=== PATIENT | female | born 1940 | race Caucasian/White ===

== ENCOUNTER 2018-10-03 14:11 | Outpatient (REF) | payer OTHER, MEDICAID, SELFPAY ==
[2018-10-03 22:39] LABS: ALT 26 U/L (12-78); AST 19 U/L (15-37); Albumin 3.7 g/dL (3.4-5.0); Alkaline Phosphatase 74 U/L (46-116); Anion Gap 11.6 mmol/L (3-11); BUN 18 mg/dL (7-18); Bilirubin, Total 0.6 mg/dL (0.2-1.0); CO2 28.4 mmol/L (21.0-32.0); Calcium 9.2 mg/dL (8.5-10.1); Chloride 103 mmol/L (98-107); Glucose 110 mg/dL (70-100); Sodium 143 mmol/L (136-145); Total Protein 6.9 g/dL (6.4-8.2)
== END 2018-10-03 14:31 ==
LOC: NCHCN 14:11
PROVIDERS: PCP Family Medicine; Visit Provider Family Medicine
DX: E11.9 Type 2 diabetes mellitus without complications (principal); I10 Essential (primary) hypertension; E78.5 Hyperlipidemia, unspecified; I70.0 Atherosclerosis of aorta; E66.01 Morbid (severe) obesity due to excess calories
CPT/HCPCS: 80053

== ENCOUNTER 2019-08-21 15:08 | Outpatient (REF) | payer OTHER, MEDICAID, SELFPAY ==
[2019-08-21 20:57] LABS: Anion Gap 7.1 mmol/L (3-11); BUN 14 mg/dL (7-18); CO2 31.9 mmol/L (21.0-32.0); CREATININE 0.78 mg/dL (0.55-1.02); Calcium 9.4 mg/dL (8.5-10.1); Chloride 99 mmol/L (98-107); Glucose 176 mg/dL (74-106); Potassium 3.4 mmol/L (3.5-5.1); Sodium 138 mmol/L (136-145)
== END 2019-08-21 15:28 ==
LOC: NCHCN 15:08
PROVIDERS: PCP Family Medicine; Visit Provider Family Medicine
DX: I10 Essential (primary) hypertension (principal); E78.5 Hyperlipidemia, unspecified
CPT/HCPCS: 80048

== ENCOUNTER 2020-03-21 18:27 | Outpatient (REF) | payer OTHER, MEDICAID, SELFPAY | END 2020-03-21 18:47 | LOC: NCHCN 18:27 | PROVIDERS: PCP Family Medicine; Visit Provider Registered Nurse | DX: R31.9 Hematuria, unspecified (principal) | CPT/HCPCS: 87086 ==

== ENCOUNTER 2020-05-14 19:43 | Outpatient (REF) | payer OTHER, MEDICAID, SELFPAY ==
[2020-05-14 22:21] LABS: Anion Gap 9.8 mmol/L (3-11); BUN 15 mg/dL (7-18); CO2 30.2 mmol/L (21.0-32.0); CREATININE 0.7 mg/dL (0.55-1.02); Calcium 9.8 mg/dL (8.5-10.1); Chloride 99 mmol/L (98-107); Glucose 123 mg/dL (74-106); Potassium 3.4 mmol/L (3.5-5.1); Sodium 139 mmol/L (136-145)
== END 2020-05-14 19:44 | disposition home or self-care (01) ==
LOC: NCHCN 19:43
PROVIDERS: PCP Family Medicine; Visit Provider Family Medicine
DX: I10 Essential (primary) hypertension (principal)
CPT/HCPCS: 80048

== ENCOUNTER 2020-08-19 15:13 | Outpatient (REF) | payer OTHER, MEDICAID, SELFPAY ==
[2020-08-19 14:31] LABS: ALT 15 U/L (14-59); AST 14 U/L (15-37); Albumin 3.6 g/dL (3.4-5.0); Alkaline Phosphatase 76 U/L (46-116); Bilirubin, Total 0.7 mg/dL (0.2-1.0); Calculated LDL 115 mg/dL (<100); Cholesterol 185 mg/dL (<200); HDL Cholesterol 54 mg/dL (40-60); Total Protein 6.9 g/dL (6.4-8.2); Triglyceride 83 mg/dL (<150)
[2020-08-19 14:44] LABS: Bilirubin, Direct 0.2 mg/dL (0.0-0.2)
[2020-08-19 15:23] LABS: Hemoglobin A1C 6.1 % (<5.7)
== END 2020-08-19 15:14 | disposition home or self-care (01) ==
LOC: NCHCN 15:13
PROVIDERS: PCP Family Medicine; Visit Provider Family Medicine
DX: E11.49 Type 2 diabetes mellitus with other diabetic neurological complication (principal); E78.5 Hyperlipidemia, unspecified; E66.01 Morbid (severe) obesity due to excess calories; I10 Essential (primary) hypertension
CPT/HCPCS: 80061; 80076; 83036

== ENCOUNTER 2021-02-06 20:58 | Outpatient (REF) | payer MEDICARE, MEDICAID, SELFPAY ==
[2021-02-06 21:31] LABS: COMMENT (LAB VIEW ONLY) 47.36 mg/dL; Microalb ug/mg Crea 13.7 ug/mg Cr
== END 2021-02-06 20:59 | disposition home or self-care (01) ==
LOC: NCHCN 20:58
PROVIDERS: PCP Family Medicine; Visit Provider Family Medicine
DX: E11.49 Type 2 diabetes mellitus with other diabetic neurological complication (principal); E66.01 Morbid (severe) obesity due to excess calories
CPT/HCPCS: 82043; 82570

== ENCOUNTER 2021-09-04 16:31 | Outpatient (REF) | payer MEDICARE, MEDICAID, SELFPAY ==
[2021-09-04 14:24] LABS: ALT 14 U/L (14-59); AST 11 U/L (15-37); Albumin 3.8 g/dL (3.4-5.0); Alkaline Phosphatase 85 U/L (46-116); BUN 14 mg/dL (7-18); Bilirubin, Total 0.9 mg/dL (0.2-1.0); CREATININE 0.7 mg/dL (0.55-1.02); Calcium 9.1 mg/dL (8.5-10.1); Calculated LDL 121 mg/dL (<100); Chloride 101 mmol/L (98-107); Cholesterol 189 mg/dL (<200); Glucose 120 mg/dL (74-106); HDL Cholesterol 58 mg/dL (40-60); Potassium 3.9 mmol/L (3.5-5.1); Sodium 141 mmol/L (136-145); Total Protein 6.9 g/dL (6.4-8.2); Triglyceride 51 mg/dL (<150)
== END 2021-09-04 16:32 | disposition home or self-care (01) ==
LOC: NCHCN 16:31
PROVIDERS: PCP Family Medicine; Visit Provider Family Medicine
DX: E11.49 Type 2 diabetes mellitus with other diabetic neurological complication (principal); I10 Essential (primary) hypertension; E66.01 Morbid (severe) obesity due to excess calories; E78.5 Hyperlipidemia, unspecified
CPT/HCPCS: 80053; 80061; 83036

== ENCOUNTER 2021-10-23 13:24 | Outpatient (REF) | payer MEDICARE, MEDICAID, SELFPAY ==
--- NOTE | 2021-10-23 11:30 | SKI_PTH ---
PATIENT: Remedios Toro LOC: [facility] U#:[id number] AGE/SX: 81/F ROOM: RE10/23/[address]: Betzaida Pina : 1940 BED: DIS: 10/23/2021 SPEC #: [id number] RECD: 10/26/21 12:28 STATUS: TONE RERaul #: [id number] HIEU: 10/23/21 11:[address]: Betzaida Pina DEPT: Surgical Specimen RECD BY: Vale Jasso Tissues: 1 - SKIN BIOPSY(SHAVE/PUNCH) Procedures: SKIN LEVEL 4 Comments: [id number]
== END 2021-10-23 13:25 | disposition home or self-care (01) ==
LOC: NCHCN 13:24
PROVIDERS: PCP Family Medicine; Visit Provider Family Medicine
DX: C44.722 Squamous cell carcinoma of skin of right lower limb, including hip (principal)
CPT/HCPCS: 88305

== ENCOUNTER 2022-09-14 13:14 | Outpatient (REF) | payer MEDICARE, MEDICAID, SELFPAY ==
[2022-09-14 21:56] LABS: ALT 15 U/L (14-59); AST 13 U/L (15-37); Albumin 3.8 g/dL (3.4-5.0); Alkaline Phosphatase 75 U/L (46-116); Anion Gap 7.8 mmol/L (3-11); BUN 12 mg/dL (7-18); Bilirubin, Total 0.7 mg/dL (0.2-1.0); CO2 31.2 mmol/L (21.0-32.0); CREATININE 0.6 mg/dL (0.55-1.02); Calcium 9.4 mg/dL (8.5-10.1); Calculated LDL 131 mg/dL (<100); Chloride 101 mmol/L (98-107); Cholesterol 200 mg/dL (<200); Estimated GFR 89.56 (mL/min/1.73m2); Glucose 111 mg/dL (74-106); HDL Cholesterol 58 mg/dL (40-60); Potassium 3.6 mmol/L (3.5-5.1); Sodium 140 mmol/L (136-145); Total Protein 7.6 g/dL (6.4-8.2); Triglyceride 57 mg/dL (<150)
[2022-09-14 22:54] LABS: COMMENT (LAB VIEW ONLY) 35.14 mg/dL; Microalb ug/mg Crea 9.7 ug/mg Cr
== END 2022-09-14 13:15 | disposition home or self-care (01) ==
LOC: NCHCN 13:14
PROVIDERS: PCP Family Medicine; Visit Provider Family Medicine
DX: E11.49 Type 2 diabetes mellitus with other diabetic neurological complication (principal); E78.5 Hyperlipidemia, unspecified; I10 Essential (primary) hypertension
CPT/HCPCS: 80053; 80061; 82043; 82570

== ENCOUNTER 2023-02-07 13:42 | Outpatient (REF) | payer MEDICARE, MEDICAID, SELFPAY ==
[2023-02-07 15:42] LABS: Anion Gap 6.9 mmol/L (3-11); BUN 17 mg/dL (7-18); CO2 32.1 mmol/L (21.0-32.0); CREATININE 0.7 mg/dL (0.55-1.02); Calcium 9.4 mg/dL (8.5-10.1); Chloride 98 mmol/L (98-107); Estimated GFR 85.76 (mL/min/1.73m2); Glucose 132 mg/dL (74-106); Potassium 3.2 mmol/L (3.5-5.1); Sodium 137 mmol/L (136-145)
== END 2023-02-07 13:43 | disposition home or self-care (01) ==
LOC: NCHCN 13:42
PROVIDERS: PCP Family Medicine; Visit Provider Family Medicine
DX: I10 Essential (primary) hypertension (principal)
CPT/HCPCS: 80048

== ENCOUNTER 2023-02-17 14:13 | Outpatient (REF) | payer MEDICARE, MEDICAID, SELFPAY ==
[2023-02-17 14:48] LABS: Anion Gap 5.8 mmol/L (3-11); BUN 14 mg/dL (7-18); CO2 31.2 mmol/L (21.0-32.0); CREATININE 0.7 mg/dL (0.55-1.02); Calcium 9.2 mg/dL (8.5-10.1); Chloride 101 mmol/L (98-107); Estimated GFR 85.76 (mL/min/1.73m2); Glucose 122 mg/dL (74-106); Potassium 3.9 mmol/L (3.5-5.1); Sodium 138 mmol/L (136-145)
== END 2023-02-17 14:14 | disposition home or self-care (01) ==
LOC: LBN 14:13
PROVIDERS: PCP Family Medicine; Visit Provider Family Medicine
DX: I11.0 Hypertensive heart disease with heart failure (principal); I48.91 Unspecified atrial fibrillation; E11.9 Type 2 diabetes mellitus without complications
CPT/HCPCS: 80048

== ENCOUNTER 2023-03-24 22:33 | Outpatient (REF) | payer MEDICARE, MEDICAID, SELFPAY ==
--- OUTSIDE RECORDS SUMMARY | 2023-03-24 22:37 | XMS_ITS | CCD ---
Author Name Unknown Address [address] [place] [address] [phone] Organization Unknown Address [address] [place] [address] [phone] Care Team Providers Care Glacing Machine Tender Name Role Phone ESTRADA FAULKNER Attending Physician [phone] ESTRADA FAULKNER Rounding (Secondary) Physician [phone] Vital Signs Unknown or Not Available. Allergies Allergy Code Allergy Type Reaction Status CODEINE 2670 Drug allergy flushing, HOT Active SULFA (sulfonamide) 0 Drug allergy MY FEET TURNE D COLD Active Procedures Unknown or Not Available. History of Immunizations Unknown or Not Available. Problems Problem Code Start Date Resolved Date Status Acute CHF 10802368 Active A-fib with RVR [id number] Activ e Swelling of bilateral lower extremities 039834717 Active History of small bowel obstruction 785857782921607469 01/29/2023 Resolved Diverticulitis 299085876 01/29/2023 Resolved HLD 79907916 01/29/2023 Resolved HTN 89348836 01/29/2023 Resolved BMI 40+ severely obese 840157433 01/29/2023 Re solved Mild persistent asthma 712066177 01/29/2023 Re solved Peripheral edema 665678784 01/29/2023 Resolved Osteoarthritis 051663067 01/29/2023 Resolved T2DM 06111286 01/29/2023 Resolved Squamous cell carcinoma of skin 017829736 01/03 Resolved Squamous cell carcinoma of skin 679080439 01/03 Resolved Results Unknown or Not Available. Active Medications Medication Code Dose Units Frequency Route Modificatio n Start Date/Time Valsartan 80 MG Oral Tablet 477331 1 TABLET DAILY ORAL 02/01 11:00 Prescription Detail TAKE 1 TABLET ORAL DAILY Metoprolol Succinate 50MG Oral Tablet, Extended Release 950911 3 TABLET DAILY ORAL 02/01/2023 10:59 Prescription Detail TAKE 3 TABLET ORAL DAILY Albuterol Sulfate HFA 0.09MG/1Actuat ion Inhalation Suspension 3217346 2 PUFF NEEDED INHALATION 02/02/20 10:58 Prescription Detail 2 PUFF INHALATION NEEDED Klor-Con M20 20MEQ Oral Tablet, Extended Release 9710830 20 MEQ DAILY WITH FOOD ORAL 02/01/2023 10:58 Prescription Detail TAKE 20 MEQ ORAL DAILY WITH FOOD metFORMIN HCl 500MG Oral Tablet 877483 500 MILLIGRAMS DAILY ORAL 10:58 Prescription Detail TAKE 500 MILLIGRAMS ORAL DAILY Furosemide 40MG Oral Tablet 451160 40 MILLIGRAMS BID (0800 AND 1459) ORAL 02/01/2023 10:57 Prescription Detail TAKE 40 MILLIGRAMS ORAL BID (0800 AND 14 59) Eliquis 5MG Oral Tablet 1387399 5 MILLIGRAMS TWICE A DAY ORAL 02/01/2023 10:56 Prescription Detail TAKE 5 MILLIGRAMS ORAL TWICE A DAY Medications Administered During Visit Unknown or Not Available. Encounters Encounter Diagnosis Diagnosis Code Start Date Removal of dressing 522521097 01/05/2022 Social History Smoking Status Code Start Date End Date Never smoker [id number] Patient Decision Aids Unknown or Not Available. Discharge Instructions You were admitted to [facility] on 01/05/2022 08:30 with a principal diagnosis of Encounter for change or removal of surgical wound dressing You were discharged from [facility] on 01/05/2022 00:00 Should you have any questions prior to discharge, please contact a member of your healthcare team. If you have left the hospital and have any questions, please contact your primary care physician. Chief Complaint and Reason For Visit Unknown or Not Available. Function Status Unknown or Not Available. Plan of Care Unknown or Not Available. Referral/Transition of Care Unknown or Not Available.
--- OUTSIDE RECORDS SUMMARY | 2023-03-24 22:37 | XMS_ITS | CCD ---
Author Name Unknown Address [address] [place] [address] [phone] Organization Unknown Address [address] [place] [address] [phone] Care Team Providers Care Global Upstream Marketing Manager Name Role Phone ESTRADA FAULKNER Attending Physician [phone] ESTRADA FAULKNER Rounding (Secondary) Physician [phone] Vital Signs Unknown or Not Available. Allergies Allergy Code Allergy Type Reaction Status CODEINE 2670 Drug allergy flushing, HOT Active SULFA (sulfonamide) 0 Drug allergy MY FEET TURNE D COLD Active Procedures Unknown or Not Available. History of Immunizations Unknown or Not Available. Problems Problem Code Start Date Resolved Date Status Acute CHF 52932928 Active A-fib with RVR 283614390316226 Activ e Swelling of bilateral lower extremities 762986209 Active History of small bowel obstruction 168325511450521074 01/29/2023 Resolved Diverticulitis 525910269 01/29/2023 Resolved HLD 21785381 01/29/2023 Resolved HTN 90169265 01/29/2023 Resolved BMI 40+ severely obese 570677231 01/29/2023 Re solved Mild persistent asthma 099372599 01/29/2023 Re solved Peripheral edema 178502327 01/29/2023 Resolved Osteoarthritis 493422777 01/29/2023 Resolved T2DM 32990838 01/29/2023 Resolved Squamous cell carcinoma of skin 284782212 01/03 Resolved Squamous cell carcinoma of skin 805311658 01/03 Resolved Results Unknown or Not Available. Active Medications Medication Code Dose Units Frequency Route Modificatio n Start Date/Time Valsartan 80 MG Oral Tablet 514479 1 TABLET DAILY ORAL 02/01 11:00 Prescription Detail TAKE 1 TABLET ORAL DAILY Metoprolol Succinate 50MG Oral Tablet, Extended Release 084493 3 TABLET DAILY ORAL 02/01/2023 10:59 Prescription Detail TAKE 3 TABLET ORAL DAILY Albuterol Sulfate HFA 0.09MG/1Actuat ion Inhalation Suspension 2897043 2 PUFF NEEDED INHALATION 02/02/20 10:58 Prescription Detail 2 PUFF INHALATION NEEDED Klor-Con M20 20MEQ Oral Tablet, Extended Release 5857612 20 MEQ DAILY WITH FOOD ORAL 02/01/2023 10:58 Prescription Detail TAKE 20 MEQ ORAL DAILY WITH FOOD metFORMIN HCl 500MG Oral Tablet 870009 500 MILLIGRAMS DAILY ORAL 10:58 Prescription Detail TAKE 500 MILLIGRAMS ORAL DAILY Furosemide 40MG Oral Tablet 921049 40 MILLIGRAMS BID (0800 AND 1459) ORAL 02/01/2023 10:57 Prescription Detail TAKE 40 MILLIGRAMS ORAL BID (0800 AND 14 59) Eliquis 5MG Oral Tablet 5185672 5 MILLIGRAMS TWICE A DAY ORAL 02/01/2023 10:56 Prescription Detail TAKE 5 MILLIGRAMS ORAL TWICE A DAY Medications Administered During Visit Unknown or Not Available. Encounters Encounter Diagnosis Diagnosis Code Start Date Encounter for follow-up exam ination after completed treatment for malignant neoplasm Z08 03/02/2022 Social History Smoking Status Code Start Date End Date Never smoker [id number] Patient Decision Aids Unknown or Not Available. Discharge Instructions You were admitted to [facility] on 03/02/2022 11:49 with a principal diagnosis of Encounter for follow-up examination after completed treatment for malignant neoplasm You were discharged from [facility] on 03/02/2022 00:00 Should you have any questions prior [...]
--- OUTSIDE RECORDS SUMMARY | 2023-03-24 22:37 | XMS_ITS | CCD ---
Author Name Unknown Address [address] [place] [address] [phone] Organization Unknown Address [address] [place] [address] [phone] Care Team Providers Care Marketing Business Analyst Name Role Phone ESTRADA FAULKNER Attending Physician [phone] ESTRADA FAULKNER Rounding (Secondary) Physician [phone] Vital Signs Unknown or Not Available. Allergies Allergy Code Allergy Type Reaction Status CODEINE 2670 Drug allergy flushing, HOT Active SULFA (sulfonamide) 0 Drug allergy MY FEET TURNE D COLD Active Procedures Unknown or Not Available. History of Immunizations Unknown or Not Available. Problems Problem Code Start Date Resolved Date Status Acute CHF 96164310 Active A-fib with RVR 174862073872331 Activ e Swelling of bilateral lower extremities 700491945 Active History of small bowel obstruction 116603512192658417 01/29/2023 Resolved Diverticulitis 237884072 01/29/2023 Resolved HLD 16434275 01/29/2023 Resolved HTN 00095465 01/29/2023 Resolved BMI 40+ severely obese 318036912 01/29/2023 Re solved Mild persistent asthma 200967231 01/29/2023 Re solved Peripheral edema 637898257 01/29/2023 Resolved Osteoarthritis 904551440 01/29/2023 Resolved T2DM 62901625 01/29/2023 Resolved Squamous cell carcinoma of skin 373850433 01/03 Resolved Squamous cell carcinoma of skin 772834795 01/03 Resolved Results Unknown or Not Available. Active Medications Medication Code Dose Units Frequency Route Modificatio n Start Date/Time Valsartan 80 MG Oral Tablet 965853 1 TABLET DAILY ORAL 02/01 11:00 Prescription Detail TAKE 1 TABLET ORAL DAILY Metoprolol Succinate 50MG Oral Tablet, Extended Release 292963 3 TABLET DAILY ORAL 02/01/2023 10:59 Prescription Detail TAKE 3 TABLET ORAL DAILY Albuterol Sulfate HFA 0.09MG/1Actuat ion Inhalation Suspension 2922137 2 PUFF NEEDED INHALATION 02/02/20 10:58 Prescription Detail 2 PUFF INHALATION NEEDED Klor-Con M20 20MEQ Oral Tablet, Extended Release 0405453 20 MEQ DAILY WITH FOOD ORAL 02/01/2023 10:58 Prescription Detail TAKE 20 MEQ ORAL DAILY WITH FOOD metFORMIN HCl 500MG Oral Tablet 862392 500 MILLIGRAMS DAILY ORAL 10:58 Prescription Detail TAKE 500 MILLIGRAMS ORAL DAILY Furosemide 40MG Oral Tablet 420233 40 MILLIGRAMS BID (0800 AND 1459) ORAL 02/01/2023 10:57 Prescription Detail TAKE 40 MILLIGRAMS ORAL BID (0800 AND 14 59) Eliquis 5MG Oral Tablet 1398108 5 MILLIGRAMS TWICE A DAY ORAL 02/01/2023 10:56 Prescription Detail TAKE 5 MILLIGRAMS ORAL TWICE A DAY Medications Administered During Visit Unknown or Not Available. Encounters Encounter Diagnosis Diagnosis Code Start Date Removal of dressing 358024616 01/19/2022 Social History Smoking Status Code Start Date End Date Never smoker 561645428 Patient Decision Aids Unknown or Not Available. Discharge Instructions You were admitted to [facility] on 01/19/2022 10:20 with a principal diagnosis of Encounter for change or removal of surgical wound dressing You were discharged from [facility] on 01/19/2022 00:00 Should you have any questions prior [...]
--- OUTSIDE RECORDS SUMMARY | 2023-03-24 22:37 | XMS_ITS | CCD ---
Author Name Unknown Address [address] [place] [address] [id number] Organization Unknown Address [address] [place] [address] [phone] Care Team Providers Care Animal Shelter Manager Name Role Phone ESTRADA FAULKNER Attending Physician [phone] ESTRADA FAULKNER Rounding (Secondary) Physician [phone] Vital Signs Unknown or Not Available. Allergies Allergy Code Allergy Type Reaction Status CODEINE 2670 Drug allergy flushing, HOT Active SULFA (sulfonamide) 0 Drug allergy MY FEET TURNE D COLD Active Procedures Unknown or Not Available. History of Immunizations Unknown or Not Available. Problems Problem Code Start Date Resolved Date Status Acute CHF 92506697 Active A-fib with RVR 359537455690546 Activ e Swelling of bilateral lower extremities 712179290 Active History of small bowel obstruction 432921068596737604 01/29/2023 Resolved Diverticulitis 536544678 01/29/2023 Resolved HLD 02787636 01/29/2023 Resolved HTN 99289461 01/29/2023 Resolved BMI 40+ severely obese 252536004 01/29/2023 Re solved Mild persistent asthma 653550028 01/29/2023 Re solved Peripheral edema 589085494 01/29/2023 Resolved Osteoarthritis 446881094 01/29/2023 Resolved T2DM 84435606 01/29/2023 Resolved Squamous cell carcinoma of skin 410080667 01/03 Resolved Squamous cell carcinoma of skin 238506659 01/03 Resolved Results Unknown or Not Available. Active Medications Medication Code Dose Units Frequency Route Modificatio n Start Date/Time Valsartan 80 MG Oral Tablet 237298 1 TABLET DAILY ORAL 02/01 11:00 Prescription Detail TAKE 1 TABLET ORAL DAILY Metoprolol Succinate 50MG Oral Tablet, Extended Release 340067 3 TABLET DAILY ORAL 02/01/2023 10:59 Prescription Detail TAKE 3 TABLET ORAL DAILY Albuterol Sulfate HFA 0.09MG/1Actuat ion Inhalation Suspension 2868051 2 PUFF NEEDED INHALATION 02/02/20 10:58 Prescription Detail 2 PUFF INHALATION NEEDED Klor-Con M20 20MEQ Oral Tablet, Extended Release 4421978 20 MEQ DAILY WITH FOOD ORAL 02/01/2023 10:58 Prescription Detail TAKE 20 MEQ ORAL DAILY WITH FOOD metFORMIN HCl 500MG Oral Tablet 423136 500 MILLIGRAMS DAILY ORAL 10:58 Prescription Detail TAKE 500 MILLIGRAMS ORAL DAILY Furosemide 40MG Oral Tablet 349185 40 MILLIGRAMS BID (0800 AND 1459) ORAL 02/01/2023 10:57 Prescription Detail TAKE 40 MILLIGRAMS ORAL BID (0800 AND 14 59) Eliquis 5MG Oral Tablet 7624888 5 MILLIGRAMS TWICE A DAY ORAL 02/01/2023 10:56 Prescription Detail TAKE 5 MILLIGRAMS ORAL TWICE A DAY Medications Administered During Visit Unknown or Not Available. Encounters Encounter Diagnosis Diagnosis Code Start Date Removal of dressing 304866432 02/09/2022 Social History Smoking Status Code Start Date End Date Never smoker 458574346 Patient Decision Aids Unknown or Not Available. Discharge Instructions You were admitted to [facility] on 02/09/2022 10:59 with a principal diagnosis of Encounter for change or removal of surgical wound dressing You were discharged from [facility] on 02/09/2022 00:00 Should you have any questions prior [...]
--- OUTSIDE RECORDS SUMMARY | 2023-03-24 22:37 | XMS_ITS | CCD ---
Author Name Unknown Address [address] [place] [address] [phone] Organization Unknown Address [address] [place] [address] [phone] Care Team Providers Care Relay Mechanic Name Role Phone ESTRADA FAULKNER Attending Physician [phone] ESTRADA FAULKNER Rounding (Secondary) Physician [phone] Vital Signs Unknown or Not Available. Allergies Allergy Code Allergy Type Reaction Status CODEINE 2670 Drug allergy flushing, HOT Active SULFA (sulfonamide) 0 Drug allergy MY FEET TURNE D COLD Active Procedures Unknown or Not Available. History of Immunizations Unknown or Not Available. Problems Problem Code Start Date Resolved Date Status Acute CHF 17432338 Active A-fib with RVR 043575923242761 Activ e Swelling of bilateral lower extremities 602950533 Active History of small bowel obstruction 076824335435223035 01/29/2023 Resolved Diverticulitis 139939973 01/29/2023 Resolved HLD 40702476 01/29/2023 Resolved HTN 47463678 01/29/2023 Resolved BMI 40+ severely obese 620261789 01/29/2023 Re solved Mild persistent asthma 377113842 01/29/2023 Re solved Peripheral edema 862882033 01/29/2023 Resolved Osteoarthritis 774046911 01/29/2023 Resolved T2DM 53205437 01/29/2023 Resolved Squamous cell carcinoma of skin 731623487 01/03 Resolved Squamous cell carcinoma of skin 169461738 01/03 Resolved Results Unknown or Not Available. Active Medications Medication Code Dose Units Frequency Route Modificatio n Start Date/Time Valsartan 80 MG Oral Tablet 067071 1 TABLET DAILY ORAL 02/01 11:00 Prescription Detail TAKE 1 TABLET ORAL DAILY Metoprolol Succinate 50MG Oral Tablet, Extended Release 207496 3 TABLET DAILY ORAL 02/01/2023 10:59 Prescription Detail TAKE 3 TABLET ORAL DAILY Albuterol Sulfate HFA 0.09MG/1Actuat ion Inhalation Suspension 2423813 2 PUFF NEEDED INHALATION 02/02/20 10:58 Prescription Detail 2 PUFF INHALATION NEEDED Klor-Con M20 20MEQ Oral Tablet, Extended Release 0153952 20 MEQ DAILY WITH FOOD ORAL 02/01/2023 10:58 Prescription Detail TAKE 20 MEQ ORAL DAILY WITH FOOD metFORMIN HCl 500MG Oral Tablet 034880 500 MILLIGRAMS DAILY ORAL 10:58 Prescription Detail TAKE 500 MILLIGRAMS ORAL DAILY Furosemide 40MG Oral Tablet 713347 40 MILLIGRAMS BID (0800 AND 1459) ORAL 02/01/2023 10:57 Prescription Detail TAKE 40 MILLIGRAMS ORAL BID (0800 AND 14 59) Eliquis 5MG Oral Tablet 4776262 5 MILLIGRAMS TWICE A DAY ORAL 02/01/2023 10:56 Prescription Detail TAKE 5 MILLIGRAMS ORAL TWICE A DAY Medications Administered During Visit Unknown or Not Available. Encounters Encounter Diagnosis Diagnosis Code Start Date Encounter for change or removal of surgical woun d dressing Z4801 12/16/2021 Social History Smoking Status Code Start Date End Date Never smoker 138996439 Patient Decision Aids Unknown or Not Available. Discharge Instructions You were admitted to [facility] on 12/16/2021 16:53 with a principal diagnosis of Encounter for change or removal of surgical wound dressing You were discharged from [facility] on 12/16/2021 00:00 Should you have any questions prior [...]
--- OUTSIDE RECORDS SUMMARY | 2023-03-24 22:37 | XMS_ITS | CCD ---
Author Name Unknown Address [address] [place] [address] [phone] Organization Unknown Address [address] [place] [address] [phone] Care Team Providers Care Fuel Management Handler Name Role Phone ESTRADA FAULKNER Attending Physician [phone] ESTRADA FAULKNER Rounding (Secondary) Physician [phone] Vital Signs Unknown or Not Available. Allergies Allergy Code Allergy Type Reaction Status CODEINE 2670 Drug allergy flushing, HOT Active SULFA (sulfonamide) 0 Drug allergy MY FEET TURNE D COLD Active Procedures Unknown or Not Available. History of Immunizations Unknown or Not Available. Problems Problem Code Start Date Resolved Date Status Acute CHF 46330869 Active A-fib with RVR 032084006235053 Activ e Swelling of bilateral lower extremities 801955428 Active History of small bowel obstruction 766213708779130681 01/29/2023 Resolved Diverticulitis 301693342 01/29/2023 Resolved HLD 67857799 01/29/2023 Resolved HTN 51565417 01/29/2023 Resolved BMI 40+ severely obese 700772577 01/29/2023 Re solved Mild persistent asthma 838889232 01/29/2023 Re solved Peripheral edema 986799860 01/29/2023 Resolved Osteoarthritis 193693331 01/29/2023 Resolved T2DM 91612491 01/29/2023 Resolved Squamous cell carcinoma of skin 053687639 01/03 Resolved Squamous cell carcinoma of skin 705220771 01/03 Resolved Results Unknown or Not Available. Active Medications Medication Code Dose Units Frequency Route Modificatio n Start Date/Time Valsartan 80 MG Oral Tablet 638974 1 TABLET DAILY ORAL 02/01 11:00 Prescription Detail TAKE 1 TABLET ORAL DAILY Metoprolol Succinate 50MG Oral Tablet, Extended Release 551008 3 TABLET DAILY ORAL 02/01/2023 10:59 Prescription Detail TAKE 3 TABLET ORAL DAILY Albuterol Sulfate HFA 0.09MG/1Actuat ion Inhalation Suspension 2415310 2 PUFF NEEDED INHALATION 02/02/20 10:58 Prescription Detail 2 PUFF INHALATION NEEDED Klor-Con M20 20MEQ Oral Tablet, Extended Release 5005919 20 MEQ DAILY WITH FOOD ORAL 02/01/2023 10:58 Prescription Detail TAKE 20 MEQ ORAL DAILY WITH FOOD metFORMIN HCl 500MG Oral Tablet 172123 500 MILLIGRAMS DAILY ORAL 10:58 Prescription Detail TAKE 500 MILLIGRAMS ORAL DAILY Furosemide 40MG Oral Tablet 986666 40 MILLIGRAMS BID (0800 AND 1459) ORAL 02/01/2023 10:57 Prescription Detail TAKE 40 MILLIGRAMS ORAL BID (0800 AND 14 59) Eliquis 5MG Oral Tablet 4461524 5 MILLIGRAMS TWICE A DAY ORAL 02/01/2023 10:56 Prescription Detail TAKE 5 MILLIGRAMS ORAL TWICE A DAY Medications Administered During Visit Unknown or Not Available. Encounters Encounter Diagnosis Diagnosis Code Start Date Encounter for change or removal of surgical woun d dressing Z4801 12/22/2021 Social History Smoking Status Code Start Date End Date Never smoker 645994409 Patient Decision Aids Unknown or Not Available. Discharge Instructions You were admitted to [facility] on 12/22/2021 14:44 with a principal diagnosis of Encounter for change or removal of surgical wound dressing You were discharged from [facility] on 12/22/2021 00:00 Should you have any questions prior [...]
--- OUTSIDE RECORDS SUMMARY | 2023-03-24 22:38 | XMS_ITS | CCD ---
Author Name Unknown Address [address] [place] [address] [phone] Organization Unknown Address [address] [place] [address] [phone] Care Team Providers Care Hip Hop Artist Name Role Phone ESTRADA FAULKNER Attending Physician [phone] ESTRADA FAULKNER Rounding (Secondary) Physician [phone] Vital Signs Unknown or Not Available. Allergies Allergy Code Allergy Type Reaction Status CODEINE 2670 Drug allergy flushing, HOT Active SULFA (sulfonamide) 0 Drug allergy MY FEET TURNE D COLD Active Procedures Unknown or Not Available. History of Immunizations Unknown or Not Available. Problems Problem Code Start Date Resolved Date Status Acute CHF 76343234 Active A-fib with RVR 995109214974538 Activ e Swelling of bilateral lower extremities 252795401 Active History of small bowel obstruction 525832633914224876 01/29/2023 Resolved Diverticulitis 059927903 01/29/2023 Resolved HLD 22149723 01/29/2023 Resolved HTN 41750453 01/29/2023 Resolved BMI 40+ severely obese 177812962 01/29/2023 Re solved Mild persistent asthma 175861805 01/29/2023 Re solved Peripheral edema 621963153 01/29/2023 Resolved Osteoarthritis 071673121 01/29/2023 Resolved T2DM 85197348 01/29/2023 Resolved Squamous cell carcinoma of skin 742437727 01/03 Resolved Squamous cell carcinoma of skin 474025795 01/03 Resolved Results Unknown or Not Available. Active Medications Medication Code Dose Units Frequency Route Modificatio n Start Date/Time Valsartan 80 MG Oral Tablet 893236 1 TABLET DAILY ORAL 02/01 11:00 Prescription Detail TAKE 1 TABLET ORAL DAILY Metoprolol Succinate 50MG Oral Tablet, Extended Release 950261 3 TABLET DAILY ORAL 02/01/2023 10:59 Prescription Detail TAKE 3 TABLET ORAL DAILY Albuterol Sulfate HFA 0.09MG/1Actuat ion Inhalation Suspension 8492869 2 PUFF NEEDED INHALATION 02/02/20 10:58 Prescription Detail 2 PUFF INHALATION NEEDED Klor-Con M20 20MEQ Oral Tablet, Extended Release 3591360 20 MEQ DAILY WITH FOOD ORAL 02/01/2023 10:58 Prescription Detail TAKE 20 MEQ ORAL DAILY WITH FOOD metFORMIN HCl 500MG Oral Tablet 664287 500 MILLIGRAMS DAILY ORAL 10:58 Prescription Detail TAKE 500 MILLIGRAMS ORAL DAILY Furosemide 40MG Oral Tablet 924483 40 MILLIGRAMS BID (0800 AND 1459) ORAL 02/01/2023 10:57 Prescription Detail TAKE 40 MILLIGRAMS ORAL BID (0800 AND 14 59) Eliquis 5MG Oral Tablet 4737070 5 MILLIGRAMS TWICE A DAY ORAL 02/01/2023 10:56 Prescription Detail TAKE 5 MILLIGRAMS ORAL TWICE A DAY Medications Administered During Visit Unknown or Not Available. Encounters Encounter Diagnosis Diagnosis Code Start Date Squamous cell carcinoma of s kin of right lower limb, including hip [id number] 11/26/2021 Social History Smoking Status Code Start Date End Date Never smoker [id number] Patient Decision Aids Unknown or Not Available. 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
--- OUTSIDE RECORDS SUMMARY | 2023-03-24 22:38 | XMS_ITS | CCD ---
Author Name Unknown Address [address] [place] [address] [phone] Organization Unknown Address [address] [place] [address] [phone] Care Team Providers Care Missile Pad Mechanic Name Role Phone ZI WADSWORTH Attending Physician [phone] Vital Signs Unknown or Not Available. Allergies Allergy Code Allergy Type Reaction Status CODEINE 2670 Drug allergy flushing, HOT Active SULFA (sulfonamide) 0 Drug allergy MY FEET TURNE D COLD Active Procedures Unknown or Not Available. History of Immunizations Unknown or Not Available. Problems Problem Code Start Date Resolved Date Status Acute CHF 90424841 Active A-fib with RVR [id number] Activ e Swelling of bilateral lower extremities 155967640 Active History of small bowel obstruction 055509350078064434 01/29/2023 Resolved Diverticulitis 074458095 01/29/2023 Resolved HLD 28214573 01/29/2023 Resolved HTN 90469138 01/29/2023 Resolved BMI 40+ severely obese 064365152 01/29/2023 Re solved Mild persistent asthma 377620234 01/29/2023 Re solved Peripheral edema 413282212 01/29/2023 Resolved Osteoarthritis 481195788 01/29/2023 Resolved T2DM 97193470 01/29/2023 Resolved Squamous cell carcinoma of skin 481833920 01/03 Resolved Squamous cell carcinoma of skin 427347729 01/03 Resolved Results Unknown or Not Available. Active Medications Medication Code Dose Units Frequency Route Modificatio n Start Date/Time Valsartan 80 MG Oral Tablet 498729 1 TABLET DAILY ORAL 02/01 11:00 Prescription Detail TAKE 1 TABLET ORAL DAILY Metoprolol Succinate 50MG Oral Tablet, Extended Release 021407 3 TABLET DAILY ORAL 02/01/2023 10:59 Prescription Detail TAKE 3 TABLET ORAL DAILY Albuterol Sulfate HFA 0.09MG/1Actuat ion Inhalation Suspension 2751223 2 PUFF NEEDED INHALATION 02/02/20 10:58 Prescription Detail 2 PUFF INHALATION NEEDED Klor-Con M20 20MEQ Oral Tablet, Extended Release 3916291 20 MEQ DAILY WITH FOOD ORAL 02/01/2023 10:58 Prescription Detail TAKE 20 MEQ ORAL DAILY WITH FOOD metFORMIN HCl 500MG Oral Tablet 219072 500 MILLIGRAMS DAILY ORAL 10:58 Prescription Detail TAKE 500 MILLIGRAMS ORAL DAILY Furosemide 40MG Oral Tablet 448101 40 MILLIGRAMS BID (0800 AND 1459) ORAL 02/01/2023 10:57 Prescription Detail TAKE 40 MILLIGRAMS ORAL BID (0800 AND 14 59) Eliquis 5MG Oral Tablet 3407757 5 MILLIGRAMS TWICE A DAY ORAL 02/01/2023 10:56 Prescription Detail TAKE 5 MILLIGRAMS ORAL TWICE A DAY Medications Administered During Visit Unknown or Not Available. Encounters Encounter Diagnosis Diagnosis Code Start Date Atrial fibrillation [id number] 01/29/2023 Social History Smoking Status Code Start Date End Date Never smoker [id number] Patient Decision Aids Unknown or Not Available. Discharge Instructions You were admitted to [facility] on 01/29/2023 14:24 with a principal diagnosis of Unspecified atrial fibrillation You were discharged from [facility] on 01/29/2023 17:10 Should you have any questions prior to [...]
--- OUTSIDE RECORDS SUMMARY | 2023-03-24 22:38 | XMS_ITS | CCD ---
Author Name Unknown Address [address], [place] [id number] Organization Unknown Address [address] [place], [place] [id number] Care Team Providers Care Gear Straightener Name Role Phone REJI ISSA Attending Physician [phone] SUNIL TAPIA Er Physician 4 [phone] GITA Perez Registered Nurse [phone] Vital Signs Vital Sign Value Unit Date/Time Recent/Initial ? BMI (Body Mass Index) 52.73 kg/m^2 01/29/2023 14: 49 Initial VS Weight Measured 270 lbs 01/29/2023 14:49 Ini tial VS Height 60 in 01/29/2023 14:49 Initial VS BSA (Body Surface Area) 2.28 m^2 01/29/2023 1 4:49 Initial VS BP Systolic 165 mmHg 01/29/2023 14:49 Initial VS BP Diastolic 99 mmHg 01/29/2023 14:49 Initia l VS Respiratory Rate 26 bpm 01/29/2023 14:49 In itial VS Heart Rate 91 bpm 01/29/2023 14:49 Initial VS O2 % BldC Oximetry 91 % 01/29/2023 14:49 Initial VS Body Temperature 35.7 degrees 01/29/2023 14:49 In itial VS Weight Measured 308.5 lbs 01/31/2023 06:16 Mos t Recent VS BP Systolic 127 mmHg 02/01/2023 11:34 Most Re cent VS BP Diastolic 85 mmHg 02/01/2023 11:34 Most R ecent VS Respiratory Rate 20 bpm 02/01/2023 11:[address] Recent VS Heart Rate 91 bpm 02/01/2023 11:34 Most Rec ent VS O2 % BldC Oximetry 97 % 02/01/2023 11:34 Most Recent VS Body Temperature 36.7 degrees 02/01/2023 11:[address] Recent VS Allergies Allergy Code Allergy Type Reaction Status CODEINE 2670 Drug allergy flushing, HOT Active SULFA (sulfonamide) 0 Drug allergy MY FEET TURNE D COLD Active Procedures Unknown or Not Available. History of Immunizations Unknown or Not Available. Problems Problem Code Start Date Resolved Date Status Acute CHF 21900850 Active A-fib with RVR 811707296365995 Activ e Swelling of bilateral lower extremities 560616875 Active History of small bowel obstruction 187908378129715560 01/29/2023 Resolved Diverticulitis 501324331 01/29/2023 Resolved HLD 63503926 01/29/2023 Resolved HTN 64447121 01/29/2023 Resolved BMI 40+ severely obese 700395266 01/29/2023 Re solved Mild persistent asthma 754630104 01/29/2023 Re solved Peripheral edema 402421512 01/29/2023 Resolved Osteoarthritis 741867689 01/29/2023 Resolved T2DM 26385955 01/29/2023 Resolved Squamous cell carcinoma of skin 717901269 01/03 Resolved Squamous cell carcinoma of skin 659128371 01/03 Resolved Results BASIC METABOLIC PANEL (BMP) - Collect Date/Time: 01/30/2023 06:50 Test Name Code Test Result Test Units Test Ref Rang e GLUCOSE 2345-7 134 mg/dL L=70 H=116 BUN 3094-0 11 mg/dL L=6 H=25 CREATININE 2160-0 0.57 mg/dL L=0.51 H=0.95 SODIUM SERUM 2951-2 136 mmol/L L=136 H=145 POTASSIUM SERUM 2823-3 3.8 mmol/L L=3.4 H=5 .2 CHLORIDE SERUM 2075-0 99 mmol/L L=96 H=110 CARBON DIOXIDE (CO2) 2028-9 28 mmol/L L=22 H=34 ANION GAP 35379-2 8.6 mmol/L CALCIUM SERUM 07724-5 9.0 mg/dL L=8.2 H=10. 2 AGE 82 years eGFR (non-Afr.Amer.) 86871-2 101 mL/min eGFR (Afr-Tajik) 10602-3 >120 mL/min BNP (PRO-B NATRIURETIC PEPTI DE) - Collect Date/Time: 01/29/2023 15:42 Test Name Code Test Result Test Units Test Ref Rang e NT-proBNP 11657-8 769.0 pg/mL L=0.0 H=450 COMPREHENSIVE METABOLIC PANE L (CMP) - Collect Date/Time: 01/29/2023 15:42 Test Name Code Test Result Test Units Test Ref Rang e GLUCOSE 2345-7 129 mg/dL L=70 H=116 BUN 3094-0 9 mg/dL L=6 H=25 CREATININE 2160-0 0.59 mg/dL L=0.51 H=0.95 SODIUM SERUM 2951-2 134 mmol/L L=136 H=145 POTASSIUM SERUM 2823-3 3.5 mmol/L L=3.4 H=5 .2 CHLORIDE SERUM 2075-0 99 mmol/L L=96 H=110 CARBON DIOXIDE (CO2) 2028-9 27 mmol/L L=22 H=34 ANION GAP 63297-8 7.8 mmol/L CALCIUM SERUM 60462-0 8.9 mg/dL L=8.2 H=10. 2 BILIRUBIN TOTAL 1975-2 1.1 mg/dL L=0.0 H=1 .3 ALK. PHOS. 6768-6 81 U/L L=46 H=116 SGOT (AST) 1920-8 20 U/L L=15 H=37 SGPT (ALT) 1742-6 10 U/L L=12 H=78 TOTAL PROTEIN 2885-2 7.0 gm/dL L=6.0 H=8.0 ALBUMIN 1751-7 3.4 gm/dL L=3.4 H=5.0 AGE 82 years eGFR (non-Afr.Amer.) 68086-7 97 mL/min eGFR (Afr-Tajik) 12017-3 118 mL/min MAGNESIUM SERUM* - Collect D ate/Time: 01/30/2023 06:50 Test Name Code Test Result Test Units Test Ref Rang e MAGNESIUM 23524-7 2.1 mg/dL L=1.8 H=2.4 NOVA GLUCOSE FINGER HEEL CAP ILLARY - Collect Date/Time: 02/01/2023 07:28 Test Name Code Test Result Test Units Test Ref Rang e GLUCOSE CAP 73352-2 120 mg/dL L=70 H=116 NOVA GLUCOSE FINGER HEEL CAP ILLARY - Collect Date/Time: 01/31/2023 07:42 Test Name Code Test Result Test Units Test Ref Rang e GLUCOSE CAP 78004-6 128 mg/dL L=70 H=116 TROPONIN HIGH SENSITIVITY* - Collect Date/Time: 01/30/2023 06:50 Test Name Code Test Result Test Units Test Ref Rang e TROPONIN HS 8.3 pg/mL L=0.0 H=60.4 Specimen seq. RANDOM N/A TROPONIN HIGH SENSITIVITY* - Collect Date/Time: 01/29/2023 15:42 Test Name Code Test Result Test Units Test Ref Rang e TROPONIN HS 8.2 pg/mL L=0.0 H=60.4 Specimen seq. RANDOM N/A TSH THYROID STIMULATING HORM ONE* - Collect Date/Time: 01/30/2023 06:50 Test Name Code Test Result Test Units Test Ref Rang e TSH 3014-8 6.330 uIU/mL L=0.360 H=3.74 0 CBC W/ DIFFERENTIAL* - Colle ct Date/Time: 01/30/2023 06:50 Test Name Code Test Result Test Units Test Ref Rang e WBC 6690-2 9.01 th/cmm L=5.00 H=10.00 NEUT % 71.9 % L=40.0 H=80.0 LYMPH % 14.4 % L=10.0 H=50.0 MONO % 41257-3 11.3 % L=2.0 H=12.0 EOS % 1.2 % L=0.0 H=8.0 BASO % 0.6 % L=0.0 H=3.0 IG % 2514-8 0.6 % L=0.0 H=1.1 NRBC % 43703-0 0.0 % L=0.0 H=0.0 NEUT abs count 751-8 6.5 th/cmm L=1.6 H=8. 4 LYMPH abs count 731-0 1.3 th/cmm L=1.5 H=4 .0 MONO abs count 742-7 1.0 th/cmm L=0.2 H=1. 0 EOS abs count 711-2 0.1 th/cmm L=0.0 H=0.5 BASO abs count 704-7 0.1 th/cmm L=0.0 H=0. 2 IG abs count 86378-2 0.1 th/cmm L=0.0 H=0.1 NRBC abs count 86758-1 0.0 mil/cmm L=0.0 H=0. 0 RBC 789-8 4.40 mil/cmm L=3.90 H=5.40 HEMOGLOBIN 718-7 12.9 gm/dL L=12.0 H=16.0 HEMATOCRIT 4544-3 43 % L=37 H=47 MCV 787-2 98 fL L=82 H=92 MCH 785-6 29.3 pg L=27.0 H=31.0 MCHC 786-4 29.8 % L=32.0 H=36.0 RDW-SD 788-0 49.1 fL L=39.0 H=49.0 PLATELET COUNT 777-3 160 th/cmm L=150 H=45 0 CBC W/ DIFFERENTIAL* - Colle ct Date/Time: 01/29/2023 15:02 Test Name Code Test Result Test Units Test Ref Rang e WBC 6690-2 9.28 th/cmm L=5.00 H=10.00 NEUT % 76.3 % L=40.0 H=80.0 LYMPH % 12.3 % L=10.0 H=50.0 MONO % 53847-6 9.1 % L=2.0 H=12.0 EOS % 1.3 % L=0.0 H=8.0 BASO % 0.5 % L=0.0 H=3.0 IG % 2514-8 0.5 % L=0.0 H=1.1 NRBC % 08380-3 0.0 % L=0.0 H=0.0 NEUT abs count 751-8 7.1 th/cmm L=1.6 H=8. 4 LYMPH abs count 731-0 1.1 th/cmm L=1.5 H=4 .0 MONO abs count 742-7 0.8 th/cmm L=0.2 H=1. 0 EOS abs count 711-2 0.1 th/cmm L=0.0 H=0.5 BASO abs count 704-7 0.1 th/cmm L=0.0 H=0. 2 IG abs count 07874-3 0.1 th/cmm L=0.0 H=0.1 NRBC abs count 20395-2 0.0 mil/cmm L=0.0 H=0. 0 RBC 789-8 4.54 mil/cmm L=3.90 H=5.40 HEMOGLOBIN 718-7 13.5 gm/dL L=12.0 H=16.0 HEMATOCRIT 4544-3 44 % L=37 H=47 MCV 787-2 97 fL L=82 H=92 MCH 785-6 29.7 pg L=27.0 H=31.0 MCHC 786-4 30.8 % L=32.0 H=36.0 RDW-SD 788-0 47.9 fL L=39.0 H=49.0 PLATELET COUNT 777-3 DNR N/A L=150 H=[address] invalid N/A Platelet est. Adequate N/A PT PROTHROMBIN TIME* - Colle ct Date/Time: 01/29/2023 15:42 Test Name Code Test Result Test Units Test Ref Rang e PROTIME 5902-2 11.1 seconds L=9.3 H=11.4 INR 40927-6 1.07 L=2.00 H=3.00 PTT PARTIAL THROMBOPLASTIN T PRABHU* - Collect Date/Time: 01/29/2023 15:42 Test Name Code Test Result Test Units Test Ref Rang e PTT 78687-2 23.5 seconds L=24.5 H=32.8 JEFFREY COVID FLU RSV GENEXPE RT - Collect Date/Time: 01/29/2023 18:45 Test Name Code Test Result Test Units Test Ref Rang e COVID 30243-0 NEGATIVE N/A Normal: Negati ve INFLUENZA A DNA 64240-7 NEGATIVE N/A Normal: N egative INFLUENZA B DNA 58157-5 NEGATIVE N/A Normal: N egative RSV DNA 16225-0 NEGATIVE N/A Normal: Negati ve Active Medications Medication Code Dose Units Frequency Route Modificatio n Start Date/Time Valsartan 80 MG Oral Tablet 274252 1 TABLET DAILY ORAL 02/01 11:00 Prescription Detail TAKE 1 TABLET ORAL DAILY Metoprolol Succinate 50MG Oral Tablet, Extended Release 839981 3 TABLET DAILY ORAL 02/01/2023 10:59 Prescription Detail TAKE 3 TABLET ORAL DAILY Albuterol Sulfate HFA 0.09MG/1Actuat ion Inhalation Suspension 8292567 2 PUFF NEEDED INHALATION 02/02/20 10:58 Prescription Detail 2 PUFF INHALATION NEEDED Klor-Con M20 20MEQ Oral Tablet, Extended Release 9915490 20 MEQ DAILY WITH FOOD ORAL 02/01/2023 10:58 Prescription Detail TAKE 20 MEQ ORAL DAILY WITH FOOD metFORMIN HCl 500MG Oral Tablet 051833 500 MILLIGRAMS DAILY ORAL 10:58 Prescription Detail TAKE 500 MILLIGRAMS ORAL DAILY Furosemide 40MG Oral Tablet 352282 40 MILLIGRAMS BID (0800 AND 1459) ORAL 02/01/2023 10:57 Prescription Detail TAKE 40 MILLIGRAMS ORAL BID (0800 AND 14 59) Eliquis 5MG Oral Tablet 2315391 5 MILLIGRAMS TWICE A DAY ORAL 02/01/2023 10:56 Prescription Detail TAKE 5 MILLIGRAMS ORAL TWICE A DAY Medications Administered During Visit Medication Dose Units Frequency Route Date/Time of Last Dose METOPROLOL TARTRATE INJ SDV: 5MG/5ML 5 MG PRN Q5MIN IVP 01/29/2023 17:2 5 METOPROLOL TARTRATE TABLET: 25MG 25 MG X1 PO 01/29/2023 17:3 0 FUROSEMIDE INJ SDV: 20MG/2ML 10 MG X1 IVP 01/29/2023 20:0 8 SENNA CONC TABLET: 8.6MG 8.6 MG PRN DAILY PO 01/30/2023 16:16 ALBUTEROL UPDRAFT 30CT UD: 2.5MG/3ML 2.5 MG PRN Q4H INH 01/29/2023 23: 18 ALBUTEROL/IPRATROP UPDRAFT:2.5/0.5MG/3ML 3 ML QID RESP INH 2022 11:15 FUROSEMIDE INJ SDV: 20MG/2ML 20 MG BID (0800 AND 1459) IVP 01/31/20 15:20 BUDESONIDE UPDRAFT: 0.5MG/2ML 0.5 MG BID RESP INH 02/01/2023 07:4 3 APIXABAN TAB: 5MG 5 MG BID PO 08:25 METOPROLOL TARTRATE TABLET: 25MG 25 MG BID PO 01/30/2023 08:1 7 MetFORMIN TABLET EXTENDED RELEASE: 500MG 500 MG Q5PM PO 01/31/2023 17 :46 METOPROLOL SUCCINATE TABLET ER: 50MG 50 MG BID PO 01/31/2023 0 8:48 METOPROLOL TARTRATE TABLET: 25MG 25 MG X1 PO 01/30/2023 13:2 0 POTASSIUM CHL TABLET: 20mEq 20 MEQ X1 PO 01/30/2023 13:2 0 POTASSIUM CHL TABLET: 20mEq 20 MEQ DAILY WITH FOOD PO 02/01/2023 0 8:25 VALSARTAN TABLET: 40MG 40 MG DAILY PO 01/31/2023 08:48 VALSARTAN TABLET: 40MG 40 MG X1 PO 01/30/2023 13:20 FUROSEMIDE TABLET: 40MG 40 MG BID (0800 AND 14 59) PO 02/01/2023 08:25 VALSARTAN TABLET: 40MG 40 MG X1 PO 01/31/2023 11:08 VALSARTAN TABLET: 40MG 80 MG DAILY PO 02/01/2023 08:25 METOPROLOL SUCCINATE TABLET ER: 50MG 50 MG X1 PO 01/31/2023 1 1:26 METOPROLOL SUCCINATE TABLET ER: 50MG 100 MG DAILY PO 02/01/2023 0 8:25 METOPROLOL SUCCINATE TABLET ER: 50MG 50 MG Q8PM PO 01/31/2023 2 0:38 Encounters Encounter Diagnosis Diagnosis Code Start Date Unspecified atrial fibrillation [id number] 01/29/2023 Social History Smoking Status Code Start Date End Date Never smoker [id number] Patient Decision Aids Unknown or Not Available. Discharge Instructions You were admitted to [facility] on 01/29/2023 17:10 with a principal diagnosis of Specified Heart Arrhythmias You had the following tests done:NOVA GLUCOSE FINGER HEEL CAPILLARYNOVA GLUCOSE FINGER HEEL CAPILLARYBASIC METABOLIC PANEL (BMP)CBC W/ DIFFERENTIAL*MAGNESIUM SERUM*TROPONIN HIGH SENSITIVITY*TSH THYROID STIMULATING HORMONE*[facility] FLU RSV GENEXPERTBNP (PRO-B NATRIURETIC PEPTIDE)COMPREHENSIVE METABOLIC PANEL (CMP)PT PROTHROMBIN TIME*PTT PARTIAL THROMBOPLASTIN TIME*TROPONIN HIGH SENSITIVITY*CBC W/ DIFFERENTIAL* You were discharged from [facility] on 02/01/2023 13:00 Should you have any questions prior to discharge, please contact a member of your healthcare team. If you have left the hospital and have any questions, please contact your primary care physician. Chief Complaint and Reason For Visit Chief Complaint Date of Onset AFIB W/ RVR BLE SWELLING 01/31/2023 Function Status Unknown or Not Available. Plan of Care Unknown or Not Available. Referral/Transition of Care Unknown or Not Available.
--- OUTSIDE RECORDS SUMMARY | 2023-03-24 22:38 | XMS_ITS | CCD ---
Author Name Unknown Address [address] [place] [address] [id number] Organization Unknown Address [address] [place] [address] [phone] Care Team Providers Care Punchboard Inserter Name Role Phone ESTRADA FAULKNER Attending Physician [phone] ESTRADA FAULKNER Rounding (Secondary) Physician [phone] Vital Signs Unknown or Not Available. Allergies Allergy Code Allergy Type Reaction Status CODEINE 2670 Drug allergy flushing, HOT Active SULFA (sulfonamide) 0 Drug allergy MY FEET TURNE D COLD Active Procedures Unknown or Not Available. History of Immunizations Unknown or Not Available. Problems Problem Code Start Date Resolved Date Status Acute CHF 35524848 Active A-fib with RVR 855307220812895 Activ e Swelling of bilateral lower extremities 619557586 Active History of small bowel obstruction 685581458843152146 01/29/2023 Resolved Diverticulitis 690658539 01/29/2023 Resolved HLD 46869730 01/29/2023 Resolved HTN 83347272 01/29/2023 Resolved BMI 40+ severely obese 255536415 01/29/2023 Re solved Mild persistent asthma 983950202 01/29/2023 Re solved Peripheral edema 656484936 01/29/2023 Resolved Osteoarthritis 618321045 01/29/2023 Resolved T2DM 29320821 01/29/2023 Resolved Squamous cell carcinoma of skin 609835606 01/03 Resolved Squamous cell carcinoma of skin 913934202 01/03 Resolved Results Unknown or Not Available. Active Medications Medication Code Dose Units Frequency Route Modificatio n Start Date/Time Valsartan 80 MG Oral Tablet 122798 1 TABLET DAILY ORAL 02/01 11:00 Prescription Detail TAKE 1 TABLET ORAL DAILY Metoprolol Succinate 50MG Oral Tablet, Extended Release 923480 3 TABLET DAILY ORAL 02/01/2023 10:59 Prescription Detail TAKE 3 TABLET ORAL DAILY Albuterol Sulfate HFA 0.09MG/1Actuat ion Inhalation Suspension 8493694 2 PUFF NEEDED INHALATION 02/02/20 10:58 Prescription Detail 2 PUFF INHALATION NEEDED Klor-Con M20 20MEQ Oral Tablet, Extended Release 0812267 20 MEQ DAILY WITH FOOD ORAL 02/01/2023 10:58 Prescription Detail TAKE 20 MEQ ORAL DAILY WITH FOOD metFORMIN HCl 500MG Oral Tablet 205099 500 MILLIGRAMS DAILY ORAL 10:58 Prescription Detail TAKE 500 MILLIGRAMS ORAL DAILY Furosemide 40MG Oral Tablet 702533 40 MILLIGRAMS BID (0800 AND 1459) ORAL 02/01/2023 10:57 Prescription Detail TAKE 40 MILLIGRAMS ORAL BID (0800 AND 14 59) Eliquis 5MG Oral Tablet 0194905 5 MILLIGRAMS TWICE A DAY ORAL 02/01/2023 10:56 Prescription Detail TAKE 5 MILLIGRAMS ORAL TWICE A DAY Medications Administered During Visit Unknown or Not Available. Encounters Encounter Diagnosis Diagnosis Code Start Date Encounter for change or removal of surgical woun d dressing [id number] 12/08/2021 Social History Smoking Status Code Start Date End Date Never smoker [id number] Patient Decision Aids Unknown or Not Available. Discharge Instructions You were admitted to [facility] on 12/08/2021 14:41 with a principal diagnosis of Encounter for change or removal of surgical wound dressing You were discharged from [facility] on 12/08/2021 00:00 Should you have any questions prior [...]
--- OUTSIDE RECORDS SUMMARY | 2023-03-24 22:38 | XMS_ITS | CCD ---
Author Name Unknown Address [address] [place] [address] [phone] Organization Unknown Address [address] [place] [address] [phone] Care Team Providers Care Mid Wife Name Role Phone REJI ISSA Attending Physician [phone] Vital Signs Unknown or Not Available. Allergies Allergy Code Allergy Type Reaction Status CODEINE 2670 Drug allergy flushing, HOT Active SULFA (sulfonamide) 0 Drug allergy MY FEET TURNE D COLD Active Procedures Unknown or Not Available. History of Immunizations Unknown or Not Available. Problems Problem Code Start Date Resolved Date Status Acute CHF 72866637 Active A-fib with RVR 341869921455068 Activ e Swelling of bilateral lower extremities 299172865 Active History of small bowel obstruction 350915972946399999 01/29/2023 Resolved Diverticulitis 471908233 01/29/2023 Resolved HLD 26754164 01/29/2023 Resolved HTN 42969878 01/29/2023 Resolved BMI 40+ severely obese 763802989 01/29/2023 Re solved Mild persistent asthma 752681645 01/29/2023 Re solved Peripheral edema 636879343 01/29/2023 Resolved Osteoarthritis 395825946 01/29/2023 Resolved T2DM 63272810 01/29/2023 Resolved Squamous cell carcinoma of skin 511391491 01/03 Resolved Squamous cell carcinoma of skin 543498165 01/03 Resolved Results Unknown or Not Available. Active Medications Medication Code Dose Units Frequency Route Modificatio n Start Date/Time Valsartan 80 MG Oral Tablet 986701 1 TABLET DAILY ORAL 02/01 11:00 Prescription Detail TAKE 1 TABLET ORAL DAILY Metoprolol Succinate 50MG Oral Tablet, Extended Release 355271 3 TABLET DAILY ORAL 02/01/2023 10:59 Prescription Detail TAKE 3 TABLET ORAL DAILY Albuterol Sulfate HFA 0.09MG/1Actuat ion Inhalation Suspension 4706143 2 PUFF NEEDED INHALATION 02/02/20 10:58 Prescription Detail 2 PUFF INHALATION NEEDED Klor-Con M20 20MEQ Oral Tablet, Extended Release 0369296 20 MEQ DAILY WITH FOOD ORAL 02/01/2023 10:58 Prescription Detail TAKE 20 MEQ ORAL DAILY WITH FOOD metFORMIN HCl 500MG Oral Tablet 936061 500 MILLIGRAMS DAILY ORAL 10:58 Prescription Detail TAKE 500 MILLIGRAMS ORAL DAILY Furosemide 40MG Oral Tablet 036736 40 MILLIGRAMS BID (0800 AND 1459) ORAL 02/01/2023 10:57 Prescription Detail TAKE 40 MILLIGRAMS ORAL BID (0800 AND 14 59) Eliquis 5MG Oral Tablet 3503804 5 MILLIGRAMS TWICE A DAY ORAL 02/01/2023 10:56 Prescription Detail TAKE 5 MILLIGRAMS ORAL TWICE A DAY Medications Administered During Visit Unknown or Not Available. Encounters Encounter Diagnosis Diagnosis Code Start Date Unspecified atrial fibrillation [id number] 01/29/2023 Social History Smoking Status Code Start Date End Date Never smoker [id number] Patient Decision Aids Unknown or Not Available. Discharge Instructions You were admitted to [facility] on 01/29/2023 00:53 with a principal diagnosis of Unspecified atrial fibrillation You were discharged from [facility] on 02/01/2023 00:54 Should you have any questions prior to [...]
== END 2023-03-24 22:34 | disposition home or self-care (01) ==
LOC: NCHCN 22:33
PROVIDERS: PCP Family Medicine; Visit Provider Family Medicine
DX: E66.01 Morbid (severe) obesity due to excess calories (principal); Z85.828 Personal history of other malignant neoplasm of skin
CPT/HCPCS: 87070; 87205

== ENCOUNTER 2023-04-06 20:39 | Outpatient (REF) | payer MEDICARE, MEDICAID, SELFPAY ==
--- OUTSIDE RECORDS SUMMARY | 2023-04-06 20:46 | XMS_ITS | CCD ---
Author Name Unknown Address [address] [place] [address] [phone] Organization Unknown Address [address] [place] [address] [phone] Care Team Providers Care Food Technologist Name Role Phone ESTRADA FAULKNER Attending Physician [phone] ESTRADA FAULKNER Rounding (Secondary) Physician [phone] Vital Signs Unknown or Not Available. Allergies Allergy Code Allergy Type Reaction Status CODEINE 2670 Drug allergy flushing, HOT Active SULFA (sulfonamide) 0 Drug allergy MY FEET TURNE D COLD Active Procedures Unknown or Not Available. History of Immunizations Unknown or Not Available. Problems Problem Code Start Date Resolved Date Status Acute CHF 30686906 Active A-fib with RVR 062347597679869 Activ e Swelling of bilateral lower extremities 440748494 Active History of small bowel obstruction 561610463091486322 01/29/2023 Resolved Diverticulitis 243637300 01/29/2023 Resolved HLD 65559596 01/29/2023 Resolved HTN 65024874 01/29/2023 Resolved T2DM 65644660 01/29/2023 Resolved Mild persistent asthma 295088630 01/29/2023 Re solved Peripheral edema 055145668 01/29/2023 Resolved Osteoarthritis 455390411 01/29/2023 Resolved CHF 55615853 03/26/2023 Resolved BMI 40+ severely obese 591065286 01/29/2023 Re solved AFIB 45723519 03/26/2023 Resolved Squamous cell carcinoma of skin 417595289 01/03 Resolved Squamous cell carcinoma of skin 292784915 01/03 Resolved Results Unknown or Not Available. Active Medications Medication Code Dose Units Frequency Route Modificatio n Start Date/Time Valsartan 80 MG Oral Tablet 487055 1 TABLET DAILY ORAL 02/01 11:00 Prescription Detail TAKE 1 TABLET ORAL DAILY Metoprolol Succinate 50MG Oral Tablet, Extended Release 592795 3 TABLET DAILY ORAL 02/01/2023 10:59 Prescription Detail TAKE 3 TABLET ORAL DAILY Albuterol Sulfate HFA 0.09MG/1Actuat ion Inhalation Suspension 2753708 2 PUFF NEEDED INHALATION 02/02/20 10:58 Prescription Detail 2 PUFF INHALATION NEEDED metFORMIN HCl 500MG Oral Tablet 835264 500 MILLIGRAMS DAILY ORAL 10:58 Prescription Detail TAKE 500 MILLIGRAMS ORAL DAILY Furosemide 40MG Oral Tablet 552557 40 MILLIGRAMS BID (0800 AND 1459) ORAL 02/01/2023 10:57 Prescription Detail TAKE 40 MILLIGRAMS ORAL BID (0800 AND 14 59) Eliquis 5MG Oral Tablet 2446182 5 MILLIGRAMS TWICE A DAY ORAL 02/01/2023 10:56 Prescription Detail TAKE 5 MILLIGRAMS ORAL TWICE A DAY Medications Administered During Visit Unknown or Not Available. Encounters Encounter Diagnosis Diagnosis Code Start Date Encounter for follow-up exam ination after completed treatment for malignant neoplasm Z08 03/02/2022 Social History Smoking Status Code Start Date End Date Never smoker [id number] Patient Decision Aids Unknown or Not Available. [...]
--- OUTSIDE RECORDS SUMMARY | 2023-04-06 20:46 | XMS_ITS | CCD ---
Author Name Unknown Address [address] [place] [address] [phone] Organization Unknown Address [address] [place] [address] [phone] Care Team Providers Care Resource Protection Specialist Name Role Phone ESTRADA FAULKNER Attending Physician [phone] ESTRADA FAULKNER Rounding (Secondary) Physician [phone] Vital Signs Unknown or Not Available. Allergies Allergy Code Allergy Type Reaction Status CODEINE 2670 Drug allergy flushing, HOT Active SULFA (sulfonamide) 0 Drug allergy MY FEET TURNE D COLD Active Procedures Unknown or Not Available. History of Immunizations Unknown or Not Available. Problems Problem Code Start Date Resolved Date Status Acute CHF 17082913 Active A-fib with RVR [id number] Activ e Swelling of bilateral lower extremities 026748384 Active History of small bowel obstruction 508595520952643433 01/29/2023 Resolved Diverticulitis 498080469 01/29/2023 Resolved HLD 94512054 01/29/2023 Resolved HTN 57879408 01/29/2023 Resolved T2DM 30695366 01/29/2023 Resolved Mild persistent asthma 859746957 01/29/2023 Re solved Peripheral edema 615830322 01/29/2023 Resolved Osteoarthritis 719038789 01/29/2023 Resolved CHF 45474354 03/26/2023 Resolved BMI 40+ severely obese 568705919 01/29/2023 Re solved AFIB [id number] 03/26/2023 Resolved Squamous cell carcinoma of skin 810127806 01/03 Resolved Squamous cell carcinoma of skin 514382350 01/03 Resolved Results Unknown or Not Available. Active Medications Medication Code Dose Units Frequency Route Modificatio n Start Date/Time Valsartan 80 MG Oral Tablet 871264 1 TABLET DAILY ORAL 02/01 11:00 Prescription Detail TAKE 1 TABLET ORAL DAILY Metoprolol Succinate 50MG Oral Tablet, Extended Release 150581 3 TABLET DAILY ORAL 02/01/2023 10:59 Prescription Detail TAKE 3 TABLET ORAL DAILY Albuterol Sulfate HFA 0.09MG/1Actuat ion Inhalation Suspension 1121550 2 PUFF NEEDED INHALATION 02/02/20 10:58 Prescription Detail 2 PUFF INHALATION NEEDED metFORMIN HCl 500MG Oral Tablet 811555 500 MILLIGRAMS DAILY ORAL 10:58 Prescription Detail TAKE 500 MILLIGRAMS ORAL DAILY Furosemide 40MG Oral Tablet 259264 40 MILLIGRAMS BID (0800 AND 1459) ORAL 02/01/2023 10:57 Prescription Detail TAKE 40 MILLIGRAMS ORAL BID (0800 AND 14 59) Eliquis 5MG Oral Tablet 4962628 5 MILLIGRAMS TWICE A DAY ORAL 02/01/2023 10:56 Prescription Detail TAKE 5 MILLIGRAMS ORAL TWICE A DAY Medications Administered During Visit Unknown or Not Available. Encounters Encounter Diagnosis Diagnosis Code Start Date Removal of dressing [id number] 02/09/2022 Social History Smoking Status Code Start Date End Date Never smoker [id number] Patient Decision Aids Unknown or Not Available. Discharge Instructions You were admitted to [facility] on 02/09/2022 10:59 with a principal diagnosis of Encounter for change or removal of surgical wound dressing You were discharged from [facility] on 02/09/2022 00:00 Should you have any [...]
--- OUTSIDE RECORDS SUMMARY | 2023-04-06 20:47 | XMS_ITS | CCD ---
Author Name Unknown Address [address] [place] [address] [id number] Organization Unknown Address [address] [place] [address] [phone] Care Team Providers Care Laboratory Coordinator Name Role Phone ESTRADA FAULKNER Attending Physician [phone] ESTRADA FAULKNER Rounding (Secondary) Physician [phone] Vital Signs Unknown or Not Available. Allergies Allergy Code Allergy Type Reaction Status CODEINE 2670 Drug allergy flushing, HOT Active SULFA (sulfonamide) 0 Drug allergy MY FEET TURNE D COLD Active Procedures Unknown or Not Available. History of Immunizations Unknown or Not Available. Problems Problem Code Start Date Resolved Date Status Acute CHF 66421890 Active A-fib with RVR 671772883430993 Activ e Swelling of bilateral lower extremities 462563868 Active History of small bowel obstruction 701711621920337657 01/29/2023 Resolved Diverticulitis 257190988 01/29/2023 Resolved HLD 69257423 01/29/2023 Resolved HTN 97223005 01/29/2023 Resolved T2DM 47037057 01/29/2023 Resolved Mild persistent asthma 824420788 01/29/2023 Re solved Peripheral edema 722326145 01/29/2023 Resolved Osteoarthritis 289221396 01/29/2023 Resolved CHF 03647280 03/26/2023 Resolved BMI 40+ severely obese 264226270 01/29/2023 Re solved AFIB 18047778 03/26/2023 Resolved Squamous cell carcinoma of skin 222827208 01/03 Resolved Squamous cell carcinoma of skin 715458801 01/03 Resolved Results Unknown or Not Available. Active Medications Medication Code Dose Units Frequency Route Modificatio n Start Date/Time Valsartan 80 MG Oral Tablet 140165 1 TABLET DAILY ORAL 02/01 11:00 Prescription Detail TAKE 1 TABLET ORAL DAILY Metoprolol Succinate 50MG Oral Tablet, Extended Release 589448 3 TABLET DAILY ORAL 02/01/2023 10:59 Prescription Detail TAKE 3 TABLET ORAL DAILY Albuterol Sulfate HFA 0.09MG/1Actuat ion Inhalation Suspension 2204708 2 PUFF NEEDED INHALATION 02/02/20 10:58 Prescription Detail 2 PUFF INHALATION NEEDED metFORMIN HCl 500MG Oral Tablet 336325 500 MILLIGRAMS DAILY ORAL 10:58 Prescription Detail TAKE 500 MILLIGRAMS ORAL DAILY Furosemide 40MG Oral Tablet 389391 40 MILLIGRAMS BID (0800 AND 1459) ORAL 02/01/2023 10:57 Prescription Detail TAKE 40 MILLIGRAMS ORAL BID (0800 AND 14 59) Eliquis 5MG Oral Tablet 0605678 5 MILLIGRAMS TWICE A DAY ORAL 02/01/2023 10:56 Prescription Detail TAKE 5 MILLIGRAMS ORAL TWICE A DAY Medications Administered During Visit Unknown or Not Available. Encounters Encounter Diagnosis Diagnosis Code Start Date Encounter for change or removal of surgical woun d dressing [id number] 12/22/2021 Social History Smoking Status Code Start Date End Date Never smoker [id number] Patient Decision Aids Unknown or Not Available. Discharge Instructions You were admitted to [facility] on 12/22/2021 14:44 with a principal diagnosis of Encounter for change or removal of surgical wound dressing You were discharged from [facility] on 12/22/2021 00:00 Should you have [...]
--- OUTSIDE RECORDS SUMMARY | 2023-04-06 20:47 | XMS_ITS | CCD ---
Author Name Unknown Address [address] [place] [address] [phone] Organization Unknown Address [address] [place] [address] [phone] Care Team Providers Care Gyroscopic Instrument Mechanic Name Role Phone ESTRADA FAULKNER Attending Physician [phone] ESTRADA FAULKNER Rounding (Secondary) Physician [phone] Vital Signs Unknown or Not Available. Allergies Allergy Code Allergy Type Reaction Status CODEINE 2670 Drug allergy flushing, HOT Active SULFA (sulfonamide) 0 Drug allergy MY FEET TURNE D COLD Active Procedures Unknown or Not Available. History of Immunizations Unknown or Not Available. Problems Problem Code Start Date Resolved Date Status Acute CHF 85961820 Active A-fib with RVR 867310290477419 Activ e Swelling of bilateral lower extremities 927350825 Active History of small bowel obstruction 940836149470993524 01/29/2023 Resolved Diverticulitis 615677279 01/29/2023 Resolved HLD 38705588 01/29/2023 Resolved HTN 76791896 01/29/2023 Resolved T2DM 32897935 01/29/2023 Resolved Mild persistent asthma 106171321 01/29/2023 Re solved Peripheral edema 248086543 01/29/2023 Resolved Osteoarthritis 697405821 01/29/2023 Resolved CHF 66210707 03/26/2023 Resolved BMI 40+ severely obese 583870537 01/29/2023 Re solved AFIB 64463304 03/26/2023 Resolved Squamous cell carcinoma of skin 481844289 01/03 Resolved Squamous cell carcinoma of skin 073671231 01/03 Resolved Results Unknown or Not Available. Active Medications Medication Code Dose Units Frequency Route Modificatio n Start Date/Time Valsartan 80 MG Oral Tablet 256444 1 TABLET DAILY ORAL 02/01 11:00 Prescription Detail TAKE 1 TABLET ORAL DAILY Metoprolol Succinate 50MG Oral Tablet, Extended Release 098952 3 TABLET DAILY ORAL 02/01/2023 10:59 Prescription Detail TAKE 3 TABLET ORAL DAILY Albuterol Sulfate HFA 0.09MG/1Actuat ion Inhalation Suspension 2853070 2 PUFF NEEDED INHALATION 02/02/20 10:58 Prescription Detail 2 PUFF INHALATION NEEDED metFORMIN HCl 500MG Oral Tablet 264088 500 MILLIGRAMS DAILY ORAL 10:58 Prescription Detail TAKE 500 MILLIGRAMS ORAL DAILY Furosemide 40MG Oral Tablet 145834 40 MILLIGRAMS BID (0800 AND 1459) ORAL 02/01/2023 10:57 Prescription Detail TAKE 40 MILLIGRAMS ORAL BID (0800 AND 14 59) Eliquis 5MG Oral Tablet 8219732 5 MILLIGRAMS TWICE A DAY ORAL 02/01/2023 10:56 Prescription Detail TAKE 5 MILLIGRAMS ORAL TWICE A DAY Medications Administered During Visit Unknown or Not Available. Encounters Encounter Diagnosis Diagnosis Code Start Date Removal of dressing [id number] 01/19/2022 Social History Smoking Status Code Start Date End Date Never smoker [id number] Patient Decision Aids Unknown or Not Available. Discharge Instructions You were admitted to [facility] on 01/19/2022 10:20 with a principal diagnosis of Encounter for change or removal of surgical wound dressing You were discharged from [facility] on 01/19/2022 00:00 Should you have [...]
--- OUTSIDE RECORDS SUMMARY | 2023-04-06 20:47 | XMS_ITS | CCD ---
Author Name Unknown Address [address] [place] [address] [phone] Organization Unknown Address [address] [place] [address] [phone] Care Team Providers Care Demonstrator Electric Gas Appliances Name Role Phone ESTRADA FAULKNER Attending Physician [phone] ESTRADA FAULKNER Rounding (Secondary) Physician [phone] Vital Signs Unknown or Not Available. Allergies Allergy Code Allergy Type Reaction Status CODEINE 2670 Drug allergy flushing, HOT Active SULFA (sulfonamide) 0 Drug allergy MY FEET TURNE D COLD Active Procedures Unknown or Not Available. History of Immunizations Unknown or Not Available. Problems Problem Code Start Date Resolved Date Status Acute CHF 47497596 Active A-fib with RVR 104167866993893 Activ e Swelling of bilateral lower extremities 359087746 Active History of small bowel obstruction 457579687887554270 01/29/2023 Resolved Diverticulitis 316273803 01/29/2023 Resolved HLD 60698696 01/29/2023 Resolved HTN 32138957 01/29/2023 Resolved T2DM 80856090 01/29/2023 Resolved Mild persistent asthma 112176322 01/29/2023 Re solved Peripheral edema 038408876 01/29/2023 Resolved Osteoarthritis 344976479 01/29/2023 Resolved CHF 61202149 03/26/2023 Resolved BMI 40+ severely obese 352443383 01/29/2023 Re solved AFIB 32625482 03/26/2023 Resolved Squamous cell carcinoma of skin 447767460 01/03 Resolved Squamous cell carcinoma of skin 283391804 01/03 Resolved Results Unknown or Not Available. Active Medications Medication Code Dose Units Frequency Route Modificatio n Start Date/Time Valsartan 80 MG Oral Tablet 107949 1 TABLET DAILY ORAL 02/01 11:00 Prescription Detail TAKE 1 TABLET ORAL DAILY Metoprolol Succinate 50MG Oral Tablet, Extended Release 377534 3 TABLET DAILY ORAL 02/01/2023 10:59 Prescription Detail TAKE 3 TABLET ORAL DAILY Albuterol Sulfate HFA 0.09MG/1Actuat ion Inhalation Suspension 2501889 2 PUFF NEEDED INHALATION 02/02/20 10:58 Prescription Detail 2 PUFF INHALATION NEEDED metFORMIN HCl 500MG Oral Tablet 401917 500 MILLIGRAMS DAILY ORAL 10:58 Prescription Detail TAKE 500 MILLIGRAMS ORAL DAILY Furosemide 40MG Oral Tablet 816828 40 MILLIGRAMS BID (0800 AND 1459) ORAL 02/01/2023 10:57 Prescription Detail TAKE 40 MILLIGRAMS ORAL BID (0800 AND 14 59) Eliquis 5MG Oral Tablet 0924909 5 MILLIGRAMS TWICE A DAY ORAL 02/01/2023 10:56 Prescription Detail TAKE 5 MILLIGRAMS ORAL TWICE A DAY Medications Administered During Visit Unknown or Not Available. Encounters Encounter Diagnosis Diagnosis Code Start Date Encounter for change or removal of surgical woun d dressing Z4801 12/16/2021 Social History Smoking Status Code Start Date End Date Never smoker [id number] Patient Decision Aids Unknown or Not Available. [...]
--- OUTSIDE RECORDS SUMMARY | 2023-04-06 20:47 | XMS_ITS | CCD ---
Author Name Unknown Address [address] [place] [address] [phone] Organization Unknown Address [address] [place] [address] [phone] Care Team Providers Care Fancy Stitcher Name Role Phone ESTRADA FAULKNER Attending Physician [phone] ESTRADA FAULKNER Rounding (Secondary) Physician [phone] Vital Signs Unknown or Not Available. Allergies Allergy Code Allergy Type Reaction Status CODEINE 2670 Drug allergy flushing, HOT Active SULFA (sulfonamide) 0 Drug allergy MY FEET TURNE D COLD Active Procedures Unknown or Not Available. History of Immunizations Unknown or Not Available. Problems Problem Code Start Date Resolved Date Status Acute CHF 10036334 Active A-fib with RVR 427809308402957 Activ e Swelling of bilateral lower extremities 439162109 Active History of small bowel obstruction 559003326950369590 01/29/2023 Resolved Diverticulitis 389259624 01/29/2023 Resolved HLD 74741613 01/29/2023 Resolved HTN 39722164 01/29/2023 Resolved T2DM 08797225 01/29/2023 Resolved Mild persistent asthma 217910239 01/29/2023 Re solved Peripheral edema 819477988 01/29/2023 Resolved Osteoarthritis 509307316 01/29/2023 Resolved CHF 73845804 03/26/2023 Resolved BMI 40+ severely obese 049290055 01/29/2023 Re solved AFIB 47947258 03/26/2023 Resolved Squamous cell carcinoma of skin 347525388 01/03 Resolved Squamous cell carcinoma of skin 296037752 01/03 Resolved Results Unknown or Not Available. Active Medications Medication Code Dose Units Frequency Route Modificatio n Start Date/Time Valsartan 80 MG Oral Tablet 215571 1 TABLET DAILY ORAL 02/01 11:00 Prescription Detail TAKE 1 TABLET ORAL DAILY Metoprolol Succinate 50MG Oral Tablet, Extended Release 032364 3 TABLET DAILY ORAL 02/01/2023 10:59 Prescription Detail TAKE 3 TABLET ORAL DAILY Albuterol Sulfate HFA 0.09MG/1Actuat ion Inhalation Suspension 6331890 2 PUFF NEEDED INHALATION 02/02/20 10:58 Prescription Detail 2 PUFF INHALATION NEEDED metFORMIN HCl 500MG Oral Tablet 848130 500 MILLIGRAMS DAILY ORAL 10:58 Prescription Detail TAKE 500 MILLIGRAMS ORAL DAILY Furosemide 40MG Oral Tablet 275255 40 MILLIGRAMS BID (0800 AND 1459) ORAL 02/01/2023 10:57 Prescription Detail TAKE 40 MILLIGRAMS ORAL BID (0800 AND 14 59) Eliquis 5MG Oral Tablet 8936433 5 MILLIGRAMS TWICE A DAY ORAL 02/01/2023 10:56 Prescription Detail TAKE 5 MILLIGRAMS ORAL TWICE A DAY Medications Administered During Visit Unknown or Not Available. Encounters Encounter Diagnosis Diagnosis Code Start Date Removal of dressing 052290336 01/05/2022 Social History Smoking Status Code Start Date End Date Never smoker [id number] Patient Decision Aids Unknown or Not Available. Discharge Instructions You were admitted to [facility] on 01/05/2022 08:30 with a principal diagnosis of Encounter for change or removal of surgical wound dressing You were discharged from [facility] on 01/05/2022 00:00 Should you have [...]
--- OUTSIDE RECORDS SUMMARY | 2023-04-06 20:48 | XMS_ITS | CCD ---
Author Name Unknown Address [address], [place] [id number] Organization Unknown Address [address], [place] [phone] Care Team Providers Care Roller Printer Name Role Phone SUNIL TAPIA Attending Physician [phone] RENETTA PICHARDO Er Physician [phone] MARTINE Montoya Registered Nurse [phone] Vital Signs Vital Sign Value Unit Date/Time Recent/Initial ? BMI (Body Mass Index) 58.39 kg/m^2 03/26/2023 11: 10 Initial VS Weight Measured 299 lbs 03/26/2023 11:10 Ini tial VS Height 60 in 03/26/2023 11:10 Initial VS BSA (Body Surface Area) 2.4 m^2 03/26/2023 1 1:10 Initial VS BP Systolic 123 mmHg 03/26/2023 11:10 Initial VS BP Diastolic 89 mmHg 03/26/2023 11:10 Initia l VS Respiratory Rate 16 bpm 03/26/2023 11:10 In itial VS Heart Rate 98 bpm 03/26/2023 11:10 Initial VS O2 % BldC Oximetry 94 % 03/26/2023 11:10 Initial VS Body Temperature 36 degrees 03/26/2023 11:10 In itial VS BP Systolic 121 mmHg 03/26/2023 14:07 Most Re cent VS BP Diastolic 58 mmHg 03/26/2023 14:07 Most R ecent VS Respiratory Rate 20 bpm 03/26/2023 14:[address] Recent VS Heart Rate 92 bpm 03/26/2023 14:07 Most Rec ent VS O2 % BldC Oximetry 96 % 03/26/2023 14:07 Most Recent VS Allergies Allergy Code Allergy Type Reaction Status CODEINE 2670 Drug allergy flushing, HOT Active SULFA (sulfonamide) 0 Drug allergy MY FEET TURNE D COLD Active Procedures Unknown or Not Available. History of Immunizations Unknown or Not Available. Problems Problem Code Start Date Resolved Date Status Acute CHF 39815710 Active A-fib with RVR 161041180808622 Activ e Swelling of bilateral lower extremities 633703826 Active CHF 72601545 03/26/2023 Resolved AFIB 04847934 03/26/2023 Resolved Results Unknown or Not Available. Active Medications Unknown or Not Available. Medications Administered During Visit Unknown or Not Available. Encounters Encounter Diagnosis Diagnosis Code Start Date Localized edema 739162232 03/26/2023 Social History Smoking Status Code Start Date End Date Never smoker 961742656 Patient Decision Aids Unknown or Not Available. Discharge Instructions You were admitted to [facility] on 03/26/2023 10:42 with a principal diagnosis of Localized edema You were discharged from [facility] on 03/26/2023 14:46 Should you have any questions prior to discharge, please contact a member of your healthcare team. If you have left the hospital and have any questions, please contact your primary care physician. Chief Complaint and Reason For Visit Chief Complaint Date of Onset LEG WOUND Function Status Unknown or Not Available. Plan of Care Unknown or Not Available. Referral/Transition of Care Unknown or Not Available.
--- OUTSIDE RECORDS SUMMARY | 2023-04-06 20:48 | XMS_ITS | CCD ---
Author Name Unknown Address [address] [place] [address] [phone] Organization Unknown Address [address] [place] [address] [phone] Care Team Providers Care Machine Helper Name Role Phone REJI ISSA Attending Physician [phone] Vital Signs Unknown or Not Available. Allergies Allergy Code Allergy Type Reaction Status CODEINE 2670 Drug allergy flushing, HOT Active SULFA (sulfonamide) 0 Drug allergy MY FEET TURNE D COLD Active Procedures Unknown or Not Available. History of Immunizations Unknown or Not Available. Problems Problem Code Start Date Resolved Date Status Acute CHF 55164506 Active A-fib with RVR 536284182030004 Activ e Swelling of bilateral lower extremities 474709426 Active History of small bowel obstruction 058188245527566047 01/29/2023 Resolved Diverticulitis 069802583 01/29/2023 Resolved HLD 28041321 01/29/2023 Resolved HTN 96180054 01/29/2023 Resolved T2DM 81977167 01/29/2023 Resolved Mild persistent asthma 225620073 01/29/2023 Re solved Peripheral edema 598090743 01/29/2023 Resolved Osteoarthritis 657621157 01/29/2023 Resolved CHF 59450653 03/26/2023 Resolved BMI 40+ severely obese 212752648 01/29/2023 Re solved AFIB 25674481 03/26/2023 Resolved Squamous cell carcinoma of skin 492069653 01/03 Resolved Squamous cell carcinoma of skin 626613304 01/03 Resolved Results Unknown or Not Available. Active Medications Medication Code Dose Units Frequency Route Modificatio n Start Date/Time Valsartan 80 MG Oral Tablet 623139 1 TABLET DAILY ORAL 02/01 11:00 Prescription Detail TAKE 1 TABLET ORAL DAILY Metoprolol Succinate 50MG Oral Tablet, Extended Release 148013 3 TABLET DAILY ORAL 02/01/2023 10:59 Prescription Detail TAKE 3 TABLET ORAL DAILY Albuterol Sulfate HFA 0.09MG/1Actuat ion Inhalation Suspension 6259875 2 PUFF NEEDED INHALATION 02/02/20 10:58 Prescription Detail 2 PUFF INHALATION NEEDED metFORMIN HCl 500MG Oral Tablet 173005 500 MILLIGRAMS DAILY ORAL 10:58 Prescription Detail TAKE 500 MILLIGRAMS ORAL DAILY Furosemide 40MG Oral Tablet 003344 40 MILLIGRAMS BID (0800 AND 1459) ORAL 02/01/2023 10:57 Prescription Detail TAKE 40 MILLIGRAMS ORAL BID (0800 AND 14 59) Eliquis 5MG Oral Tablet 5472903 5 MILLIGRAMS TWICE A DAY ORAL 02/01/2023 10:56 Prescription Detail TAKE 5 MILLIGRAMS ORAL TWICE A DAY Medications Administered During Visit Unknown or Not Available. Encounters Encounter Diagnosis Diagnosis Code Start Date Unspecified atrial fibrillation I4891 01/29/2023 Social History Smoking Status Code Start Date End Date Never smoker [id number] Patient Decision Aids Unknown or Not Available. Discharge Instructions You were admitted to [facility] on 01/29/2023 00:53 with a principal diagnosis of Unspecified atrial fibrillation You were discharged from [facility] on 02/01/2023 00:54 Should you have any [...]
--- OUTSIDE RECORDS SUMMARY | 2023-04-06 20:48 | XMS_ITS | CCD ---
Author Name Unknown Address [address] [place] [address] [phone] Organization Unknown Address [address] [place] [address] [phone] Care Team Providers Care Scow Derrick Operator Name Role Phone ZI WADSWORTH Attending Physician [phone] Vital Signs Unknown or Not Available. Allergies Allergy Code Allergy Type Reaction Status CODEINE 2670 Drug allergy flushing, HOT Active SULFA (sulfonamide) 0 Drug allergy MY FEET TURNE D COLD Active Procedures Unknown or Not Available. History of Immunizations Unknown or Not Available. Problems Problem Code Start Date Resolved Date Status Acute CHF 70891507 Active A-fib with RVR 688681862424552 Activ e Swelling of bilateral lower extremities 392641184 Active History of small bowel obstruction 408138072871159706 01/29/2023 Resolved Diverticulitis 834591699 01/29/2023 Resolved HLD 75061869 01/29/2023 Resolved HTN 89334301 01/29/2023 Resolved T2DM 39820329 01/29/2023 Resolved Mild persistent asthma 989865556 01/29/2023 Re solved Peripheral edema 440634453 01/29/2023 Resolved Osteoarthritis 048370650 01/29/2023 Resolved CHF 82322028 03/26/2023 Resolved BMI 40+ severely obese 023528101 01/29/2023 Re solved AFIB 01077722 03/26/2023 Resolved Squamous cell carcinoma of skin 825556177 01/03 Resolved Squamous cell carcinoma of skin 406077036 01/03 Resolved Results Unknown or Not Available. Active Medications Medication Code Dose Units Frequency Route Modificatio n Start Date/Time Valsartan 80 MG Oral Tablet 632891 1 TABLET DAILY ORAL 02/01 11:00 Prescription Detail TAKE 1 TABLET ORAL DAILY Metoprolol Succinate 50MG Oral Tablet, Extended Release 935862 3 TABLET DAILY ORAL 02/01/2023 10:59 Prescription Detail TAKE 3 TABLET ORAL DAILY Albuterol Sulfate HFA 0.09MG/1Actuat ion Inhalation Suspension 9264089 2 PUFF NEEDED INHALATION 02/02/20 10:58 Prescription Detail 2 PUFF INHALATION NEEDED metFORMIN HCl 500MG Oral Tablet 021711 500 MILLIGRAMS DAILY ORAL 10:58 Prescription Detail TAKE 500 MILLIGRAMS ORAL DAILY Furosemide 40MG Oral Tablet 110760 40 MILLIGRAMS BID (0800 AND 1459) ORAL 02/01/2023 10:57 Prescription Detail TAKE 40 MILLIGRAMS ORAL BID (0800 AND 14 59) Eliquis 5MG Oral Tablet 7012378 5 MILLIGRAMS TWICE A DAY ORAL 02/01/2023 10:56 Prescription Detail TAKE 5 MILLIGRAMS ORAL TWICE A DAY Medications Administered During Visit Unknown or Not Available. Encounters Encounter Diagnosis Diagnosis Code Start Date Atrial fibrillation 07593428 01/29/2023 Social History Smoking Status Code Start Date End Date Never smoker [id number] Patient Decision Aids Unknown or Not Available. Discharge Instructions You were admitted to [facility] on 01/29/2023 14:24 with a principal diagnosis of Unspecified atrial fibrillation You were discharged from [facility] on 01/29/2023 17:10 Should you have any [...]
--- OUTSIDE RECORDS SUMMARY | 2023-04-06 20:48 | XMS_ITS | CCD ---
Author Name Unknown Address [address] [place] [address] [phone] Organization Unknown Address [address] [place] [address] [phone] Care Team Providers Care Photoengraving Finisher Name Role Phone ESTRADA FAULKNER Attending Physician [phone] ESTRADA FAULKNER Rounding (Secondary) Physician [phone] Vital Signs Unknown or Not Available. Allergies Allergy Code Allergy Type Reaction Status CODEINE 2670 Drug allergy flushing, HOT Active SULFA (sulfonamide) 0 Drug allergy MY FEET TURNE D COLD Active Procedures Unknown or Not Available. History of Immunizations Unknown or Not Available. Problems Problem Code Start Date Resolved Date Status Acute CHF 71689322 Active A-fib with RVR [id number] Activ e Swelling of bilateral lower extremities 380565363 Active History of small bowel obstruction 630009286454163719 01/29/2023 Resolved Diverticulitis 817779401 01/29/2023 Resolved HLD 46836504 01/29/2023 Resolved HTN 66290827 01/29/2023 Resolved T2DM 63239548 01/29/2023 Resolved Mild persistent asthma 683644417 01/29/2023 Re solved Peripheral edema 346922410 01/29/2023 Resolved Osteoarthritis 658411706 01/29/2023 Resolved CHF 89526494 03/26/2023 Resolved BMI 40+ severely obese 507024061 01/29/2023 Re solved AFIB [id number] 03/26/2023 Resolved Squamous cell carcinoma of skin 681172514 01/03 Resolved Squamous cell carcinoma of skin 233750920 01/03 Resolved Results Unknown or Not Available. Active Medications Medication Code Dose Units Frequency Route Modificatio n Start Date/Time Valsartan 80 MG Oral Tablet 164174 1 TABLET DAILY ORAL 02/01 11:00 Prescription Detail TAKE 1 TABLET ORAL DAILY Metoprolol Succinate 50MG Oral Tablet, Extended Release 977066 3 TABLET DAILY ORAL 02/01/2023 10:59 Prescription Detail TAKE 3 TABLET ORAL DAILY Albuterol Sulfate HFA 0.09MG/1Actuat ion Inhalation Suspension 7109165 2 PUFF NEEDED INHALATION 02/02/20 10:58 Prescription Detail 2 PUFF INHALATION NEEDED metFORMIN HCl 500MG Oral Tablet 533038 500 MILLIGRAMS DAILY ORAL 10:58 Prescription Detail TAKE 500 MILLIGRAMS ORAL DAILY Furosemide 40MG Oral Tablet 175695 40 MILLIGRAMS BID (0800 AND 1459) ORAL 02/01/2023 10:57 Prescription Detail TAKE 40 MILLIGRAMS ORAL BID (0800 AND 14 59) Eliquis 5MG Oral Tablet 8509747 5 MILLIGRAMS TWICE A DAY ORAL 02/01/2023 10:56 Prescription Detail TAKE 5 MILLIGRAMS ORAL TWICE A DAY Medications Administered During Visit Unknown or Not Available. Encounters Encounter Diagnosis Diagnosis Code Start Date Squamous cell carcinoma of s kin of right lower limb, including hip [id number] 11/26/2021 Social History Smoking Status Code Start Date End Date Never smoker [id number] Patient Decision Aids Unknown or Not Available. Discharge Instructions You were admitted to [facility] on 11/26/2021 09:06 with a principal diagnosis of Squamous cell carcinoma of skin of right lower limb, including hip You were discharged from [facility] on 11/26/2021 00:00 Should you have any [...]
[2023-04-06 21:17] LABS: Anion Gap 8.3 mmol/L (3-11); BUN 21 mg/dL (7-18); CO2 31.7 mmol/L (21.0-32.0); CREATININE 0.8 mg/dL (0.55-1.02); Chloride 101 mmol/L (98-107); Estimated GFR 73.06 (mL/min/1.73m2); Glucose 144 mg/dL (74-106); Sodium 141 mmol/L (136-145)
== END 2023-04-06 20:40 | disposition home or self-care (01) ==
LOC: NCHCN 20:39
PROVIDERS: PCP Family Medicine; Visit Provider Family Medicine
DX: I48.91 Unspecified atrial fibrillation (principal); I11.0 Hypertensive heart disease with heart failure
CPT/HCPCS: 80048

== ENCOUNTER 2023-05-12 07:53 | Outpatient (REF) | payer MEDICARE, MEDICAID, SELFPAY ==
[2023-05-12 23:23] LABS: BUN 20 mg/dL (7-18); CREATININE 0.9 mg/dL (0.55-1.02); Calcium 8.9 mg/dL (8.5-10.1); Chloride 103 mmol/L (98-107); Estimated GFR 63.43 (mL/min/1.73m2); Glucose 151 mg/dL (74-106); Potassium 3.8 mmol/L (3.5-5.1); Sodium 142 mmol/L (136-145)
--- OUTSIDE RECORDS SUMMARY | 2023-05-16 07:56 | XMS_ITS | CCD ---
Author Name Unknown Address [address] [place] [address] [phone] Organization Unknown Address [address] [place] [address] [phone] Care Team Providers Care Warehouse Foreman Name Role Phone ESTRADA FAULKNER Attending Physician [phone] ESTRADA FAULKNER Rounding (Secondary) Physician [phone] Vital Signs Unknown or Not Available. Allergies Allergy Code Allergy Type Reaction Status CODEINE 2670 Drug allergy flushing, HOT Active SULFA (sulfonamide) 0 Drug allergy MY FEET TURNE D COLD Active Procedures Unknown or Not Available. History of Immunizations Unknown or Not Available. Problems Problem Code Start Date Resolved Date Status Acute CHF 42708172 Active A-fib with RVR 891541257873636 Activ e Swelling of bilateral lower extremities 425696156 Active History of small bowel obstruction 504255648291970500 01/29/2023 Resolved Diverticulitis 664849152 01/29/2023 Resolved HLD 89034711 01/29/2023 Resolved HTN 24287517 01/29/2023 Resolved T2DM 27079201 01/29/2023 Resolved Mild persistent asthma 282027802 01/29/2023 Re solved Peripheral edema 062764816 01/29/2023 Resolved Osteoarthritis 684668861 01/29/2023 Resolved CHF 24948156 03/26/2023 Resolved BMI 40+ severely obese 430916529 01/29/2023 Re solved AFIB 00209807 03/26/2023 Resolved Squamous cell carcinoma of skin 622748938 01/03 Resolved Squamous cell carcinoma of skin 815413026 01/03 Resolved Results Unknown or Not Available. Active Medications Medication Code Dose Units Frequency Route Modificatio n Start Date/Time Valsartan 80 MG Oral Tablet 470992 1 TABLET DAILY ORAL 02/01 11:00 Prescription Detail TAKE 1 TABLET ORAL DAILY Metoprolol Succinate 50MG Oral Tablet, Extended Release 227738 3 TABLET DAILY ORAL 02/01/2023 10:59 Prescription Detail TAKE 3 TABLET ORAL DAILY Albuterol Sulfate HFA 0.09MG/1Actuat ion Inhalation Suspension 1892827 2 PUFF NEEDED INHALATION 02/02/20 10:58 Prescription Detail 2 PUFF INHALATION NEEDED metFORMIN HCl 500MG Oral Tablet 394600 500 MILLIGRAMS DAILY ORAL 10:58 Prescription Detail TAKE 500 MILLIGRAMS ORAL DAILY Furosemide 40MG Oral Tablet 917302 40 MILLIGRAMS BID (0800 AND 1459) ORAL 02/01/2023 10:57 Prescription Detail TAKE 40 MILLIGRAMS ORAL BID (0800 AND 14 59) Eliquis 5MG Oral Tablet 2373344 5 MILLIGRAMS TWICE A DAY ORAL 02/01/2023 10:56 Prescription Detail TAKE 5 MILLIGRAMS ORAL TWICE A DAY Medications Administered During Visit Unknown or Not Available. Encounters Encounter Diagnosis Diagnosis Code Start Date Encounter for change or removal of surgical woun d dressing Z4801 12/08/2021 Social History Smoking Status Code Start Date End Date Never smoker [id number] Patient Decision Aids Unknown or Not Available. Discharge Instructions You were admitted to [facility] on 12/08/2021 14:41 with a principal diagnosis of Encounter for change or removal of surgical wound dressing You were discharged from [facility] on 12/08/2021 00:00 Should you have [...]
--- OUTSIDE RECORDS SUMMARY | 2023-05-16 07:56 | XMS_ITS | CCD ---
Author Name Unknown Address [address] [place] [address] [phone] Organization Unknown Address [address] [place] [address] [phone] Care Team Providers Care Rack Pusher Name Role Phone ESTRADA FAULKNER Attending Physician [phone] ESTRADA FAULKNER Rounding (Secondary) Physician [phone] Vital Signs Unknown or Not Available. Allergies Allergy Code Allergy Type Reaction Status CODEINE 2670 Drug allergy flushing, HOT Active SULFA (sulfonamide) 0 Drug allergy MY FEET TURNE D COLD Active Procedures Unknown or Not Available. History of Immunizations Unknown or Not Available. Problems Problem Code Start Date Resolved Date Status Acute CHF 38264907 Active A-fib with RVR 707648382068835 Activ e Swelling of bilateral lower extremities 026593727 Active History of small bowel obstruction 283706798111984493 01/29/2023 Resolved Diverticulitis 879029358 01/29/2023 Resolved HLD 75316624 01/29/2023 Resolved HTN 48489826 01/29/2023 Resolved T2DM 47798979 01/29/2023 Resolved Mild persistent asthma 073190296 01/29/2023 Re solved Peripheral edema 663138196 01/29/2023 Resolved Osteoarthritis 835478134 01/29/2023 Resolved CHF 10681667 03/26/2023 Resolved BMI 40+ severely obese 201440661 01/29/2023 Re solved AFIB 57423016 03/26/2023 Resolved Squamous cell carcinoma of skin 524726746 01/03 Resolved Squamous cell carcinoma of skin 882433222 01/03 Resolved Results Unknown or Not Available. Active Medications Medication Code Dose Units Frequency Route Modificatio n Start Date/Time Valsartan 80 MG Oral Tablet 562056 1 TABLET DAILY ORAL 02/01 11:00 Prescription Detail TAKE 1 TABLET ORAL DAILY Metoprolol Succinate 50MG Oral Tablet, Extended Release 646508 3 TABLET DAILY ORAL 02/01/2023 10:59 Prescription Detail TAKE 3 TABLET ORAL DAILY Albuterol Sulfate HFA 0.09MG/1Actuat ion Inhalation Suspension 1529424 2 PUFF NEEDED INHALATION 02/02/20 10:58 Prescription Detail 2 PUFF INHALATION NEEDED metFORMIN HCl 500MG Oral Tablet 615666 500 MILLIGRAMS DAILY ORAL 10:58 Prescription Detail TAKE 500 MILLIGRAMS ORAL DAILY Furosemide 40MG Oral Tablet 322350 40 MILLIGRAMS BID (0800 AND 1459) ORAL 02/01/2023 10:57 Prescription Detail TAKE 40 MILLIGRAMS ORAL BID (0800 AND 14 59) Eliquis 5MG Oral Tablet 7275986 5 MILLIGRAMS TWICE A DAY ORAL 02/01/2023 10:56 Prescription Detail TAKE 5 MILLIGRAMS ORAL TWICE A DAY Medications Administered During Visit Unknown or Not Available. Encounters Encounter Diagnosis Diagnosis Code Start Date Encounter for follow-up exam ination after completed treatment for malignant neoplasm Z08 03/02/2022 Social History Smoking Status Code Start Date End Date Never smoker [id number] Patient Decision Aids Unknown or Not Available. Discharge Instructions You were admitted to [facility] on 03/02/2022 11:49 with a principal diagnosis of Encounter for follow-up examination after completed treatment for malignant neoplasm You were discharged from [facility] on 03/02/2022 00:00 Should you have [...]
--- OUTSIDE RECORDS SUMMARY | 2023-05-16 07:56 | XMS_ITS | CCD ---
Author Name Unknown Address [address] [place] [address] [phone] Organization Unknown Address [address] [place] [address] [phone] Care Team Providers Care Tipple Worker Name Role Phone ESTRADA FAULKNER Attending Physician [phone] ESTRADA FAULKNER Rounding (Secondary) Physician [phone] Vital Signs Unknown or Not Available. Allergies Allergy Code Allergy Type Reaction Status CODEINE 2670 Drug allergy flushing, HOT Active SULFA (sulfonamide) 0 Drug allergy MY FEET TURNE D COLD Active Procedures Unknown or Not Available. History of Immunizations Unknown or Not Available. Problems Problem Code Start Date Resolved Date Status Acute CHF 99324914 Active A-fib with RVR 161913404603653 Activ e Swelling of bilateral lower extremities 942999626 Active History of small bowel obstruction 455868847442015543 01/29/2023 Resolved Diverticulitis 338402533 01/29/2023 Resolved HLD 30194927 01/29/2023 Resolved HTN 66664637 01/29/2023 Resolved T2DM 09052198 01/29/2023 Resolved Mild persistent asthma 584159489 01/29/2023 Re solved Peripheral edema 962094668 01/29/2023 Resolved Osteoarthritis 590000859 01/29/2023 Resolved CHF 11751042 03/26/2023 Resolved BMI 40+ severely obese 258467759 01/29/2023 Re solved AFIB 47928781 03/26/2023 Resolved Squamous cell carcinoma of skin 264520321 01/03 Resolved Squamous cell carcinoma of skin 082896405 01/03 Resolved Results Unknown or Not Available. Active Medications Medication Code Dose Units Frequency Route Modificatio n Start Date/Time Valsartan 80 MG Oral Tablet 781262 1 TABLET DAILY ORAL 02/01 11:00 Prescription Detail TAKE 1 TABLET ORAL DAILY Metoprolol Succinate 50MG Oral Tablet, Extended Release 442797 3 TABLET DAILY ORAL 02/01/2023 10:59 Prescription Detail TAKE 3 TABLET ORAL DAILY Albuterol Sulfate HFA 0.09MG/1Actuat ion Inhalation Suspension 9386281 2 PUFF NEEDED INHALATION 02/02/20 10:58 Prescription Detail 2 PUFF INHALATION NEEDED metFORMIN HCl 500MG Oral Tablet 978314 500 MILLIGRAMS DAILY ORAL 10:58 Prescription Detail TAKE 500 MILLIGRAMS ORAL DAILY Furosemide 40MG Oral Tablet 291575 40 MILLIGRAMS BID (0800 AND 1459) ORAL 02/01/2023 10:57 Prescription Detail TAKE 40 MILLIGRAMS ORAL BID (0800 AND 14 59) Eliquis 5MG Oral Tablet 9729635 5 MILLIGRAMS TWICE A DAY ORAL 02/01/2023 10:56 Prescription Detail TAKE 5 MILLIGRAMS ORAL TWICE A DAY Medications Administered During Visit Unknown or Not Available. Encounters Encounter Diagnosis Diagnosis Code Start Date Removal of dressing 816768290 01/05/2022 Social History Smoking Status Code Start Date End Date Never smoker [id number] Patient Decision Aids Unknown or Not Available. Discharge Instructions You were admitted to [facility] on 01/05/2022 08:30 with a principal diagnosis of Encounter for change or removal of surgical wound dressing You were discharged from [facility] on 01/05/2022 00:00 Should you have any [...]
--- OUTSIDE RECORDS SUMMARY | 2023-05-16 07:56 | XMS_ITS | CCD ---
Author Name Unknown Address [address] [place] [address] [phone] Organization Unknown Address [address] [place] [address] [phone] Care Team Providers Care Geriatric Psychiatrist Name Role Phone ESTRADA FAULKNER Attending Physician [phone] ESTRADA FAULKNER Rounding (Secondary) Physician [phone] Vital Signs Unknown or Not Available. Allergies Allergy Code Allergy Type Reaction Status CODEINE 2670 Drug allergy flushing, HOT Active SULFA (sulfonamide) 0 Drug allergy MY FEET TURNE D COLD Active Procedures Unknown or Not Available. History of Immunizations Unknown or Not Available. Problems Problem Code Start Date Resolved Date Status Acute CHF 86255467 Active A-fib with RVR 890013874623343 Activ e Swelling of bilateral lower extremities 955477029 Active History of small bowel obstruction 626081325447436106 01/29/2023 Resolved Diverticulitis 402400417 01/29/2023 Resolved HLD 06340849 01/29/2023 Resolved HTN 87873508 01/29/2023 Resolved T2DM 87251568 01/29/2023 Resolved Mild persistent asthma 249869902 01/29/2023 Re solved Peripheral edema 696979609 01/29/2023 Resolved Osteoarthritis 308140288 01/29/2023 Resolved CHF 81933970 03/26/2023 Resolved BMI 40+ severely obese 582726688 01/29/2023 Re solved AFIB 65330122 03/26/2023 Resolved Squamous cell carcinoma of skin 221436133 01/03 Resolved Squamous cell carcinoma of skin 418440677 01/03 Resolved Results Unknown or Not Available. Active Medications Medication Code Dose Units Frequency Route Modificatio n Start Date/Time Valsartan 80 MG Oral Tablet 156886 1 TABLET DAILY ORAL 02/01 11:00 Prescription Detail TAKE 1 TABLET ORAL DAILY Metoprolol Succinate 50MG Oral Tablet, Extended Release 638685 3 TABLET DAILY ORAL 02/01/2023 10:59 Prescription Detail TAKE 3 TABLET ORAL DAILY Albuterol Sulfate HFA 0.09MG/1Actuat ion Inhalation Suspension 6489617 2 PUFF NEEDED INHALATION 02/02/20 10:58 Prescription Detail 2 PUFF INHALATION NEEDED metFORMIN HCl 500MG Oral Tablet 618745 500 MILLIGRAMS DAILY ORAL 10:58 Prescription Detail TAKE 500 MILLIGRAMS ORAL DAILY Furosemide 40MG Oral Tablet 913455 40 MILLIGRAMS BID (0800 AND 1459) ORAL 02/01/2023 10:57 Prescription Detail TAKE 40 MILLIGRAMS ORAL BID (0800 AND 14 59) Eliquis 5MG Oral Tablet 5132502 5 MILLIGRAMS TWICE A DAY ORAL 02/01/2023 10:56 Prescription Detail TAKE 5 MILLIGRAMS ORAL TWICE A DAY Medications Administered During Visit Unknown or Not Available. Encounters Encounter Diagnosis Diagnosis Code Start Date Removal of dressing 450213903 02/09/2022 Social History Smoking Status Code Start Date End Date Never smoker 003336388 Patient Decision Aids Unknown or Not Available. Discharge Instructions You were admitted to [facility] on 02/09/2022 10:59 with a principal diagnosis of Encounter for change or removal of surgical wound dressing You were discharged from [facility] on 02/09/2022 00:00 Should you have [...]
--- OUTSIDE RECORDS SUMMARY | 2023-05-16 07:56 | XMS_ITS | CCD ---
Author Name Unknown Address [address] [place] [address] [phone] Organization Unknown Address [address] [place] [address] [phone] Care Team Providers Care A And P Mechanic Name Role Phone ESTRADA FAULKNER Attending Physician [phone] ESTRADA FAULKNER Rounding (Secondary) Physician [phone] Vital Signs Unknown or Not Available. Allergies Allergy Code Allergy Type Reaction Status CODEINE 2670 Drug allergy flushing, HOT Active SULFA (sulfonamide) 0 Drug allergy MY FEET TURNE D COLD Active Procedures Unknown or Not Available. History of Immunizations Unknown or Not Available. Problems Problem Code Start Date Resolved Date Status Acute CHF 35210484 Active A-fib with RVR 893615528302308 Activ e Swelling of bilateral lower extremities 514738882 Active History of small bowel obstruction 366489356951626821 01/29/2023 Resolved Diverticulitis 434906763 01/29/2023 Resolved HLD 81724592 01/29/2023 Resolved HTN 93682681 01/29/2023 Resolved T2DM 88035695 01/29/2023 Resolved Mild persistent asthma 005252349 01/29/2023 Re solved Peripheral edema 907851879 01/29/2023 Resolved Osteoarthritis 239940915 01/29/2023 Resolved CHF 76815226 03/26/2023 Resolved BMI 40+ severely obese 972184022 01/29/2023 Re solved AFIB 93242603 03/26/2023 Resolved Squamous cell carcinoma of skin 860779724 01/03 Resolved Squamous cell carcinoma of skin 140224114 01/03 Resolved Results Unknown or Not Available. Active Medications Medication Code Dose Units Frequency Route Modificatio n Start Date/Time Valsartan 80 MG Oral Tablet 117335 1 TABLET DAILY ORAL 02/01 11:00 Prescription Detail TAKE 1 TABLET ORAL DAILY Metoprolol Succinate 50MG Oral Tablet, Extended Release 714495 3 TABLET DAILY ORAL 02/01/2023 10:59 Prescription Detail TAKE 3 TABLET ORAL DAILY Albuterol Sulfate HFA 0.09MG/1Actuat ion Inhalation Suspension 6314021 2 PUFF NEEDED INHALATION 02/02/20 10:58 Prescription Detail 2 PUFF INHALATION NEEDED metFORMIN HCl 500MG Oral Tablet 008580 500 MILLIGRAMS DAILY ORAL 10:58 Prescription Detail TAKE 500 MILLIGRAMS ORAL DAILY Furosemide 40MG Oral Tablet 184110 40 MILLIGRAMS BID (0800 AND 1459) ORAL 02/01/2023 10:57 Prescription Detail TAKE 40 MILLIGRAMS ORAL BID (0800 AND 14 59) Eliquis 5MG Oral Tablet 3338408 5 MILLIGRAMS TWICE A DAY ORAL 02/01/2023 10:56 Prescription Detail TAKE 5 MILLIGRAMS ORAL TWICE A DAY Medications Administered During Visit Unknown or Not Available. Encounters Encounter Diagnosis Diagnosis Code Start Date Removal of dressing 363475275 01/19/2022 Social History Smoking Status Code Start Date End Date Never smoker 402459172 Patient Decision Aids Unknown or Not Available. Discharge Instructions You were admitted to [facility] on 01/19/2022 10:20 with a principal diagnosis of Encounter for change or removal of surgical wound dressing You were discharged from [facility] on 01/19/2022 00:00 Should you have [...]
--- OUTSIDE RECORDS SUMMARY | 2023-05-16 07:56 | XMS_ITS | CCD ---
Author Name Unknown Address [address] [place] [address] [phone] Organization Unknown Address [address] [place] [address] [phone] Care Team Providers Care Cellophane Casting Machine Repairer Name Role Phone ESTRADA FAULKNER Attending Physician [phone] ESTRADA FAULKNER Rounding (Secondary) Physician [phone] Vital Signs Unknown or Not Available. Allergies Allergy Code Allergy Type Reaction Status CODEINE 2670 Drug allergy flushing, HOT Active SULFA (sulfonamide) 0 Drug allergy MY FEET TURNE D COLD Active Procedures Unknown or Not Available. History of Immunizations Unknown or Not Available. Problems Problem Code Start Date Resolved Date Status Acute CHF 96793297 Active A-fib with RVR 210754630891809 Activ e Swelling of bilateral lower extremities 874369811 Active History of small bowel obstruction 952195883936022472 01/29/2023 Resolved Diverticulitis 096783055 01/29/2023 Resolved HLD 65614544 01/29/2023 Resolved HTN 44952664 01/29/2023 Resolved T2DM 38458670 01/29/2023 Resolved Mild persistent asthma 563303967 01/29/2023 Re solved Peripheral edema 143998620 01/29/2023 Resolved Osteoarthritis 665083416 01/29/2023 Resolved CHF 66531521 03/26/2023 Resolved BMI 40+ severely obese 652194175 01/29/2023 Re solved AFIB 26826420 03/26/2023 Resolved Squamous cell carcinoma of skin 567228015 01/03 Resolved Squamous cell carcinoma of skin 649037068 01/03 Resolved Results Unknown or Not Available. Active Medications Medication Code Dose Units Frequency Route Modificatio n Start Date/Time Valsartan 80 MG Oral Tablet 441268 1 TABLET DAILY ORAL 02/01 11:00 Prescription Detail TAKE 1 TABLET ORAL DAILY Metoprolol Succinate 50MG Oral Tablet, Extended Release 921221 3 TABLET DAILY ORAL 02/01/2023 10:59 Prescription Detail TAKE 3 TABLET ORAL DAILY Albuterol Sulfate HFA 0.09MG/1Actuat ion Inhalation Suspension 5873537 2 PUFF NEEDED INHALATION 02/02/20 10:58 Prescription Detail 2 PUFF INHALATION NEEDED metFORMIN HCl 500MG Oral Tablet 794829 500 MILLIGRAMS DAILY ORAL 10:58 Prescription Detail TAKE 500 MILLIGRAMS ORAL DAILY Furosemide 40MG Oral Tablet 499525 40 MILLIGRAMS BID (0800 AND 1459) ORAL 02/01/2023 10:57 Prescription Detail TAKE 40 MILLIGRAMS ORAL BID (0800 AND 14 59) Eliquis 5MG Oral Tablet 7915485 5 MILLIGRAMS TWICE A DAY ORAL 02/01/2023 10:56 Prescription Detail TAKE 5 MILLIGRAMS ORAL TWICE A DAY Medications Administered During Visit Unknown or Not Available. Encounters Encounter Diagnosis Diagnosis Code Start Date Encounter for change or removal of surgical woun d dressing Z4801 12/22/2021 Social History Smoking Status Code Start Date End Date Never smoker 147684217 Patient Decision Aids Unknown or Not Available. Discharge Instructions You were admitted to [facility] on 12/22/2021 14:44 with a principal diagnosis of Encounter for change or removal of surgical wound dressing You were discharged from [facility] on 12/22/2021 00:00 Should you have [...]
--- OUTSIDE RECORDS SUMMARY | 2023-05-16 07:56 | XMS_ITS | CCD ---
Author Name Unknown Address [address] [place] [address] [phone] Organization Unknown Address [address] [place] [address] [phone] Care Team Providers Care Veterinary Manager Name Role Phone ESTRADA FAULKNER Attending Physician [phone] ESTRADA FAULKNER Rounding (Secondary) Physician [phone] Vital Signs Unknown or Not Available. Allergies Allergy Code Allergy Type Reaction Status CODEINE 2670 Drug allergy flushing, HOT Active SULFA (sulfonamide) 0 Drug allergy MY FEET TURNE D COLD Active Procedures Unknown or Not Available. History of Immunizations Unknown or Not Available. Problems Problem Code Start Date Resolved Date Status Acute CHF 07128525 Active A-fib with RVR 454936555628579 Activ e Swelling of bilateral lower extremities 608639781 Active History of small bowel obstruction 660567894442455254 01/29/2023 Resolved Diverticulitis 823816239 01/29/2023 Resolved HLD 90801291 01/29/2023 Resolved HTN 95044154 01/29/2023 Resolved T2DM 18528453 01/29/2023 Resolved Mild persistent asthma 786108268 01/29/2023 Re solved Peripheral edema 182071894 01/29/2023 Resolved Osteoarthritis 949444019 01/29/2023 Resolved CHF 49157357 03/26/2023 Resolved BMI 40+ severely obese 301861726 01/29/2023 Re solved AFIB 35703576 03/26/2023 Resolved Squamous cell carcinoma of skin 157569705 01/03 Resolved Squamous cell carcinoma of skin 944958480 01/03 Resolved Results Unknown or Not Available. Active Medications Medication Code Dose Units Frequency Route Modificatio n Start Date/Time Valsartan 80 MG Oral Tablet 783155 1 TABLET DAILY ORAL 02/01 11:00 Prescription Detail TAKE 1 TABLET ORAL DAILY Metoprolol Succinate 50MG Oral Tablet, Extended Release 465702 3 TABLET DAILY ORAL 02/01/2023 10:59 Prescription Detail TAKE 3 TABLET ORAL DAILY Albuterol Sulfate HFA 0.09MG/1Actuat ion Inhalation Suspension 9983685 2 PUFF NEEDED INHALATION 02/02/20 10:58 Prescription Detail 2 PUFF INHALATION NEEDED metFORMIN HCl 500MG Oral Tablet 503481 500 MILLIGRAMS DAILY ORAL 10:58 Prescription Detail TAKE 500 MILLIGRAMS ORAL DAILY Furosemide 40MG Oral Tablet 897540 40 MILLIGRAMS BID (0800 AND 1459) ORAL 02/01/2023 10:57 Prescription Detail TAKE 40 MILLIGRAMS ORAL BID (0800 AND 14 59) Eliquis 5MG Oral Tablet 4114853 5 MILLIGRAMS TWICE A DAY ORAL 02/01/2023 10:56 Prescription Detail TAKE 5 MILLIGRAMS ORAL TWICE A DAY Medications Administered During Visit Unknown or Not Available. Encounters Encounter Diagnosis Diagnosis Code Start Date Encounter for change or removal of surgical woun d dressing Z4801 12/16/2021 Social History Smoking Status Code Start Date End Date Never smoker [id number] Patient Decision Aids Unknown or Not Available. Discharge Instructions You were admitted to [facility] on 12/16/2021 16:53 with a principal diagnosis of Encounter for change or removal of surgical wound dressing You were discharged from [facility] on 12/16/2021 00:00 Should you have [...]
--- OUTSIDE RECORDS SUMMARY | 2023-05-16 07:57 | XMS_ITS | CCD ---
Author Name Unknown Address [address] [place], [place] [id number] Organization Unknown Address [address] [place], [place] [id number] Care Team Providers Care Clinical Informatics Spec Name Role Phone REJI ISSA Attending Physician [phone] SUNIL TAPIA Er Physician 3 [phone] GITA Perez Registered Nurse [phone] Vital Signs Vital Sign Value Unit Date/Time [...] Start Date Resolved Date Status Acute CHF 36866833 Active A-fib with RVR 937146725022483 Activ e Swelling of bilateral lower extremities 458056201 Active History of small bowel obstruction 725587530664870209 01/29/2023 Resolved Diverticulitis 134212206 01/29/2023 Resolved HLD 95122060 01/29/2023 Resolved HTN 50848319 01/29/2023 Resolved T2DM 55111329 01/29/2023 Resolved Mild persistent asthma 604494010 01/29/2023 Re solved Peripheral edema 370336668 01/29/2023 Resolved Osteoarthritis 776488143 01/29/2023 Resolved CHF 26223693 03/26/2023 Resolved BMI 40+ severely obese 731540808 01/29/2023 Re solved AFIB 74355074 03/26/2023 Resolved Squamous cell carcinoma of skin 130446825 01/03 Resolved Squamous cell carcinoma of skin 112908775 01/03 Resolved Results BASIC METABOLIC PANEL (BMP) [...] 2028-9 28 mmol/L L=22 H=34 ANION GAP 34998-8 8.6 mmol/L CALCIUM SERUM 46540-7 9.0 mg/dL L=8.2 H=10. 2 AGE 82 years eGFR (non-Afr.Amer.) 76484-3 101 mL/min eGFR (Afr-[place]) 85438-3 >120 mL/min BNP (PRO-B NATRIURETIC PEPTI DE) - Collect Date/Time: 01/29/2023 15:42 Test Name Code Test Result Test Units Test Ref Rang e NT-proBNP 56950-3 769.0 pg/mL L=0.0 H=450 COMPREHENSIVE METABOLIC PANE [...] 2028-9 27 mmol/L L=22 H=34 ANION GAP 94253-2 7.8 mmol/L CALCIUM SERUM 48178-0 8.9 mg/dL L=8.2 H=10. 2 BILIRUBIN TOTAL 1975-2 1.1 mg/dL L=0.0 H=1 .3 ALK. PHOS. 6768-6 81 U/L L=46 H=116 SGOT (AST) 1920-8 20 U/L L=15 H=37 SGPT (ALT) 1742-6 10 U/L L=12 H=78 TOTAL PROTEIN 2885-2 7.0 gm/dL L=6.0 H=8.0 ALBUMIN 1751-7 3.4 gm/dL L=3.4 H=5.0 AGE 82 years eGFR (non-Afr.Amer.) 22016-2 97 mL/min eGFR (Afr-[place]) 01842-0 118 mL/min MAGNESIUM SERUM* - Collect D ate/Time: 01/30/2023 06:50 Test Name Code Test Result Test Units Test Ref Rang e MAGNESIUM 96874-0 2.1 mg/dL L=1.8 H=2.4 NOVA GLUCOSE FINGER HEEL CAP ILLARY - Collect Date/Time: 02/01/2023 07:28 Test Name Code Test Result Test Units Test Ref Rang e GLUCOSE CAP 17366-9 120 mg/dL L=70 H=116 NOVA GLUCOSE FINGER HEEL CAP ILLARY - Collect Date/Time: 01/31/2023 07:42 Test Name Code Test Result Test Units Test Ref Rang e GLUCOSE CAP 61923-4 128 mg/dL L=70 H=116 TROPONIN HIGH SENSITIVITY* [...] % 14.4 % L=10.0 H=50.0 MONO % 27085-3 11.3 % L=2.0 H=12.0 EOS % 1.2 % L=0.0 H=8.0 BASO % 0.6 % L=0.0 H=3.0 IG % 2514-8 0.6 % L=0.0 H=1.1 NRBC % 70954-8 0.0 % L=0.0 H=0.0 NEUT abs count 751-8 6.5 th/cmm L=1.6 H=8. 4 LYMPH abs count 731-0 1.3 th/cmm L=1.5 H=4 .0 MONO abs count 742-7 1.0 th/cmm L=0.2 H=1. 0 EOS abs count 711-2 0.1 th/cmm L=0.0 H=0.5 BASO abs count 704-7 0.1 th/cmm L=0.0 H=0. 2 IG abs count 67670-8 0.1 th/cmm L=0.0 H=0.1 NRBC abs count 05976-9 0.0 mil/cmm L=0.0 H=0. 0 RBC 789-8 4.40 mil/cmm L=3.90 H=5.40 HEMOGLOBIN 718-7 12.9 gm/dL L=12.0 H=16.0 HEMATOCRIT 4544-3 43 % L=37 H=47 MCV 787-2 98 fL L=82 H=92 MCH 785-6 29.3 pg L=27.0 H=31.0 MCHC 786-4 29.8 % L=32.0 H=36.0 RDW-SD 788-0 49.1 fL L=39.0 H=49.0 PLATELET COUNT 777-3 160 th/cmm L=150 H=45 0 CBC W/ DIFFERENTIAL* - [facility] ct Date/Time: 01/29/2023 15:02 Test Name Code Test Result Test Units Test Ref Rang e WBC 6690-2 9.28 th/cmm L=5.00 H=10.00 NEUT % 76.3 % L=40.0 H=80.0 LYMPH % 12.3 % L=10.0 H=50.0 MONO % 87579-7 9.1 % L=2.0 H=12.0 EOS % 1.3 % L=0.0 H=8.0 BASO % 0.5 % L=0.0 H=3.0 IG % 2514-8 0.5 % L=0.0 H=1.1 NRBC % 00894-8 0.0 % L=0.0 H=0.0 NEUT abs count 751-8 7.1 th/cmm L=1.6 H=8. 4 LYMPH abs count 731-0 1.1 th/cmm L=1.5 H=4 .0 MONO abs count 742-7 0.8 th/cmm L=0.2 H=1. 0 EOS abs count 711-2 0.1 th/cmm L=0.0 H=0.5 BASO abs count 704-7 0.1 th/cmm L=0.0 H=0. 2 IG abs count 45203-8 0.1 th/cmm L=0.0 H=0.1 NRBC abs count 56057-1 0.0 mil/cmm L=0.0 H=0. 0 RBC 789-8 [...] PROTIME 5902-2 11.1 seconds L=9.3 H=11.4 INR 64981-9 1.07 L=2.00 H=3.00 PTT PARTIAL THROMBOPLASTIN T PRABHU* - Collect Date/Time: 01/29/2023 15:42 Test Name Code Test Result Test Units Test Ref Rang e PTT 64848-9 23.5 seconds L=24.5 H=32.8 JEFFREY COVID FLU RSV GENEXPE RT - Collect Date/Time: 01/29/2023 18:45 Test Name Code Test Result Test Units Test Ref Rang e COVID 44717-0 NEGATIVE N/A Normal: Negati ve INFLUENZA A DNA 60900-5 NEGATIVE N/A Normal: N egative INFLUENZA B DNA 52720-1 NEGATIVE N/A Normal: N egative RSV DNA 03936-4 NEGATIVE N/A Normal: Negati ve Active Medications Medications Administered During Visit Medication Dose Units Frequency Route Date/Time of Last Dose METOPROLOL TARTRATE INJ SDV: 5MG/5ML 5 MG PRN Q5MIN IVP 01/29/2023 17:2 5 METOPROLOL TARTRATE TABLET: 25MG 25 MG X1 PO 01/29/2023 17:3 0 FUROSEMIDE INJ SDV: 20MG/2ML 10 MG X1 IVP 01/29/2023 20:0 8 SENNA CONC TABLET: 8.6MG 8.6 MG PRN DAILY PO 01/30/2023 16:16 ALBUTEROL UPDRAFT: 2.5MG/3ML 2.5 MG PRN Q4H INH 01/29/2023 23:1 8 ALBUTEROL/IPRATROP UPDRAFT:2.5/0.5MG/3ML 3 ML QID RESP INH [...] Code Start Date End Date Never smoker [id number] Patient Decision Aids Unknown or Not Available. Discharge Instructions You were admitted to on 01/29/2023 17:10 with a principal diagnosis of Specified Heart Arrhythmias You had the following tests done:NOVA GLUCOSE FINGER HEEL CAPILLARYNOVA GLUCOSE FINGER HEEL CAPILLARYBASIC METABOLIC PANEL (BMP)CBC W/ DIFFERENTIAL*MAGNESIUM SERUM*TROPONIN HIGH SENSITIVITY*TSH THYROID STIMULATING HORMONE*[facility] COVID FLU RSV GENEXPERTBNP (PRO-B NATRIURETIC PEPTIDE)COMPREHENSIVE METABOLIC PANEL (CMP)PT PROTHROMBIN TIME*PTT PARTIAL THROMBOPLASTIN TIME*TROPONIN HIGH SENSITIVITY*CBC W/ DIFFERENTIAL* You were discharged from on 02/01/2023 13:00 Should you have any [...]
--- OUTSIDE RECORDS SUMMARY | 2023-05-16 07:57 | XMS_ITS | CCD ---
Author Name Unknown Address [address] [place], [place] [id number] Organization Unknown Address [address], [place] [id number] Care Team Providers Care Box Tender Name Role Phone SUNIL TAPIA Attending Physician [phone] RENETTA PICHARDO Er Physician [phone] MARTINE Montoya Registered Nurse [phone] Vital Signs Vital Sign Value Unit Date/Time [...] Start Date Resolved Date Status Acute CHF 45507341 Active A-fib with RVR 754289565737551 Activ e Swelling of bilateral lower extremities 264628375 Active CHF 49897449 03/26/2023 Resolved AFIB 25381849 03/26/2023 Resolved Results Unknown or Not Available. Active Medications Unknown or Not Available. Medications Administered During Visit Unknown or Not Available. Encounters Encounter Diagnosis Diagnosis Code Start Date Localized edema 989752000 03/26/2023 Social History Smoking Status Code Start Date End Date Never smoker [id number] Patient Decision Aids Unknown or Not Available. Discharge Instructions You were admitted to [facility] on 03/26/2023 10:42 with a principal diagnosis of Localized edema You were discharged from [facility] on 03/26/2023 14:46 Should you have [...]
--- OUTSIDE RECORDS SUMMARY | 2023-05-16 07:57 | XMS_ITS | CCD ---
Author Name Unknown Address [address] [place] [phone] Organization Unknown Address [address] [place] [phone] Care Team Providers Care Senior Piping Designer Name Role Phone ESTRADA FAULKNER Attending Physician [phone] ESTRADA FAULKNER Rounding (Secondary) Physician [phone] Vital Signs Unknown or Not Available. Allergies Allergy Code Allergy Type Reaction Status CODEINE 2670 Drug allergy flushing, HOT Active SULFA (sulfonamide) 0 Drug allergy MY FEET TURNE D COLD Active Procedures Unknown or Not Available. History of Immunizations Unknown or Not Available. Problems Problem Code Start Date Resolved Date Status Acute CHF 03198338 Active A-fib with RVR 760467939144118 Activ e Swelling of bilateral lower extremities 009299634 Active History of small bowel obstruction 762939132231734777 01/29/2023 Resolved Diverticulitis 764553001 01/29/2023 Resolved HLD 32418835 01/29/2023 Resolved HTN 69241474 01/29/2023 Resolved T2DM 81952858 01/29/2023 Resolved Mild persistent asthma 126888132 01/29/2023 Re solved Peripheral edema 770044914 01/29/2023 Resolved Osteoarthritis 273061320 01/29/2023 Resolved CHF 37741621 03/26/2023 Resolved BMI 40+ severely obese 603221484 01/29/2023 Re solved AFIB 28986979 03/26/2023 Resolved Squamous cell carcinoma of skin 858015556 01/03 Resolved Squamous cell carcinoma of skin 375180603 01/03 Resolved Results Unknown or Not Available. Active Medications Medication Code Dose Units Frequency Route Modificatio n Start Date/Time Valsartan 80 MG Oral Tablet 989839 1 TABLET DAILY ORAL 02/01 11:00 Prescription Detail TAKE 1 TABLET ORAL DAILY Metoprolol Succinate 50MG Oral Tablet, Extended Release 608802 3 TABLET DAILY ORAL 02/01/2023 10:59 Prescription Detail TAKE 3 TABLET ORAL DAILY Albuterol Sulfate HFA 0.09MG/1Actuat ion Inhalation Suspension 2083789 2 PUFF NEEDED INHALATION 02/02/20 10:58 Prescription Detail 2 PUFF INHALATION NEEDED metFORMIN HCl 500MG Oral Tablet 982958 500 MILLIGRAMS DAILY ORAL 10:58 Prescription Detail TAKE 500 MILLIGRAMS ORAL DAILY Furosemide 40MG Oral Tablet 078822 40 MILLIGRAMS BID (0800 AND 1459) ORAL 02/01/2023 10:57 Prescription Detail TAKE 40 MILLIGRAMS ORAL BID (0800 AND 14 59) Eliquis 5MG Oral Tablet 2089512 5 MILLIGRAMS TWICE A DAY ORAL 02/01/2023 10:56 Prescription Detail TAKE 5 MILLIGRAMS ORAL TWICE A DAY Medications Administered During Visit Unknown or Not Available. Encounters Encounter Diagnosis Diagnosis Code Start Date Squamous cell carcinoma of s kin of right lower limb, including hip P67899 11/26/2021 Social History Smoking Status Code Start Date End Date Never smoker 408375997 Patient Decision Aids Unknown or Not Available. 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
--- OUTSIDE RECORDS SUMMARY | 2023-05-16 07:57 | XMS_ITS | CCD ---
Author Name Unknown Address [address] [place] [phone] Organization Unknown Address [address] [place] [phone] Care Team Providers Care Tune Up Mechanic Name Role Phone ZI WADSWORTH Attending Physician [phone] Vital Signs Unknown or Not Available. Allergies Allergy Code Allergy Type Reaction Status CODEINE 2670 Drug allergy flushing, HOT Active SULFA (sulfonamide) 0 Drug allergy MY FEET TURNE D COLD Active Procedures Unknown or Not Available. History of Immunizations Unknown or Not Available. Problems Problem Code Start Date Resolved Date Status Acute CHF 90108748 Active A-fib with RVR 656385898801143 Activ e Swelling of bilateral lower extremities 181694359 Active History of small bowel obstruction 264871114318272086 01/29/2023 Resolved Diverticulitis 893743974 01/29/2023 Resolved HLD 42236509 01/29/2023 Resolved HTN 67448111 01/29/2023 Resolved T2DM 86916929 01/29/2023 Resolved Mild persistent asthma 052382443 01/29/2023 Re solved Peripheral edema 789596544 01/29/2023 Resolved Osteoarthritis 438400477 01/29/2023 Resolved CHF 27048142 03/26/2023 Resolved BMI 40+ severely obese 447817365 01/29/2023 Re solved AFIB 26930476 03/26/2023 Resolved Squamous cell carcinoma of skin 624753124 01/03 Resolved Squamous cell carcinoma of skin 227797197 01/03 Resolved Results Unknown or Not Available. Active Medications Medication Code Dose Units Frequency Route Modificatio n Start Date/Time Valsartan 80 MG Oral Tablet 766153 1 TABLET DAILY ORAL 02/01 11:00 Prescription Detail TAKE 1 TABLET ORAL DAILY Metoprolol Succinate 50MG Oral Tablet, Extended Release 522392 3 TABLET DAILY ORAL 02/01/2023 10:59 Prescription Detail TAKE 3 TABLET ORAL DAILY Albuterol Sulfate HFA 0.09MG/1Actuat ion Inhalation Suspension 2130391 2 PUFF NEEDED INHALATION 02/02/20 10:58 Prescription Detail 2 PUFF INHALATION NEEDED metFORMIN HCl 500MG Oral Tablet 881667 500 MILLIGRAMS DAILY ORAL 10:58 Prescription Detail TAKE 500 MILLIGRAMS ORAL DAILY Furosemide 40MG Oral Tablet 768264 40 MILLIGRAMS BID (0800 AND 1459) ORAL 02/01/2023 10:57 Prescription Detail TAKE 40 MILLIGRAMS ORAL BID (0800 AND 14 59) Eliquis 5MG Oral Tablet 7658435 5 MILLIGRAMS TWICE A DAY ORAL 02/01/2023 10:56 Prescription Detail TAKE 5 MILLIGRAMS ORAL TWICE A DAY Medications Administered During Visit Unknown or Not Available. Encounters Encounter Diagnosis Diagnosis Code Start Date Atrial fibrillation 82217679 01/29/2023 Social History Smoking Status Code Start Date End Date Never smoker 976977257 Patient Decision Aids Unknown or Not Available. Discharge Instructions You were admitted to [facility] on 01/29/2023 14:24 with a principal diagnosis of Unspecified atrial fibrillation You were discharged from [facility] on 01/29/2023 17:10 Should you have [...]
--- OUTSIDE RECORDS SUMMARY | 2023-05-16 07:57 | XMS_ITS | CCD ---
Author Name Unknown Address [address] [place] [phone] Organization Unknown Address [address] [place] [phone] Care Team Providers Care Ballistician Name Role Phone REJI ISSA Attending Physician [phone] Vital Signs Unknown or Not Available. Allergies Allergy Code Allergy Type Reaction Status CODEINE 2670 Drug allergy flushing, HOT Active SULFA (sulfonamide) 0 Drug allergy MY FEET TURNE D COLD Active Procedures Unknown or Not Available. History of Immunizations Unknown or Not Available. Problems Problem Code Start Date Resolved Date Status Acute CHF 07301160 Active A-fib with RVR 141979403442815 Activ e Swelling of bilateral lower extremities 399452855 Active History of small bowel obstruction 496141371910660236 01/29/2023 Resolved Diverticulitis 118075589 01/29/2023 Resolved HLD 55785157 01/29/2023 Resolved HTN 14672340 01/29/2023 Resolved T2DM 07441630 01/29/2023 Resolved Mild persistent asthma 834308073 01/29/2023 Re solved Peripheral edema 176623078 01/29/2023 Resolved Osteoarthritis 013246828 01/29/2023 Resolved CHF 40365609 03/26/2023 Resolved BMI 40+ severely obese 216113958 01/29/2023 Re solved AFIB 84858947 03/26/2023 Resolved Squamous cell carcinoma of skin 402984314 01/03 Resolved Squamous cell carcinoma of skin 086815928 01/03 Resolved Results Unknown or Not Available. Active Medications Medication Code Dose Units Frequency Route Modificatio n Start Date/Time Valsartan 80 MG Oral Tablet 080688 1 TABLET DAILY ORAL 02/01 11:00 Prescription Detail TAKE 1 TABLET ORAL DAILY Metoprolol Succinate 50MG Oral Tablet, Extended Release 058240 3 TABLET DAILY ORAL 02/01/2023 10:59 Prescription Detail TAKE 3 TABLET ORAL DAILY Albuterol Sulfate HFA 0.09MG/1Actuat ion Inhalation Suspension 7034172 2 PUFF NEEDED INHALATION 02/02/20 10:58 Prescription Detail 2 PUFF INHALATION NEEDED metFORMIN HCl 500MG Oral Tablet 903485 500 MILLIGRAMS DAILY ORAL 10:58 Prescription Detail TAKE 500 MILLIGRAMS ORAL DAILY Furosemide 40MG Oral Tablet 099086 40 MILLIGRAMS BID (0800 AND 1459) ORAL 02/01/2023 10:57 Prescription Detail TAKE 40 MILLIGRAMS ORAL BID (0800 AND 14 59) Eliquis 5MG Oral Tablet 9902394 5 MILLIGRAMS TWICE A DAY ORAL 02/01/2023 10:56 Prescription Detail TAKE 5 MILLIGRAMS ORAL TWICE A DAY Medications Administered During Visit Unknown or Not Available. Encounters Encounter Diagnosis Diagnosis Code Start Date Unspecified atrial fibrillation I4891 01/29/2023 Social History Smoking Status Code Start Date End Date Never smoker [id number] Patient Decision Aids Unknown or Not Available. Discharge Instructions You were admitted to [facility] on 01/29/2023 00:53 with a principal diagnosis of Unspecified atrial fibrillation You were discharged from [facility] on 02/01/2023 00:54 Should you [...]
== END 2023-05-12 07:54 | disposition home or self-care (01) ==
LOC: NCHCN 07:53
PROVIDERS: PCP Family Medicine; Visit Provider Family Medicine
DX: I11.0 Hypertensive heart disease with heart failure; I48.91 Unspecified atrial fibrillation
CPT/HCPCS: 80048

== ENCOUNTER 2023-06-21 13:29 | Outpatient (REF) | payer MEDICARE, MEDICAID, SELFPAY | END 2023-06-21 13:30 | disposition home or self-care (01) | LOC: NCHCN 13:29 | PROVIDERS: PCP Family Medicine; Visit Provider Family Medicine | DX: L97.822 Non-pressure chronic ulcer of other part of left lower leg with fat layer exposed (principal); E11.51 Type 2 diabetes mellitus with diabetic peripheral angiopathy without gangrene; L98.8 Other specified disorders of the skin and subcutaneous tissue | CPT/HCPCS: 87070; 87205 ==

== ENCOUNTER 2023-06-28 10:40 | Outpatient (REF) | payer MEDICARE, MEDICAID, SELFPAY ==
[2023-06-28 21:22] LABS: Anion Gap 6.2 mmol/L (3-11); BUN 21 mg/dL (7-18); CO2 31.8 mmol/L (21.0-32.0); CREATININE 0.9 mg/dL (0.55-1.02); Calcium 8.7 mg/dL (8.5-10.1); Chloride 100 mmol/L (98-107); Estimated GFR 63.43 (mL/min/1.73m2); Glucose 131 mg/dL (74-106); Potassium 3.7 mmol/L (3.5-5.1); Sodium 138 mmol/L (136-145)
== END 2023-06-28 10:41 ==
LOC: LBN 10:40
PROVIDERS: PCP Family Medicine; Visit Provider Family Medicine
DX: I11.0 Hypertensive heart disease with heart failure
CPT/HCPCS: 80048

== ENCOUNTER 2023-07-11 21:19 | Outpatient (REF) | payer MEDICARE, MEDICAID, SELFPAY ==
[2023-07-11 21:49] LABS: Anion Gap 6.2 mmol/L (3-11); BUN 21 mg/dL (7-18); CO2 32.8 mmol/L (21.0-32.0); Chloride 103 mmol/L (98-107); Glucose 177 mg/dL (74-106); Potassium 3.9 mmol/L (3.5-5.1); Sodium 142 mmol/L (136-145)
== END 2023-07-11 21:20 | disposition home or self-care (01) ==
LOC: NCHCN 21:19
PROVIDERS: PCP Family Medicine; Visit Provider Family Medicine
DX: E11.51 Type 2 diabetes mellitus with diabetic peripheral angiopathy without gangrene (principal); I10 Essential (primary) hypertension
CPT/HCPCS: 80048

== ENCOUNTER 2023-09-13 20:17 | Outpatient (REF) | payer MEDICARE, MEDICAID, SELFPAY ==
[2023-09-13 21:31] LABS: Anion Gap 7.2 mmol/L (3-11); BUN 18 mg/dL (7-18); CO2 33.8 mmol/L (21.0-32.0); CREATININE 0.9 mg/dL (0.55-1.02); Calcium 8.7 mg/dL (8.5-10.1); Chloride 101 mmol/L (98-107); Estimated GFR 63.43 (mL/min/1.73m2); Glucose 137 mg/dL (74-106); Potassium 3.9 mmol/L (3.5-5.1); Sodium 142 mmol/L (136-145)
== END 2023-09-13 20:18 | disposition home or self-care (01) ==
LOC: NCHCN 20:17
PROVIDERS: PCP Family Medicine; Visit Provider Family Medicine
DX: I48.0 Paroxysmal atrial fibrillation (principal); I11.0 Hypertensive heart disease with heart failure
CPT/HCPCS: 80048

== ENCOUNTER 2023-09-26 20:55 | Outpatient (REF) | payer MEDICARE, MEDICAID, SELFPAY ==
--- OUTSIDE RECORDS SUMMARY | 2023-09-26 20:58 | XMS_ITS ---
Author Name Unknown Address [address], [place] [phone] Phone Organization Unknown Address [address] [place] [phone] Phone Care Team Providers Care Restoration Officer Name Role Phone KAUSHIK Dickson Attending Unavailable AXEL Dickson Primary Unavailable Social History Type Status Start Date End Date Code Code Syst em Smoking History Never smoker (Never Smoked) 528142998 SNOMED CT Sex Female Medications Medication Start Date End Date Route Frequency Dose Code Code System Medication Instructions Home Meds Eliquis 5MG Oral Tablet 02/01/2023 08/16/2023 ORAL TWICE A DAY 5 MILLIGRAMS 9415630 RxNorm TAKE 5 MILLIGRAMS ORAL TWICE A DAY Furosemide 40MG Oral Tablet 02/01/2023 08/16/2023 ORAL BID (0800 AND 1459) 40 MILLIGRAMS 606478 RxNorm TAKE 40 MILLIGRAMS ORAL BID (0800 AND 1459) Klor-Con M20 20MEQ Oral Tablet, Extended Release 02/01/2023 03/26/2023 ORAL DAILY WITH FOOD 20 MEQ 2617551 RxNorm TAKE 20 MEQ ORAL DAILY WITH FOOD Albuterol Sulfate HFA 0.09MG/1Act uation Inhalation Suspension 02/01/2023 Unknown INHALATI ON NEEDED 2 PUFF 4414686 RxNorm 2 PUFF INHALATION NEEDED metFORMIN HCl 500MG Oral Tablet 02/01/2023 08/16/2023 ORAL DAILY 500 MILLIGRAMS 205549 RxNorm TAKE 500 MILLIGRAMS ORAL DAILY Metoprolol Succinate 50MG Oral Tablet, Extended Release 02/01/2023 08/16/2023 ORAL DAILY 3 TABLET 810386 RxNorm TAKE 3 TABLET ORAL DAILY Valsartan 80 MG Oral Tablet 02/01/2023 Unknown ORAL DAILY 1 TABLET 875987 RxNorm TAKE 1 TABLET ORAL DAILY Acetaminoph en 325MG Oral Tablet 08/18/2023 Unknown ORAL NEEDED EVERY 4 HOURS 650 MILLIGRAMS 278953 RxNorm TAKE 650 MILLIGRAMS ORAL NEEDED EVERY 4 HOURS Torsemide AvPak 20MG Oral Tablet 08/18/2023 Unknown ORAL BID (0800 AND 1459) 20 MILLIGRAMS 799161 RxNorm TAKE 20 MILLIGRAMS ORAL BID (0800 AND 1459) Eliquis 5MG Oral Tablet 08/18/2023 Unknown ORAL TWICE A DAY 5 MILLIGRAMS 0455442 RxNorm TAKE 5 MILLIGRAMS ORAL TWICE A DAY Jardiance 25MG Oral Tablet 08/18/2023 Unknown ORAL DAILY 25 MILLIGRAMS 7968894 RxNorm TAKE 25 MILLIGRAMS ORAL DAILY Metoprolol Succinate 50MG Oral Tablet, Extended Release 08/18/2023 Unknown ORAL DAILY 50 MILLIGRAMS 195606 RxNorm TAKE 50 MILLIGRAMS ORAL DAILY Potassium Chloride 20MEQ Oral Tablet, Extended Release 08/18/2023 Unknown ORAL DAILY 20 MILLIGRAMS 7834426 RxNorm TAKE 20 MILLIGRAMS ORAL DAILY metFORMIN HCl 500MG Oral Tablet, Extended Release 08/18/2023 Unknown ORAL TWICE A DAY 500 MILLIGRAMS 841058 RxNorm TAKE 500 MILLIGRAMS ORAL TWICE A DAY Assessment You had the following problems:ACUTE CHFA-FIB WITH RVRSWELLING OF BILATERAL LOWER EXTREMITIESCHRONIC VENOUS INSUFFICIENCY Hospital Discharge Instructions Should you have any questions prior to discharge, please contact a member of your healthcare team. If you have left the hospital and have any questions, please contact your primary care physician. Reason For Referral No Data Found Problems Problem Start Date Resolved Date Status Code Code System ACUTE CHF active 79863397 SNOMED-CT A-FIB WITH RVR active 335855764476527 SNOMED-CT SWELLING OF BILATERAL LOWER EXTREMITIES active 641676186 SNOMED-CT CHRONIC VENOUS INSUFFICIENCY active 19549866 SNOMED-CT DIVERTICULITIS 01/29/2023 resolved 607610953 SNOM ED-CT HLD 01/29/2023 resolved 49072545 SNOMED-CT HTN 01/29/2023 resolved 27948107 SNOMED-CT T2DM 01/29/2023 resolved 64014514 SNOMED-CT BMI 40+ SEVERELY OBESE 01/29/2023 resolved 154562302 SNOMED-CT PERIPHERAL EDEMA 01/29/2023 resolved 403739989 SN OMED-CT OSTEOARTHRITIS 01/29/2023 resolved 544832520 SNOM ED-CT CHF 03/26/2023 resolved 55248984 SNOMED-CT AFIB 03/26/2023 resolved 51429137 SNOMED-CT MILD PERSISTENT ASTHMA 01/29/2023 resolved 982943979 SNOMED-CT SQUAMOUS CELL CARCINOMA OF SKIN 01/29/2023 resolved 569171371 SNOMED-CT SQUAMOUS CELL CARCINOMA OF SKIN 01/29/2023 resolved 960419400 SNOMED-CT HISTORY OF SMALL BOWEL OBSTRUCTION 01/29/2023 resolved 156936686994293201 SNOM ED-CT Allergies and Adverse Reactions Allergy Substance Reaction Severity Start Date Concern Status Co de Code System SULFA (sulfonamide) Moderate Active CODEINE Moderate Active 2670 RxNorm Plan of Treatment No Data Found Encounters Encounter Diagnosis Start Date Code Code Sys tem Squamous cell carcinoma of s kin of right lower limb, including hip 11/26/2021 SNOMED-CT Personal Care Team Section Performer Name Performer Role Active Date Inactive Da erica
--- OUTSIDE RECORDS SUMMARY | 2023-09-26 20:58 | XMS_ITS ---
Author Name Unknown Address [address] [place], [place] [phone] Phone Organization Unknown Address [address] [place] [phone] Phone Care Team Providers Care Pattern Designer Name Role Phone KAUSHIK Dickson Attending Unavailable AXEL Dickson Primary Unavailable Social History Type Status Start Date End Date Code Code Syst em Smoking History Never smoker (Never Smoked) 815249035 SNOMED CT Sex Female Medications Medication Start Date End Date Route Frequency Dose Code Code System Medication Instructions Home Meds Eliquis 5MG Oral Tablet 02/01/2023 08/16/2023 ORAL TWICE A DAY 5 MILLIGRAMS [id number] RxNorm TAKE 5 MILLIGRAMS ORAL TWICE A DAY Furosemide 40MG Oral Tablet 02/01/2023 08/16/2023 ORAL BID (0800 AND 1459) 40 MILLIGRAMS 484257 RxNorm TAKE 40 MILLIGRAMS ORAL BID (0800 AND 1459) Klor-Con M20 20MEQ Oral Tablet, Extended Release 02/01/2023 03/26/2023 ORAL DAILY WITH FOOD 20 MEQ 0495150 RxNorm TAKE 20 MEQ ORAL DAILY WITH FOOD Albuterol Sulfate HFA 0.09MG/1Act uation Inhalation Suspension 02/01/2023 Unknown INHALATI ON NEEDED 2 PUFF 9087248 RxNorm 2 PUFF INHALATION NEEDED metFORMIN HCl 500MG Oral Tablet 02/01/2023 08/16/2023 ORAL DAILY 500 MILLIGRAMS 708720 RxNorm TAKE 500 MILLIGRAMS ORAL DAILY Metoprolol Succinate 50MG Oral Tablet, Extended Release 02/01/2023 08/16/2023 ORAL DAILY 3 TABLET [id number] RxNorm TAKE 3 TABLET ORAL DAILY Valsartan 80 MG Oral Tablet 02/01/2023 Unknown ORAL DAILY 1 TABLET 416268 RxNorm TAKE 1 TABLET ORAL DAILY Acetaminoph en 325MG Oral Tablet 08/18/2023 Unknown ORAL NEEDED EVERY 4 HOURS 650 MILLIGRAMS 498692 RxNorm TAKE 650 MILLIGRAMS ORAL NEEDED EVERY 4 HOURS Torsemide AvPak 20MG Oral Tablet 08/18/2023 Unknown ORAL BID (0800 AND 1459) 20 MILLIGRAMS 732509 RxNorm TAKE 20 MILLIGRAMS ORAL BID (0800 AND 1459) Eliquis 5MG Oral Tablet 08/18/2023 Unknown ORAL TWICE A DAY 5 MILLIGRAMS 5602526 RxNorm TAKE 5 MILLIGRAMS ORAL TWICE A DAY Jardiance 25MG Oral Tablet 08/18/2023 Unknown ORAL DAILY 25 MILLIGRAMS 0742903 RxNorm TAKE 25 MILLIGRAMS ORAL DAILY Metoprolol Succinate 50MG Oral Tablet, Extended Release 08/18/2023 Unknown ORAL DAILY 50 MILLIGRAMS 834209 RxNorm TAKE 50 MILLIGRAMS ORAL DAILY Potassium Chloride 20MEQ Oral Tablet, Extended Release 08/18/2023 Unknown ORAL DAILY 20 MILLIGRAMS [id number] RxNorm TAKE 20 MILLIGRAMS ORAL DAILY metFORMIN HCl 500MG Oral Tablet, Extended Release 08/18/2023 Unknown ORAL TWICE A DAY 500 MILLIGRAMS 352374 RxNorm TAKE 500 MILLIGRAMS ORAL TWICE A [...] Status Code Code System ACUTE CHF active 39559403 SNOMED-CT A-FIB WITH RVR active 449596201715052 SNOMED-CT SWELLING OF BILATERAL LOWER EXTREMITIES active 204568196 SNOMED-CT CHRONIC VENOUS INSUFFICIENCY active 14137518 SNOMED-CT DIVERTICULITIS 01/29/2023 resolved 102366489 SNOM ED-CT HLD 01/29/2023 resolved 11734997 SNOMED-CT HTN 01/29/2023 resolved 99298231 SNOMED-CT T2DM 01/29/2023 resolved 83063057 SNOMED-CT BMI 40+ SEVERELY OBESE 01/29/2023 resolved 922787941 SNOMED-CT PERIPHERAL EDEMA 01/29/2023 resolved 881613304 SN OMED-CT OSTEOARTHRITIS 01/29/2023 resolved 730496753 SNOM ED-CT CHF 03/26/2023 resolved 53863009 SNOMED-CT AFIB 03/26/2023 resolved 15071663 SNOMED-CT MILD PERSISTENT ASTHMA 01/29/2023 resolved 448552010 SNOMED-CT SQUAMOUS CELL CARCINOMA OF SKIN 01/29/2023 resolved 113126879 SNOMED-CT SQUAMOUS CELL CARCINOMA OF SKIN 01/29/2023 resolved 681865870 SNOMED-CT HISTORY OF SMALL BOWEL OBSTRUCTION 01/29/2023 resolved [id number] SNOM ED-CT Allergies and Adverse Reactions Allergy Substance Reaction Severity Start Date Concern Status Co de Code System SULFA (sulfonamide) Moderate Active CODEINE Moderate Active 2670 RxNorm Plan of Treatment No Data Found Encounters Encounter Diagnosis Start Date Code Code Sys tem Encounter for change or viky kali of surgical wound dressing 12/08/2021 SNOMED-CT Personal Care Team Section Performer Name Performer Role Active Date Inactive Da te
--- OUTSIDE RECORDS SUMMARY | 2023-09-26 20:59 | XMS_ITS ---
Author Name Unknown Address [address] [place], [place] [phone] Phone Organization Unknown Address [address] [place] [phone] Phone Care Team Providers Care Deputy Of Counter Intelligence Name Role Phone KAUSHIK Dickson Attending Unavailable AXEL Dickson Primary Unavailable Social History Type Status Start Date End Date Code Code Syst em Smoking History Never smoker (Never Smoked) 534719307 SNOMED CT Sex Female Medications Medication Start Date End Date Route Frequency Dose Code Code System Medication Instructions Home Meds Eliquis 5MG Oral Tablet 02/01/2023 08/16/2023 ORAL TWICE A DAY 5 MILLIGRAMS [id number] RxNorm TAKE 5 MILLIGRAMS ORAL TWICE A DAY Furosemide 40MG Oral Tablet 02/01/2023 08/16/2023 ORAL BID (0800 AND 1459) 40 MILLIGRAMS 823167 RxNorm TAKE 40 MILLIGRAMS ORAL BID (0800 AND 1459) Klor-Con M20 20MEQ Oral Tablet, Extended Release 02/01/2023 03/26/2023 ORAL DAILY WITH FOOD 20 MEQ 8105025 RxNorm TAKE 20 MEQ ORAL DAILY WITH FOOD Albuterol Sulfate HFA 0.09MG/1Act uation Inhalation Suspension 02/01/2023 Unknown INHALATI ON NEEDED 2 PUFF 4289553 RxNorm 2 PUFF INHALATION NEEDED metFORMIN HCl 500MG Oral Tablet 02/01/2023 08/16/2023 ORAL DAILY 500 MILLIGRAMS 891650 RxNorm TAKE 500 MILLIGRAMS ORAL DAILY Metoprolol Succinate 50MG Oral Tablet, Extended Release 02/01/2023 08/16/2023 ORAL DAILY 3 TABLET 109935 RxNorm TAKE 3 TABLET ORAL DAILY Valsartan 80 MG Oral Tablet 02/01/2023 Unknown ORAL DAILY 1 TABLET 027250 RxNorm TAKE 1 TABLET ORAL DAILY Acetaminoph en 325MG Oral Tablet 08/18/2023 Unknown ORAL NEEDED EVERY 4 HOURS 650 MILLIGRAMS 949204 RxNorm TAKE 650 MILLIGRAMS ORAL NEEDED EVERY 4 HOURS Torsemide AvPak 20MG Oral Tablet 08/18/2023 Unknown ORAL BID (0800 AND 1459) 20 MILLIGRAMS 535430 RxNorm TAKE 20 MILLIGRAMS ORAL BID (0800 AND 1459) Eliquis 5MG Oral Tablet 08/18/2023 Unknown ORAL TWICE A DAY 5 MILLIGRAMS 3681250 RxNorm TAKE 5 MILLIGRAMS ORAL TWICE A DAY Jardiance 25MG Oral Tablet 08/18/2023 Unknown ORAL DAILY 25 MILLIGRAMS 4606954 RxNorm TAKE 25 MILLIGRAMS ORAL DAILY Metoprolol Succinate 50MG Oral Tablet, Extended Release 08/18/2023 Unknown ORAL DAILY 50 MILLIGRAMS 042752 RxNorm TAKE 50 MILLIGRAMS ORAL DAILY Potassium Chloride 20MEQ Oral Tablet, Extended Release 08/18/2023 Unknown ORAL DAILY 20 MILLIGRAMS 3368466 RxNorm TAKE 20 MILLIGRAMS ORAL DAILY metFORMIN HCl 500MG Oral Tablet, Extended Release 08/18/2023 Unknown ORAL TWICE A DAY 500 MILLIGRAMS 203262 RxNorm TAKE 500 MILLIGRAMS ORAL TWICE A [...] Status Code Code System ACUTE CHF active 84301121 SNOMED-CT A-FIB WITH RVR active 962646407254674 SNOMED-CT SWELLING OF BILATERAL LOWER EXTREMITIES active 277086492 SNOMED-CT CHRONIC VENOUS INSUFFICIENCY active 85294774 SNOMED-CT DIVERTICULITIS 01/29/2023 resolved 508984023 SNOM ED-CT HLD 01/29/2023 resolved 17392928 SNOMED-CT HTN 01/29/2023 resolved 42769897 SNOMED-CT T2DM 01/29/2023 resolved 85590618 SNOMED-CT BMI 40+ SEVERELY OBESE 01/29/2023 resolved 758197084 SNOMED-CT PERIPHERAL EDEMA 01/29/2023 resolved 795668785 SN OMED-CT OSTEOARTHRITIS 01/29/2023 resolved 558961229 SNOM ED-CT CHF 03/26/2023 resolved 42931720 SNOMED-CT AFIB 03/26/2023 resolved 97256731 SNOMED-CT MILD PERSISTENT ASTHMA 01/29/2023 resolved 610261930 SNOMED-CT SQUAMOUS CELL CARCINOMA OF SKIN 01/29/2023 resolved 722411842 SNOMED-CT SQUAMOUS CELL CARCINOMA OF SKIN 01/29/2023 resolved 574359998 SNOMED-CT HISTORY OF SMALL BOWEL OBSTRUCTION 01/29/2023 resolved 658052218428883032 SNOM ED-CT Allergies and Adverse Reactions Allergy Substance Reaction Severity Start Date Concern Status Co de Code System SULFA (sulfonamide) Moderate Active CODEINE Moderate Active 2670 RxNorm Plan of Treatment No Data Found Encounters Encounter Diagnosis Start Date Code Code Sys tem Encounter for change or viky kali of surgical wound dressing 12/16/2021 SNOMED-CT Personal Care Team Section Performer Name Performer Role Active Date Inactive Da te
--- OUTSIDE RECORDS SUMMARY | 2023-09-26 20:59 | XMS_ITS ---
Author Name Unknown Address [address] [place], [place] [phone] Phone Organization Unknown Address [address] [place] [phone] Phone Care Team Providers Care Prototype Special Build Name Role Phone KAUSHIK Dickson Attending Unavailable AXEL Dickson Primary Unavailable Social History Type Status Start Date End Date Code Code Syst em Smoking History Never smoker (Never Smoked) 659487167 SNOMED CT Sex Female Medications Medication Start Date End Date Route Frequency Dose Code Code System Medication Instructions Home Meds Eliquis 5MG Oral Tablet 02/01/2023 08/16/2023 ORAL TWICE A DAY 5 MILLIGRAMS 4601789 RxNorm TAKE 5 MILLIGRAMS ORAL TWICE A DAY Furosemide 40MG Oral Tablet 02/01/2023 08/16/2023 ORAL BID (0800 AND 1459) 40 MILLIGRAMS 934160 RxNorm TAKE 40 MILLIGRAMS ORAL BID (0800 AND 1459) Klor-Con M20 20MEQ Oral Tablet, Extended Release 02/01/2023 03/26/2023 ORAL DAILY WITH FOOD 20 MEQ 0160078 RxNorm TAKE 20 MEQ ORAL DAILY WITH FOOD Albuterol Sulfate HFA 0.09MG/1Act uation Inhalation Suspension 02/01/2023 Unknown INHALATI ON NEEDED 2 PUFF 7319158 RxNorm 2 PUFF INHALATION NEEDED metFORMIN HCl 500MG Oral Tablet 02/01/2023 08/16/2023 ORAL DAILY 500 MILLIGRAMS 414396 RxNorm TAKE 500 MILLIGRAMS ORAL DAILY Metoprolol Succinate 50MG Oral Tablet, Extended Release 02/01/2023 08/16/2023 ORAL DAILY 3 TABLET 844438 RxNorm TAKE 3 TABLET ORAL DAILY Valsartan 80 MG Oral Tablet 02/01/2023 Unknown ORAL DAILY 1 TABLET 797213 RxNorm TAKE 1 TABLET ORAL DAILY Acetaminoph en 325MG Oral Tablet 08/18/2023 Unknown ORAL NEEDED EVERY 4 HOURS 650 MILLIGRAMS 038866 RxNorm TAKE 650 MILLIGRAMS ORAL NEEDED EVERY 4 HOURS Torsemide AvPak 20MG Oral Tablet 08/18/2023 Unknown ORAL BID (0800 AND 1459) 20 MILLIGRAMS 193581 RxNorm TAKE 20 MILLIGRAMS ORAL BID (0800 AND 1459) Eliquis 5MG Oral Tablet 08/18/2023 Unknown ORAL TWICE A DAY 5 MILLIGRAMS 0640636 RxNorm TAKE 5 MILLIGRAMS ORAL TWICE A DAY Jardiance 25MG Oral Tablet 08/18/2023 Unknown ORAL DAILY 25 MILLIGRAMS 5766138 RxNorm TAKE 25 MILLIGRAMS ORAL DAILY Metoprolol Succinate 50MG Oral Tablet, Extended Release 08/18/2023 Unknown ORAL DAILY 50 MILLIGRAMS 960935 RxNorm TAKE 50 MILLIGRAMS ORAL DAILY Potassium Chloride 20MEQ Oral Tablet, Extended Release 08/18/2023 Unknown ORAL DAILY 20 MILLIGRAMS 9821892 RxNorm TAKE 20 MILLIGRAMS ORAL DAILY metFORMIN HCl 500MG Oral Tablet, Extended Release 08/18/2023 Unknown ORAL TWICE A DAY 500 MILLIGRAMS 301429 RxNorm TAKE 500 MILLIGRAMS ORAL TWICE A [...] Status Code Code System ACUTE CHF active 35538035 SNOMED-CT A-FIB WITH RVR active 750750113329431 SNOMED-CT SWELLING OF BILATERAL LOWER EXTREMITIES active 051081039 SNOMED-CT CHRONIC VENOUS INSUFFICIENCY active 11829928 SNOMED-CT DIVERTICULITIS 01/29/2023 resolved 089184527 SNOM ED-CT HLD 01/29/2023 resolved 64009731 SNOMED-CT HTN 01/29/2023 resolved 34809691 SNOMED-CT T2DM 01/29/2023 resolved 78523668 SNOMED-CT BMI 40+ SEVERELY OBESE 01/29/2023 resolved 770327198 SNOMED-CT PERIPHERAL EDEMA 01/29/2023 resolved 367671043 SN OMED-CT OSTEOARTHRITIS 01/29/2023 resolved 628945263 SNOM ED-CT CHF 03/26/2023 resolved 57994925 SNOMED-CT AFIB 03/26/2023 resolved 88882529 SNOMED-CT MILD PERSISTENT ASTHMA 01/29/2023 resolved 917241726 SNOMED-CT SQUAMOUS CELL CARCINOMA OF SKIN 01/29/2023 resolved 630548019 SNOMED-CT SQUAMOUS CELL CARCINOMA OF SKIN 01/29/2023 resolved 414426412 SNOMED-CT HISTORY OF SMALL BOWEL OBSTRUCTION 01/29/2023 resolved 507371790481137828 SNOM ED-CT Allergies and Adverse Reactions Allergy Substance Reaction Severity Start Date Concern Status Co de Code System SULFA (sulfonamide) Moderate Active CODEINE Moderate Active 2670 RxNorm Plan of Treatment No Data Found Encounters Encounter Diagnosis Start Date Code Code Sys tem Encounter for change or viky kali of surgical wound dressing 12/22/2021 SNOMED-CT Personal Care Team Section Performer Name Performer Role Active Date Inactive Da te
--- OUTSIDE RECORDS SUMMARY | 2023-09-26 21:00 | XMS_ITS ---
Author Name Unknown Address [address] [place], [place] [phone] Phone Organization Unknown Address [address] [place] [phone] Phone Care Team Providers Care Registered Nurse Midwife Name Role Phone KAUSHIK Dickson Attending Unavailable AXEL Dickson Primary Unavailable Social History Type Status Start Date End Date Code Code Syst em Smoking History Never smoker (Never Smoked) 029575474 SNOMED CT Sex Female Medications Medication Start Date End Date Route Frequency Dose Code Code System Medication Instructions Home Meds Eliquis 5MG Oral Tablet 02/01/2023 08/16/2023 ORAL TWICE A DAY 5 MILLIGRAMS 6537859 RxNorm TAKE 5 MILLIGRAMS ORAL TWICE A DAY Furosemide 40MG Oral Tablet 02/01/2023 08/16/2023 ORAL BID (0800 AND 1459) 40 MILLIGRAMS 045604 RxNorm TAKE 40 MILLIGRAMS ORAL BID (0800 AND 1459) Klor-Con M20 20MEQ Oral Tablet, Extended Release 02/01/2023 03/26/2023 ORAL DAILY WITH FOOD 20 MEQ 8645962 RxNorm TAKE 20 MEQ ORAL DAILY WITH FOOD Albuterol Sulfate HFA 0.09MG/1Act uation Inhalation Suspension 02/01/2023 Unknown INHALATI ON NEEDED 2 PUFF 4315455 RxNorm 2 PUFF INHALATION NEEDED metFORMIN HCl 500MG Oral Tablet 02/01/2023 08/16/2023 ORAL DAILY 500 MILLIGRAMS 903379 RxNorm TAKE 500 MILLIGRAMS ORAL DAILY Metoprolol Succinate 50MG Oral Tablet, Extended Release 02/01/2023 08/16/2023 ORAL DAILY 3 TABLET 316472 RxNorm TAKE 3 TABLET ORAL DAILY Valsartan 80 MG Oral Tablet 02/01/2023 Unknown ORAL DAILY 1 TABLET 855453 RxNorm TAKE 1 TABLET ORAL DAILY Acetaminoph en 325MG Oral Tablet 08/18/2023 Unknown ORAL NEEDED EVERY 4 HOURS 650 MILLIGRAMS 632780 RxNorm TAKE 650 MILLIGRAMS ORAL NEEDED EVERY 4 HOURS Torsemide AvPak 20MG Oral Tablet 08/18/2023 Unknown ORAL BID (0800 AND 1459) 20 MILLIGRAMS 357300 RxNorm TAKE 20 MILLIGRAMS ORAL BID (0800 AND 1459) Eliquis 5MG Oral Tablet 08/18/2023 Unknown ORAL TWICE A DAY 5 MILLIGRAMS 3331929 RxNorm TAKE 5 MILLIGRAMS ORAL TWICE A DAY Jardiance 25MG Oral Tablet 08/18/2023 Unknown ORAL DAILY 25 MILLIGRAMS 7686386 RxNorm TAKE 25 MILLIGRAMS ORAL DAILY Metoprolol Succinate 50MG Oral Tablet, Extended Release 08/18/2023 Unknown ORAL DAILY 50 MILLIGRAMS 236108 RxNorm TAKE 50 MILLIGRAMS ORAL DAILY Potassium Chloride 20MEQ Oral Tablet, Extended Release 08/18/2023 Unknown ORAL DAILY 20 MILLIGRAMS 9164912 RxNorm TAKE 20 MILLIGRAMS ORAL DAILY metFORMIN HCl 500MG Oral Tablet, Extended Release 08/18/2023 Unknown ORAL TWICE A DAY 500 MILLIGRAMS 807041 RxNorm TAKE 500 MILLIGRAMS ORAL TWICE A [...] Status Code Code System ACUTE CHF active 70974706 SNOMED-CT A-FIB WITH RVR active 227453758972816 SNOMED-CT SWELLING OF BILATERAL LOWER EXTREMITIES active 066384961 SNOMED-CT CHRONIC VENOUS INSUFFICIENCY active 71866823 SNOMED-CT DIVERTICULITIS 01/29/2023 resolved 272245019 SNOM ED-CT HLD 01/29/2023 resolved 91429580 SNOMED-CT HTN 01/29/2023 resolved 25455671 SNOMED-CT T2DM 01/29/2023 resolved 86225569 SNOMED-CT BMI 40+ SEVERELY OBESE 01/29/2023 resolved 189087093 SNOMED-CT PERIPHERAL EDEMA 01/29/2023 resolved 901347839 SN OMED-CT OSTEOARTHRITIS 01/29/2023 resolved 724095039 SNOM ED-CT CHF 03/26/2023 resolved 23945206 SNOMED-CT AFIB 03/26/2023 resolved 32031228 SNOMED-CT MILD PERSISTENT ASTHMA 01/29/2023 resolved 825817106 SNOMED-CT SQUAMOUS CELL CARCINOMA OF SKIN 01/29/2023 resolved 364991330 SNOMED-CT SQUAMOUS CELL CARCINOMA OF SKIN 01/29/2023 resolved 756414021 SNOMED-CT HISTORY OF SMALL BOWEL OBSTRUCTION 01/29/2023 resolved 625983386131850976 SNOM ED-CT Allergies and Adverse Reactions Allergy Substance Reaction Severity Start Date Concern Status Co de Code System SULFA (sulfonamide) Moderate Active CODEINE Moderate Active 2670 RxNorm Plan of Treatment No Data Found Encounters Encounter Diagnosis Start Date Code Code Sys tem Removal of dressing 01/19/2022 [id number] SNOMED-C T Personal Care Team Section Performer Name Performer Role Active Date Inactive Valerio maldonado
--- OUTSIDE RECORDS SUMMARY | 2023-09-26 21:00 | XMS_ITS ---
Author Name Unknown Address [address] [place], [place] [phone] Phone Organization Unknown Address [address] [place] [phone] Phone Care Team Providers Care Manager Athletics Name Role Phone KAUSHIK Dickson Attending Unavailable AXEL Dickson Primary Unavailable Social History Type Status Start Date End Date Code Code Syst em Smoking History Never smoker (Never Smoked) 436545384 SNOMED CT Sex Female Medications Medication Start Date End Date Route Frequency Dose Code Code System Medication Instructions Home Meds Eliquis 5MG Oral Tablet 02/01/2023 08/16/2023 ORAL TWICE A DAY 5 MILLIGRAMS 7578917 RxNorm TAKE 5 MILLIGRAMS ORAL TWICE A DAY Furosemide 40MG Oral Tablet 02/01/2023 08/16/2023 ORAL BID (0800 AND 1459) 40 MILLIGRAMS 796003 RxNorm TAKE 40 MILLIGRAMS ORAL BID (0800 AND 1459) Klor-Con M20 20MEQ Oral Tablet, Extended Release 02/01/2023 03/26/2023 ORAL DAILY WITH FOOD 20 MEQ 7911741 RxNorm TAKE 20 MEQ ORAL DAILY WITH FOOD Albuterol Sulfate HFA 0.09MG/1Act uation Inhalation Suspension 02/01/2023 Unknown INHALATI ON NEEDED 2 PUFF 5235940 RxNorm 2 PUFF INHALATION NEEDED metFORMIN HCl 500MG Oral Tablet 02/01/2023 08/16/2023 ORAL DAILY 500 MILLIGRAMS 432663 RxNorm TAKE 500 MILLIGRAMS ORAL DAILY Metoprolol Succinate 50MG Oral Tablet, Extended Release 02/01/2023 08/16/2023 ORAL DAILY 3 TABLET 236714 RxNorm TAKE 3 TABLET ORAL DAILY Valsartan 80 MG Oral Tablet 02/01/2023 Unknown ORAL DAILY 1 TABLET 183026 RxNorm TAKE 1 TABLET ORAL DAILY Acetaminoph en 325MG Oral Tablet 08/18/2023 Unknown ORAL NEEDED EVERY 4 HOURS 650 MILLIGRAMS 484084 RxNorm TAKE 650 MILLIGRAMS ORAL NEEDED EVERY 4 HOURS Torsemide AvPak 20MG Oral Tablet 08/18/2023 Unknown ORAL BID (0800 AND 1459) 20 MILLIGRAMS 596727 RxNorm TAKE 20 MILLIGRAMS ORAL BID (0800 AND 1459) Eliquis 5MG Oral Tablet 08/18/2023 Unknown ORAL TWICE A DAY 5 MILLIGRAMS 8451435 RxNorm TAKE 5 MILLIGRAMS ORAL TWICE A DAY Jardiance 25MG Oral Tablet 08/18/2023 Unknown ORAL DAILY 25 MILLIGRAMS 1894932 RxNorm TAKE 25 MILLIGRAMS ORAL DAILY Metoprolol Succinate 50MG Oral Tablet, Extended Release 08/18/2023 Unknown ORAL DAILY 50 MILLIGRAMS 892415 RxNorm TAKE 50 MILLIGRAMS ORAL DAILY Potassium Chloride 20MEQ Oral Tablet, Extended Release 08/18/2023 Unknown ORAL DAILY 20 MILLIGRAMS 3197162 RxNorm TAKE 20 MILLIGRAMS ORAL DAILY metFORMIN HCl 500MG Oral Tablet, Extended Release 08/18/2023 Unknown ORAL TWICE A DAY 500 MILLIGRAMS 733123 RxNorm TAKE 500 MILLIGRAMS ORAL TWICE A [...] Status Code Code System ACUTE CHF active 60361080 SNOMED-CT A-FIB WITH RVR active 702230157550499 SNOMED-CT SWELLING OF BILATERAL LOWER EXTREMITIES active 544482973 SNOMED-CT CHRONIC VENOUS INSUFFICIENCY active 89234163 SNOMED-CT DIVERTICULITIS 01/29/2023 resolved 921431262 SNOM ED-CT HLD 01/29/2023 resolved 75333430 SNOMED-CT HTN 01/29/2023 resolved 94613771 SNOMED-CT T2DM 01/29/2023 resolved 73155437 SNOMED-CT BMI 40+ SEVERELY OBESE 01/29/2023 resolved 544168369 SNOMED-CT PERIPHERAL EDEMA 01/29/2023 resolved 226207642 SN OMED-CT OSTEOARTHRITIS 01/29/2023 resolved 117834946 SNOM ED-CT CHF 03/26/2023 resolved 84738428 SNOMED-CT AFIB 03/26/2023 resolved 13101269 SNOMED-CT MILD PERSISTENT ASTHMA 01/29/2023 resolved 618764938 SNOMED-CT SQUAMOUS CELL CARCINOMA OF SKIN 01/29/2023 resolved 212984611 SNOMED-CT SQUAMOUS CELL CARCINOMA OF SKIN 01/29/2023 resolved 948703903 SNOMED-CT HISTORY OF SMALL BOWEL OBSTRUCTION 01/29/2023 resolved 256560490256534259 SNOM ED-CT Allergies and Adverse Reactions Allergy Substance Reaction Severity Start Date Concern Status Co de Code System SULFA (sulfonamide) Moderate Active CODEINE Moderate Active 2670 RxNorm Plan of Treatment No Data Found Encounters Encounter Diagnosis Start Date Code Code Sys tem Encounter for follow-up exam ination after completed treatment for malignant neoplasm 03/02/2022 SNOMED- CT Personal Care Team Section Performer Name Performer Role Active Date Inactive Da erica
--- OUTSIDE RECORDS SUMMARY | 2023-09-26 21:00 | XMS_ITS ---
Author Name Unknown Address [address] [place], [place] [phone] Phone Organization Unknown Address [address] [place] [phone] Phone Care Team Providers Care Stock Roller Name Role Phone KAUSHIK Dickson Attending Unavailable AXEL Dickson Primary Unavailable Social History Type Status Start Date End Date Code Code Syst em Smoking History Never smoker (Never Smoked) 839480289 SNOMED CT Sex Female Medications Medication Start Date End Date Route Frequency Dose Code Code System Medication Instructions Home Meds Eliquis 5MG Oral Tablet 02/01/2023 08/16/2023 ORAL TWICE A DAY 5 MILLIGRAMS 3263705 RxNorm TAKE 5 MILLIGRAMS ORAL TWICE A DAY Furosemide 40MG Oral Tablet 02/01/2023 08/16/2023 ORAL BID (0800 AND 1459) 40 MILLIGRAMS 069603 RxNorm TAKE 40 MILLIGRAMS ORAL BID (0800 AND 1459) Klor-Con M20 20MEQ Oral Tablet, Extended Release 02/01/2023 03/26/2023 ORAL DAILY WITH FOOD 20 MEQ 2307864 RxNorm TAKE 20 MEQ ORAL DAILY WITH FOOD Albuterol Sulfate HFA 0.09MG/1Act uation Inhalation Suspension 02/01/2023 Unknown INHALATI ON NEEDED 2 PUFF 8514361 RxNorm 2 PUFF INHALATION NEEDED metFORMIN HCl 500MG Oral Tablet 02/01/2023 08/16/2023 ORAL DAILY 500 MILLIGRAMS 717262 RxNorm TAKE 500 MILLIGRAMS ORAL DAILY Metoprolol Succinate 50MG Oral Tablet, Extended Release 02/01/2023 08/16/2023 ORAL DAILY 3 TABLET 817487 RxNorm TAKE 3 TABLET ORAL DAILY Valsartan 80 MG Oral Tablet 02/01/2023 Unknown ORAL DAILY 1 TABLET 683676 RxNorm TAKE 1 TABLET ORAL DAILY Acetaminoph en 325MG Oral Tablet 08/18/2023 Unknown ORAL NEEDED EVERY 4 HOURS 650 MILLIGRAMS 698314 RxNorm TAKE 650 MILLIGRAMS ORAL NEEDED EVERY 4 HOURS Torsemide AvPak 20MG Oral Tablet 08/18/2023 Unknown ORAL BID (0800 AND 1459) 20 MILLIGRAMS 831675 RxNorm TAKE 20 MILLIGRAMS ORAL BID (0800 AND 1459) Eliquis 5MG Oral Tablet 08/18/2023 Unknown ORAL TWICE A DAY 5 MILLIGRAMS 4927464 RxNorm TAKE 5 MILLIGRAMS ORAL TWICE A DAY Jardiance 25MG Oral Tablet 08/18/2023 Unknown ORAL DAILY 25 MILLIGRAMS 6378264 RxNorm TAKE 25 MILLIGRAMS ORAL DAILY Metoprolol Succinate 50MG Oral Tablet, Extended Release 08/18/2023 Unknown ORAL DAILY 50 MILLIGRAMS 006424 RxNorm TAKE 50 MILLIGRAMS ORAL DAILY Potassium Chloride 20MEQ Oral Tablet, Extended Release 08/18/2023 Unknown ORAL DAILY 20 MILLIGRAMS 7327077 RxNorm TAKE 20 MILLIGRAMS ORAL DAILY metFORMIN HCl 500MG Oral Tablet, Extended Release 08/18/2023 Unknown ORAL TWICE A DAY 500 MILLIGRAMS 453916 RxNorm TAKE 500 MILLIGRAMS ORAL TWICE A [...] Status Code Code System ACUTE CHF active 42740428 SNOMED-CT A-FIB WITH RVR active 559631638532829 SNOMED-CT SWELLING OF BILATERAL LOWER EXTREMITIES active 599981717 SNOMED-CT CHRONIC VENOUS INSUFFICIENCY active 73054092 SNOMED-CT DIVERTICULITIS 01/29/2023 resolved 053103135 SNOM ED-CT HLD 01/29/2023 resolved 88210665 SNOMED-CT HTN 01/29/2023 resolved 27173150 SNOMED-CT T2DM 01/29/2023 resolved 71634007 SNOMED-CT BMI 40+ SEVERELY OBESE 01/29/2023 resolved 753903664 SNOMED-CT PERIPHERAL EDEMA 01/29/2023 resolved 793714223 SN OMED-CT OSTEOARTHRITIS 01/29/2023 resolved 031352269 SNOM ED-CT CHF 03/26/2023 resolved 71221805 SNOMED-CT AFIB 03/26/2023 resolved 33656770 SNOMED-CT MILD PERSISTENT ASTHMA 01/29/2023 resolved 192391805 SNOMED-CT SQUAMOUS CELL CARCINOMA OF SKIN 01/29/2023 resolved 159641191 SNOMED-CT SQUAMOUS CELL CARCINOMA OF SKIN 01/29/2023 resolved 366438381 SNOMED-CT HISTORY OF SMALL BOWEL OBSTRUCTION 01/29/2023 resolved 307176027536518485 SNOM ED-CT Allergies and Adverse Reactions Allergy Substance Reaction Severity Start Date Concern Status Co de Code System SULFA (sulfonamide) Moderate Active CODEINE Moderate Active 2670 RxNorm Plan of Treatment No Data Found Encounters Encounter Diagnosis Start Date Code Code Sys tem Removal of dressing 02/09/2022 [id number] SNOMED-C T Personal Care Team Section Performer Name Performer Role Active Date Inactive Valerio maldonado
--- OUTSIDE RECORDS SUMMARY | 2023-09-26 21:00 | XMS_ITS ---
Author Name Unknown Address [address] [place], [place] [phone] Phone Organization Unknown Address [address] [place] [phone] Phone Care Team Providers Care Variety Lathe Operator Name Role Phone KAUSHIK Dickson Attending Unavailable AXEL Dickson Primary Unavailable Social History Type Status Start Date End Date Code Code Syst em Smoking History Never smoker (Never Smoked) [id number] SNOMED CT Sex Female Medications Medication Start Date End Date Route Frequency Dose Code Code System Medication Instructions Home Meds Eliquis 5MG Oral Tablet 02/01/2023 08/16/2023 ORAL TWICE A DAY 5 MILLIGRAMS [id number] RxNorm TAKE 5 MILLIGRAMS ORAL TWICE A DAY Furosemide 40MG Oral Tablet 02/01/2023 08/16/2023 ORAL BID (0800 AND 1459) 40 MILLIGRAMS 848808 RxNorm TAKE 40 MILLIGRAMS ORAL BID (0800 AND 1459) Klor-Con M20 20MEQ Oral Tablet, Extended Release 02/01/2023 03/26/2023 ORAL DAILY WITH FOOD 20 MEQ 8277016 RxNorm TAKE 20 MEQ ORAL DAILY WITH FOOD Albuterol Sulfate HFA 0.09MG/1Act uation Inhalation Suspension 02/01/2023 Unknown INHALATI ON NEEDED 2 PUFF 7065811 RxNorm 2 PUFF INHALATION NEEDED metFORMIN HCl 500MG Oral Tablet 02/01/2023 08/16/2023 ORAL DAILY 500 MILLIGRAMS 689068 RxNorm TAKE 500 MILLIGRAMS ORAL DAILY Metoprolol Succinate 50MG Oral Tablet, Extended Release 02/01/2023 08/16/2023 ORAL DAILY 3 TABLET 101863 RxNorm TAKE 3 TABLET ORAL DAILY Valsartan 80 MG Oral Tablet 02/01/2023 Unknown ORAL DAILY 1 TABLET 139987 RxNorm TAKE 1 TABLET ORAL DAILY Acetaminoph en 325MG Oral Tablet 08/18/2023 Unknown ORAL NEEDED EVERY 4 HOURS 650 MILLIGRAMS 387198 RxNorm TAKE 650 MILLIGRAMS ORAL NEEDED EVERY 4 HOURS Torsemide AvPak 20MG Oral Tablet 08/18/2023 Unknown ORAL BID (0800 AND 1459) 20 MILLIGRAMS 208244 RxNorm TAKE 20 MILLIGRAMS ORAL BID (0800 AND 1459) Eliquis 5MG Oral Tablet 08/18/2023 Unknown ORAL TWICE A DAY 5 MILLIGRAMS 0242673 RxNorm TAKE 5 MILLIGRAMS ORAL TWICE A DAY Jardiance 25MG Oral Tablet 08/18/2023 Unknown ORAL DAILY 25 MILLIGRAMS 6321360 RxNorm TAKE 25 MILLIGRAMS ORAL DAILY Metoprolol Succinate 50MG Oral Tablet, Extended Release 08/18/2023 Unknown ORAL DAILY 50 MILLIGRAMS 450883 RxNorm TAKE 50 MILLIGRAMS ORAL DAILY Potassium Chloride 20MEQ Oral Tablet, Extended Release 08/18/2023 Unknown ORAL DAILY 20 MILLIGRAMS 5891188 RxNorm TAKE 20 MILLIGRAMS ORAL DAILY metFORMIN HCl 500MG Oral Tablet, Extended Release 08/18/2023 Unknown ORAL TWICE A DAY 500 MILLIGRAMS 223246 RxNorm TAKE 500 MILLIGRAMS ORAL TWICE A [...] Status Code Code System ACUTE CHF active 69855242 SNOMED-CT A-FIB WITH RVR active 844094464696336 SNOMED-CT SWELLING OF BILATERAL LOWER EXTREMITIES active 682818564 SNOMED-CT CHRONIC VENOUS INSUFFICIENCY active 67647720 SNOMED-CT DIVERTICULITIS 01/29/2023 resolved 945612520 SNOM ED-CT HLD 01/29/2023 resolved 55242785 SNOMED-CT HTN 01/29/2023 resolved 71950560 SNOMED-CT T2DM 01/29/2023 resolved 11270572 SNOMED-CT BMI 40+ SEVERELY OBESE 01/29/2023 resolved 568522868 SNOMED-CT PERIPHERAL EDEMA 01/29/2023 resolved 046784669 SN OMED-CT OSTEOARTHRITIS 01/29/2023 resolved 448038377 SNOM ED-CT CHF 03/26/2023 resolved 57981688 SNOMED-CT AFIB 03/26/2023 resolved 39049852 SNOMED-CT MILD PERSISTENT ASTHMA 01/29/2023 resolved 355128730 SNOMED-CT SQUAMOUS CELL CARCINOMA OF SKIN 01/29/2023 resolved 387219817 SNOMED-CT SQUAMOUS CELL CARCINOMA OF SKIN 01/29/2023 resolved 184183409 SNOMED-CT HISTORY OF SMALL BOWEL OBSTRUCTION 01/29/2023 resolved [id number] SNOM ED-CT Allergies and Adverse Reactions Allergy Substance Reaction Severity Start Date Concern Status Co de Code System SULFA (sulfonamide) Moderate Active CODEINE Moderate Active 2670 RxNorm Plan of Treatment No Data Found Encounters Encounter Diagnosis Start Date Code Code Sys tem Removal of dressing 01/05/2022 904648202 SNOMED-C T Personal Care Team Section Performer Name Performer Role Active Date Inactive Valerio maldonado
--- OUTSIDE RECORDS SUMMARY | 2023-09-26 21:01 | XMS_ITS ---
Author Name Unknown Address [address], [place] [phone] Phone Organization Unknown Address [address] [place] [phone] Phone Care Team Providers Care Cable Mock Up Assembler Name Role Phone ERMELINDA Mckeon Attending Unavailable Social History Type Status Start Date End Date Code Code Syst em Smoking History Never smoker (Never Smoked) [id number] SNOMED CT Sex Female Medications Medication Start Date End Date Route Frequency Dose Code Code System Medication Instructions Home Meds Eliquis 5MG Oral Tablet 02/01/2023 08/16/2023 ORAL TWICE A DAY 5 MILLIGRAMS 8619587 RxNorm TAKE 5 MILLIGRAMS ORAL TWICE A DAY Furosemide 40MG Oral Tablet 02/01/2023 08/16/2023 ORAL BID (0800 AND 1459) 40 MILLIGRAMS 680990 RxNorm TAKE 40 MILLIGRAMS ORAL BID (0800 AND 1459) Klor-Con M20 20MEQ Oral Tablet, Extended Release 02/01/2023 03/26/2023 ORAL DAILY WITH FOOD 20 MEQ 9221159 RxNorm TAKE 20 MEQ ORAL DAILY WITH FOOD Albuterol Sulfate HFA 0.09MG/1Act uation Inhalation Suspension 02/01/2023 Unknown INHALATI ON NEEDED 2 PUFF 2426567 RxNorm 2 PUFF INHALATION NEEDED metFORMIN HCl 500MG Oral Tablet 02/01/2023 08/16/2023 ORAL DAILY 500 MILLIGRAMS 188773 RxNorm TAKE 500 MILLIGRAMS ORAL DAILY Metoprolol Succinate 50MG Oral Tablet, Extended Release 02/01/2023 08/16/2023 ORAL DAILY 3 TABLET 553401 RxNorm TAKE 3 TABLET ORAL DAILY Valsartan 80 MG Oral Tablet 02/01/2023 Unknown ORAL DAILY 1 TABLET 488489 RxNorm TAKE 1 TABLET ORAL DAILY Acetaminoph en 325MG Oral Tablet 08/18/2023 Unknown ORAL NEEDED EVERY 4 HOURS 650 MILLIGRAMS 257010 RxNorm TAKE 650 MILLIGRAMS ORAL NEEDED EVERY 4 HOURS Torsemide AvPak 20MG Oral Tablet 08/18/2023 Unknown ORAL BID (0800 AND 1459) 20 MILLIGRAMS 381708 RxNorm TAKE 20 MILLIGRAMS ORAL BID (0800 AND 1459) Eliquis 5MG Oral Tablet 08/18/2023 Unknown ORAL TWICE A DAY 5 MILLIGRAMS 3872209 RxNorm TAKE 5 MILLIGRAMS ORAL TWICE A DAY Jardiance 25MG Oral Tablet 08/18/2023 Unknown ORAL DAILY 25 MILLIGRAMS 1300460 RxNorm TAKE 25 MILLIGRAMS ORAL DAILY Metoprolol Succinate 50MG Oral Tablet, Extended Release 08/18/2023 Unknown ORAL DAILY 50 MILLIGRAMS 920853 RxNorm TAKE 50 MILLIGRAMS ORAL DAILY Potassium Chloride 20MEQ Oral Tablet, Extended Release 08/18/2023 Unknown ORAL DAILY 20 MILLIGRAMS 7608604 RxNorm TAKE 20 MILLIGRAMS ORAL DAILY metFORMIN HCl 500MG Oral Tablet, Extended Release 08/18/2023 Unknown ORAL TWICE A DAY 500 MILLIGRAMS 638108 RxNorm TAKE 500 MILLIGRAMS ORAL TWICE A [...] Status Code Code System ACUTE CHF active 50649880 SNOMED-CT A-FIB WITH RVR active 805161991296315 SNOMED-CT SWELLING OF BILATERAL LOWER EXTREMITIES active 672645178 SNOMED-CT CHRONIC VENOUS INSUFFICIENCY active 80956394 SNOMED-CT DIVERTICULITIS 01/29/2023 resolved 313426583 SNOM ED-CT HLD 01/29/2023 resolved 56355417 SNOMED-CT HTN 01/29/2023 resolved 93355487 SNOMED-CT T2DM 01/29/2023 resolved 97949249 SNOMED-CT BMI 40+ SEVERELY OBESE 01/29/2023 resolved 461206793 SNOMED-CT PERIPHERAL EDEMA 01/29/2023 resolved 469889689 SN OMED-CT OSTEOARTHRITIS 01/29/2023 resolved 461900639 SNOM ED-CT CHF 03/26/2023 resolved 73154694 SNOMED-CT AFIB 03/26/2023 resolved 45116705 SNOMED-CT MILD PERSISTENT ASTHMA 01/29/2023 resolved 913965499 SNOMED-CT SQUAMOUS CELL CARCINOMA OF SKIN 01/29/2023 resolved 768040559 SNOMED-CT SQUAMOUS CELL CARCINOMA OF SKIN 01/29/2023 resolved 915181785 SNOMED-CT HISTORY OF SMALL BOWEL OBSTRUCTION 01/29/2023 resolved 589122447199796839 SNOM ED-CT Allergies and Adverse Reactions Allergy Substance Reaction Severity Start Date Concern Status Co de Code System SULFA (sulfonamide) Moderate Active CODEINE Moderate Active 2670 RxNorm Plan of Treatment No Data Found Encounters Encounter Diagnosis Start Date Code Code Sys tem Atrial fibrillation 01/29/2023 10543418 SNOMED-C T Personal Care Team Section Performer Name Performer Role Active Date Inactive Da te
--- OUTSIDE RECORDS SUMMARY | 2023-09-26 21:01 | XMS_ITS ---
Author Name Unknown Address [address], [place] [phone] Phone Organization Unknown Address [address], [place] [phone] Phone Care Team Providers Care Company Secretary Name Role Phone MAEGAN Echols Attending Unavailable Social History Type Status Start Date End Date Code Code Syst em Smoking History Never smoker (Never Smoked) 219546693 SNOMED CT Sex Female Medications Medication Start Date End Date Route Frequency Dose Code Code System Medication Instructions Home Meds Eliquis 5MG Oral Tablet 02/01/2023 08/16/2023 ORAL TWICE A DAY 5 MILLIGRAMS 3311887 RxNorm TAKE 5 MILLIGRAMS ORAL TWICE A DAY Furosemide 40MG Oral Tablet 02/01/2023 08/16/2023 ORAL BID (0800 AND 1459) 40 MILLIGRAMS 440079 RxNorm TAKE 40 MILLIGRAMS ORAL BID (0800 AND 1459) Klor-Con M20 20MEQ Oral Tablet, Extended Release 02/01/2023 03/26/2023 ORAL DAILY WITH FOOD 20 MEQ 5800483 RxNorm TAKE 20 MEQ ORAL DAILY WITH FOOD Albuterol Sulfate HFA 0.09MG/1Act uation Inhalation Suspension 02/01/2023 Unknown INHALATI ON NEEDED 2 PUFF 4999590 RxNorm 2 PUFF INHALATION NEEDED metFORMIN HCl 500MG Oral Tablet 02/01/2023 08/16/2023 ORAL DAILY 500 MILLIGRAMS 578389 RxNorm TAKE 500 MILLIGRAMS ORAL DAILY Metoprolol Succinate 50MG Oral Tablet, Extended Release 02/01/2023 08/16/2023 ORAL DAILY 3 TABLET 459954 RxNorm TAKE 3 TABLET ORAL DAILY Valsartan 80 MG Oral Tablet 02/01/2023 Unknown ORAL DAILY 1 TABLET 660818 RxNorm TAKE 1 TABLET ORAL DAILY Acetaminoph en 325MG Oral Tablet 08/18/2023 Unknown ORAL NEEDED EVERY 4 HOURS 650 MILLIGRAMS 434422 RxNorm TAKE 650 MILLIGRAMS ORAL NEEDED EVERY 4 HOURS Torsemide AvPak 20MG Oral Tablet 08/18/2023 Unknown ORAL BID (0800 AND 1459) 20 MILLIGRAMS 759577 RxNorm TAKE 20 MILLIGRAMS ORAL BID (0800 AND 1459) Eliquis 5MG Oral Tablet 08/18/2023 Unknown ORAL TWICE A DAY 5 MILLIGRAMS 4039181 RxNorm TAKE 5 MILLIGRAMS ORAL TWICE A DAY Jardiance 25MG Oral Tablet 08/18/2023 Unknown ORAL DAILY 25 MILLIGRAMS 2181171 RxNorm TAKE 25 MILLIGRAMS ORAL DAILY Metoprolol Succinate 50MG Oral Tablet, Extended Release 08/18/2023 Unknown ORAL DAILY 50 MILLIGRAMS 482690 RxNorm TAKE 50 MILLIGRAMS ORAL DAILY Potassium Chloride 20MEQ Oral Tablet, Extended Release 08/18/2023 Unknown ORAL DAILY 20 MILLIGRAMS 1955521 RxNorm TAKE 20 MILLIGRAMS ORAL DAILY metFORMIN HCl 500MG Oral Tablet, Extended Release 08/18/2023 Unknown ORAL TWICE A DAY 500 MILLIGRAMS 139069 RxNorm TAKE 500 MILLIGRAMS ORAL TWICE A [...] Status Code Code System ACUTE CHF active 94331810 SNOMED-CT A-FIB WITH RVR active 323448131708679 SNOMED-CT SWELLING OF BILATERAL LOWER EXTREMITIES active 912525913 SNOMED-CT CHRONIC VENOUS INSUFFICIENCY active 09416311 SNOMED-CT DIVERTICULITIS 01/29/2023 resolved 038700798 SNOM ED-CT HLD 01/29/2023 resolved 78000513 SNOMED-CT HTN 01/29/2023 resolved 41334674 SNOMED-CT T2DM 01/29/2023 resolved 02445573 SNOMED-CT BMI 40+ SEVERELY OBESE 01/29/2023 resolved 502539979 SNOMED-CT PERIPHERAL EDEMA 01/29/2023 resolved 529933345 SN OMED-CT OSTEOARTHRITIS 01/29/2023 resolved 075724416 SNOM ED-CT CHF 03/26/2023 resolved 68183288 SNOMED-CT AFIB 03/26/2023 resolved 29326620 SNOMED-CT MILD PERSISTENT ASTHMA 01/29/2023 resolved 729704415 SNOMED-CT SQUAMOUS CELL CARCINOMA OF SKIN 01/29/2023 resolved 944365010 SNOMED-CT SQUAMOUS CELL CARCINOMA OF SKIN 01/29/2023 resolved 134274535 SNOMED-CT HISTORY OF SMALL BOWEL OBSTRUCTION 01/29/2023 resolved 708355994823170122 SNOM ED-CT Allergies and Adverse Reactions Allergy Substance Reaction Severity Start Date Concern Status Co de Code System SULFA (sulfonamide) Moderate Active CODEINE Moderate Active 0130 RxNorm Plan of Treatment No Data Found Encounters Encounter Diagnosis Start Date Code Code Sys tem Unspecified atrial fibrillation 01/29/2023 SNOMED-CT Personal Care Team Section Performer Name Performer Role Active Date Inactive Da erica
--- OUTSIDE RECORDS SUMMARY | 2023-09-26 21:01 | XMS_ITS ---
Author Name Unknown Address [address], [place] [phone] Phone Organization Unknown Address [address], [place] [phone] Phone Care Team Providers Care Community Sports Coordinator Name Role Phone MARTINE MARQUEZ Registered Nurse Unavailable REGINA Macdonald Attending Unavailable MARINO Monzon ER Ashu Dickson Primary Unavailable UNLISTED PROVIDER - REQUESTED Xhandoff Un available Social History Type Status Start Date End Date Code Code Syst em Smoking History Never smoker (Never Smoked) 600148535 SNOMED CT Sex Female Vital Signs Vital Sign Value Unit [facility] Date/Time Recent/Initial? Code Code System Body Mass Index 58.39 kg/m2 03/26/2023 11:10 Initial 21879 -5 LO[facility] Systolic Blood Pressure 121 mm[Hg] 03/26/2023 14:07 Most Recent 8480- 6 LOINC Diastolic Blood Pressure 58 mm[Hg] 03/26/2023 14:07 Most Recent 8462- 4 LOINC Systolic Blood Pressure 123 mm[Hg] 03/26/2023 11:10 Initial 8480- 6 LOINC Diastolic Blood Pressure 89 mm[Hg] 03/26/2023 11:10 Initial 8462- 4 LOINC Body Surface Area 2.40 m2 03/26/2023 11:10 Initial 3140- 1 LOINC Height 152.400 0 cm 60.00 in 03/26/2023 11:10 Initial 8302- 2 LOINC O2 Saturation 96 % 2022 14:07 Most Recent 06464 -5 LOINC O2 Saturation 94 % 2022 11:10 Initial 53124 -5 LOINC Pulse 92.0 /min 03/26/2023 14:07 Most Recent 8867- 4 LOINC Pulse 98.0 /min 03/26/2023 11:10 Initial 8867- 4 LOINC Respiration 20 /min 03/26/20 14:07 Most Recent 9279- 1 [facility] Respiration 16 /min 03/26/20 11:10 Initial 9279- 1 [facility] Temperature 36.0 Angelita 96.8 F 03/26/20 11:10 Initial 8310- 5 [facility] Weight 135.62 kg 299.00 lbs 03/26/2023 11:10 Initial 61443 -7 [facility] Medications Medication Start Date End Date Route Frequency Dose Code Code System Medication Instructions Home Meds Eliquis 5MG Oral Tablet 02/01/2023 08/16/2023 ORAL TWICE A DAY 5 MILLIGRAMS 4982539 RxNorm TAKE 5 MILLIGRAMS ORAL TWICE A DAY Furosemide 40MG Oral Tablet 02/01/2023 08/16/2023 ORAL BID (0800 AND 1459) 40 MILLIGRAMS 798299 RxNorm TAKE 40 MILLIGRAMS ORAL BID (0800 AND 1459) Klor-Con M20 20MEQ Oral Tablet, Extended Release 02/01/2023 03/26/2023 ORAL DAILY WITH FOOD 20 MEQ 2069864 RxNorm TAKE 20 MEQ ORAL DAILY WITH FOOD Albuterol Sulfate HFA 0.09MG/1Act uation Inhalation Suspension 02/01/2023 Unknown INHALATI ON NEEDED 2 PUFF 1617266 RxNorm 2 PUFF INHALATION NEEDED metFORMIN HCl 500MG Oral Tablet 02/01/2023 08/16/2023 ORAL DAILY 500 MILLIGRAMS 725464 RxNorm TAKE 500 MILLIGRAMS ORAL DAILY Metoprolol Succinate 50MG Oral Tablet, Extended Release 02/01/2023 08/16/2023 ORAL DAILY 3 TABLET 452184 RxNorm TAKE 3 TABLET ORAL DAILY Valsartan 80 MG Oral Tablet 02/01/2023 Unknown ORAL DAILY 1 TABLET 020579 RxNorm TAKE 1 TABLET ORAL DAILY Acetaminoph en 325MG Oral Tablet 08/18/2023 Unknown ORAL NEEDED EVERY 4 HOURS 650 MILLIGRAMS 288864 RxNorm TAKE 650 MILLIGRAMS ORAL NEEDED EVERY 4 HOURS Torsemide AvPak 20MG Oral Tablet 08/18/2023 Unknown ORAL BID (0800 AND 1459) 20 MILLIGRAMS 003862 RxNorm TAKE 20 MILLIGRAMS ORAL BID (0800 AND 1459) Eliquis 5MG Oral Tablet 08/18/2023 Unknown ORAL TWICE A DAY 5 MILLIGRAMS 8340590 RxNorm TAKE 5 MILLIGRAMS ORAL TWICE A DAY Jardiance 25MG Oral Tablet 08/18/2023 Unknown ORAL DAILY 25 MILLIGRAMS 1102954 RxNorm TAKE 25 MILLIGRAMS ORAL DAILY Metoprolol Succinate 50MG Oral Tablet, Extended Release 08/18/2023 Unknown ORAL DAILY 50 MILLIGRAMS 421882 RxNorm TAKE 50 MILLIGRAMS ORAL DAILY Potassium Chloride 20MEQ Oral Tablet, Extended Release 08/18/2023 Unknown ORAL DAILY 20 MILLIGRAMS 2058440 RxNorm TAKE 20 MILLIGRAMS ORAL DAILY metFORMIN HCl 500MG Oral Tablet, Extended Release 08/18/2023 Unknown ORAL TWICE A DAY 500 MILLIGRAMS 101841 RxNorm TAKE 500 MILLIGRAMS ORAL TWICE A [...] Status Code Code System ACUTE CHF active 05040548 SNOMED-CT A-FIB WITH RVR active 630823402835979 SNOMED-CT SWELLING OF BILATERAL LOWER EXTREMITIES active 021554340 SNOMED-CT CHRONIC VENOUS INSUFFICIENCY active 68258908 SNOMED-CT DIVERTICULITIS 01/29/2023 resolved 343202143 SNOM ED-CT HLD 01/29/2023 resolved 38974128 SNOMED-CT HTN 01/29/2023 resolved 30457587 SNOMED-CT T2DM 01/29/2023 resolved 99207850 SNOMED-CT BMI 40+ SEVERELY OBESE 01/29/2023 resolved 624283348 SNOMED-CT PERIPHERAL EDEMA 01/29/2023 resolved 024075470 SN OMED-CT OSTEOARTHRITIS 01/29/2023 resolved 622660985 SNOM ED-CT CHF 03/26/2023 resolved 54025901 SNOMED-CT AFIB 03/26/2023 resolved 43418149 SNOMED-CT MILD PERSISTENT ASTHMA 01/29/2023 resolved 704875851 SNOMED-CT SQUAMOUS CELL CARCINOMA OF SKIN 01/29/2023 resolved 639640560 SNOMED-CT SQUAMOUS CELL CARCINOMA OF SKIN 01/29/2023 resolved 668108456 SNOMED-CT HISTORY OF SMALL BOWEL OBSTRUCTION 01/29/2023 resolved 460500086361843108 SNOM ED-CT Allergies and Adverse Reactions Allergy Substance Reaction Severity Start Date Concern Status Co de Code System SULFA (sulfonamide) Moderate Active CODEINE Moderate Active 2670 RxNorm Plan of Treatment No Data Found Encounters Encounter Diagnosis Start Date Code Code Sys tem Localized edema 03/26/2023 934883194 SNOMED-CT Personal Care Team Section Performer Name Performer Role Active Date Inactive Da te
--- OUTSIDE RECORDS SUMMARY | 2023-09-26 21:02 | XMS_ITS ---
Author Name Unknown Address [address] [place] [phone] Phone Organization Unknown Address [address] [place] [phone] Phone Care Team Providers Care Typesetters Printer Name Role Phone YARI Macdonald Attending Unavailable Social History Type Status Start Date End Date Code Code Syst em Smoking History Never smoker (Never Smoked) 538589259 SNOMED CT Sex Female Medications Medication Start Date End Date Route Frequency Dose Code Code System Medication Instructions Home Meds Eliquis 5MG Oral Tablet 02/01/2023 08/16/2023 ORAL TWICE A DAY 5 MILLIGRAMS 4820286 RxNorm TAKE 5 MILLIGRAMS ORAL TWICE A DAY Furosemide 40MG Oral Tablet 02/01/2023 08/16/2023 ORAL BID (0800 AND 1459) 40 MILLIGRAMS 798394 RxNorm TAKE 40 MILLIGRAMS ORAL BID (0800 AND 1459) Albuterol Sulfate HFA 0.09MG/1Act uation Inhalation Suspension 02/01/2023 Unknown INHALATI ON NEEDED 2 PUFF 8983475 RxNorm 2 PUFF INHALATION NEEDED metFORMIN HCl 500MG Oral Tablet 02/01/2023 08/16/2023 ORAL DAILY 500 MILLIGRAMS 187816 RxNorm TAKE 500 MILLIGRAMS ORAL DAILY Metoprolol Succinate 50MG Oral Tablet, Extended Release 02/01/2023 08/16/2023 ORAL DAILY 3 TABLET 524299 RxNorm TAKE 3 TABLET ORAL DAILY Valsartan 80 MG Oral Tablet 02/01/2023 Unknown ORAL DAILY 1 TABLET 149949 RxNorm TAKE 1 TABLET ORAL DAILY Acetaminoph en 325MG Oral Tablet 08/18/2023 Unknown ORAL NEEDED EVERY 4 HOURS 650 MILLIGRAMS 831471 RxNorm TAKE 650 MILLIGRAMS ORAL NEEDED EVERY 4 HOURS Torsemide AvPak 20MG Oral Tablet 08/18/2023 Unknown ORAL BID (0800 AND 1459) 20 MILLIGRAMS 196211 RxNorm TAKE 20 MILLIGRAMS ORAL BID (0800 AND 1459) Eliquis 5MG Oral Tablet 08/18/2023 Unknown ORAL TWICE A DAY 5 MILLIGRAMS 7585291 RxNorm TAKE 5 MILLIGRAMS ORAL TWICE A DAY Jardiance 25MG Oral Tablet 08/18/2023 Unknown ORAL DAILY 25 MILLIGRAMS 0182715 RxNorm TAKE 25 MILLIGRAMS ORAL DAILY Metoprolol Succinate 50MG Oral Tablet, Extended Release 08/18/2023 Unknown ORAL DAILY 50 MILLIGRAMS 046704 RxNorm TAKE 50 MILLIGRAMS ORAL DAILY Potassium Chloride 20MEQ Oral Tablet, Extended Release 08/18/2023 Unknown ORAL DAILY 20 MILLIGRAMS 5956644 RxNorm TAKE 20 MILLIGRAMS ORAL DAILY metFORMIN HCl 500MG Oral Tablet, Extended Release 08/18/2023 Unknown ORAL TWICE A DAY 500 MILLIGRAMS 678554 RxNorm TAKE 500 MILLIGRAMS ORAL TWICE A [...] Status Code Code System ACUTE CHF active 59995372 SNOMED-CT A-FIB WITH RVR active 997769268551836 SNOMED-CT SWELLING OF BILATERAL LOWER EXTREMITIES active 486187229 SNOMED-CT CHRONIC VENOUS INSUFFICIENCY active 82252333 SNOMED-CT DIVERTICULITIS 01/29/2023 resolved 151121339 SNOM ED-CT HLD 01/29/2023 resolved 52061963 SNOMED-CT HTN 01/29/2023 resolved 86037753 SNOMED-CT T2DM 01/29/2023 resolved 07390001 SNOMED-CT BMI 40+ SEVERELY OBESE 01/29/2023 resolved 006060884 SNOMED-CT PERIPHERAL EDEMA 01/29/2023 resolved 220920367 SN OMED-CT OSTEOARTHRITIS 01/29/2023 resolved 798833464 SNOM ED-CT CHF 03/26/2023 resolved 66453188 SNOMED-CT AFIB 03/26/2023 resolved 90110766 SNOMED-CT MILD PERSISTENT ASTHMA 01/29/2023 resolved 010471555 SNOMED-CT SQUAMOUS CELL CARCINOMA OF SKIN 01/29/2023 resolved 858592029 SNOMED-CT SQUAMOUS CELL CARCINOMA OF SKIN 01/29/2023 resolved 570583210 SNOMED-CT HISTORY OF SMALL BOWEL OBSTRUCTION 01/29/2023 resolved 606458071810164980 SNOM ED-CT Allergies and Adverse Reactions Allergy Substance Reaction Severity Start Date Concern Status Co de Code System SULFA (sulfonamide) Moderate Active CODEINE Moderate Active 3643 RxNorm Plan of Treatment No Data Found Encounters Encounter Diagnosis Start Date Code Code Sys tem Heart failure, unspecified 08/16/2023 S NOMED-CT Personal Care Team Section Performer Name Performer Role Active Date Inactive Da te
--- OUTSIDE RECORDS SUMMARY | 2023-09-26 21:02 | XMS_ITS ---
Author Name Unknown Address [address] [place] [phone] Phone Organization Unknown Address [address] [place], [place] [phone] Phone Care Team Providers Care [employer] Name Role Phone ZOYA BRICENO Registered Nurse Unavailable Unavailable Xwatchlist Unavailable FABIAN Rai Attending Unavailable REGINA Macdonald [facility] Unavailable AXEL Dickson Primary Unavailable AYRI Macdonald Secondary Unavailable UNLISTED PROVIDER - REQUESTED Xhandoff Un available Results BASIC METABOLIC PANEL (BMP) - Collect Date/Time: 08/18/2023 06:27 [facility] ID: [id number] [address] [place] [address], [address] LOINC: 27821-2 Test Value Unit Reference Range Code Code System Flag GLUCOSE 106 mg/dL L=70 H=116 2345-7 LOINC BUN 16 mg/dL L=6 H=25 3094-0 LOINC CREATININE 0.72 mg/dL L=0.51 H=0.95 2160-0 LOINC SODIUM SERUM 140 mmol/L L=136 H=145 2951-2 LOINC POTASSIUM SERUM 3.2 mmol/L L=3.4 H=5.2 2823-3 LOINC L CHLORIDE SERUM 102 mmol/L L=96 H=110 2075-0 LOINC CARBON DIOXIDE (CO2) 32 mmol/L L=22 H=34 2028-9 LOINC ANION GAP 6.2 mmol/L 27800-9 LOINC CALCIUM SERUM 8.5 mg/dL L=8.2 H=10.2 07927-5 LOINC AGE 82 years eGFR (non-Afr.Amer.) 77 mL/min 21553-1 LOINC eGFR (Afr-Macanese) 94 mL/min 44815-2 LOINC BASIC METABOLIC PANEL (BMP) - Collect Date/Time: 08/17/2023 06:25 [facility] ID: [id number] [address] [place] [address], [address] LOINC: 85852-0 Test Value Unit Reference Range Code Code System Flag GLUCOSE 104 mg/dL L=70 H=116 2345-7 LOINC BUN 19 mg/dL L=6 H=25 3094-0 LOINC CREATININE 0.81 mg/dL L=0.51 H=0.95 2160-0 LOINC SODIUM SERUM 139 mmol/L L=136 H=145 2951-2 LOINC POTASSIUM SERUM 3.5 mmol/L L=3.4 H=5.2 2823-3 LOINC CHLORIDE SERUM 100 mmol/L L=96 H=110 2075-0 LOINC CARBON DIOXIDE (CO2) 35 mmol/L L=22 H=34 8-9 [facility] H ANION GAP 4.1 mmol/L 35854-4 [facility] CALCIUM SERUM 8.7 mg/dL L=8.2 H=10.2 31062-0 [facility] AGE 82 years eGFR (non-Afr.Amer.) 68 mL/min 23729-9 [facility] eGFR (Afr-Macanese) 82 mL/min 63853-0 [facility] COMPREHENSIVE METABOLIC PANE L (CMP) - Collect Date/Time: 08/16/2023 20:21 [facility] ID: [id number] [address] [place] [address], [address] LOINC: 49911-6 Test Value Unit Reference Range Code Code System Flag GLUCOSE 112 mg/dL L=70 H=116 2345-7 LOINC BUN 20 mg/dL L=6 H=25 3094-0 LOINC CREATININE 0.80 mg/dL L=0.51 H=0.95 2160-0 LOINC SODIUM SERUM 138 mmol/L L=136 H=145 2951-2 LOINC POTASSIUM SERUM 3.8 mmol/L L=3.4 H=5.2 2823-3 LOINC CHLORIDE SERUM 100 mmol/L L=96 H=110 2075-0 LOINC CARBON DIOXIDE (CO2) 32 mmol/L L=22 H=34 2027-9 LOINC ANION GAP 6.1 mmol/L 11268-9 LOINC CALCIUM SERUM 8.9 mg/dL L=8.2 H=10.2 52092-7 LOINC BILIRUBIN TOTAL 0.9 mg/dL L=0.0 H=1.3 1975-2 LOINC ALK. PHOS. 88 U/L L=46 H=116 6768-6 LOINC SGOT (AST) 13 U/L L=15 H=37 1920-8 LOINC L SGPT (ALT) 12 U/L L=12 H=78 1742-6 LOINC TOTAL PROTEIN 7.0 gm/dL L=6.0 H=8.0 2885-2 LOINC ALBUMIN 3.2 gm/dL L=3.4 H=5.0 1751-7 LOINC L AGE 82 years eGFR (non-Afr.Amer.) 69 mL/min 60214-9 LOINC eGFR (Afr-Macanese) 83 mL/min 70571-0 LOINC TROPONIN HIGH SENSITIVITY* - Collect Date/Time: 08/16/2023 20:21 [facility] ID: [id number] [address] [place] [address], [address] LOINC: 06244-0 Test Value Unit Reference Range Code Code System Flag TROPONIN HS 8.2 pg/mL L=0.0 H=60.4 Specimen seq. ADM. MAGNESIUM SERUM* - Collect D ate/Time: 08/16/2023 20:21 [facility] ID: [id number] [address] [place] [address], [address] LOINC: 53910-6 Test Value Unit Reference Range Code Code System Flag MAGNESIUM 2.1 mg/dL L=1.8 H=2.4 23895-3 LOINC BNP (PRO-B NATRIURETIC PEPTI DE) - Collect Date/Time: 08/16/2023 20:21 [facility] ID: [id number] [address] [place] [address], [address] LOINC: 18676-4 Test Value Unit Reference Range Code Code System Flag NT-proBNP 1723.0 pg/mL L=0.0 H=450 67125-5 LOINC H CBC W/ DIFFERENTIAL* - Colle ct Date/Time: 08/16/2023 19:15 [facility] ID: [id number] [address] [place] [address], [address] LOINC: 42930-5 Test Value Unit Reference Range Code Code System Flag WBC 10.84 th/cmm L=5.00 H=10.00 6690-2 LOINC H NEUT % 70.8 % L=40.0 H=80.0 LYMPH % 14.9 % L=10.0 H=50.0 MONO % 11.4 % L=2.0 H=12.0 54662-9 LOINC EOS % 2.0 % L=0.0 H=8.0 BASO % 0.4 % L=0.0 H=3.0 IG % 0.5 % L=0.0 H=1.1 2514-8 LOINC NRBC % 0.0 % L=0.0 H=0.0 14836-1 LOINC NEUT abs count 7.7 th/cmm L=1.6 H=8.4 751-8 LOINC LYMPH abs count 1.6 th/cmm L=1.5 H=4.0 731-0 LOINC MONO abs count 1.2 th/cmm L=0.2 H=1.0 742-7 LOINC H EOS abs count 0.2 th/cmm L=0.0 H=0.5 711-2 LOINC BASO abs count 0.0 th/cmm L=0.0 H=0.2 704-7 LOINC IG abs count 0.1 th/cmm L=0.0 H=0.1 68113-6 LOINC NRBC abs count 0.0 mil/cmm L=0.0 H=0.0 05120-3 LOINC RBC 3.99 mil/cmm L=3.90 H=5.40 789-8 LOINC HEMOGLOBIN 12.3 gm/dL L=12.0 H=16.0 718-7 LOINC HEMATOCRIT 39 % L=37 H=47 4544-3 LOINC MCV 97 fL L=82 H=92 787-2 LOINC H MCH 30.8 pg L=27.0 H=31.0 785-6 LOINC MCHC 31.8 % L=32.0 H=36.0 786-4 LOINC L RDW-SD 49.4 fL L=39.0 H=49.0 788-0 LOINC H PLATELET COUNT 204 th/cmm L=150 H=450 777-3 LOINC XR CHEST PORTABLE OR 1V - Co mpleted: 08/16/2023 19:08 LOINC: [facility] RADIOLOGY [place], [place] [address] [facility] [employer]EARCH SCIENTIST REPORT Patient Name: KENNA RAMSEY MRN: Sex: : Age: [id number] O 1940 Account: Accession: Admit: StayType: [id number] 08/16/2023 E Ordered: Order ID: Submitted: Ordering Provider: 08/16/2023 18:53 [id number] NENA JEFFERSON Completed: Technologist: Resulted: 08/16/2023 19:06 KM 08/17/2023 07:29 FINAL REPORT EXAM: XR CHEST PORTABLE OR 1V CLINICAL HISTORY: Reason for Chest: CHF. TECHNIQUE: 2D digital imaging was performed. COMPARISON: Chest x-ray 01/29/2023 FINDINGS: Single AP portable view. Cardiomegaly again noted. Mediastinum not widened. There is persistent infiltrate in the right lung base and blunted right costophrenic angle again noted. Mount of infiltrate appears to have slightly increased in the right lung base when compared to the prior study listed above. Left lung remains relatively clear. IMPRESSION: Further mild increase in the amount of infiltrate in the right lung base. Right pleural effusion unchanged in size. Cardiomegaly again noted. No airspace pulmonary edema. DATA REPOSITORY: RADIATION DOSE DELIVERED: Electronically signed by: Sarwat Moralez Dictated: 08/17/2023 07:29 Social History Type Status Start Date End Date Code Code Syst em Smoking History Never smoker (Never Smoked) 396099243 SNOMED CT Sex Female Vital Signs Vital Sign Value Unit [place] Value [place] Unit Date/Time Recent/Initial? Code Code System Body Mass Index 56.57 kg/m2 08/16/2023 23:14 Most Recent 98433 -5 LOINC Body Mass Index 54.98 kg/m2 08/16/2023 19:07 Initial 20997 -5 LOINC Systolic Blood Pressure 111 mm[Hg] 08/18/2023 12:00 Most Recent 8480- 6 LOINC Diastolic Blood Pressure 77 mm[Hg] 08/18/2023 12:00 Most Recent 8462- 4 LOINC Systolic Blood Pressure 111 mm[Hg] 08/16/2023 19:07 Initial 8480- 6 LOINC Diastolic Blood Pressure 84 mm[Hg] 08/16/2023 19:07 Initial 8462- 4 LOINC Body Surface Area 2.42 m2 08/16/2023 23:14 Most Recent 3140- 1 LOINC Body Surface Area 2.38 m2 08/16/2023 19:07 Initial 3140- 1 LOINC Height 154.940 0 cm 61.00 in 08/16/2023 23:14 Most Recent 8302- 2 LOINC Height 154.940 0 cm 61.00 in 08/16/2023 19:07 Initial 8302- 2 LOINC O2 Saturation 93 % 2023 12:00 Most Recent 78265 -5 LOINC O2 Saturation 96 % 2023 19:07 Initial 08339 -5 LOINC Inhaled Oxygen Flow Rate 2.00 L/min 08/18/2023 04:10 Most Recent 3151- 8 LOINC Inhaled Oxygen Flow Rate 1.00 L/min 08/16/2023 21:40 Initial 3151- 8 LOINC Pulse 92.0 /min 08/18/2023 12:00 Most Recent 8867- 4 LOINC Pulse 96.0 /min 08/16/2023 19:07 Initial 8867- 4 LOINC Respiration 18 /min 08/18/19 12:00 Most Recent 9279- 1 LOINC Respiration 22 /min 08/16/19 19:07 Initial 9279- 1 LOINC Temperature 36.6 Angelita 97.9 F 08/18/19 12:00 Most Recent 8310- 5 LOINC Temperature 36.2 Angelita 97.2 F 08/16/19 19:07 Initial 8310- 5 LOINC Weight 130.86 kg 288.50 lbs 08/18/2023 04:09 Most Recent 55612 -7 LOINC Weight 132.00 kg 291.00 lbs 08/16/2023 19:07 Initial 57227 -7 [facility] Medications Medication Start Date End Date Route Frequency Dose Code Code System Medication Instructions Home Meds Albuterol Sulfate HFA 0.09MG/1Actuation Inhalation Suspension 02/01/2023 Unknown INHALATION NEEDED 2 PUFF 5124843 RxNorm 2 PUFF INHALATION NEEDED Valsartan 80 MG Oral Tablet 02/01/2023 Unknown ORAL DAILY 1 TABLE T 705267 RxNorm TAKE 1 TABLET ORAL DAILY Acetaminophen 325MG Oral Tablet 08/18/2023 Unknown ORAL NEEDED EVERY 4 HOURS 650 TATIANA GRAMS 885859 RxNorm TAKE 650 MILLIGRAMS ORAL NEEDED EVERY 4 HOURS Torsemide AvPak 20MG Oral Tablet 08/18/2023 Unknown ORAL BID (0800 AND 1459) 20 TATIANA GRAMS 284462 RxNorm TAKE 20 MILLIGRAMS ORAL BID (0800 AND 1459) Eliquis 5MG Oral Tablet 08/18/2023 Unknown ORAL TWICE A DAY 5 TATIANA GRAMS [id number] RxNorm TAKE 5 MILLIGRAMS ORAL TWICE A DAY Jardiance 25MG Oral Tablet 08/18/2023 Unknown ORAL DAILY 25 TATIANA GRAMS 5045195 RxNorm TAKE 25 MILLIGRAMS ORAL DAILY Metoprolol Succinate 50MG Oral Tablet, Extended Release 08/18/2023 Unknown ORAL DAILY 50 TATIANA GRAMS 026030 RxNorm TAKE 50 MILLIGRAMS ORAL DAILY Potassium Chloride 20MEQ Oral Tablet, Extended Release 08/18/2023 Unknown ORAL DAILY 20 TATIANA GRAMS 5922479 RxNorm TAKE 20 MILLIGRAMS ORAL DAILY metFORMIN HCl 500MG Oral Tablet, Extended Release 08/18/2023 Unknown ORAL TWICE A DAY 500 TATIANA GRAMS 655891 RxNorm TAKE 500 MILLIGRAMS ORAL TWICE A [...] Status Code Code System ACUTE CHF active 56600519 SNOMED-CT A-FIB WITH RVR active 020693837979597 SNOMED-CT SWELLING OF BILATERAL LOWER EXTREMITIES active 064536190 SNOMED-CT CHRONIC VENOUS INSUFFICIENCY active 48656879 SNOMED-CT DIVERTICULITIS 01/29/2023 resolved 218431024 SNOM ED-CT HLD 01/29/2023 resolved 18315211 SNOMED-CT HTN 01/29/2023 resolved 69119444 SNOMED-CT T2DM 01/29/2023 resolved 27002729 SNOMED-CT BMI 40+ SEVERELY OBESE 01/29/2023 resolved 650764314 SNOMED-CT PERIPHERAL EDEMA 01/29/2023 resolved 638950348 SN OMED-CT OSTEOARTHRITIS 01/29/2023 resolved 902010514 SNOM ED-CT CHF 03/26/2023 resolved 72380761 SNOMED-CT AFIB 03/26/2023 resolved 91256623 SNOMED-CT MILD PERSISTENT ASTHMA 01/29/2023 resolved 571708021 SNOMED-CT SQUAMOUS CELL CARCINOMA OF SKIN 01/29/2023 resolved 449942684 SNOMED-CT SQUAMOUS CELL CARCINOMA OF SKIN 01/29/2023 resolved 502392619 SNOMED-CT HISTORY OF SMALL BOWEL OBSTRUCTION 01/29/2023 resolved 250134298083812434 SNOM ED-CT Allergies and Adverse Reactions Allergy Substance Reaction Severity Start Date Concern Status Co de Code System SULFA (sulfonamide) Moderate Active CODEINE Moderate Active 6210 RxNorm Plan of Treatment Recommendations: Discharge to home with home health services Diet: Low or No- Salt Medication Changes: STOP taking furosemide 40mg twice daily START taking torsemide 20mg twice daily Follow up with your primary care provider as needed Discharge Medications: Discharge Meds List Acetaminophen 325MG Oral Tablet, TAKE 650 MILLIGRAMS ORAL NEEDED EVERY 4 HOURS Albuterol Sulfate HFA 0.09MG/1Actuation Inhalation Suspension, 2 PUFF INHALATION NEEDED Eliquis 5MG Oral Tablet, TAKE 5 MILLIGRAMS ORAL TWICE A DAY Jardiance 25MG Oral Tablet, TAKE 25 MILLIGRAMS ORAL DAILY metFORMIN HCl 500MG Oral Tablet, Extended Release, TAKE 500 MILLIGRAMS ORAL TWICE A DAY Metoprolol Succinate 50MG Oral Tablet, Extended Release, TAKE 50 MILLIGRAMS ORAL DAILY Potassium Chloride 20MEQ Oral Tablet, Extended Release, TAKE 20 MILLIGRAMS ORAL DAILY Torsemide AvPak 20MG Oral Tablet, TAKE 20 MILLIGRAMS ORAL BID (0800 AND 1459) Valsartan 80 MG Oral Tablet, TAKE 1 TABLET ORAL DAILY Encounters Encounter Diagnosis Start Date Code Code Sys tem Hypertensive heart disease with heart failure 08/16/19 24 SNOMED-CT Personal Care Team Section Performer Name Performer Role Active Date Inactive Da te Discharge Summary Notes [facility] 08/19/2023 15:56 All Demographics Patient Name Age Sex Visit Number Admission Date/Time Attending Physician Date of Service Room and Bed Emergency Contact KENNA RAMSEY 1940 82 years Unknown [id number] 08/16/2023 21:59 JONATHAN GASPAR 08/16/2023 [id number] ARIANA RAMSEY - [id number] 08/18/2023 17:34 Discharge Date: 08/18/2023 Reason for Admission: Congestive Heart Failure, Failure to Thrive Final Diagnosis: Congestive Heart Failure, Failure to Thrive Problem List A-fib with RVR Swelling of bilateral lower extremities Acute CHF Chronic venous insufficiency Attending Physician: Jonathan Gaspar MD Primary Care Physician: AXEL Dickson History of Present Illness See Admission H&P for further details. 82-year-old female with medical history significant for type 2 diabetes, hypertension, glucemia, untreated sleep apnea, paroxysmal atrial fibrillation on Eliquis, presenting with shortness of breath, lower extremity edema. She lives at home alone and she and her primary care provider have been trying to get her into [facility] without success. She uses a walker at home but does not use home O2. She does not tolerate lying flat but has not for quite some time. She has had increased edema over t past several months along with a wound to the left lower extremity treated with an michel boot managed by home health. Denies chills, fevers, chest pain, palpitations, vomiting, abdominal pain. Hospital Course Patient received IV Lasix in the emergency department and was switched to p.o. torsemide. She continues to adamantly refuse CPAP or BiPAP treatment for sleep apnea. She lost about 5 pounds during her admission. She is breathing well on room air. Did have a couple of desats into the 80s with ambulation but recovered easily with rest. She feels her breathing is at baseline as is her mobility. Case management was consulted regarding long-term placement at [facility] which the patient and her primary care provider have been pursuing however the patient does not have long-term care insurance and only fill the application out yesterday and generally there is a processing period of up to 60 days. Short- term rehab was discussed however the patient is uninterested in any of the facilities that accept her insurance and would like to return home. Patient is at her baseline and stable for discharge to home with home health services while she awaits long- term placement hopefully at [facility]. Lab Results: Last 24 Hours Test Results Units Reference Range Collected GLUCOSE 106 mg/dL L=70 H=116 08/18/2023 06:27 BUN 16 mg/dL L=6 H=25 08/18/2023 06:27 CREATININE 0.72 mg/dL L=0.51 H=0.95 08/18/2023 06:27 SODIUM SERUM 140 mmol/L L=136 H=145 08/18/2023 06:27 POTASSIUM SERUM 3.2 L mmol/L L=3.4 H=5.2 08/18/2023 06:27 CHLORIDE SERUM 102 mmol/L L=96 H=110 08/18/2023 06:27 CARBON DIOXIDE (CO2) 32 mmol/L L=22 H=34 08/18/2023 06:27 ANION GAP 6.2 mmol/L 08/18/2023 06:27 CALCIUM SERUM 8.5 mg/dL L=8.2 H=10.2 08/18/2023 06:27 AGE 82 years 08/18/2023 06:27 eGFR (non-Afr.Amer.) 77 mL/min 08/18/2023 06:27 eGFR (Afr- Macanese) 94 mL/min 08/18/2023 06:27 Vitals: Date/Time BP (mm/Hg) Heart Rate Resp Temp (C) SPO2% O2 Device 08/18/2023 12:00 111/77 92 18 36.6 TEMPORAL SCANNING 93 % Physical Exam: GEN: NAD EYES: No scleral icteris NECK: supple, no LAD PULM: A few scattered rales in lung bases CV: Irregularly irregular, rate in the 90s ABD: Soft, non distended, non-tender, no rebound or guarding. EXT: 2+ lower extremity edema NEURO: A&Ox3, 5/5 muscle strength upper and lower ext b/l. Assessment Problem List A- fib Swelling of bilateral lower extremities Acute CHF Chronic venous insufficiency Recommendations: Discharge to home with home health services Diet: Low or No- Salt Medication Changes: STOP taking furosemide 40mg twice daily START taking torsemide 20mg twice daily Follow up with your primary care provider as needed Discharge Medications: Discharge Meds List Acetaminophen 325MG Oral Tablet, TAKE 650 MILLIGRAMS ORAL NEEDED EVERY 4 HOURS Albuterol Sulfate HFA 0.09MG/1Actuation Inhalation Suspension, 2 PUFF INHALATION NEEDED Eliquis 5MG Oral Tablet, TAKE 5 MILLIGRAMS ORAL TWICE A DAY Jardiance 25MG Oral Tablet, TAKE 25 MILLIGRAMS ORAL DAILY metFORMIN HCl 500MG Oral Tablet, Extended Release, TAKE 500 MILLIGRAMS ORAL TWICE A DAY Metoprolol Succinate 50MG Oral Tablet, Extended Release, TAKE 50 MILLIGRAMS ORAL DAILY Potassium Chloride 20MEQ Oral Tablet, Extended Release, TAKE 20 MILLIGRAMS ORAL DAILY Torsemide AvPak 20MG Oral Tablet, TAKE 20 MILLIGRAMS ORAL BID (0800 AND 1459) Valsartan 80 MG Oral Tablet, TAKE 1 TABLET ORAL DAILY 40 minutes spent on patient discharge.
--- OUTSIDE RECORDS SUMMARY | 2023-09-26 21:02 | XMS_ITS ---
Author Name Unknown Address [address] [place], [place] [phone] Phone Organization Unknown Address [address] [place] [phone] Phone Care Team Providers Care Town Marshal Name Role Phone FABIAN Rai Attending Unavailable Social History Type Status Start Date End Date Code Code Syst em Smoking History Never smoker (Never Smoked) [id number] SNOMED CT Sex Female Medications Medication Start Date End Date Route Frequency Dose Code Code System Medication Instructions Home Meds Eliquis 5MG Oral Tablet 02/01/2023 08/16/2023 ORAL TWICE A DAY 5 MILLIGRAMS 5447805 RxNorm TAKE 5 MILLIGRAMS ORAL TWICE A DAY Furosemide 40MG Oral Tablet 02/01/2023 08/16/2023 ORAL BID (0800 AND 1459) 40 MILLIGRAMS 804499 RxNorm TAKE 40 MILLIGRAMS ORAL BID (0800 AND 1459) Albuterol Sulfate HFA 0.09MG/1Act uation Inhalation Suspension 02/01/2023 Unknown INHALATI ON NEEDED 2 PUFF 8437649 RxNorm 2 PUFF INHALATION NEEDED metFORMIN HCl 500MG Oral Tablet 02/01/2023 08/16/2023 ORAL DAILY 500 MILLIGRAMS 315543 RxNorm TAKE 500 MILLIGRAMS ORAL DAILY Metoprolol Succinate 50MG Oral Tablet, Extended Release 02/01/2023 08/16/2023 ORAL DAILY 3 TABLET 671610 RxNorm TAKE 3 TABLET ORAL DAILY Valsartan 80 MG Oral Tablet 02/01/2023 Unknown ORAL DAILY 1 TABLET 643466 RxNorm TAKE 1 TABLET ORAL DAILY Acetaminoph en 325MG Oral Tablet 08/18/2023 Unknown ORAL NEEDED EVERY 4 HOURS 650 MILLIGRAMS 990070 RxNorm TAKE 650 MILLIGRAMS ORAL NEEDED EVERY 4 HOURS Torsemide AvPak 20MG Oral Tablet 08/18/2023 Unknown ORAL BID (0800 AND 1459) 20 MILLIGRAMS 425961 RxNorm TAKE 20 MILLIGRAMS ORAL BID (0800 AND 1459) Eliquis 5MG Oral Tablet 08/18/2023 Unknown ORAL TWICE A DAY 5 MILLIGRAMS 8734741 RxNorm TAKE 5 MILLIGRAMS ORAL TWICE A DAY Jardiance 25MG Oral Tablet 08/18/2023 Unknown ORAL DAILY 25 MILLIGRAMS 5366883 RxNorm TAKE 25 MILLIGRAMS ORAL DAILY Metoprolol Succinate 50MG Oral Tablet, Extended Release 08/18/2023 Unknown ORAL DAILY 50 MILLIGRAMS 493093 RxNorm TAKE 50 MILLIGRAMS ORAL DAILY Potassium Chloride 20MEQ Oral Tablet, Extended Release 08/18/2023 Unknown ORAL DAILY 20 MILLIGRAMS 3710463 RxNorm TAKE 20 MILLIGRAMS ORAL DAILY metFORMIN HCl 500MG Oral Tablet, Extended Release 08/18/2023 Unknown ORAL TWICE A DAY 500 MILLIGRAMS 894827 RxNorm TAKE 500 MILLIGRAMS ORAL TWICE A [...] Status Code Code System ACUTE CHF active 94389264 SNOMED-CT A-FIB WITH RVR active 399207684042336 SNOMED-CT SWELLING OF BILATERAL LOWER EXTREMITIES active 696222455 SNOMED-CT CHRONIC VENOUS INSUFFICIENCY active 33797488 SNOMED-CT DIVERTICULITIS 01/29/2023 resolved 614597705 SNOM ED-CT HLD 01/29/2023 resolved 68562587 SNOMED-CT HTN 01/29/2023 resolved 69436434 SNOMED-CT T2DM 01/29/2023 resolved 18837282 SNOMED-CT BMI 40+ SEVERELY OBESE 01/29/2023 resolved 748773150 SNOMED-CT PERIPHERAL EDEMA 01/29/2023 resolved 679542153 SN OMED-CT OSTEOARTHRITIS 01/29/2023 resolved 043196178 SNOM ED-CT CHF 03/26/2023 resolved 23978589 SNOMED-CT AFIB 03/26/2023 resolved 56239287 SNOMED-CT MILD PERSISTENT ASTHMA 01/29/2023 resolved 670663597 SNOMED-CT SQUAMOUS CELL CARCINOMA OF SKIN 01/29/2023 resolved 607259598 SNOMED-CT SQUAMOUS CELL CARCINOMA OF SKIN 01/29/2023 resolved 699163694 SNOMED-CT HISTORY OF SMALL BOWEL OBSTRUCTION 01/29/2023 resolved 354238659718027839 SNOM ED-CT Allergies and Adverse Reactions Allergy Substance Reaction Severity Start Date Concern Status Co de Code System SULFA (sulfonamide) Moderate Active CODEINE Moderate Active 267 RxNorm Plan of Treatment No Data Found Encounters Encounter Diagnosis Start Date Code Code Sys tem Hypertensive heart disease with heart failure 08/16/19 SNOMED-CT Personal Care Team Section Performer Name Performer Role Active Date Inactive Da te
[2023-09-26 22:08] LABS: Anion Gap 3.7 mmol/L (3-11); BUN 17 mg/dL (7-18); CO2 36.3 mmol/L (21.0-32.0); CREATININE 0.9 mg/dL (0.55-1.02); Calcium 8.6 mg/dL (8.5-10.1); Chloride 102 mmol/L (98-107); Estimated GFR 63.04 (mL/min/1.73m2); Glucose 127 mg/dL (74-106); Potassium 3.5 mmol/L (3.5-5.1); Sodium 142 mmol/L (136-145)
== END 2023-09-26 20:56 | disposition home or self-care (01) ==
LOC: NCHCN 20:55
PROVIDERS: PCP Family Medicine; Visit Provider Family Medicine
DX: E11.51 Type 2 diabetes mellitus with diabetic peripheral angiopathy without gangrene (principal); I11.0 Hypertensive heart disease with heart failure
CPT/HCPCS: 80048

== ENCOUNTER 2023-10-31 21:15 | Outpatient (REF) | payer MEDICARE, MEDICAID, SELFPAY ==
--- OUTSIDE RECORDS SUMMARY | 2023-10-31 21:17 | XMS_ITS ---
Author Organization Unknown Address [address] [place] [address] [phone] Phone Care Team Providers Care Account Manager Education Name Role Phone KAUSHIK Dickson Attending Unavailable AXEL Dickson Primary Unavailable Social History Type Status Start Date End Date Code Code Syst em Smoking History Never smoker (Never Smoked) [id number] SNOMED CT Sex Female Medications Medication Start Date End Date Route Frequency Dose Code Code System Medication Instructions Home Meds Eliquis 5MG Oral Tablet 02/01/2023 08/16/2023 ORAL TWICE A DAY 5 MILLIGRAMS [id number] RxNorm TAKE 5 MILLIGRAMS ORAL TWICE A DAY Furosemide 40MG Oral Tablet 02/01/2023 08/16/2023 ORAL BID (0800 AND 1459) 40 MILLIGRAMS [id number] RxNorm TAKE 40 MILLIGRAMS ORAL BID (0800 AND 1459) Klor-Con M20 20MEQ Oral Tablet, Extended Release 02/01/2023 03/26/2023 ORAL DAILY WITH FOOD 20 MEQ [id number] RxNorm TAKE 20 MEQ ORAL DAILY WITH FOOD Albuterol Sulfate HFA 0.09MG/1Act uation Inhalation Suspension 02/01/2023 Unknown INHALATI ON NEEDED 2 PUFF 4668764 RxNorm 2 PUFF INHALATION NEEDED metFORMIN HCl 500MG Oral Tablet 02/01/2023 08/16/2023 ORAL DAILY 500 MILLIGRAMS 951826 RxNorm TAKE 500 MILLIGRAMS ORAL DAILY Metoprolol Succinate 50MG Oral Tablet, Extended Release 02/01/2023 08/16/2023 ORAL DAILY 3 TABLET [id number] RxNorm TAKE 3 TABLET ORAL DAILY Valsartan 80 MG Oral Tablet 02/01/2023 Unknown ORAL DAILY 1 TABLET 123876 RxNorm TAKE 1 TABLET ORAL DAILY Acetaminoph en 325MG Oral Tablet 08/18/2023 Unknown ORAL NEEDED EVERY 4 HOURS 650 MILLIGRAMS 645876 RxNorm TAKE 650 MILLIGRAMS ORAL NEEDED EVERY 4 HOURS Torsemide AvPak 20MG Oral Tablet 08/18/2023 Unknown ORAL BID (0800 AND 1459) 20 MILLIGRAMS 944108 RxNorm TAKE 20 MILLIGRAMS ORAL BID (0800 AND 1459) Eliquis 5MG Oral Tablet 08/18/2023 Unknown ORAL TWICE A DAY 5 MILLIGRAMS [id number] RxNorm TAKE 5 MILLIGRAMS ORAL TWICE A DAY Jardiance 25MG Oral Tablet 08/18/2023 Unknown ORAL DAILY 25 MILLIGRAMS 9515127 RxNorm TAKE 25 MILLIGRAMS ORAL DAILY Metoprolol Succinate 50MG Oral Tablet, Extended Release 08/18/2023 Unknown ORAL DAILY 50 MILLIGRAMS 978434 RxNorm TAKE 50 MILLIGRAMS ORAL DAILY Potassium Chloride 20MEQ Oral Tablet, Extended Release 08/18/2023 Unknown ORAL DAILY 20 MILLIGRAMS 6381127 RxNorm TAKE 20 MILLIGRAMS ORAL DAILY metFORMIN HCl 500MG Oral Tablet, Extended Release 08/18/2023 Unknown ORAL TWICE A DAY 500 MILLIGRAMS 255366 RxNorm TAKE 500 MILLIGRAMS ORAL TWICE A [...] Status Code Code System ACUTE CHF active 19835950 SNOMED-CT A-FIB WITH RVR active 672693912398945 SNOMED-CT SWELLING OF BILATERAL LOWER EXTREMITIES active 107955173 SNOMED-CT CHRONIC VENOUS INSUFFICIENCY active 46730830 SNOMED-CT DIVERTICULITIS 01/29/2023 resolved 930446009 SNOM ED-CT HLD 01/29/2023 resolved 68840207 SNOMED-CT HTN 01/29/2023 resolved 49830237 SNOMED-CT T2DM 01/29/2023 resolved 04731143 SNOMED-CT BMI 40+ SEVERELY OBESE 01/29/2023 resolved 125914010 SNOMED-CT PERIPHERAL EDEMA 01/29/2023 resolved 665788709 SN OMED-CT OSTEOARTHRITIS 01/29/2023 resolved 920458822 SNOM ED-CT CHF 03/26/2023 resolved 15310004 SNOMED-CT AFIB 03/26/2023 resolved 14400189 SNOMED-CT MILD PERSISTENT ASTHMA 01/29/2023 resolved 851405322 SNOMED-CT SQUAMOUS CELL CARCINOMA OF SKIN 01/29/2023 resolved 066983567 SNOMED-CT SQUAMOUS CELL CARCINOMA OF SKIN 01/29/2023 resolved 260565868 SNOMED-CT HISTORY OF SMALL BOWEL OBSTRUCTION 01/29/2023 resolved 630620365817674596 SNOM ED-CT Allergies and Adverse Reactions Allergy Substance Reaction Severity Start Date Concern Status Co de Code System SULFA (sulfonamide) Moderate Active CODEINE Moderate Active 8057 RxNorm Plan of Treatment No Data Found Encounters Encounter Diagnosis Start Date Code Code Sys tem 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
--- OUTSIDE RECORDS SUMMARY | 2023-10-31 21:17 | XMS_ITS ---
Author Organization Unknown Address [address] [place] [address] [phone] Phone Care Team Providers Care Returns Processor Name Role Phone KAUSHIK Dickson Attending Unavailable AXEL Dickson Primary Unavailable Social History Type Status Start Date End Date Code Code Syst em Smoking History Never smoker (Never Smoked) [id number] SNOMED CT Sex Female Medications Medication Start Date End Date Route Frequency Dose Code Code System Medication Instructions Home Meds Eliquis 5MG Oral Tablet 02/01/2023 08/16/2023 ORAL TWICE A DAY 5 MILLIGRAMS [id number] RxNorm TAKE 5 MILLIGRAMS ORAL TWICE A DAY Furosemide 40MG Oral Tablet 02/01/2023 08/16/2023 ORAL BID (0800 AND 1459) 40 MILLIGRAMS 410381 RxNorm TAKE 40 MILLIGRAMS ORAL BID (0800 AND 1459) Klor-Con M20 20MEQ Oral Tablet, Extended Release 02/01/2023 03/26/2023 ORAL DAILY WITH FOOD 20 MEQ 0849136 RxNorm TAKE 20 MEQ ORAL DAILY WITH FOOD Albuterol Sulfate HFA 0.09MG/1Act uation Inhalation Suspension 02/01/2023 Unknown INHALATI ON NEEDED 2 PUFF 3982498 RxNorm 2 PUFF INHALATION NEEDED metFORMIN HCl 500MG Oral Tablet 02/01/2023 08/16/2023 ORAL DAILY 500 MILLIGRAMS 122409 RxNorm TAKE 500 MILLIGRAMS ORAL DAILY Metoprolol Succinate 50MG Oral Tablet, Extended Release 02/01/2023 08/16/2023 ORAL DAILY 3 TABLET 466872 RxNorm TAKE 3 TABLET ORAL DAILY Valsartan 80 MG Oral Tablet 02/01/2023 Unknown ORAL DAILY 1 TABLET 754466 RxNorm TAKE 1 TABLET ORAL DAILY Acetaminoph en 325MG Oral Tablet 08/18/2023 Unknown ORAL NEEDED EVERY 4 HOURS 650 MILLIGRAMS 508218 RxNorm TAKE 650 MILLIGRAMS ORAL NEEDED EVERY 4 HOURS Torsemide AvPak 20MG Oral Tablet 08/18/2023 Unknown ORAL BID (0800 AND 1459) 20 MILLIGRAMS 629026 RxNorm TAKE 20 MILLIGRAMS ORAL BID (0800 AND 1459) Eliquis 5MG Oral Tablet 08/18/2023 Unknown ORAL TWICE A DAY 5 MILLIGRAMS 1827130 RxNorm TAKE 5 MILLIGRAMS ORAL TWICE A DAY Jardiance 25MG Oral Tablet 08/18/2023 Unknown ORAL DAILY 25 MILLIGRAMS 9692621 RxNorm TAKE 25 MILLIGRAMS ORAL DAILY Metoprolol Succinate 50MG Oral Tablet, Extended Release 08/18/2023 Unknown ORAL DAILY 50 MILLIGRAMS 406297 RxNorm TAKE 50 MILLIGRAMS ORAL DAILY Potassium Chloride 20MEQ Oral Tablet, Extended Release 08/18/2023 Unknown ORAL DAILY 20 MILLIGRAMS 4231779 RxNorm TAKE 20 MILLIGRAMS ORAL DAILY metFORMIN HCl 500MG Oral Tablet, Extended Release 08/18/2023 Unknown ORAL TWICE A DAY 500 MILLIGRAMS 838522 RxNorm TAKE 500 MILLIGRAMS ORAL TWICE A [...] Status Code Code System ACUTE CHF active 55907936 SNOMED-CT A-FIB WITH RVR active 421926924023945 SNOMED-CT SWELLING OF BILATERAL LOWER EXTREMITIES active 503066364 SNOMED-CT CHRONIC VENOUS INSUFFICIENCY active 31651352 SNOMED-CT DIVERTICULITIS 01/29/2023 resolved 076330175 SNOM ED-CT HLD 01/29/2023 resolved 05092135 SNOMED-CT HTN 01/29/2023 resolved 85766581 SNOMED-CT T2DM 01/29/2023 resolved 01814385 SNOMED-CT BMI 40+ SEVERELY OBESE 01/29/2023 resolved 517260977 SNOMED-CT PERIPHERAL EDEMA 01/29/2023 resolved 308476066 SN OMED-CT OSTEOARTHRITIS 01/29/2023 resolved 191720308 SNOM ED-CT CHF 03/26/2023 resolved 81241931 SNOMED-CT AFIB 03/26/2023 resolved 91491902 SNOMED-CT MILD PERSISTENT ASTHMA 01/29/2023 resolved 822610293 SNOMED-CT SQUAMOUS CELL CARCINOMA OF SKIN 01/29/2023 resolved 828987927 SNOMED-CT SQUAMOUS CELL CARCINOMA OF SKIN 01/29/2023 resolved 002026671 SNOMED-CT HISTORY OF SMALL BOWEL OBSTRUCTION 01/29/2023 resolved 873341886908693515 SNOM ED-CT Allergies and Adverse Reactions Allergy Substance Reaction Severity Start Date Concern Status Co de Code System SULFA (sulfonamide) Moderate Active CODEINE Moderate Active 9372 RxNorm Plan of Treatment No Data Found Encounters Encounter Diagnosis Start Date Code Code Sys tem Encounter for change or viky kali of surgical wound dressing 12/08/2021 SNOMED-CT Personal Care Team Section Performer Name Performer Role Active Date Inactive Da te
--- OUTSIDE RECORDS SUMMARY | 2023-10-31 21:17 | XMS_ITS ---
Author Organization Unknown Address [address] [place] [address] [phone] Phone Care Team Providers Care Surveyor Rod Helper Name Role Phone KAUSHIK Dickson Attending Unavailable AXEL Dickson Primary Unavailable Social History Type Status Start Date End Date Code Code Syst em Smoking History Never smoker (Never Smoked) 261530401 SNOMED CT Sex Female Medications Medication Start Date End Date Route Frequency Dose Code Code System Medication Instructions Home Meds Eliquis 5MG Oral Tablet 02/01/2023 08/16/2023 ORAL TWICE A DAY 5 MILLIGRAMS 5626621 RxNorm TAKE 5 MILLIGRAMS ORAL TWICE A DAY Furosemide 40MG Oral Tablet 02/01/2023 08/16/2023 ORAL BID (0800 AND 1459) 40 MILLIGRAMS 152187 RxNorm TAKE 40 MILLIGRAMS ORAL BID (0800 AND 1459) Klor-Con M20 20MEQ Oral Tablet, Extended Release 02/01/2023 03/26/2023 ORAL DAILY WITH FOOD 20 MEQ 9233263 RxNorm TAKE 20 MEQ ORAL DAILY WITH FOOD Albuterol Sulfate HFA 0.09MG/1Act uation Inhalation Suspension 02/01/2023 Unknown INHALATI ON NEEDED 2 PUFF 6593279 RxNorm 2 PUFF INHALATION NEEDED metFORMIN HCl 500MG Oral Tablet 02/01/2023 08/16/2023 ORAL DAILY 500 MILLIGRAMS 942501 RxNorm TAKE 500 MILLIGRAMS ORAL DAILY Metoprolol Succinate 50MG Oral Tablet, Extended Release 02/01/2023 08/16/2023 ORAL DAILY 3 TABLET 574882 RxNorm TAKE 3 TABLET ORAL DAILY Valsartan 80 MG Oral Tablet 02/01/2023 Unknown ORAL DAILY 1 TABLET 670545 RxNorm TAKE 1 TABLET ORAL DAILY Acetaminoph en 325MG Oral Tablet 08/18/2023 Unknown ORAL NEEDED EVERY 4 HOURS 650 MILLIGRAMS 701685 RxNorm TAKE 650 MILLIGRAMS ORAL NEEDED EVERY 4 HOURS Torsemide AvPak 20MG Oral Tablet 08/18/2023 Unknown ORAL BID (0800 AND 1459) 20 MILLIGRAMS 319179 RxNorm TAKE 20 MILLIGRAMS ORAL BID (0800 AND 1459) Eliquis 5MG Oral Tablet 08/18/2023 Unknown ORAL TWICE A DAY 5 MILLIGRAMS 1514428 RxNorm TAKE 5 MILLIGRAMS ORAL TWICE A DAY Jardiance 25MG Oral Tablet 08/18/2023 Unknown ORAL DAILY 25 MILLIGRAMS 6452134 RxNorm TAKE 25 MILLIGRAMS ORAL DAILY Metoprolol Succinate 50MG Oral Tablet, Extended Release 08/18/2023 Unknown ORAL DAILY 50 MILLIGRAMS 028470 RxNorm TAKE 50 MILLIGRAMS ORAL DAILY Potassium Chloride 20MEQ Oral Tablet, Extended Release 08/18/2023 Unknown ORAL DAILY 20 MILLIGRAMS 5538283 RxNorm TAKE 20 MILLIGRAMS ORAL DAILY metFORMIN HCl 500MG Oral Tablet, Extended Release 08/18/2023 Unknown ORAL TWICE A DAY 500 MILLIGRAMS 807341 RxNorm TAKE 500 MILLIGRAMS ORAL TWICE A [...] Status Code Code System ACUTE CHF active 77198116 SNOMED-CT A-FIB WITH RVR active 147185083723738 SNOMED-CT SWELLING OF BILATERAL LOWER EXTREMITIES active 993980751 SNOMED-CT CHRONIC VENOUS INSUFFICIENCY active 58528007 SNOMED-CT DIVERTICULITIS 01/29/2023 resolved 869445202 SNOM ED-CT HLD 01/29/2023 resolved 89083382 SNOMED-CT HTN 01/29/2023 resolved 06275910 SNOMED-CT T2DM 01/29/2023 resolved 38944145 SNOMED-CT BMI 40+ SEVERELY OBESE 01/29/2023 resolved 989745739 SNOMED-CT PERIPHERAL EDEMA 01/29/2023 resolved 362688099 SN OMED-CT OSTEOARTHRITIS 01/29/2023 resolved 735444167 SNOM ED-CT CHF 03/26/2023 resolved 23750628 SNOMED-CT AFIB 03/26/2023 resolved 67960029 SNOMED-CT MILD PERSISTENT ASTHMA 01/29/2023 resolved 009030578 SNOMED-CT SQUAMOUS CELL CARCINOMA OF SKIN 01/29/2023 resolved 802570838 SNOMED-CT SQUAMOUS CELL CARCINOMA OF SKIN 01/29/2023 resolved 292561040 SNOMED-CT HISTORY OF SMALL BOWEL OBSTRUCTION 01/29/2023 resolved 988228985092167783 SNOM ED-CT Allergies and Adverse Reactions Allergy Substance Reaction Severity Start Date Concern Status Co de Code System SULFA (sulfonamide) Moderate Active CODEINE Moderate Active 8545 RxNorm Plan of Treatment No Data Found Encounters Encounter Diagnosis Start Date Code Code Sys tem Encounter for change or viky kali of surgical wound dressing 12/16/2021 SNOMED-CT Personal Care Team Section Performer Name Performer Role Active Date Inactive Da te
--- OUTSIDE RECORDS SUMMARY | 2023-10-31 21:18 | XMS_ITS ---
Author Organization Unknown Address [address] [place] [address] [phone] Phone Care Team Providers Care Aoc Director Intelligence Officer Name Role Phone KAUSHIK Dickson Attending Unavailable AXEL Dickson Primary Unavailable Social History Type Status Start Date End Date Code Code Syst em Smoking History Never smoker (Never Smoked) [id number] SNOMED CT Sex Female Medications Medication Start Date End Date Route Frequency Dose Code Code System Medication Instructions Home Meds Eliquis 5MG Oral Tablet 02/01/2023 08/16/2023 ORAL TWICE A DAY 5 MILLIGRAMS 7439822 RxNorm TAKE 5 MILLIGRAMS ORAL TWICE A DAY Furosemide 40MG Oral Tablet 02/01/2023 08/16/2023 ORAL BID (0800 AND 1459) 40 MILLIGRAMS 143513 RxNorm TAKE 40 MILLIGRAMS ORAL BID (0800 AND 1459) Klor-Con M20 20MEQ Oral Tablet, Extended Release 02/01/2023 03/26/2023 ORAL DAILY WITH FOOD 20 MEQ 0318172 RxNorm TAKE 20 MEQ ORAL DAILY WITH FOOD Albuterol Sulfate HFA 0.09MG/1Act uation Inhalation Suspension 02/01/2023 Unknown INHALATI ON NEEDED 2 PUFF 1816105 RxNorm 2 PUFF INHALATION NEEDED metFORMIN HCl 500MG Oral Tablet 02/01/2023 08/16/2023 ORAL DAILY 500 MILLIGRAMS 994887 RxNorm TAKE 500 MILLIGRAMS ORAL DAILY Metoprolol Succinate 50MG Oral Tablet, Extended Release 02/01/2023 08/16/2023 ORAL DAILY 3 TABLET 568445 RxNorm TAKE 3 TABLET ORAL DAILY Valsartan 80 MG Oral Tablet 02/01/2023 Unknown ORAL DAILY 1 TABLET 761786 RxNorm TAKE 1 TABLET ORAL DAILY Acetaminoph en 325MG Oral Tablet 08/18/2023 Unknown ORAL NEEDED EVERY 4 HOURS 650 MILLIGRAMS 571539 RxNorm TAKE 650 MILLIGRAMS ORAL NEEDED EVERY 4 HOURS Torsemide AvPak 20MG Oral Tablet 08/18/2023 Unknown ORAL BID (0800 AND 1459) 20 MILLIGRAMS 945200 RxNorm TAKE 20 MILLIGRAMS ORAL BID (0800 AND 1459) Eliquis 5MG Oral Tablet 08/18/2023 Unknown ORAL TWICE A DAY 5 MILLIGRAMS 0317537 RxNorm TAKE 5 MILLIGRAMS ORAL TWICE A DAY Jardiance 25MG Oral Tablet 08/18/2023 Unknown ORAL DAILY 25 MILLIGRAMS 4421473 RxNorm TAKE 25 MILLIGRAMS ORAL DAILY Metoprolol Succinate 50MG Oral Tablet, Extended Release 08/18/2023 Unknown ORAL DAILY 50 MILLIGRAMS 423292 RxNorm TAKE 50 MILLIGRAMS ORAL DAILY Potassium Chloride 20MEQ Oral Tablet, Extended Release 08/18/2023 Unknown ORAL DAILY 20 MILLIGRAMS 0558601 RxNorm TAKE 20 MILLIGRAMS ORAL DAILY metFORMIN HCl 500MG Oral Tablet, Extended Release 08/18/2023 Unknown ORAL TWICE A DAY 500 MILLIGRAMS 479079 RxNorm TAKE 500 MILLIGRAMS ORAL TWICE A [...] Status Code Code System ACUTE CHF active 44866501 SNOMED-CT A-FIB WITH RVR active 631989892693710 SNOMED-CT SWELLING OF BILATERAL LOWER EXTREMITIES active 340970995 SNOMED-CT CHRONIC VENOUS INSUFFICIENCY active 25495317 SNOMED-CT DIVERTICULITIS 01/29/2023 resolved 267779493 SNOM ED-CT HLD 01/29/2023 resolved 05482703 SNOMED-CT HTN 01/29/2023 resolved 56000105 SNOMED-CT T2DM 01/29/2023 resolved 46001297 SNOMED-CT BMI 40+ SEVERELY OBESE 01/29/2023 resolved 835316006 SNOMED-CT PERIPHERAL EDEMA 01/29/2023 resolved 711362283 SN OMED-CT OSTEOARTHRITIS 01/29/2023 resolved 980846709 SNOM ED-CT CHF 03/26/2023 resolved 35350173 SNOMED-CT AFIB 03/26/2023 resolved 19058516 SNOMED-CT MILD PERSISTENT ASTHMA 01/29/2023 resolved 338539455 SNOMED-CT SQUAMOUS CELL CARCINOMA OF SKIN 01/29/2023 resolved 653528362 SNOMED-CT SQUAMOUS CELL CARCINOMA OF SKIN 01/29/2023 resolved 666220235 SNOMED-CT HISTORY OF SMALL BOWEL OBSTRUCTION 01/29/2023 resolved 355365262484455882 SNOM ED-CT Allergies and Adverse Reactions Allergy Substance Reaction Severity Start Date Concern Status Co de Code System SULFA (sulfonamide) Moderate Active CODEINE Moderate Active 4668 RxNorm Plan of Treatment No Data Found Encounters Encounter Diagnosis Start Date Code Code Sys tem Removal of dressing 01/05/2022 [id number] SNOMED-C T Personal Care Team Section Performer Name Performer Role Active Date Inactive Da te
--- OUTSIDE RECORDS SUMMARY | 2023-10-31 21:18 | XMS_ITS ---
Author Organization Unknown Address [address] [place] [address] [phone] Phone Care Team Providers Care Millroom Supervisor Name Role Phone KAUSHIK Dickson Attending Unavailable AXEL Dickson Primary Unavailable Social History Type Status Start Date End Date Code Code Syst em Smoking History Never smoker (Never Smoked) 937344671 SNOMED CT Sex Female Medications Medication Start Date End Date Route Frequency Dose Code Code System Medication Instructions Home Meds Eliquis 5MG Oral Tablet 02/01/2023 08/16/2023 ORAL TWICE A DAY 5 MILLIGRAMS [id number] RxNorm TAKE 5 MILLIGRAMS ORAL TWICE A DAY Furosemide 40MG Oral Tablet 02/01/2023 08/16/2023 ORAL BID (0800 AND 1459) 40 MILLIGRAMS 233610 RxNorm TAKE 40 MILLIGRAMS ORAL BID (0800 AND 1459) Klor-Con M20 20MEQ Oral Tablet, Extended Release 02/01/2023 03/26/2023 ORAL DAILY WITH FOOD 20 MEQ 1319710 RxNorm TAKE 20 MEQ ORAL DAILY WITH FOOD Albuterol Sulfate HFA 0.09MG/1Act uation Inhalation Suspension 02/01/2023 Unknown INHALATI ON NEEDED 2 PUFF 7081892 RxNorm 2 PUFF INHALATION NEEDED metFORMIN HCl 500MG Oral Tablet 02/01/2023 08/16/2023 ORAL DAILY 500 MILLIGRAMS 344974 RxNorm TAKE 500 MILLIGRAMS ORAL DAILY Metoprolol Succinate 50MG Oral Tablet, Extended Release 02/01/2023 08/16/2023 ORAL DAILY 3 TABLET 216035 RxNorm TAKE 3 TABLET ORAL DAILY Valsartan 80 MG Oral Tablet 02/01/2023 Unknown ORAL DAILY 1 TABLET 745281 RxNorm TAKE 1 TABLET ORAL DAILY Acetaminoph en 325MG Oral Tablet 08/18/2023 Unknown ORAL NEEDED EVERY 4 HOURS 650 MILLIGRAMS 638963 RxNorm TAKE 650 MILLIGRAMS ORAL NEEDED EVERY 4 HOURS Torsemide AvPak 20MG Oral Tablet 08/18/2023 Unknown ORAL BID (0800 AND 1459) 20 MILLIGRAMS 999993 RxNorm TAKE 20 MILLIGRAMS ORAL BID (0800 AND 1459) Eliquis 5MG Oral Tablet 08/18/2023 Unknown ORAL TWICE A DAY 5 MILLIGRAMS 4217967 RxNorm TAKE 5 MILLIGRAMS ORAL TWICE A DAY Jardiance 25MG Oral Tablet 08/18/2023 Unknown ORAL DAILY 25 MILLIGRAMS 3556364 RxNorm TAKE 25 MILLIGRAMS ORAL DAILY Metoprolol Succinate 50MG Oral Tablet, Extended Release 08/18/2023 Unknown ORAL DAILY 50 MILLIGRAMS 737773 RxNorm TAKE 50 MILLIGRAMS ORAL DAILY Potassium Chloride 20MEQ Oral Tablet, Extended Release 08/18/2023 Unknown ORAL DAILY 20 MILLIGRAMS 6943623 RxNorm TAKE 20 MILLIGRAMS ORAL DAILY metFORMIN HCl 500MG Oral Tablet, Extended Release 08/18/2023 Unknown ORAL TWICE A DAY 500 MILLIGRAMS 572694 RxNorm TAKE 500 MILLIGRAMS ORAL TWICE A [...] Status Code Code System ACUTE CHF active 17739269 SNOMED-CT A-FIB WITH RVR active 348825062132321 SNOMED-CT SWELLING OF BILATERAL LOWER EXTREMITIES active 790175082 SNOMED-CT CHRONIC VENOUS INSUFFICIENCY active 34217106 SNOMED-CT DIVERTICULITIS 01/29/2023 resolved 145373732 SNOM ED-CT HLD 01/29/2023 resolved 63292417 SNOMED-CT HTN 01/29/2023 resolved 27291326 SNOMED-CT T2DM 01/29/2023 resolved 25164662 SNOMED-CT BMI 40+ SEVERELY OBESE 01/29/2023 resolved 215502288 SNOMED-CT PERIPHERAL EDEMA 01/29/2023 resolved 996346739 SN OMED-CT OSTEOARTHRITIS 01/29/2023 resolved 782063191 SNOM ED-CT CHF 03/26/2023 resolved 44554450 SNOMED-CT AFIB 03/26/2023 resolved 51446173 SNOMED-CT MILD PERSISTENT ASTHMA 01/29/2023 resolved 978889386 SNOMED-CT SQUAMOUS CELL CARCINOMA OF SKIN 01/29/2023 resolved 955283410 SNOMED-CT SQUAMOUS CELL CARCINOMA OF SKIN 01/29/2023 resolved 150101613 SNOMED-CT HISTORY OF SMALL BOWEL OBSTRUCTION 01/29/2023 resolved 492797077451528510 SNOM ED-CT Allergies and Adverse Reactions Allergy Substance Reaction Severity Start Date Concern Status Co de Code System SULFA (sulfonamide) Moderate Active CODEINE Moderate Active 2763 RxNorm Plan of Treatment No Data Found Encounters Encounter Diagnosis Start Date Code Code Sys tem Encounter for change or viky kali of surgical wound dressing 12/22/2021 SNOMED-CT Personal Care Team Section Performer Name Performer Role Active Date Inactive Da te
--- OUTSIDE RECORDS SUMMARY | 2023-10-31 21:18 | XMS_ITS ---
Author Organization Unknown Address [address] [place] [address] [phone] Phone Care Team Providers Care Bench Shear Operator Name Role Phone KAUSHIK Dickson Attending Unavailable AXEL Dickson Primary Unavailable Social History Type Status Start Date End Date Code Code Syst em Smoking History Never smoker (Never Smoked) 341540321 SNOMED CT Sex Female Medications Medication Start Date End Date Route Frequency Dose Code Code System Medication Instructions Home Meds Eliquis 5MG Oral Tablet 02/01/2023 08/16/2023 ORAL TWICE A DAY 5 MILLIGRAMS 8449296 RxNorm TAKE 5 MILLIGRAMS ORAL TWICE A DAY Furosemide 40MG Oral Tablet 02/01/2023 08/16/2023 ORAL BID (0800 AND 1459) 40 MILLIGRAMS 497290 RxNorm TAKE 40 MILLIGRAMS ORAL BID (0800 AND 1459) Klor-Con M20 20MEQ Oral Tablet, Extended Release 02/01/2023 03/26/2023 ORAL DAILY WITH FOOD 20 MEQ 2721182 RxNorm TAKE 20 MEQ ORAL DAILY WITH FOOD Albuterol Sulfate HFA 0.09MG/1Act uation Inhalation Suspension 02/01/2023 Unknown INHALATI ON NEEDED 2 PUFF 7361984 RxNorm 2 PUFF INHALATION NEEDED metFORMIN HCl 500MG Oral Tablet 02/01/2023 08/16/2023 ORAL DAILY 500 MILLIGRAMS 708402 RxNorm TAKE 500 MILLIGRAMS ORAL DAILY Metoprolol Succinate 50MG Oral Tablet, Extended Release 02/01/2023 08/16/2023 ORAL DAILY 3 TABLET 867866 RxNorm TAKE 3 TABLET ORAL DAILY Valsartan 80 MG Oral Tablet 02/01/2023 Unknown ORAL DAILY 1 TABLET 857682 RxNorm TAKE 1 TABLET ORAL DAILY Acetaminoph en 325MG Oral Tablet 08/18/2023 Unknown ORAL NEEDED EVERY 4 HOURS 650 MILLIGRAMS 679306 RxNorm TAKE 650 MILLIGRAMS ORAL NEEDED EVERY 4 HOURS Torsemide AvPak 20MG Oral Tablet 08/18/2023 Unknown ORAL BID (0800 AND 1459) 20 MILLIGRAMS 465076 RxNorm TAKE 20 MILLIGRAMS ORAL BID (0800 AND 1459) Eliquis 5MG Oral Tablet 08/18/2023 Unknown ORAL TWICE A DAY 5 MILLIGRAMS 8866360 RxNorm TAKE 5 MILLIGRAMS ORAL TWICE A DAY Jardiance 25MG Oral Tablet 08/18/2023 Unknown ORAL DAILY 25 MILLIGRAMS 7805031 RxNorm TAKE 25 MILLIGRAMS ORAL DAILY Metoprolol Succinate 50MG Oral Tablet, Extended Release 08/18/2023 Unknown ORAL DAILY 50 MILLIGRAMS 933075 RxNorm TAKE 50 MILLIGRAMS ORAL DAILY Potassium Chloride 20MEQ Oral Tablet, Extended Release 08/18/2023 Unknown ORAL DAILY 20 MILLIGRAMS 5659659 RxNorm TAKE 20 MILLIGRAMS ORAL DAILY metFORMIN HCl 500MG Oral Tablet, Extended Release 08/18/2023 Unknown ORAL TWICE A DAY 500 MILLIGRAMS 274590 RxNorm TAKE 500 MILLIGRAMS ORAL TWICE A [...] Status Code Code System ACUTE CHF active 26887442 SNOMED-CT A-FIB WITH RVR active 768421979098868 SNOMED-CT SWELLING OF BILATERAL LOWER EXTREMITIES active 115947382 SNOMED-CT CHRONIC VENOUS INSUFFICIENCY active 13436599 SNOMED-CT DIVERTICULITIS 01/29/2023 resolved 788176772 SNOM ED-CT HLD 01/29/2023 resolved 70913280 SNOMED-CT HTN 01/29/2023 resolved 10163350 SNOMED-CT T2DM 01/29/2023 resolved 05196997 SNOMED-CT BMI 40+ SEVERELY OBESE 01/29/2023 resolved 265972081 SNOMED-CT PERIPHERAL EDEMA 01/29/2023 resolved 046805136 SN OMED-CT OSTEOARTHRITIS 01/29/2023 resolved 375529323 SNOM ED-CT CHF 03/26/2023 resolved 47719828 SNOMED-CT AFIB 03/26/2023 resolved 75808443 SNOMED-CT MILD PERSISTENT ASTHMA 01/29/2023 resolved 601957443 SNOMED-CT SQUAMOUS CELL CARCINOMA OF SKIN 01/29/2023 resolved 137106761 SNOMED-CT SQUAMOUS CELL CARCINOMA OF SKIN 01/29/2023 resolved 211098201 SNOMED-CT HISTORY OF SMALL BOWEL OBSTRUCTION 01/29/2023 resolved 020463390071893788 SNOM ED-CT Allergies and Adverse Reactions Allergy Substance Reaction Severity Start Date Concern Status Co de Code System SULFA (sulfonamide) Moderate Active CODEINE Moderate Active 2250 RxNorm Plan of Treatment No Data Found Encounters Encounter Diagnosis Start Date Code Code Sys tem Encounter for follow-up exam ination after completed treatment for malignant neoplasm 03/02/2022 SNOMED- CT Personal Care Team Section Performer Name Performer Role Active Date Inactive Da te
--- OUTSIDE RECORDS SUMMARY | 2023-10-31 21:18 | XMS_ITS ---
Author Organization Unknown Address [address] [place] [phone] Phone Care Team Providers Care Card Tape Converter Operator Name Role Phone KAUSHIK Dickson Attending Unavailable AXEL Dickson Primary Unavailable Social History Type Status Start Date End Date Code Code Syst em Smoking History Never smoker (Never Smoked) [id number] SNOMED CT Sex Female Medications Medication Start Date End Date Route Frequency Dose Code Code System Medication Instructions Home Meds Eliquis 5MG Oral Tablet 02/01/2023 08/16/2023 ORAL TWICE A DAY 5 MILLIGRAMS [id number] RxNorm TAKE 5 MILLIGRAMS ORAL TWICE A DAY Furosemide 40MG Oral Tablet 02/01/2023 08/16/2023 ORAL BID (0800 AND 1459) 40 MILLIGRAMS 871089 RxNorm TAKE 40 MILLIGRAMS ORAL BID (0800 AND 1459) Klor-Con M20 20MEQ Oral Tablet, Extended Release 02/01/2023 03/26/2023 ORAL DAILY WITH FOOD 20 MEQ 1748619 RxNorm TAKE 20 MEQ ORAL DAILY WITH FOOD Albuterol Sulfate HFA 0.09MG/1Act uation Inhalation Suspension 02/01/2023 Unknown INHALATI ON NEEDED 2 PUFF 2458045 RxNorm 2 PUFF INHALATION NEEDED metFORMIN HCl 500MG Oral Tablet 02/01/2023 08/16/2023 ORAL DAILY 500 MILLIGRAMS 631916 RxNorm TAKE 500 MILLIGRAMS ORAL DAILY Metoprolol Succinate 50MG Oral Tablet, Extended Release 02/01/2023 08/16/2023 ORAL DAILY 3 TABLET 150418 RxNorm TAKE 3 TABLET ORAL DAILY Valsartan 80 MG Oral Tablet 02/01/2023 Unknown ORAL DAILY 1 TABLET 793833 RxNorm TAKE 1 TABLET ORAL DAILY Acetaminoph en 325MG Oral Tablet 08/18/2023 Unknown ORAL NEEDED EVERY 4 HOURS 650 MILLIGRAMS 667198 RxNorm TAKE 650 MILLIGRAMS ORAL NEEDED EVERY 4 HOURS Torsemide AvPak 20MG Oral Tablet 08/18/2023 Unknown ORAL BID (0800 AND 1459) 20 MILLIGRAMS 408852 RxNorm TAKE 20 MILLIGRAMS ORAL BID (0800 AND 1459) Eliquis 5MG Oral Tablet 08/18/2023 Unknown ORAL TWICE A DAY 5 MILLIGRAMS 9118175 RxNorm TAKE 5 MILLIGRAMS ORAL TWICE A DAY Jardiance 25MG Oral Tablet 08/18/2023 Unknown ORAL DAILY 25 MILLIGRAMS 5742313 RxNorm TAKE 25 MILLIGRAMS ORAL DAILY Metoprolol Succinate 50MG Oral Tablet, Extended Release 08/18/2023 Unknown ORAL DAILY 50 MILLIGRAMS 269781 RxNorm TAKE 50 MILLIGRAMS ORAL DAILY Potassium Chloride 20MEQ Oral Tablet, Extended Release 08/18/2023 Unknown ORAL DAILY 20 MILLIGRAMS 0999954 RxNorm TAKE 20 MILLIGRAMS ORAL DAILY metFORMIN HCl 500MG Oral Tablet, Extended Release 08/18/2023 Unknown ORAL TWICE A DAY 500 MILLIGRAMS 020129 RxNorm TAKE 500 MILLIGRAMS ORAL TWICE A [...] Status Code Code System ACUTE CHF active 49139698 SNOMED-CT A-FIB WITH RVR active 009803088656149 SNOMED-CT SWELLING OF BILATERAL LOWER EXTREMITIES active 683114172 SNOMED-CT CHRONIC VENOUS INSUFFICIENCY active 52200587 SNOMED-CT DIVERTICULITIS 01/29/2023 resolved 999055704 SNOM ED-CT HLD 01/29/2023 resolved 06701495 SNOMED-CT HTN 01/29/2023 resolved 06951716 SNOMED-CT T2DM 01/29/2023 resolved 89245608 SNOMED-CT BMI 40+ SEVERELY OBESE 01/29/2023 resolved 821737713 SNOMED-CT PERIPHERAL EDEMA 01/29/2023 resolved 867437090 SN OMED-CT OSTEOARTHRITIS 01/29/2023 resolved 217641436 SNOM ED-CT CHF 03/26/2023 resolved 90086184 SNOMED-CT AFIB 03/26/2023 resolved 98430238 SNOMED-CT MILD PERSISTENT ASTHMA 01/29/2023 resolved 869073651 SNOMED-CT SQUAMOUS CELL CARCINOMA OF SKIN 01/29/2023 resolved 545717870 SNOMED-CT SQUAMOUS CELL CARCINOMA OF SKIN 01/29/2023 resolved 604030997 SNOMED-CT HISTORY OF SMALL BOWEL OBSTRUCTION 01/29/2023 resolved 849891268231856589 SNOM ED-CT Allergies and Adverse Reactions Allergy Substance Reaction Severity Start Date Concern Status Co de Code System SULFA (sulfonamide) Moderate Active CODEINE Moderate Active 3613 RxNorm Plan of Treatment No Data Found Encounters Encounter Diagnosis Start Date Code Code Sys tem Removal of dressing 01/19/2022 [id number] SNOMED-C T Personal Care Team Section Performer Name Performer Role Active Date Inactive Da te
--- OUTSIDE RECORDS SUMMARY | 2023-10-31 21:18 | XMS_ITS ---
Author Organization Unknown Address [address] [place] [address] [phone] Phone Care Team Providers Care Centrifugal Operator Name Role Phone KAUSHIK Dickson Attending Unavailable AXEL Dickson Primary Unavailable Social History Type Status Start Date End Date Code Code Syst em Smoking History Never smoker (Never Smoked) [id number] SNOMED CT Sex Female Medications Medication Start Date End Date Route Frequency Dose Code Code System Medication Instructions Home Meds Eliquis 5MG Oral Tablet 02/01/2023 08/16/2023 ORAL TWICE A DAY 5 MILLIGRAMS 6663272 RxNorm TAKE 5 MILLIGRAMS ORAL TWICE A DAY Furosemide 40MG Oral Tablet 02/01/2023 08/16/2023 ORAL BID (0800 AND 1459) 40 MILLIGRAMS 185635 RxNorm TAKE 40 MILLIGRAMS ORAL BID (0800 AND 1459) Klor-Con M20 20MEQ Oral Tablet, Extended Release 02/01/2023 03/26/2023 ORAL DAILY WITH FOOD 20 MEQ 6550051 RxNorm TAKE 20 MEQ ORAL DAILY WITH FOOD Albuterol Sulfate HFA 0.09MG/1Act uation Inhalation Suspension 02/01/2023 Unknown INHALATI ON NEEDED 2 PUFF 0818791 RxNorm 2 PUFF INHALATION NEEDED metFORMIN HCl 500MG Oral Tablet 02/01/2023 08/16/2023 ORAL DAILY 500 MILLIGRAMS 645167 RxNorm TAKE 500 MILLIGRAMS ORAL DAILY Metoprolol Succinate 50MG Oral Tablet, Extended Release 02/01/2023 08/16/2023 ORAL DAILY 3 TABLET 934339 RxNorm TAKE 3 TABLET ORAL DAILY Valsartan 80 MG Oral Tablet 02/01/2023 Unknown ORAL DAILY 1 TABLET 962027 RxNorm TAKE 1 TABLET ORAL DAILY Acetaminoph en 325MG Oral Tablet 08/18/2023 Unknown ORAL NEEDED EVERY 4 HOURS 650 MILLIGRAMS 120909 RxNorm TAKE 650 MILLIGRAMS ORAL NEEDED EVERY 4 HOURS Torsemide AvPak 20MG Oral Tablet 08/18/2023 Unknown ORAL BID (0800 AND 1459) 20 MILLIGRAMS 638057 RxNorm TAKE 20 MILLIGRAMS ORAL BID (0800 AND 1459) Eliquis 5MG Oral Tablet 08/18/2023 Unknown ORAL TWICE A DAY 5 MILLIGRAMS 5083532 RxNorm TAKE 5 MILLIGRAMS ORAL TWICE A DAY Jardiance 25MG Oral Tablet 08/18/2023 Unknown ORAL DAILY 25 MILLIGRAMS 9865935 RxNorm TAKE 25 MILLIGRAMS ORAL DAILY Metoprolol Succinate 50MG Oral Tablet, Extended Release 08/18/2023 Unknown ORAL DAILY 50 MILLIGRAMS 993549 RxNorm TAKE 50 MILLIGRAMS ORAL DAILY Potassium Chloride 20MEQ Oral Tablet, Extended Release 08/18/2023 Unknown ORAL DAILY 20 MILLIGRAMS 4225246 RxNorm TAKE 20 MILLIGRAMS ORAL DAILY metFORMIN HCl 500MG Oral Tablet, Extended Release 08/18/2023 Unknown ORAL TWICE A DAY 500 MILLIGRAMS 352968 RxNorm TAKE 500 MILLIGRAMS ORAL TWICE A [...] Status Code Code System ACUTE CHF active 91221117 SNOMED-CT A-FIB WITH RVR active 863404671137365 SNOMED-CT SWELLING OF BILATERAL LOWER EXTREMITIES active 420547620 SNOMED-CT CHRONIC VENOUS INSUFFICIENCY active 64766559 SNOMED-CT DIVERTICULITIS 01/29/2023 resolved 396934737 SNOM ED-CT HLD 01/29/2023 resolved 53733065 SNOMED-CT HTN 01/29/2023 resolved 58290368 SNOMED-CT T2DM 01/29/2023 resolved 74405999 SNOMED-CT BMI 40+ SEVERELY OBESE 01/29/2023 resolved 292410995 SNOMED-CT PERIPHERAL EDEMA 01/29/2023 resolved 220632705 SN OMED-CT OSTEOARTHRITIS 01/29/2023 resolved 965568247 SNOM ED-CT CHF 03/26/2023 resolved 35379576 SNOMED-CT AFIB 03/26/2023 resolved 92360009 SNOMED-CT MILD PERSISTENT ASTHMA 01/29/2023 resolved 807638728 SNOMED-CT SQUAMOUS CELL CARCINOMA OF SKIN 01/29/2023 resolved 004192136 SNOMED-CT SQUAMOUS CELL CARCINOMA OF SKIN 01/29/2023 resolved 292191318 SNOMED-CT HISTORY OF SMALL BOWEL OBSTRUCTION 01/29/2023 resolved 857807278302823408 SNOM ED-CT Allergies and Adverse Reactions Allergy Substance Reaction Severity Start Date Concern Status Co de Code System SULFA (sulfonamide) Moderate Active CODEINE Moderate Active 0826 RxNorm Plan of Treatment No Data Found Encounters Encounter Diagnosis Start Date Code Code Sys tem Removal of dressing 02/09/2022 061150930 SNOMED-C T Personal Care Team Section Performer Name Performer Role Active Date Inactive Da te
--- OUTSIDE RECORDS SUMMARY | 2023-10-31 21:19 | XMS_ITS ---
Author Organization Unknown Address [address] [place] [address] [phone] Phone Care Team Providers Care Painter Interior Finish Name Role Phone MAEGAN Echols Attending Unavailable Social History Type Status Start Date End Date Code Code Syst em Smoking History Never smoker (Never Smoked) 065683413 SNOMED CT Sex Female Medications Medication Start Date End Date Route Frequency Dose Code Code System Medication Instructions Home Meds Eliquis 5MG Oral Tablet 02/01/2023 08/16/2023 ORAL TWICE A DAY 5 MILLIGRAMS 2218961 RxNorm TAKE 5 MILLIGRAMS ORAL TWICE A DAY Furosemide 40MG Oral Tablet 02/01/2023 08/16/2023 ORAL BID (0800 AND 1459) 40 MILLIGRAMS 285119 RxNorm TAKE 40 MILLIGRAMS ORAL BID (0800 AND 1459) Klor-Con M20 20MEQ Oral Tablet, Extended Release 02/01/2023 03/26/2023 ORAL DAILY WITH FOOD 20 MEQ 6583963 RxNorm TAKE 20 MEQ ORAL DAILY WITH FOOD Albuterol Sulfate HFA 0.09MG/1Act uation Inhalation Suspension 02/01/2023 Unknown INHALATI ON NEEDED 2 PUFF 4289209 RxNorm 2 PUFF INHALATION NEEDED metFORMIN HCl 500MG Oral Tablet 02/01/2023 08/16/2023 ORAL DAILY 500 MILLIGRAMS 519801 RxNorm TAKE 500 MILLIGRAMS ORAL DAILY Metoprolol Succinate 50MG Oral Tablet, Extended Release 02/01/2023 08/16/2023 ORAL DAILY 3 TABLET 483674 RxNorm TAKE 3 TABLET ORAL DAILY Valsartan 80 MG Oral Tablet 02/01/2023 Unknown ORAL DAILY 1 TABLET 774960 RxNorm TAKE 1 TABLET ORAL DAILY Acetaminoph en 325MG Oral Tablet 08/18/2023 Unknown ORAL NEEDED EVERY 4 HOURS 650 MILLIGRAMS 364522 RxNorm TAKE 650 MILLIGRAMS ORAL NEEDED EVERY 4 HOURS Torsemide AvPak 20MG Oral Tablet 08/18/2023 Unknown ORAL BID (0800 AND 1459) 20 MILLIGRAMS 110561 RxNorm TAKE 20 MILLIGRAMS ORAL BID (0800 AND 1459) Eliquis 5MG Oral Tablet 08/18/2023 Unknown ORAL TWICE A DAY 5 MILLIGRAMS 4067214 RxNorm TAKE 5 MILLIGRAMS ORAL TWICE A DAY Jardiance 25MG Oral Tablet 08/18/2023 Unknown ORAL DAILY 25 MILLIGRAMS 4543744 RxNorm TAKE 25 MILLIGRAMS ORAL DAILY Metoprolol Succinate 50MG Oral Tablet, Extended Release 08/18/2023 Unknown ORAL DAILY 50 MILLIGRAMS 871755 RxNorm TAKE 50 MILLIGRAMS ORAL DAILY Potassium Chloride 20MEQ Oral Tablet, Extended Release 08/18/2023 Unknown ORAL DAILY 20 MILLIGRAMS 9448808 RxNorm TAKE 20 MILLIGRAMS ORAL DAILY metFORMIN HCl 500MG Oral Tablet, Extended Release 08/18/2023 Unknown ORAL TWICE A DAY 500 MILLIGRAMS 134034 RxNorm TAKE 500 MILLIGRAMS ORAL TWICE A [...] Status Code Code System ACUTE CHF active 29592045 SNOMED-CT A-FIB WITH RVR active 258342798801377 SNOMED-CT SWELLING OF BILATERAL LOWER EXTREMITIES active 166543966 SNOMED-CT CHRONIC VENOUS INSUFFICIENCY active 89006560 SNOMED-CT DIVERTICULITIS 01/29/2023 resolved 410281583 SNOM ED-CT HLD 01/29/2023 resolved 86837166 SNOMED-CT HTN 01/29/2023 resolved 65311625 SNOMED-CT T2DM 01/29/2023 resolved 66756885 SNOMED-CT BMI 40+ SEVERELY OBESE 01/29/2023 resolved 779148828 SNOMED-CT PERIPHERAL EDEMA 01/29/2023 resolved 316169887 SN OMED-CT OSTEOARTHRITIS 01/29/2023 resolved 243431344 SNOM ED-CT CHF 03/26/2023 resolved 51670727 SNOMED-CT AFIB 03/26/2023 resolved 36694870 SNOMED-CT MILD PERSISTENT ASTHMA 01/29/2023 resolved 063026002 SNOMED-CT SQUAMOUS CELL CARCINOMA OF SKIN 01/29/2023 resolved 169889675 SNOMED-CT SQUAMOUS CELL CARCINOMA OF SKIN 01/29/2023 resolved 526692899 SNOMED-CT HISTORY OF SMALL BOWEL OBSTRUCTION 01/29/2023 resolved 128074070964331627 SNOM ED-CT Allergies and Adverse Reactions Allergy Substance Reaction Severity Start Date Concern Status Co de Code System SULFA (sulfonamide) Moderate Active CODEINE Moderate Active 0650 RxNorm Plan of Treatment No Data Found Encounters Encounter Diagnosis Start Date Code Code Sys tem Unspecified atrial fibrillation 01/29/2023 SNOMED-CT Personal Care Team Section Performer Name Performer Role Active Date Inactive Da te
--- OUTSIDE RECORDS SUMMARY | 2023-10-31 21:20 | XMS_ITS ---
Author Organization Unknown Address [address], [place] [phone] Phone Care Team Providers Care Retail Loan Originator Assistant Name Role Phone MARTINE MARQUEZ Registered Nurse Unavailable REGINA Macdonald Attending Unavailable MARINO [facility] Unavailable AXEL Dickson Primary Unavailable UNLISTED PROVIDER - REQUESTED Xhandoff Un available Social History Type Status Start Date End Date Code Code Syst em Smoking History Never smoker (Never Smoked) 721337893 SNOMED CT Sex Female Vital Signs Vital Sign Value Unit Iuka Value Iuka Unit Date/Time Recent/Initial? Code Code System Body Mass Index 58.39 kg/m2 03/26/2023 11:10 Initial 60652 -5 LOINC Systolic Blood Pressure 121 mm[Hg] [...] Saturation 96 % 2022 14:07 Most Recent 18643 -5 LOINC O2 Saturation 94 % 2022 11:10 Initial 22473 -5 LOINC Pulse 92.0 /min 03/26/2023 14:07 Most Recent 8867- 4 LOINC Pulse 98.0 /min 03/26/2023 11:10 Initial 8867- 4 LOINC Respiration 20 /min 03/26/20 14:07 Most Recent 9279- 1 LOINC Respiration 16 /min 03/26/20 11:10 Initial 9279- 1 [facility] Temperature 36.0 Angelita 96.8 F 03/26/20 11:10 Initial 8310- 5 [facility] Weight 135.62 kg 299.00 lbs 03/26/2023 11:10 Initial 03371 -7 [facility] Medications Medication Start Date End Date Route Frequency Dose Code Code System Medication Instructions Home Meds Eliquis 5MG Oral Tablet 02/01/2023 08/16/2023 ORAL TWICE A DAY 5 MILLIGRAMS 7168884 RxNorm TAKE 5 MILLIGRAMS ORAL TWICE A DAY Furosemide 40MG Oral Tablet 02/01/2023 08/16/2023 ORAL BID (0800 AND 1459) 40 MILLIGRAMS 004543 RxNorm TAKE 40 MILLIGRAMS ORAL BID (0800 AND 1459) Klor-Con M20 20MEQ Oral Tablet, Extended Release 02/01/2023 03/26/2023 ORAL DAILY WITH FOOD 20 MEQ 5060136 RxNorm TAKE 20 MEQ ORAL DAILY WITH FOOD Albuterol Sulfate HFA 0.09MG/1Act uation Inhalation Suspension 02/01/2023 Unknown INHALATI ON NEEDED 2 PUFF 0552120 RxNorm 2 PUFF INHALATION NEEDED metFORMIN HCl 500MG Oral Tablet 02/01/2023 08/16/2023 ORAL DAILY 500 MILLIGRAMS 429997 RxNorm TAKE 500 MILLIGRAMS ORAL DAILY Metoprolol Succinate 50MG Oral Tablet, Extended Release 02/01/2023 08/16/2023 ORAL DAILY 3 TABLET 930411 RxNorm TAKE 3 TABLET ORAL DAILY Valsartan 80 MG Oral Tablet 02/01/2023 Unknown ORAL DAILY 1 TABLET 714848 RxNorm TAKE 1 TABLET ORAL DAILY Acetaminoph en 325MG Oral Tablet 08/18/2023 Unknown ORAL NEEDED EVERY 4 HOURS 650 MILLIGRAMS 177193 RxNorm TAKE 650 MILLIGRAMS ORAL NEEDED EVERY 4 HOURS Torsemide AvPak 20MG Oral Tablet 08/18/2023 Unknown ORAL BID (0800 AND 1459) 20 MILLIGRAMS 265193 RxNorm TAKE 20 MILLIGRAMS ORAL BID (0800 AND 1459) Eliquis 5MG Oral Tablet 08/18/2023 Unknown ORAL TWICE A DAY 5 MILLIGRAMS 4596515 RxNorm TAKE 5 MILLIGRAMS ORAL TWICE A DAY Jardiance 25MG Oral Tablet 08/18/2023 Unknown ORAL DAILY 25 MILLIGRAMS 1819008 RxNorm TAKE 25 MILLIGRAMS ORAL DAILY Metoprolol Succinate 50MG Oral Tablet, Extended Release 08/18/2023 Unknown ORAL DAILY 50 MILLIGRAMS 296228 RxNorm TAKE 50 MILLIGRAMS ORAL DAILY Potassium Chloride 20MEQ Oral Tablet, Extended Release 08/18/2023 Unknown ORAL DAILY 20 MILLIGRAMS 2548481 RxNorm TAKE 20 MILLIGRAMS ORAL DAILY metFORMIN HCl 500MG Oral Tablet, Extended Release 08/18/2023 Unknown ORAL TWICE A DAY 500 MILLIGRAMS 093770 RxNorm TAKE 500 MILLIGRAMS ORAL TWICE A [...] Status Code Code System ACUTE CHF active 84432034 SNOMED-CT A-FIB WITH RVR active 736673318217157 SNOMED-CT SWELLING OF BILATERAL LOWER EXTREMITIES active 084198482 SNOMED-CT CHRONIC VENOUS INSUFFICIENCY active 20803002 SNOMED-CT DIVERTICULITIS 01/29/2023 resolved 787582069 SNOM ED-CT HLD 01/29/2023 resolved 89608317 SNOMED-CT HTN 01/29/2023 resolved 84252759 SNOMED-CT T2DM 01/29/2023 resolved 84108866 SNOMED-CT BMI 40+ SEVERELY OBESE 01/29/2023 resolved 807177453 SNOMED-CT PERIPHERAL EDEMA 01/29/2023 resolved 032772892 SN OMED-CT OSTEOARTHRITIS 01/29/2023 resolved 716380750 SNOM ED-CT CHF 03/26/2023 resolved 83401912 SNOMED-CT AFIB 03/26/2023 resolved 57073141 SNOMED-CT MILD PERSISTENT ASTHMA 01/29/2023 resolved 216736129 SNOMED-CT SQUAMOUS CELL CARCINOMA OF SKIN 01/29/2023 resolved 650963906 SNOMED-CT SQUAMOUS CELL CARCINOMA OF SKIN 01/29/2023 resolved 009031641 SNOMED-CT HISTORY OF SMALL BOWEL OBSTRUCTION 01/29/2023 resolved 959948953487808834 SNOM ED-CT Allergies and Adverse Reactions Allergy Substance Reaction Severity Start Date Concern Status Co de Code System SULFA (sulfonamide) Moderate Active CODEINE Moderate Active 0740 RxNorm Plan of Treatment No Data Found Encounters Encounter Diagnosis Start Date Code Code Sys tem Localized edema 03/26/2023 440306249 SNOMED-CT Personal Care Team Section Performer Name Performer Role Active Date Inactive Da te
--- OUTSIDE RECORDS SUMMARY | 2023-10-31 21:20 | XMS_ITS ---
Author Organization Unknown Address [address] [place] [phone] Phone Care Team Providers Care Volunteer Specialist Name Role Phone ERMELINDA PINON Linda Attending Unavailable Social History Type Status Start Date End Date Code Code Syst em Smoking History Never smoker (Never Smoked) 764380029 SNOMED CT Sex Female Medications Medication Start Date End Date Route Frequency Dose Code Code System Medication Instructions Home Meds Eliquis 5MG Oral Tablet 02/01/2023 08/16/2023 ORAL TWICE A DAY 5 MILLIGRAMS 8376661 RxNorm TAKE 5 MILLIGRAMS ORAL TWICE A DAY Furosemide 40MG Oral Tablet 02/01/2023 08/16/2023 ORAL BID (0800 AND 1459) 40 MILLIGRAMS 843736 RxNorm TAKE 40 MILLIGRAMS ORAL BID (0800 AND 1459) Klor-Con M20 20MEQ Oral Tablet, Extended Release 02/01/2023 03/26/2023 ORAL DAILY WITH FOOD 20 MEQ 9950710 RxNorm TAKE 20 MEQ ORAL DAILY WITH FOOD Albuterol Sulfate HFA 0.09MG/1Act uation Inhalation Suspension 02/01/2023 Unknown INHALATI ON NEEDED 2 PUFF 1213266 RxNorm 2 PUFF INHALATION NEEDED metFORMIN HCl 500MG Oral Tablet 02/01/2023 08/16/2023 ORAL DAILY 500 MILLIGRAMS 105798 RxNorm TAKE 500 MILLIGRAMS ORAL DAILY Metoprolol Succinate 50MG Oral Tablet, Extended Release 02/01/2023 08/16/2023 ORAL DAILY 3 TABLET 589841 RxNorm TAKE 3 TABLET ORAL DAILY Valsartan 80 MG Oral Tablet 02/01/2023 Unknown ORAL DAILY 1 TABLET 757758 RxNorm TAKE 1 TABLET ORAL DAILY Acetaminoph en 325MG Oral Tablet 08/18/2023 Unknown ORAL NEEDED EVERY 4 HOURS 650 MILLIGRAMS 747454 RxNorm TAKE 650 MILLIGRAMS ORAL NEEDED EVERY 4 HOURS Torsemide AvPak 20MG Oral Tablet 08/18/2023 Unknown ORAL BID (0800 AND 1459) 20 MILLIGRAMS 465440 RxNorm TAKE 20 MILLIGRAMS ORAL BID (0800 AND 1459) Eliquis 5MG Oral Tablet 08/18/2023 Unknown ORAL TWICE A DAY 5 MILLIGRAMS 0635341 RxNorm TAKE 5 MILLIGRAMS ORAL TWICE A DAY Jardiance 25MG Oral Tablet 08/18/2023 Unknown ORAL DAILY 25 MILLIGRAMS 0826158 RxNorm TAKE 25 MILLIGRAMS ORAL DAILY Metoprolol Succinate 50MG Oral Tablet, Extended Release 08/18/2023 Unknown ORAL DAILY 50 MILLIGRAMS 008953 RxNorm TAKE 50 MILLIGRAMS ORAL DAILY Potassium Chloride 20MEQ Oral Tablet, Extended Release 08/18/2023 Unknown ORAL DAILY 20 MILLIGRAMS 3495143 RxNorm TAKE 20 MILLIGRAMS ORAL DAILY metFORMIN HCl 500MG Oral Tablet, Extended Release 08/18/2023 Unknown ORAL TWICE A DAY 500 MILLIGRAMS 674529 RxNorm TAKE 500 MILLIGRAMS ORAL TWICE A [...] Status Code Code System ACUTE CHF active 04935127 SNOMED-CT A-FIB WITH RVR active 792621686242438 SNOMED-CT SWELLING OF BILATERAL LOWER EXTREMITIES active 674694635 SNOMED-CT CHRONIC VENOUS INSUFFICIENCY active 18884820 SNOMED-CT DIVERTICULITIS 01/29/2023 resolved 368260169 SNOM ED-CT HLD 01/29/2023 resolved 40905820 SNOMED-CT HTN 01/29/2023 resolved 42862332 SNOMED-CT T2DM 01/29/2023 resolved 88446367 SNOMED-CT BMI 40+ SEVERELY OBESE 01/29/2023 resolved 717591363 SNOMED-CT PERIPHERAL EDEMA 01/29/2023 resolved 540648620 SN OMED-CT OSTEOARTHRITIS 01/29/2023 resolved 613596803 SNOM ED-CT CHF 03/26/2023 resolved 99178944 SNOMED-CT AFIB 03/26/2023 resolved 92602780 SNOMED-CT MILD PERSISTENT ASTHMA 01/29/2023 resolved 990158109 SNOMED-CT SQUAMOUS CELL CARCINOMA OF SKIN 01/29/2023 resolved 590534780 SNOMED-CT SQUAMOUS CELL CARCINOMA OF SKIN 01/29/2023 resolved 072212432 SNOMED-CT HISTORY OF SMALL BOWEL OBSTRUCTION 01/29/2023 resolved 447456262116823772 SNOM ED-CT Allergies and Adverse Reactions Allergy Substance Reaction Severity Start Date Concern Status Co de Code System SULFA (sulfonamide) Moderate Active CODEINE Moderate Active 6190 RxNorm Plan of Treatment No Data Found Encounters Encounter Diagnosis Start Date Code Code Sys tem Atrial fibrillation 01/29/2023 38232442 SNOMED-C T Personal Care Team Section Performer Name Performer Role Active Date Inactive Da te
--- OUTSIDE RECORDS SUMMARY | 2023-10-31 21:20 | XMS_ITS ---
Author Organization Unknown Address [address] [place] [address] [phone] Phone Care Team Providers Care Biomass Power Plant Manager Name Role Phone ZOYA KAITY Registered Nurse Unavailable Unavailable Xwatchlist Unavailable FABIAN Rai Attending Unavailable REGINA Macdonald [facility] Unavailable AXEL Dickson Primary Unavailable YARI Macdonald Secondary Unavailable UNLISTED PROVIDER - REQUESTED Xhandoff Un available Results BASIC METABOLIC PANEL (BMP) - Collect Date/Time: 08/18/2023 06:27 [facility] ID: [id number] [address] [place], [place], [address] [facility]: 31895-9 Test Value Unit Reference Range Code Code [...] H=34 2028-9 LOINC ANION GAP 6.2 mmol/L 24783-4 LOINC CALCIUM SERUM 8.5 mg/dL L=8.2 H=10.2 18084-7 LOINC AGE 82 years eGFR (non-Afr.Amer.) 77 mL/min 31677-7 LOINC eGFR (Afr-Kazakh) 94 mL/min 32167-4 LOINC BASIC METABOLIC PANEL (BMP) - Collect Date/Time: 08/17/2023 06:25 [facility] ID: [id number] [address] [place], [place], [address] LOINC: 14748-7 Test Value Unit Reference Range Code Code System Flag GLUCOSE 104 mg/dL L=70 H=116 2345-7 LOINC BUN 19 mg/dL L=6 H=25 3094-0 LOINC CREATININE 0.81 mg/dL L=0.51 H=0.95 2160-0 LOINC SODIUM SERUM 139 mmol/L L=136 H=145 2951-2 LOINC POTASSIUM SERUM 3.5 mmol/L L=3.4 H=5.2 2823-3 LOINC CHLORIDE SERUM 100 mmol/L L=96 H=110 2075-0 LOINC CARBON DIOXIDE (CO2) 35 mmol/L L=22 H=34 8-9 LOINC H ANION GAP 4.1 mmol/L 96702-8 LOINC CALCIUM SERUM 8.7 mg/dL L=8.2 H=10.2 84569-6 [facility] AGE 82 years eGFR (non-Afr.Amer.) 68 mL/min 44984-6 [facility] eGFR (Afr-Kazakh) 82 mL/min 17965-1 [facility] ([facility]) - Collect Date/Time: 08/16/2023 20:21 [facility] ID: [id number] [address] [place], [place], [address] LOINC: 59961-4 Test Value Unit Reference Range Code Code [...] H=34 2027-9 LOINC ANION GAP 6.1 mmol/L 38453-8 LOINC CALCIUM SERUM 8.9 mg/dL L=8.2 H=10.2 29461-9 LOINC BILIRUBIN TOTAL 0.9 mg/dL L=0.0 H=1.3 1975-2 LOINC ALK. PHOS. 88 U/L L=46 H=116 6768-6 LOINC SGOT (AST) 13 U/L L=15 H=37 1920-8 LOINC L SGPT (ALT) 12 U/L L=12 H=78 1742-6 LOINC TOTAL PROTEIN 7.0 gm/dL L=6.0 H=8.0 2885-2 LOINC ALBUMIN 3.2 gm/dL L=3.4 H=5.0 1751-7 LOINC L AGE 82 years eGFR (non-Afr.Amer.) 69 mL/min 05426-4 LOINC eGFR (Afr-Kazakh) 83 mL/min 94761-2 LOINC TROPONIN HIGH SENSITIVITY* - Collect Date/Time: 08/16/2023 20:21 [facility] ID: [id number] [address] [place] [address], [address] LOINC: 90556-4 Test Value Unit Reference Range Code Code System Flag TROPONIN HS 8.2 pg/mL L=0.0 H=60.4 Specimen seq. ADM. MAGNESIUM SERUM* - Collect D ate/Time: 08/16/2023 20:21 [facility] ID: [id number] [address] [place] [address], [address] LOINC: 06263-6 Test Value Unit Reference Range Code Code System Flag MAGNESIUM 2.1 mg/dL L=1.8 H=2.4 86973-3 LOINC BNP (PRO-B NATRIURETIC PEPTI DE) - Collect Date/Time: 08/16/2023 20:21 [facility] ID: [id number] [address] [place] [address], [address] LOINC: 01809-5 Test Value Unit Reference Range Code Code System Flag NT-proBNP 1723.0 pg/mL L=0.0 H=450 82877-7 LOINC H CBC W/ DIFFERENTIAL* - Colle ct Date/Time: 08/16/2023 19:15 [facility] ID: [id number] [address] [place], [place], [address] LOINC: 73661-1 Test Value Unit Reference Range Code Code System Flag WBC 10.84 th/cmm L=5.00 H=10.00 6690-2 LOINC H NEUT % 70.8 % L=40.0 H=80.0 LYMPH % 14.9 % L=10.0 H=50.0 MONO % 11.4 % L=2.0 H=12.0 09148-9 LOINC EOS % 2.0 % L=0.0 H=8.0 BASO % 0.4 % L=0.0 H=3.0 IG % 0.5 % L=0.0 H=1.1 2514-8 LOINC NRBC % 0.0 % L=0.0 H=0.0 02915-4 LOINC NEUT abs count 7.7 th/cmm L=1.6 H=8.4 751-8 LOINC LYMPH abs count 1.6 th/cmm L=1.5 H=4.0 731-0 LOINC MONO abs count 1.2 th/cmm L=0.2 H=1.0 742-7 LOINC H EOS abs count 0.2 th/cmm L=0.0 H=0.5 711-2 LOINC BASO abs count 0.0 th/cmm L=0.0 H=0.2 704-7 LOINC IG abs count 0.1 th/cmm L=0.0 H=0.1 19262-7 LOINC NRBC abs count 0.0 mil/cmm L=0.0 H=0.0 84217-1 LOINC RBC 3.99 mil/cmm L=3.90 H=5.40 789-8 [...] 1V - Co mpleted: 08/16/2023 19:08 LOINC: [facility] RADIOLOGY [place], [place] [address] [facility] PACS EXTERNAL GRINDER TENDER REPORT Patient Name: KENNA RAMSEY Na MRN: Sex: : Age: [id number] O 1940 82 Account: Accession: Admit: StayType: [id number] 08/16/2023 E Ordered: Order ID: Submitted: Ordering Provider: 08/16/2023 18:53 [id number] NENA JEFFERSON Completed: Technologist: Resulted: 08/16/2023 19:06 [...] em Smoking History Never smoker (Never Smoked) 164274345 SNOMED CT Sex Female Vital Signs Vital Sign Value Unit [place] Value [place] Unit Date/Time Recent/Initial? Code Code System Body Mass Index 56.57 kg/m2 08/16/2023 23:14 Most Recent 53804 -5 LOINC Body Mass Index 54.98 kg/m2 08/16/2023 19:07 Initial 60084 -5 LOINC Systolic Blood Pressure 111 mm[Hg] [...] Saturation 93 % 2023 12:00 Most Recent 64310 -5 LOINC O2 Saturation 96 % 2023 19:07 Initial 84043 -5 LOINC Inhaled Oxygen Flow Rate 2.00 L/min 08/18/2023 04:10 Most Recent 3151- 8 LOINC Inhaled Oxygen Flow Rate 1.00 L/min 08/16/2023 21:40 Initial 3151- 8 LOINC Pulse 92.0 /min 08/18/2023 12:00 Most Recent 8867- 4 LOINC Pulse 96.0 /min 08/16/2023 19:07 Initial 8867- 4 LOINC Respiration 18 /min 08/18/19 12:00 Most Recent 9279- 1 INC Respiration 22 /min 08/16/19 19:07 Initial 9279- 1 INC Temperature 36.6 Angelita 97.9 F 08/18/19 12:00 Most Recent 8310- 5 INC Temperature 36.2 Angelita 97.2 F 08/16/19 19:07 Initial 8310- 5 INC Weight 130.86 kg 288.50 lbs 08/18/2023 04:09 Most Recent 26474 -7 INC Weight 132.00 kg 291.00 lbs 08/16/2023 19:07 Initial 81442 -7 [facility] Medications Medication Start Date End Date Route Frequency Dose Code Code System Medication Instructions Home Meds Albuterol Sulfate HFA 0.09MG/1Actuation Inhalation Suspension 02/01/2023 Unknown INHALATION NEEDED 2 PUFF 4257666 RxNorm 2 PUFF INHALATION NEEDED Valsartan 80 MG Oral Tablet 02/01/2023 Unknown ORAL DAILY 1 TABLE T 094558 RxNorm TAKE 1 TABLET ORAL DAILY Acetaminophen 325MG Oral Tablet 08/18/2023 Unknown ORAL NEEDED EVERY 4 HOURS 650 TATIANA GRAMS 915084 RxNorm TAKE 650 MILLIGRAMS ORAL NEEDED EVERY 4 HOURS Torsemide AvPak 20MG Oral Tablet 08/18/2023 Unknown ORAL BID (0800 AND 1459) 20 TATIANA GRAMS 982535 RxNorm TAKE 20 MILLIGRAMS ORAL BID (0800 AND 1459) Eliquis 5MG Oral Tablet 08/18/2023 Unknown ORAL TWICE A DAY 5 TATIANA GRAMS 3348706 RxNorm TAKE 5 MILLIGRAMS ORAL TWICE A DAY Jardiance 25MG Oral Tablet 08/18/2023 Unknown ORAL DAILY 25 TATIANA GRAMS 9666539 RxNorm TAKE 25 MILLIGRAMS ORAL DAILY Metoprolol Succinate 50MG Oral Tablet, Extended Release 08/18/2023 Unknown ORAL DAILY 50 TATIANA GRAMS 951927 RxNorm TAKE 50 MILLIGRAMS ORAL DAILY Potassium Chloride 20MEQ Oral Tablet, Extended Release 08/18/2023 Unknown ORAL DAILY 20 TATIANA GRAMS 3192357 RxNorm TAKE 20 MILLIGRAMS ORAL DAILY metFORMIN HCl 500MG Oral Tablet, Extended Release 08/18/2023 Unknown ORAL TWICE A DAY 500 TATIANA GRAMS 815024 RxNorm TAKE 500 MILLIGRAMS ORAL TWICE A [...] Status Code Code System ACUTE CHF active 22950779 SNOMED-CT A-FIB WITH RVR active 288025432137659 SNOMED-CT SWELLING OF BILATERAL LOWER EXTREMITIES active 345969763 SNOMED-CT CHRONIC VENOUS INSUFFICIENCY active 29704679 SNOMED-CT DIVERTICULITIS 01/29/2023 resolved 685258437 SNOM ED-CT HLD 01/29/2023 resolved 34182911 SNOMED-CT HTN 01/29/2023 resolved 66319842 SNOMED-CT T2DM 01/29/2023 resolved 37979350 SNOMED-CT BMI 40+ SEVERELY OBESE 01/29/2023 resolved 979262009 SNOMED-CT PERIPHERAL EDEMA 01/29/2023 resolved 622436572 SN OMED-CT OSTEOARTHRITIS 01/29/2023 resolved 656370639 SNOM ED-CT CHF 03/26/2023 resolved 26654493 SNOMED-CT AFIB 03/26/2023 resolved 73630196 SNOMED-CT MILD PERSISTENT ASTHMA 01/29/2023 resolved 074259381 SNOMED-CT SQUAMOUS CELL CARCINOMA OF SKIN 01/29/2023 resolved 885046634 SNOMED-CT SQUAMOUS CELL CARCINOMA OF SKIN 01/29/2023 resolved 698847703 SNOMED-CT HISTORY OF SMALL BOWEL OBSTRUCTION 01/29/2023 resolved 888679479470826930 SNOM ED-CT Allergies and Adverse Reactions Allergy Substance Reaction Severity Start Date Concern Status Co de Code System SULFA (sulfonamide) Moderate Active CODEINE Moderate Active 2670 RxNorm Plan of Treatment Recommendations: Discharge to [...] Date Inactive Da te Discharge Summary Notes [facility] 08/19/2023 15:56 All Demographics Patient Name Age Sex Visit Number Admission Date/Time Attending Physician Date of Service Room and Bed Emergency Contact KENNA RAMSEY 1940 82 years Unknown [id number] 08/16/2023 21:59 JONATHAN GASPAR 08/16/2023 [id number] ARIANA RAMSEY M - [id number] 08/18/2023 17:34 Discharge Date: 08/18/2023 Reason for [...] have been trying to get her into [facility] without success. She uses a walker at [...] management was consulted regarding long-term placement at [facility] which the patient and her primary care [...] she awaits long- term placement hopefully at [facility]. Lab Results: Last 24 Hours Test Results [...] (non-Afr.Amer.) 77 mL/min 08/18/2023 06:27 eGFR (Afr- Kazakh) 94 mL/min 08/18/2023 06:27 Vitals: Date/Time BP [...]
--- OUTSIDE RECORDS SUMMARY | 2023-10-31 21:20 | XMS_ITS ---
Author Organization Unknown Address [address] [place] [address] [phone] Phone Care Team Providers Care Events Administrative Assistant Name Role Phone FABIAN Rai Attending Unavailable Social History Type Status Start Date End Date Code Code Syst em Smoking History Never smoker (Never Smoked) 347634743 SNOMED CT Sex Female Medications Medication Start Date End Date Route Frequency Dose Code Code System Medication Instructions Home Meds Eliquis 5MG Oral Tablet 02/01/2023 08/16/2023 ORAL TWICE A DAY 5 MILLIGRAMS 5554752 RxNorm TAKE 5 MILLIGRAMS ORAL TWICE A DAY Furosemide 40MG Oral Tablet 02/01/2023 08/16/2023 ORAL BID (0800 AND 1459) 40 MILLIGRAMS 397741 RxNorm TAKE 40 MILLIGRAMS ORAL BID (0800 AND 1459) Albuterol Sulfate HFA 0.09MG/1Act uation Inhalation Suspension 02/01/2023 Unknown INHALATI ON NEEDED 2 PUFF 4964678 RxNorm 2 PUFF INHALATION NEEDED metFORMIN HCl 500MG Oral Tablet 02/01/2023 08/16/2023 ORAL DAILY 500 MILLIGRAMS 393083 RxNorm TAKE 500 MILLIGRAMS ORAL DAILY Metoprolol Succinate 50MG Oral Tablet, Extended Release 02/01/2023 08/16/2023 ORAL DAILY 3 TABLET 465909 RxNorm TAKE 3 TABLET ORAL DAILY Valsartan 80 MG Oral Tablet 02/01/2023 Unknown ORAL DAILY 1 TABLET 041698 RxNorm TAKE 1 TABLET ORAL DAILY Acetaminoph en 325MG Oral Tablet 08/18/2023 Unknown ORAL NEEDED EVERY 4 HOURS 650 MILLIGRAMS 080556 RxNorm TAKE 650 MILLIGRAMS ORAL NEEDED EVERY 4 HOURS Torsemide AvPak 20MG Oral Tablet 08/18/2023 Unknown ORAL BID (0800 AND 1459) 20 MILLIGRAMS 987602 RxNorm TAKE 20 MILLIGRAMS ORAL BID (0800 AND 1459) Eliquis 5MG Oral Tablet 08/18/2023 Unknown ORAL TWICE A DAY 5 MILLIGRAMS 3557126 RxNorm TAKE 5 MILLIGRAMS ORAL TWICE A DAY Jardiance 25MG Oral Tablet 08/18/2023 Unknown ORAL DAILY 25 MILLIGRAMS 4265624 RxNorm TAKE 25 MILLIGRAMS ORAL DAILY Metoprolol Succinate 50MG Oral Tablet, Extended Release 08/18/2023 Unknown ORAL DAILY 50 MILLIGRAMS 324937 RxNorm TAKE 50 MILLIGRAMS ORAL DAILY Potassium Chloride 20MEQ Oral Tablet, Extended Release 08/18/2023 Unknown ORAL DAILY 20 MILLIGRAMS 9319498 RxNorm TAKE 20 MILLIGRAMS ORAL DAILY metFORMIN HCl 500MG Oral Tablet, Extended Release 08/18/2023 Unknown ORAL TWICE A DAY 500 MILLIGRAMS 662664 RxNorm TAKE 500 MILLIGRAMS ORAL TWICE A [...] Status Code Code System ACUTE CHF active 55767883 SNOMED-CT A-FIB WITH RVR active 652508119775826 SNOMED-CT SWELLING OF BILATERAL LOWER EXTREMITIES active 075146420 SNOMED-CT CHRONIC VENOUS INSUFFICIENCY active 10695924 SNOMED-CT DIVERTICULITIS 01/29/2023 resolved 410974026 SNOM ED-CT HLD 01/29/2023 resolved 14091991 SNOMED-CT HTN 01/29/2023 resolved 57710288 SNOMED-CT T2DM 01/29/2023 resolved 13907564 SNOMED-CT BMI 40+ SEVERELY OBESE 01/29/2023 resolved 847777809 SNOMED-CT PERIPHERAL EDEMA 01/29/2023 resolved 388119226 SN OMED-CT OSTEOARTHRITIS 01/29/2023 resolved 642936710 SNOM ED-CT CHF 03/26/2023 resolved 78486292 SNOMED-CT AFIB 03/26/2023 resolved 15257899 SNOMED-CT MILD PERSISTENT ASTHMA 01/29/2023 resolved 407864883 SNOMED-CT SQUAMOUS CELL CARCINOMA OF SKIN 01/29/2023 resolved 677596360 SNOMED-CT SQUAMOUS CELL CARCINOMA OF SKIN 01/29/2023 resolved 395875144 SNOMED-CT HISTORY OF SMALL BOWEL OBSTRUCTION 01/29/2023 resolved 764488279095292004 SNOM ED-CT Allergies and Adverse Reactions Allergy Substance Reaction Severity Start Date Concern Status Co de Code System SULFA (sulfonamide) Moderate Active CODEINE Moderate Active 1410 RxNorm Plan of Treatment No Data Found Encounters Encounter Diagnosis Start Date Code Code Sys tem Hypertensive heart disease with heart failure 08/16/19 24 SNOMED-CT Personal Care Team Section Performer Name Performer Role Active Date Inactive Da te
--- OUTSIDE RECORDS SUMMARY | 2023-10-31 21:21 | XMS_ITS | Encounter Summary ---
Author Organization [facility] Address [address] [place] [address] Care Team Providers Care Certified Court Interpreter Name Role Phone Betzaida Pina MD Primary Care Provider [phone] Oc Pang MD Unavailable Reason for Visit * Reason Onset Date Comments Other 03/17/2020 Encounter Details Date Type Department Care Team (Late st Contact Info) Description 03/17/2020 Telephone [facility] Acute Care Surgery - [facility] [address] [place] [address] Trauma, Surgery, MD Other Social History Tobacco Use Types Packs/Day Years Used Date Smoking Tobacco: Never Smokeless Tobacco: Never Alcohol Use Standard Drinks/Week Comments Not Currently 0 (1 standard drink = 0.6 oz pur e alcohol) PHQ-2 Answer Date Recorded PHQ-2 SUBTOTAL 0 03/11/2020 Interpersonal Safety Answer Date Record ed Physically Hurt Never 03/14/2020 Verbally Threaten Not on file 03/14/2020 Sex and Gender Information Value Date Recorded Sex Assigned at Not on file Gender Identity Not on file Sexual Orientation Not on file COVID-19 Exposure Response Date Recorded In the last month, have you been in contact with someone who was confirmed or suspected to have Coronavirus / COVID-19? No / Unsure 03/06/2020 19:13 EST documented as of this encounter Functional Status Functional Status Response Date of Assess ment Are you deaf or do you have serious difficulty h earing? No 03/11/2020 Are you blind or do you have serious difficulty seeing, even when wearing glasses? Yes 03/11/2020 Do you have difficulty dress ing or bathing? (5 years old or older) No 03/11/2020 Because of a physical, menta l, or emotional condition, do you have difficulty doing errands alone such as visiting a doctor's office or shopping? (15 years old or older) No 03/11/2020 Cognitive Status Response Date of Assessm ent Because of a physical, menta l, or emotional condition, do you have serious difficulty concentrating, remembering, or making decisions? (5 years old or older) No 03/11/2020 documented as of this encounter Miscellaneous Notes * Telephone Encounter - Linda Mast, RN - 03/17/2020 1006 EST Phone call with Katey at [facility]. They are aware that her surgery was 03/06 and we would like her franck to be removed on the , not today. The patient told her that they area is red. She is going to go out today and see her. She intercepted her from going out the door to the ER for the franck to be removed. I thanked her for redirecting patient and I will call her shortly. * Telephone Encounter - Agustina Peter - 03/17/2020 0940 EST Patient needs franck removed today- PCP cannot do this. Shannan said they can do this for patient today but need verbal order. Please call Shannan documented in this encounter Plan of Treatment Not on file documented as of this encounter Visit Diagnoses Not on filedocumented in this encounter Care Teams Certified Court Interpreter Relationship Specialty Start Date End Date Betzaida Pina MD [address] [place] [phone] PCP - General 03/06/20 Oc Pang MD [facility] [address] [place] [phone] 03/06/20 documented as of this encounter
--- OUTSIDE RECORDS SUMMARY | 2023-10-31 21:21 | XMS_ITS | Encounter Summary ---
Author Organization [facility] Address [address] [place] [address] Care Team Providers Care Scorer Helper Name Role Phone Betzaida Pina MD Primary Care Provider [phone] Oc Pang MD Unavailable Reason for Visit * Auth/Cert Specialty Diagnoses / Procedures Referred By Maegan quiñones Referred To Contact Diagnoses Intra-abdominal abscess (HCC-CMS) Internal hernia Bowel peroration Referral ID Status Reason Start Date Expiration Date Visits Re quested Visits Authorized [id number] 1 1 Encounter Details Date Type Department Care Team (Late st Contact Info) Description 03/07/2020 1:41 EST Anesthesia Event [facility] OR [address] [place], [place] [phone] Julius Reed MD [address] [place] [phone] Erlin Meyer MD [address] [place] [phone] Anesthesia Record Procedure Summary Procedure Name Responsible Anesthesiologist Anesthesia Start Time Anesthesia Stop Time LAPAROTOMY, EXPLORATORY, small bowel resection (Abdomen) Julius Reed MD 03/07/20 0141 03/07/20 0507 Events Date Time Event Comment 03/07/2020 0141 An Start The patient was re-evaluated immediately before moderate or deep sedation use, before anesthesia induction, or before the anesthesia procedure. 0141 An Start Data 0158 An Induction The patient was reevaluated immediately before moderate or deep sedation use and before anesthesia induction. 0203 An Intubation 0203 Anesthesia Ready 0448 An Extubation 0458 an stop data 0502 Handoff to RN I completed my handoff to the receiving nurse during which we: 1. Identified the patient 2. Identified the responsible provider 3. Reviewed the pertinent medical history 4. Discussed the surgical course 5. Reviewed intra-op anesthesia management and issues during anesthesia 6. Set expectations for post-procedure period 7. Allowed opportunity for questions and acknowledgement of understanding. 0507 An Stop Meds Name Total ePHEDrine pre-filled syringe 10 mg HYDROmorphone vial 2 mg/mL 0.4 mg lidocaine 2% (PF) injection glass vial 1 00 mg ketAMINE 5 mL prefilled syringe 20 mg midazolam 1 mg/mL 2 mL vial 1 mg ondansetron (PF) (ZOFRAN) injection 4 mg phenylephrine pre-filled syringe 100 mcg propOFol (DIPRIVAN) injection 100 mg rocuronium 10 mg/mL vial 80 mg succinylcholine 20 mg/mL vial 160 mg sugammadex 100 mg/mL 2 mL vial 250 mg lactated ringers (LR) infusion Cannot be calculated piperacillin-tazobactam 4.5 g in sodium chloride (NS MBP) 100 mL IVPB 4.5 g acetaminophen 10 mg/ml 100 mL infusion 1 ,000 mg * Agents Name Insp Sevoflurane Exp Sevoflurane O2 N2O Air * Blood No blood administrations on file. Lines, Drains, and Airways Type Details Placement Removal Wound 03/07/20; Incision; Midline; Abdomen; N 03/07/20 0000 by Jane Chapa RN NG/OG Tube 03/07/20; 0503; Salma ent arrived with LDA; Nasogastric; Right nostril 03/07/20 0503 by Susan Hitchcock, GEOVANNA Peripheral IV 03/06/20; Anterior, Right; Wrist; 03/07/20; 1137; Patient request, Painful, Leaking 03/06/20 0000 by Aviva Caballero RN 03/07/20 1137 by Erlin Russell RN Peripheral IV 03/07/20; (not known ); Right; Antecubital, Forearm (one antecubital, 2 in forearm area); 03/08/20; 0002; Removed by STRINGER MACHINE TENDER, Infiltrated; Catheter bent, Dressing applied 03/07/20 0000 by Laura Melgar RN 03/08/20 0002 by Mallory Locke RN Urethral Catheter 03/07/20; 0210; Inserted by RN; Selected surgical procedures/Epidural; Non-latex, Straight-tip; 16 fr; 5 ml; Yes (clear yellow urine); 03/08/20; 1131 03/07/20 0210 by Laura Melgar RN 03/08/20 1131 by Anh Ambrose RN Non-Surgical Airway 03/07/20; 0213 (crea jackie via procedure documentation); 03/07/20; 0448 03/07/20 0213 by Erlin Meyer MD 03/07/20 0448 by Erlin Meyer MD Peripheral IV 03/07/20; 0503; 18; Right; Hand; Patient arrived with LDA; 03/07/20; 1138; Leaking, Patient request, Painful 03/07/20 0503 by Susan Hitchcock RN 03/07/20 1138 by Erlin Russell RN documented in this encounter Social History Tobacco Use Types Packs/Day Years Used Date Smoking Tobacco: Never Smokeless Tobacco: Never Alcohol Use Standard Drinks/Week Comments Not Currently 0 (1 standard drink = 0.6 oz pur e alcohol) Sex and Gender Information Value Date Recorded Sex Assigned at Not on file Gender Identity Not on file Sexual Orientation Not on file COVID-19 Exposure Response Date Recorded In the last month, have you been in contact with someone who was confirmed or suspected to have Coronavirus / COVID-19? No / Unsure 03/06/2020 19:13 EST documented as of this encounter OR Notes * Anesthesia Postprocedure Evaluation - Erlin Meyer MD - 03/07/2020 0502 EST Patient: Remedios Toro Vital signs were reviewed with the recovery nurse. [facility] Vitals Value Taken Time BP 136/80 03/07/20 0502 Temp 36.5 03/07/20 0502 Resp 20 03/07/20 0502 Pulse From Oximetry 80 03/07/20 0502 SpO2 97 03/07/20 0502 Last Pain Score - Numeric Pain Level (Scale 1-10): 3 Type of Anesthesia - general Anesthesia Post Evaluation Level of consciousness: obtunded/minimal responses Temperature status: normothermia Respiratory status: airway patent and face mask Cardiovascular status: acceptable Hydration status: adequate Nausea/Vomiting: none Pain management: adequate Post-Op Assessment: patient tolerated procedure well with no complications Patient participation: unable to participate due to sedation Disposition: inpatient Anesthesia Complications: No apparent anesthesia complications * Anesthesia Procedure Notes - Erlin Meyer MD - 03/07/2020 0212 EST Associated Order(s): Airway Airway Date/Time: 03/07/2020 2:03 Urgency: elective General Information and Staff Patient location during procedure: OR Anesthesiologist: Julius Reed MD Resident/RIP SAWYER: Erlin Meyer MD Performed: resident/RIP SAWYER/AA Indications and Patient Condition Indications for airway management: anesthesia Sedation level: GA Preoxygenated: yes Patient position: reverse Trendelenburg Ventilation assessment: 0 - not attempted Final Airway Details Final airway type: endotracheal airway Successful airway: ETT Cuffed: yes Successful intubation technique: direct laryngoscopy Facilitating devices/methods: intubating stylet Endotracheal tube insertion site: oral Blade: Cayla Blade size: #3 ETT size (mm): 7.5 Cormack-Lehane Classification: grade I - full view of glottis Placement verified by: chest auscultation and capnometry Measured from: teeth ETT to teeth (cm): 21 Number of attempts at approach: 1 * Anesthesia Preprocedure Evaluation - Erlin Meyer MD - 03/07/2020 0102 EST Anesthesia Preprocedure Evaluation Patient Medical History, including Anesthesia History reviewed. Chart and Nursing Notes reviewed, including NPO status and Medication History. Additional ROS/History Findings: H&P attributed to Dr Preston of [facility]: 79 YOF with a PMH notable for DM, HTN, and HLD who is presenting as a transfer [facility] after beingfound to have two abdominal abscesses on CT imaging this afternoon. Per the patient, she initially began having symptoms roughly a month ago where she noted some mild RLQ discomfort in her abdomen....this morning she felt sharp RLQ, nausea and overall malaise...leukocytosis and CT showing two 5 cm abscesses adjacent to small bowel, possible concerning for bowel perforation. Last ate morning (03/06). No problems with anesthesia in the past, one surgery 1970s, breast lumpectomy. No Known Allergies Review of Systems Constitutional: Negative. Respiratory: Negative. Cardiovascular: Negative. Gastrointestinal: Positive for abdominal pain. Negative for heartburn, nausea and vomiting. Skin: Negative. Past Medical History: Diagnosis Date ??? Diabetes mellitus (HCC-CMS) ??? Hypertension Relevant Problems No relevant active problems Physical Exam Airway Mallampati: III Cardiovascular - normal exam (+) murmur Comments: 2/6systolic murmur Dental - normal exam Pulmonary - normal exam Abdominal Anesthesia Plan ASA 2 Anesthesia Type - general Anesthesia plan and risks discussed. Informed consent obtained from patient. Use of blood products discussed with patient who did not consent to blood products. Special considerations: Anabaptist. Specific risks discussed were bleeding, , ICU placement, infection, nausea, post-op intubationand vomiting. Code status discussed? Yes (Full code) PAT Note (Notes from 02/06/20 through 03/07/20) No notes of this type exist for this encounter. documented in this encounter Miscellaneous Notes * Addendum Note - Erlin Meyer MD - 03/07/2020515 EST Addendum created 03/07/20515 by Erlin Meyer MD Intraprocedure Meds edited documented in this encounter Plan of Treatment Not on file documented as of this encounter Procedures Procedure Name Priority Date/Time Associated Diagnosis Comments ANESTHESIA INTUBATION Routine 03/07/2020 2:12 EST documented in this encounter Results * MI AN ELECTIVE ENDOTRACHEAL AIRWAY (03/07/2020 2:12 EST) Narrative Erlin Meyer MD - 03/07/2020 2:12 EST Erlin Meyer MD ? 03/07/2020 ??2:13 Airway Date/Time: 03/07/2020 2:03 Urgency: elective General Information and Staff Patient location during procedure: OR Anesthesiologist: Julius Reed MD Resident/RIP SAWYER: Erlin Meyer MD Performed: resident/RIP SAWYER/AA Indications and Patient Condition Indications for airway management: anesthesia Sedation level: GA Preoxygenated: yes Patient position: reverse Trendelenburg Ventilation assessment: 0 - not attempted Final Airway Details Final airway type: endotracheal airway Successful airway: ETT Cuffed: yes Successful intubation technique: direct laryngoscopy Facilitating devices/methods: intubating stylet Endotracheal tube insertion site: oral Blade: Cayla Blade size: #3 ETT size (mm): 7.5 Cormack-Lehane Classification: grade I - full view of glottis Placement verified by: chest auscultation and capnometry Measured from: teeth ETT to teeth (cm): 21 Number of attempts at approach: 1 Julius Reed MD ANESTHESIA ORDERABLE S documented in this encounter Visit Diagnoses Not on filedocumented in this encounter Administered Medications Inactive Administered Medications - up to 3 most recent administrations Medication Order MAR Action Action Date Dose Rate Site acetaminophen (OFIRMEV) IV solution PRN, Starting on Tue03/07/20 at 0516, Until Tue03/07/20 at 0516, Routine, Anesthesia Intraprocedure Given 03/07/2020 5:16 EST 1,000 mg ePHEDrine injection 25 mg/5 mL syringe PRN, Starting on Tue03/07/20 at 0215, Until Tue03/07/20 at 0507, Routine, Anesthesia Intraprocedure Given 03/07/2020 3:00 EST 5 mg Given 03/07/2020 2:15 EST 5 mg HYDROmorphone (DILAUDUD) 2 mg/mL injection PRN, Starting on Tue03/07/20 at 0329, Until Tue03/07/20 at 0507, Routine, Anesthesia Intraprocedure Given 03/07/2020 3:29 EST 0.4 mg ketAMINE in NaCl, iso-osmotic (KETALAR) 50 mg/5 mL (10 mg/mL) IV injection PRN, Starting on Tue03/07/20 at 0159, Until Tue03/07/20 at 0507, Routine, Anesthesia Intraprocedure Given 03/07/2020 1:59 EST 20 mg lactated ringers (LR) infusion intravenous, FA IP EQF CONTINUOUS PRN FOR ONE STEP MEDS, Starting on Tue03/07/20 at 0344, Until Tue03/07/20 at 0507, Routine, Anesthesia Intraprocedure New Bag 03/07/2020 3:44 EST lidocaine (PF) 20 mg/mL (2 %) injection PRN, Starting on Tue03/07/20 at 0200, Until Tue03/07/20 at 0507, Routine, Anesthesia Intraprocedure Given 03/07/2020 2:00 EST 100 mg midazolam (PF) (VERSED) injection PRN, Starting on Tue03/07/20 at 0158, Until Tue03/07/20 at 0507, Routine, Anesthesia Intraprocedure Given 03/07/2020 1:58 EST 1 mg ondansetron (PF) (ZOFRAN) injection PRN, Starting on Tue03/07/20 at 0431, Until Tue03/07/20 at 0507, Routine, Anesthesia Intraprocedure Given 03/07/2020 4:31 EST 4 mg phenylephrine HCl in 0.9% NaCl injection PRN, Starting on Tue03/07/20 at 0307, Until Tue03/07/20 at 0507, Routine, Anesthesia Intraprocedure Given 03/07/2020 3:07 EST 100 mcg piperacillin-tazobactam 4.5 g in sodium chloride (NS MBP) 100 mL IVPB 4.5 g, intravenous, Administer over 4 Hours, NOW X1, 1 dose, On Telma 03/06/20 at 2215, Controlled antibiotic: has ID approved? No: ED Patient. If admitted, further doses required ID approval, Type of Therapy: Empiric, Suspected Indication (Select all that apply): Community acquired intra-abdominal infection (ICU admission), ID Consult: No, STAT Bolus 03/07/2020 1:53 EST 4.5 g Given 03/06/2020 23:45 EST 4.5 g propOFol (DIPRIVAN) injection PRN, Starting on Tue03/07/20 at 0200, Until Tue03/07/20 at 0507, Routine, Anesthesia Intraprocedure Given 03/07/2020 2:00 EST 100 mg rocuronium (ZEMURON) injection PRN, Starting on Tue03/07/20 at 0210, Until Tue03/07/20 at 0507, Routine, Anesthesia Intraprocedure Given 03/07/2020 3:32 EST 10 mg Given 03/07/2020 2:55 EST 20 mg Given 03/07/2020 2:10 EST 50 mg succinylcholine (ANECTINE) injection PRN, Starting on Tue03/07/20 at 0200, Until Tue03/07/20 at 0507, Routine, Anesthesia Intraprocedure Given 03/07/2020 2:00 EST 160 mg sugammadex (BRIDION) injection PRN, Starting on Tue03/07/20 at 0438, Until Tue03/07/20 at 0507, Routine, Anesthesia Intraprocedure Given 03/07/2020 4:38 EST 250 mg documented in this encounter Care Teams Scorer Helper Relationship Specialty Start Date End Date Betzaida Pina MD [address] [place] [phone] PCP - General 03/06/20 Oc Pang MD [address] [phone] 03/06/20 documented as of this encounter
--- OUTSIDE RECORDS SUMMARY | 2023-10-31 21:21 | XMS_ITS | Encounter Summary ---
Author Organization [facility] Address [address] [place] [address] Care Team Providers Care Shift Manager Name Role Phone Betzaida Pina MD Primary Care Provider [phone] Oc Pang MD Unavailable Reason for Visit * Reason Onset Date Comments Other 03/21/2020 Encounter Details Date Type Department Care Team (Late st Contact Info) Description 03/21/[address] [facility] Acute Care Surgery - [facility] [address] [place] [address] Trauma, Surgery, MD Other Social [...] Telephone Encounter - Linda Mast, RN - 03/21/2020 1443 EST Phone call with AIRPORT ELECTRICIAN, she had spoke with Dr. Cline directly and he advised the last 4 franck be removed. He insisted her to be seen in the clinic early next week. She is scheduled for 04/01 already.She is being put on antibiotics today, Keflex for 5 days. Home health can wash and clean it. It didn't open up like they thought it would. I will discuss with Dr. Cline in regards to scheduling and call patient directly if there is a change. * Telephone Encounter - Agustina Peter - 03/21/2020 1431 EST Taking franck out. Patient has 2 pus pockets they are flushing. Putting dressing over it. Patient needs appoint next week per because of infection. documented in this encounter Plan of Treatment Not on file documented as of this encounter Visit Diagnoses Not on filedocumented in this encounter Care Teams Shift Manager Relationship Specialty Start Date End Date Betzaida Pina MD [address] [place] [phone] PCP - General 03/06/20 Oc Pang MD [address] [phone] 03/06/20 documented as of this encounter
--- OUTSIDE RECORDS SUMMARY | 2023-10-31 21:21 | XMS_ITS | Encounter Summary ---
Author Organization [facility] Address [address] [place] [address] Care Team Providers Care Balloon Dipper Name Role Phone Betzaida Pina MD Primary Care Provider [phone] Oc Pang MD Unavailable Encounter Details Date Type Department Care Team (Late st Contact Info) Description 10/26/2021 Lab Requisition [facility] Pathology & Laboratory Medicine - [facility] [address] [place] [address] Betzaida Pina MD [address] [place] [phone] Encounter for other general examination Social History Tobacco Use Types Packs/Day Years [...] on file Sexual Orientation Not on file documented as of this encounter Functional Status [...] a physical, menta l, or emotional condition, does this person have difficulty doing errands alone such as visiting a doctor's office or shopping? No 04/01/2020 Cognitive Status Response Date of Assessm ent Because of a physical, menta l, or emotional condition, does this person have serious difficulty concentrating, remembering, or making decisions? No 04/01/2020 documented as of this encounter Plan of Treatment Not on file documented as of this encounter Procedures Procedure Name Priority Date/Time Associated Diagnosis Comments SURGICAL PATHOLOGY Today 10/23/2021 11 :30 EDT Encounter for other general examination documented in this encounter Results * SURGICAL PATHOLOGY (10/23/2021 11:30 EDT) Note to Patient The following pathology results have been interpreted by your pathologist and may be available to you before your health provider has had the opportunity to review them. Please allow time for your provider to receive these results and explore management options, if applicable. 10/27/2021 14:59 [facility] Final Diagnosis A. SKIN OF LEG, RIGHT MILLER, SHAVE BIOPSY: - Squamous cell carcinoma, well differentiated, invasive. - Squamous cell carcinoma present at deep tissue edge. 10/27/2021 14:59 [facility] Attestation By the signature below, the attending physician certifies that they have 1) personally conducted a gross and/or microscopic examination of the described specimen(s), and/or personally interpreted the results of laboratory testing of the described specimen(s), and 2) personally rendered or confirmed the above diagnosis. 10/27/2021 14:59 [facility] at 1459 Microscopic Description The stratum corneum is thickened by orthohyperkeratosis and parakeratosis. Emanating from the epidermis and extending into the dermis is a proliferation of atypical squamous epithelium. The proliferation consists of variably sized, irregular islands associated with dermal desmoplasia. The cells have an increased nuclear-cytoplasmic ratio and nuclear pleomorphism. Intercellular bridge and keratin td formation are evident. 10/27/2021 14:59 [facility] Clinical History Clinical diagnosis code: Z 38.2 10/27/2021 14:59 EDT [facility] Gross Description A. Received in formalin labelled with proper patient identification (initials F, C) and right leg is a 1.2 x 0.8 x 0.1 cm irregular shave of flaky arce-white skin. The margin is inked. The specimen is bisected and entirely submitted in A1. STEPHANIE MG(ASCP) 10/27/2021 8:21 10/27/2021 14:59 EDT [facility] Performing Lab [facility] 10/27/2021 14:59 EDT [facility] Scanned Images 10/27/2021 14:59 EDT [facility] Tissue TISSUE SPECIMEN FROM SKIN / Unknown 10/23/2021 11:30 EDT 10/26/2021 17:06 EDT Betzaida Pina MD PATHOLOGY ORDERABLES Performing Organization Address City/State/[facility] Co de Phone Number [facility] [address] [place] [address] documented in this encounter Visit Diagnoses Diagnosis Encounter for other general examination documented in this encounter Care Teams Balloon Dipper Relationship Specialty Start Date End Date Betzaida Pina MD [address] [place] [phone] PCP - General 03/06/20 Oc Pang MD [facility] [address] [place] [phone] 03/06/20 documented as of this encounter
--- OUTSIDE RECORDS SUMMARY | 2023-10-31 21:21 | XMS_ITS | Encounter Summary ---
Author Organization [facility] Address [address] [place] [address] Care Team Providers Care Bus Inspector Name Role Phone Betzaida Pina MD Primary Care Provider [phone] Oc Pang MD Unavailable Reason for Visit * Reason Comments Follow-up post op, some small leakage from wound * Consult (3 - 10 Business Days) - Closed Specialty Diagnoses / Procedures Referred By Conteugenia t Referred To Contact Trauma Surgery Diagnoses Internal hernia Roslyn Alex NP [address] [facility], [address] [place] [phone] [place] [address] Trauma/Crit Care [address] [place] [address] Referral ID Status Reason Start Date Expiration Date V isits Requested Visits Authorized [id number] Closed Specialty Services Required 03/13/2020 1 1 Encounter Details Date Type Department Care Team (Late st Contact Info) Description 04/01/2020 10:50 EST Post-op Visit [facility] Acute Care Surgery - [facility] [address] [place], [place] [phone] Mikhail Garcia MD [address] [place] [phone] S/P small bowel resection (Primary Dx) Social History Tobacco Use Types Packs/Day Years [...] 19:13 EST documented as of this encounter Last Filed Vital Signs Vital Sign Reading Time Taken Comments Blood Pressure 130/80 04/01/2020 1047 EST Pulse 82 04/01/2020 1047 EST Temperature 36.6 ??C (97.8 ??F) 04/01/2020 1047 EST Respiratory Rate - - Oxygen Saturation - - Inhaled Oxygen Concentration - - Weight - - Height - - Body Mass Index - - documented in this encounter Functional Status Functional Status Response [...] No 04/01/2020 documented as of this encounter Progress Notes * Mikhail Garcia MD - 04/01/2020 1050 EST [facility] Surgery [facility] Clinic Visit Note Date: 04/01/2020 Patient: Remedios Toro Referred by: Betzaida Pina Subjective: Remedios Toro is a 79 y.o. female who presents today as routine f/u s/p ex lap SBR for internal hernia and small bowel diverticulosis 03/06. She was discharged after 7 days without significant issue. She has since developed drainage from her incision and had a CT done at [facility]; CT largely normalother than some fluid in the subcutaneous tissue at her incision. This has since opened and is being packed daily. Overall, she says she is doing well. She denies pain, and is eating well with regular, soft BMs. She denies any fevers or chills. The drainage from her incision is thin and minimal, no malodor or purulence. packs the wound 2x/wk and her EMS friend assists on other days. Objective: BP 130/80 (BP Cuff Location: Left arm, BP Patient Position: Sitting) Pulse 82 Temp 36.6 ??C (97.8 ??F) General: No distress Abdomen: Soft, non-distended, non-tender Incision: Midline incision healing well except wfor 2 0.5 cm open areas with 1/4 plain packing. Small amount of serous drainage, no purulence, no significant surrounding induration or fluctuance Assessment: Remedios Toro is a 79 y.o. female who presents today for f/u s/p SBR 03/06. Is having some incision drainage which is being well managed by daily packing changes, but is otherwise eating well with regular bowel function and no pain, fevers, or chills. We discussed diet as well as continuing dressing changes and expecting the wounds to close over the next couple weeks. Diagnosis: 1. S/P small bowel resection Plan: -Reinforced 10 lb lifting restriction until 6 weeks post-op -Can have well chewed or cooked fruits/vegetables -Can follow-up as needed Mikhail Garcia MD Acute Care & General Surgery #[id number] documented in this encounter Plan of Treatment Not on file documented as of this encounter Visit Diagnoses Diagnosis S/P small bowel resection- Primary Other postprocedural status documented in this encounter Care Teams Bus Inspector Relationship Specialty Start Date End Date Betzaida Pina MD [address] [place] [phone] PCP - General 03/06/20 Oc Pang MD [address] [phone] 03/06/20 documented as of this encounter
--- OUTSIDE RECORDS SUMMARY | 2023-10-31 21:21 | XMS_ITS | Encounter Summary ---
Author Organization [facility] Address [address] [place] [address] Care Team Providers Care Pvc Monitor Name Role Phone Betzaida Pina MD Primary Care Provider [phone] Oc Pang MD Unavailable Reason for Visit * Reason Onset Date Comments Hospital Discharge Follow Up 03/17/2020 Encounter Details Date Type Department Care Team (Late st Contact Info) Description 03/17/2020 Telephone [facility] Acute Care Surgery - [facility] [address], [place] [id number] Linda Mast RN Hospital Discharge Follow Up Social History Tobacco Use Types Packs/Day Years [...] Miscellaneous Notes * Telephone Encounter - Linda Mast RN - 03/17/2020 1056 EST ACS/Trauma/Burn Hospital Discharge Call Patient Name: Remedios Toro , : 1940 Admission Date: 03/06/20 Date of Discharge: 03/13/20 Admission Diagnosis: Intra Abdominal Abscess Surgeon/Attending: Dr. Cline Procedure Date: 03/06/20 Type of Procedure: exp lap, SBR, P.A. & Closure with franck Trauma: No Wound and/or Incisions: Yes healing well Comments: franck will be removed by home health on 03/20/20 Home Health?:yes Agency:[facility] Restrictions: No Driving while on Narcotics No Lifting/Pulling/Pushing greater than 15 lbs for 6 weeks It is ok to shower, wash gently and pat area dry Please no pools, lakes, tubs or hot tubs for 2 weeks Other: Recovery at Home: Fevers since home greater than 101.5?:No Pain: Yes 1 states more of a discomfort vs pain relaxation and pain medication Pain Management: Yes Taking: tylenol as needed Medication Reconciliation: Reviewed with Patient Yes Any Discrepancies?No Comments/Concerns: No concerns BM's & Voiding Issues:No Normal Comments: has some itching in her vaginal area, she has nystatin powder Bowel Meds: Yes Comments: taking the colace and miralax, she doesn't strain Issues with ADL's: No Assistive Device: No Eating & Drinking ok?: Yes Comments: Sleeping ok?: so/so when in bed, better when in her recliner. She states she may do better once franck are out Any Other Questions or Concerns: she states her daughter came and stayed with her for 4 nights and she is doing well, she was very helpful. Hospital Discharge Follow Up Appointment: 04/01/20 @ [address] Robison / Dr. Garcia Visitor Policy Reviewed:Yes Directions to Clinic given:Yes Covid-19 Screening:Yes documented in this encounter Plan of Treatment Not on file documented as of this encounter Visit Diagnoses Not on filedocumented in this encounter Care Teams Pvc Monitor Relationship Specialty Start Date End Date Betzaida Pina MD [address] [place] [phone] PCP - General 03/06/20 Oc Pang MD [address] [phone] 03/06/20 documented as of this encounter
--- OUTSIDE RECORDS SUMMARY | 2023-10-31 21:21 | XMS_ITS | Encounter Summary ---
Author Organization [facility] Address [address] [place] [address] Care Team Providers Care Overlock Elastic Attacher Name Role Phone Betzaida Pina MD Primary Care Provider Oc Pang MD Unavailable Reason for Visit * (Routine) - Receiving Office to Obtain Authorization Specialty Diagnoses / Procedures Referred By Maegan quiñones Referred To Contact Procedures CT OUTSIDE IMAGES BODY Unknown, Provider, Referral ID Status Reason Start Date Expiration Date Visits Requested Visits Authorized [id number] Receiving Office to Obtain Authorization 0 1 1 Encounter Details Date Type Department Care Team (Latest Contact Info) Description 03/22/2020 - 03/22/2020 23:59 EST Hospital Encounter [facility] Secondary Reads [place] Discharge Disposition: Home or Self Care Social History Tobacco Use Types Packs/Day Years [...] No 03/11/2020 documented as of this encounter Medications at Time of Discharge Medication Sig Dispensed Refills Start Date End Date acetaminophen (TYLENOL) 500 mg tablet Take 2 Tabs by mouth every 6 hours as needed for Pain or Fever. 240 Tab 03/13/2020 docusate sodium (COLACE) 100 mg capsule Take 1 Cap by mouth daily. 30 Cap 03/13/2020 nystatin (MYCOSTATIN) powder Apply to skin rash area BID 1 Bottle 03/13/2020 polyethylene glycol 3350 (MIRALAX) 17 gram packet Take 17 g by mouth daily. 30 Each 03/13/2020 documented as of this encounter Discharge Disposition Disposition Code Departure Means Destination Home or Self Care documented in this encounter Plan of Treatment Not on file documented as of this encounter Procedures Procedure Name Priority Date/Time Associated Diagnosis Comments CT OUTSIDE IMAGES BODY Routine 03/23/2020 7:43 EST documented in this encounter Results * CT OUTSIDE IMAGES BODY (03/23/2020 7:43 EST) Narrative 03/23/2020 7:43 EST This is a non-reportable exam. Provider Unknown MD SOMERS OTHER IMAGING OR DERABLES documented in this encounter Visit Diagnoses Not on filedocumented in this encounter Care Teams Overlock Elastic Attacher Relationship Specialty Start Date End Date Betzaida Pina MD [address] [place] [address] PCP - General 03/06/20 Oc Pang MD [address] [phone] 03/06/20 documented as of this encounter
--- OUTSIDE RECORDS SUMMARY | 2023-10-31 21:21 | XMS_ITS | Encounter Summary ---
Author Organization [facility] Address [address] [place] [address] Care Team Providers Care Edge Runner Name Role Phone Betzaida Pina MD Primary Care Provider [phone] Oc Pang MD Unavailable Reason for Visit * Reason Onset Date Comments Appointment Related 03/24/2020 Encounter Details Date Type Department Care Team (Late st Contact Info) Description 03/24/2020 Telephone [facility] Acute Care Surgery - [facility] [address] [place] [address] Trauma, Surgery, MD Appointment Related Social History Tobacco Use Types Packs/Day Years [...] Notes * Telephone Encounter - Linda Mast, GEOVANNA - 03/24/2020 1124 EST Phone call to Rebecca, she took patient to the ER Tuesday night. Seen at PCP Tuesday, put on Keflex. She took her Tuesday because her dressing was soaked. ER cleaned it, repacked, re bandaged it. Did some images. Home health came in today and changed dressing. They Went to [facility]. (will obtain records) She is aware her appointment is 04/01/2020 @ 1050 am * Telephone Encounter - Agustina Peter - 03/24/2020 1108 EST Friend is asking if patient needed to be seen this week. She helps patient with appointments. documented in this encounter Plan of Treatment Not on file documented as of this encounter Visit Diagnoses Not on filedocumented in this encounter Care Teams Edge Runner Relationship Specialty Start Date End Date Betzaida Pina MD [address] [place] [phone] PCP - General 03/06/20 Oc Pang MD [facility] [address] [place] [phone] 03/06/20 documented as of this encounter
--- OUTSIDE RECORDS SUMMARY | 2023-10-31 21:21 | XMS_ITS | Clinical Summary ---
Author Organization [facility] Address [address] [place] [address] Care Team Providers Care Human Services Care Specialist Name Role Phone Betzaida Pina MD Primary Care Provider [phone] Oc Pang MD Unavailable Allergies No known active allergies Medications Medication Sig Dispensed Refills Start Date End Date Status docusate sodium (COLACE) 100 mg capsule Take 1 Cap by mouth daily. 30 Cap 03/13/2020 Active Additional Information Patient not taking.Reported on 04/01/2020 nystatin (MYCOSTATIN) powder Apply to skin rash area BID 1 Bottle 03/13/2020 Active polyethylene glycol 3350 (MIRALAX) 17 gram packet Take 17 g by mouth daily. 30 Each 03/13/2020 Active acetaminophen (TYLENOL) 500 mg tablet Take 2 Tabs by mouth every 6 hours as needed for Pain or Fever. 240 Tab 03/13/2020 Active Active Problems Problem Noted Date Diagnosed Date Internal hernia 03/07/2020 Intra-abdominal abscess (HCC-CMS) 03/06/2020 Overview: Added automatically from request for surgery [id number] Medical History Medical History Date Comments Diabetes mellitus (HCC-CMS) Hypertension Social History Tobacco Use Types Packs/Day Years [...] on file Sexual Orientation Not on file Obstetrics History Last Filed Vital Signs Vital Sign Reading Time Taken Comments Blood Pressure 130/80 04/01/2020 1047 EST Pulse 82 04/01/2020 1047 EST Temperature 36.6 ??C (97.8 ??F) 04/01/2020 1047 EST Respiratory Rate 18 03/13/2020 1300 EST Oxygen Saturation 96% 03/13/2020 1300 EST Inhaled Oxygen Concentration - - Weight 127.8 kg (281 lb 11.2 oz) 03/07/2020 0604 EST Height 157.5 cm (5' 2) 03/07/2020 0604 EST Body Mass Index 51.52 03/07/2020 0604 EST Plan of Treatment Health Maintenance Due Date Last Done Comments RSV Immunization ( o r 60+ Years) (1 - 1-dose 60+ series) 1999 Fall Risk Screening 09/19/2004 COVID-19 Vaccine (2022- season) [address] [place] [address] Remedios Toro Personal/Family Self [address] [place] [address] [address] [place] [address] Remedios Toro Personal/Family Self [address] [place] [address] [address] [place] [address] Remedios Toro Personal/Family Self [address] [place] [address] [address] [place] [address] Remedios Toro Personal/Family Self 1940 [address] [facility] [address] [place] [address] Remedios Toro Personal/Family Self 1940 [address] [facility] [address] [place] [address] Remedios Toro Personal/Family Self 1940 [address] [facility] [address] [place] [address] Remedios Toro Personal/Family Self 1940 [address] [facility] [address] [place] [address] Advance Directives For more information, please contact: [phone] Documents on File Type Date Recorded Patient Travel Registered Nurse Icu Expl anation Advance Directive 03/06/2020 22:51 Advance Directive for Health Care-Signed 2019-03-19 ( NO BLOOD ) * Full Code (Latest Code Status on File) Date Activated Date Inactivated Comments 03/07/2020 6:04 03/13/2020 18:21 Question Answer Comments Reason for decision includes: Full code consistent with overall plan of care Who participated in the discussion? Not Discusse d Care Teams Human Services Care Specialist Relationship Specialty Start Date End Date Betzaida Pina MD [address] [place] [phone] PCP - General 03/06/20 Oc Pang MD [address] [phone] 03/06/20
--- OUTSIDE RECORDS SUMMARY | 2023-10-31 21:21 | XMS_ITS ---
Author Organization Unknown Address [address] [place] [phone] Phone Care Team Providers Care Flake Cutter Operator Name Role Phone YARI Macdonald Attending Unavailable Social History Type Status Start Date End Date Code Code Syst em Smoking History Never smoker (Never Smoked) 214940847 SNOMED CT Sex Female Medications Medication Start Date End Date Route Frequency Dose Code Code System Medication Instructions Home Meds Eliquis 5MG Oral Tablet 02/01/2023 08/16/2023 ORAL TWICE A DAY 5 MILLIGRAMS [id number] RxNorm TAKE 5 MILLIGRAMS ORAL TWICE A DAY Furosemide 40MG Oral Tablet 02/01/2023 08/16/2023 ORAL BID (0800 AND 1459) 40 MILLIGRAMS [id number] RxNorm TAKE 40 MILLIGRAMS ORAL BID (0800 AND 1459) Albuterol Sulfate HFA 0.09MG/1Act uation Inhalation Suspension 02/01/2023 Unknown INHALATI ON NEEDED 2 PUFF [id number] RxNorm 2 PUFF INHALATION NEEDED metFORMIN HCl 500MG Oral Tablet 02/01/2023 08/16/2023 ORAL DAILY 500 MILLIGRAMS [id number] RxNorm TAKE 500 MILLIGRAMS ORAL DAILY Metoprolol Succinate 50MG Oral Tablet, Extended Release 02/01/2023 08/16/2023 ORAL DAILY 3 TABLET [id number] RxNorm TAKE 3 TABLET ORAL DAILY Valsartan 80 MG Oral Tablet 02/01/2023 Unknown ORAL DAILY 1 TABLET [id number] RxNorm TAKE 1 TABLET ORAL DAILY Acetaminoph en 325MG Oral Tablet 08/18/2023 Unknown ORAL NEEDED EVERY 4 HOURS 650 MILLIGRAMS 833465 RxNorm TAKE 650 MILLIGRAMS ORAL NEEDED EVERY 4 HOURS Torsemide AvPak 20MG Oral Tablet 08/18/2023 Unknown ORAL BID (0800 AND 1459) 20 MILLIGRAMS 128682 RxNorm TAKE 20 MILLIGRAMS ORAL BID (0800 AND 1459) Eliquis 5MG Oral Tablet 08/18/2023 Unknown ORAL TWICE A DAY 5 MILLIGRAMS 5143434 RxNorm TAKE 5 MILLIGRAMS ORAL TWICE A DAY Jardiance 25MG Oral Tablet 08/18/2023 Unknown ORAL DAILY 25 MILLIGRAMS [id number] RxNorm TAKE 25 MILLIGRAMS ORAL DAILY Metoprolol Succinate 50MG Oral Tablet, Extended Release 08/18/2023 Unknown ORAL DAILY 50 MILLIGRAMS 866516 RxNorm TAKE 50 MILLIGRAMS ORAL DAILY Potassium Chloride 20MEQ Oral Tablet, Extended Release 08/18/2023 Unknown ORAL DAILY 20 MILLIGRAMS [id number] RxNorm TAKE 20 MILLIGRAMS ORAL DAILY metFORMIN HCl 500MG Oral Tablet, Extended Release 08/18/2023 Unknown ORAL TWICE A DAY 500 MILLIGRAMS [id number] RxNorm TAKE 500 MILLIGRAMS ORAL TWICE A [...] Status Code Code System ACUTE CHF active [id number] SNOMED-CT A-FIB WITH RVR active 207312420275650 SNOMED-CT SWELLING OF BILATERAL LOWER EXTREMITIES active 277044352 SNOMED-CT CHRONIC VENOUS INSUFFICIENCY active 15540390 SNOMED-CT DIVERTICULITIS 01/29/2023 resolved 336786113 SNOM ED-CT HLD 01/29/2023 resolved 51747617 SNOMED-CT HTN 01/29/2023 resolved 80210692 SNOMED-CT T2DM 01/29/2023 resolved 52185180 SNOMED-CT BMI 40+ SEVERELY OBESE 01/29/2023 resolved 303652001 SNOMED-CT PERIPHERAL EDEMA 01/29/2023 resolved 514198291 SN OMED-CT OSTEOARTHRITIS 01/29/2023 resolved 516047289 SNOM ED-CT CHF 03/26/2023 resolved 35142516 SNOMED-CT AFIB 03/26/2023 resolved 81595379 SNOMED-CT MILD PERSISTENT ASTHMA 01/29/2023 resolved 756045278 SNOMED-CT SQUAMOUS CELL CARCINOMA OF SKIN 01/29/2023 resolved 297946818 SNOMED-CT SQUAMOUS CELL CARCINOMA OF SKIN 01/29/2023 resolved 844805467 SNOMED-CT HISTORY OF SMALL BOWEL OBSTRUCTION 01/29/2023 resolved [id number] SNOM ED-CT Allergies and Adverse Reactions Allergy Substance Reaction Severity Start Date Concern Status Co de Code System SULFA (sulfonamide) Moderate Active CODEINE Moderate Active 0210 RxNorm Plan of Treatment No Data Found Encounters Encounter Diagnosis Start Date Code Code Sys tem Heart failure, unspecified 08/16/2023 S NOMED-CT Personal Care Team Section Performer Name Performer Role Active Date Inactive Da te
--- OUTSIDE RECORDS SUMMARY | 2023-10-31 21:21 | XMS_ITS | Referral Summary ---
Author Organization [facility] Address [address] [place] [address] Care Team Providers Care Express Clerk Name Role Phone Betzaida Pina MD Primary Care Provider [phone] Oc Pang MD Unavailable Allergies No known [...] Overview: Added automatically from request for surgery [id number] Social History Tobacco Use Types Packs/Day Years [...] on file Sexual Orientation Not on file Last Filed Vital Signs Vital Sign Reading [...] Body Mass Index 51.52 03/07/2020 0604 EST Functional Status Functional Status Response Date of [...] concentrating, remembering, or making decisions? No 04/01/2020 Plan of Treatment Not on file Advance Directives For more information, please contact: [phone] Documents on File Type Date Recorded Patient Avionics Installer Expl anation Advance Directive 03/06/2020 22:51 Advance Directive for Health Care-Signed 2019-03-19 ( NO BLOOD ) * Full Code (Latest Code Status on File) Date Activated Date Inactivated Comments 03/07/2020 6:04 03/13/2020 18:21 Question Answer Comments Reason for decision includes: Full code consistent with overall plan of care Who participated in the discussion? Not Discusse d Care Teams Express Clerk Relationship Specialty Start Date End Date Betzaida Pina MD [address] [place] [address] PCP - General 03/06/20 Oc Pang MD [address] [phone] 03/06/20
--- OUTSIDE RECORDS SUMMARY | 2023-10-31 21:21 | XMS_ITS | Encounter Summary ---
Author Organization [facility] Address [address] [place] [address] Care Team Providers Care [place] Worker Name Role Phone Betzaida Pina MD Primary Care Provider [phone] Oc Pang MD Unavailable Reason for Referral * (Routine) - Receiving Office to Obtain Authorization Specialty Diagnoses / Procedures Referred By Maegan quiñones Referred To Contact Roslyn Alex NP [address] [address] Referral ID Status Reason Start Date Expiration Date Visits Requested Visits Authorized [id number] Receiving Office to Obtain Authorization Specialty Services Required 03/13/20 20 1 1 Comments Plan for follow up in 1 week for staple removal and 3-4 weeks for post op follow up with the [facility] Acute [facility] Surgery [facility]. The clinic will contact you to arrange these appointments and may be reached at with any questions or concerns. * Consult (3 - 10 Business Days) - Closed Specialty Diagnoses / Procedures Referred By Maegan quiñones Referred To Contact Trauma Surgery Diagnoses Internal hernia Roslyn Alex NP [address] [address] [facility] Trauma/Crit Care [address] [place] [address] Referral ID Status Reason Start Date Expiration Date V isits Requested Visits Authorized [id number] Closed Specialty Services Required 03/13/2020 1 1 Question Answer Reason for Request: 1 week follow up for franck out, 3 weeks for post op visit s/p ex lap and small bowel resection Expected Discharge Date (Inpatient Only): 03/14/2020 * Referral (Routine/Next Available) - New Request Specialty Diagnoses / Procedures Referred By Maegan quiñones Referred To Contact Diagnoses Intra-abdominal abscess ([facility]) Sukhi Preston MD [address] [place] [address] Referral ID Status Reason Start Date Expiration Date Visits Requested Visits Authorized [id number] New Request Specialty Services Required 0 1 1 Question Answer I certify that this patient is under my care and that I, or another Medicare allowed practitioner (DO MIRTA, LEE) working with me, had a jhae-un-ayhs encounter with this patient on this date: 03/13/2020 I further certify that the rkaj-pu-abaf encounter was in whole or in part related to the reason the patient needs home health care. Yes The discharge summary or progress note will provide further details that support the need for the home health services and the plan of care. Yes Enter the allowed practitioner (DO MIRTA, LEE) who will provide oversight of this patient's home heatlh care needs and plan of care [place] The patient? s homebound status is related to the following diagnoses, illness or condition (describe): post surgical restrictions The patient has a condition due to an illness or injury that restricts the ability to leave home except with: The assistance or supervision of another person Leaving the home is medically contraindicated due to (reason 1): Post surgical restrictions or conditions Leaving home requires a considerable and taxing effort with mobility limited by the following (criteria 1): Post surgical or post procedure restrictions limit ambulation and activity Nursing skilled care requested: Nursing asessment, Physical Therapy correction assessment needed related to this encounter: Post Surgical Physical therapy is needed for: Post Surgical Scheduling Comments (optional ? describe specific scheduling needs if applicable): next available Expected Discharge Date (Inpatient Only): 03/14/2020 * (Routine) - Receiving Office to Obtain Authorization Specialty Diagnoses / Procedures Referred By Contac t Referred To Contact Sukhi Preston MD [address] [place] [id number] Referral ID Status Reason Start Date Expiration Date Visits Requested Visits Authorized [id number] Receiving Office to Obtain Authorization Specialty Services Required 03/13/20 20 1 1 Comments We are currently collecting quality data on patients having surgery. You may receive a phone call, email, and/or letter about your surgery asking you a series of follow up questions to evaluate specifics aspects of your care. Thank you for your participation. Reason for Visit * Reason Comments Abdominal Pain transfer from [facility] for surgical consult r/t perfed abdomen with infectious process. Arrives AOx3, talking in full sentences, skin PWD, VSS, NAD. * Auth/Cert Specialty Diagnoses / Procedures Referred By Contac t Referred To Contact Diagnoses Intra-abdominal abscess (HCC-CMS) Internal hernia Bowel peroration Referral ID Status Reason Start Date Expiration Date Visits Re quested Visits Authorized [id number] 1 1 Encounter Details Date Type Department Care Team (Late st Contact Info) Description 03/06/2020 21:27 EST - 03/13/2020 15:58 EST Hospital Encounter [facility] [address] [place] [address] [phone] Oc Davies MD [address] [place] [phone] Julius Escalante MD [address] [place] [phone] Codey Cline MD PhD [address] [place] [phone] Intra-abdominal abscess (HCC-CMS) (Primary Dx); Internal hernia Discharge Disposition: Home-Health Care Svc Social History Tobacco Use Types Packs/Day Years [...] Sign Reading Time Taken Comments Blood Pressure 159/78 03/13/2020 1300 EST RN not ified Pulse 63 03/13/2020 1300 EST Temperature 36.9 ??C (98.4 ??F) 03/13/2020 1300 EST Respiratory Rate 18 03/13/2020 1300 EST Oxygen Saturation 96% 03/13/2020 1300 EST Inhaled Oxygen Concentration - - Weight 127.8 kg (281 lb 11. 2 oz) 03/07/2020 0604 EST Height 157.5 cm (5' 2) 03/07/2020 0604 EST Body Mass Index 51.52 03/07/2020 0604 EST documented in this encounter Functional Status Functional [...] No 03/11/2020 documented as of this encounter Discharge Summaries * Sukhi Preston MD - 03/13/2020 0759 EST Surgery Discharge Summary Primary Care Provider: Betzaida Pina Attending Physician: Codey Cline MD PHD Admit Date: 03/06/2020 Discharge Date: 03/13/2020 Disposition: Home with home health Problems and Procedures Admitting Diagnosis: Abdominal Pain Principal/Final Diagnosis: Internal Hernia Additional Problems Managed in the Hospital Active Hospital Problems Diagnosis Date Noted ??? *Intra-abdominal abscess ([facility]) 03/06/2020 Added automatically from request for surgery [id number] ??? Internal hernia 03/07/2020 Resolved Hospital Problems No resolved problems to display. Principal Procedure: Ex lap, small bowel resection, primary anastomosis and closure Date: 03/06/2020 Secondary Procedures: none Hospital Course 79 YOF who presented with fatigue and poor appetite for a few weeks leading up to presentation who was found to have an internal hernia and closed loop SBO on CT scan. She was taken emergently to [facility] where a small bowel resection and anastomosis was performed. She tolerated the procedure remarkably well and went to the PACU then floor immediately post operatively. She did have an NG tube in place post operatively. This was removed with return of bowel function and her diet was advanced from clears to regular as tolerated. By 03/13 she was tolerating a PO diet without issues. During her stay she was seen by CM and PT and will discharge with nursing and PT. On 03/12 there was concern for expressible fluid from the inferior aspect of her incision, on repeatexam no fluid was expressible and no palpable fluid pockets were appreciated along the incision. Mrs Toro was feeling ready for discharge on 03/13 and will follow up as below. Allergies and Immunizations No Known Allergies There is no immunization history on file for this patient. Transition of Care Plans Condition at Discharge Good Assessment at Discharge Vital signs: Patient Vitals for the past 12 hrs: BP Resp Temp SpO2 O2 Flow Rate (L/min) O2 Device 03/13/20 0200 (!) 160/85 18 36.7 ??C (98.1 ??F) 97 % 2 l/min Nasal cannula 03/13/20 0100 -- -- -- 98 % -- -- 03/12/20 2231 (!) 147/79 22 36.7 ??C (98.1 ??F) 94 % 0 l/min None Results Pending at Discharge Test results still pending from this admission Procedure Component Value Units Date/Time SURGICAL PATHOLOGY [[id number]] Collected: 03/07/20 0329 Lab Status: In process Specimen: Tissue from Colon Updated: 03/07/20 1346 Well appearing, resting in chair Reg rate Normal effort and rate Soft, obese, incision stably ecchymotic, no expressible fluid, skin dry and intact WWP Relevant Studies at Discharge N/A Last Lab Results at Discharge No results for input(s): NA, K, CO2, CL, BUN, CREATININE in the last 72 hours. No results for input(s): WBC, HCT, HGB, PLT in the last 72 hours. No results for input(s): PROTIME, INR, PTT in the last 72 hours. Discharge Follow Up Follow-up appointments and procedures Amb Consult/Follow Up Trauma/Critical Care Reason for Request: 1 week follow up for franck out, 2-3 weeks for post op visit s/p ex lap and small bowel resection Expected Discharge Date (Inpatient Only): 03/14/2020 Authorizing Provider: Sukhi Preston MD Follow-up Appointment Please call our clinic at [phone] with any questions or concerns. You will be seen in about one week for staple removal and about 2-3 weeks for follow up. Authorizing Provider: Sukhi Preston MD Home Health Agency-Other I certify that this patient is under my care and that I, or another Medicare authorized non-physician practitioner (PA or INDUSTRIAL AUTOMATION SPECIALIST) or resident working with me, had a wxng-vg-ujmx encounter with this patient on this date: 03/13/2020 I further certify that the relw-vw-byhz encounter was in whole or in part related to the reason thepatient needs home health care.: Yes The patient has had a cgff-uk-naji visit by me or one of my colleagues. The discharge summary or progress note will provide further details that support the need for the home health services and the plan of care.: Yes The MD/DO who will provide oversight of this patient's home heatlh care needs and plan of care: Colovos The patient???s homebound status is related to the following diagnoses, illness or condition (describe): post surgical restrictions Patient needs one or more of the following to leave home: The assistance or supervision of another person Leaving the home is medically contraindicated due to: Post surgical restrictions or conditions The following conditions illustrate the patient???s normal inability to leave home AND that leavinghome requires a considerable and taxing effort: Post surgical or post procedure restrictions limit ambulation and activity Skilled Care Requested: Nursing asessment Physical Therapy correction assessment needed related to this encounter: Post Surgical Physical therapy is needed for: Post Surgical Scheduling Time Frame: next available Expected Discharge Date (Inpatient Only): 03/14/2020 Authorizing Provider: Sukhi Preston MD Quality Discharge Instructions We are currently collecting quality data on patients having surgery. You may receive a phone call, email, and/or letter about your surgery asking you a series of follow up questions to evaluate specifics aspects of your care. Thank you for your participation. Authorizing Provider: Sukhi Preston MD Aaron Lambert, MD 03/13/2020 8:00 documented in this encounter Medications at Time of Discharge [...] Each 03/13/2020 documented as of this encounter Ordered Prescriptions Prescription Sig Dispensed Refills Start Date End Da te acetaminophen (TYLENOL) 500 mg tablet Take 2 Tabs by mouth every 6 hours as needed for Pain or Fever. 240 Tab 03/13/2020 polyethylene glycol 3350 (MIRALAX) 17 gram packet Take 17 g by mouth daily. 30 Each 03/13/2020 nystatin (MYCOSTATIN) powder Apply to skin rash area BID 1 Bottle 03/13/2020 docusate sodium (COLACE) 100 mg capsule Take 1 Cap by mouth daily. 30 Cap 03/13/2020 polyethylene glycol 3350 (MIRALAX) 17 gram packet Take 17 g by mouth daily. 03/13/2020 03/13/2020 nystatin (MYCOSTATIN) powder Apply to skin rash area BID 03/13/2020 03/13/2020 docusate sodium (COLACE) 100 mg capsule Take 1 Cap by mouth daily. 03/13/2020 03/13/2020 acetaminophen (TYLENOL) 325 mg tablet Take 3 Tabs by mouth every 6 hours as needed for Pain or Fever. 03/13/2020 03/13/2020 documented in this encounter Discharge Disposition Disposition Code Departure Means Destination Home-Health Care [facility] documented in this encounter Progress Notes * Liz Stein, PT - 03/13/2020 9067 EST [facility] Therapy Acute Therapy [facility] Physical Therapy Discontinue/Discharge Note Date of Service: 03/13/2020 Mobility Precautions Activity: Activity as tolerated SUBJECTIVE: Reporting Person Comment: n/a - patient declining mobility as she is planning to discharge home today. OBJECTIVE: PatientProfile: Patient is a 79 y.o. female admitted on 03/06/2020 secondary to Intra-abdominal abscess ([facility]) [K65.1] Internal hernia [K45.8] The patient lives at [address] [place] [id number] Interventions Completed Today: Interventions Included: No interventions rendered today since the patient has been or will be discharged from the hospital Arousal, Attention, and Cognition: A&O x 4 Cardiopulmonary: From treatment 03/12/2020: General Assessment: Not evaluated, No problems noted(Vitals stable per flowsheet; patient asymptomatic throughout visit.) Integumentary/Anthropometric Characteristics: From evaluation 03/10/2020: Skin General Assessment Skin and Related Structure Functions: Wound not visualized as it was covered/dressed Edema Description Other Edema Description: No edema noted - Devices Devices: NG tubes, etc - General Characteristics Anthropometric Characteristics: Morbidly obese - - Muscle Performance: From evaluation 03/10/2020: Strength: Formal resistive muscle testing was not performed due to focus on functional mobility training. BUE/BLE grossly 3+/5 demonstrated by functional mobility performed during evaluation. Sensation, Reflexes, and Nerve Integrity: From evaluation 03/10/2020: Light Touch Sensation: Upper Quarter:Intact C2-T1 Lower Quarter: Intact for lower extremities Balance, Mobility, and Gait: From treatment 03/12/2020: Patient presented sitting in recliner chair having just finished shower; agreeable to therapy. Sit>stand with supervision, steady initial standing balance and patient denied any dizziness/lightheaded symptoms. Ambulation x 120ft with walker and supervision. Instructed in pacing/energy conservation techniques with ambulation including starting with frequent ambulation and shorter distances. Patient verbalizing understanding. Patient demonstrating slow anne and decreased steps length; steady mobility with walker. ASSESSMENT: Need for Services Patient has made progress in the areas of:: Patient is a 79 y/o female admitted 03/07/2020 with small bowel perforation, now s/p ex-lap, SB resection and anastomosis on 03/07/2020. Patient was seen for2 physical therapy visits for treatments including therapeutic activities and gait training. Patient progressed well; recommend patient to use walker for all mobility and have 24/7 assist for the first few days home. Patient verbalizing understanding and stating she will have support once discharged. Acute PT/goals discontinued as patient is discharging today. Recommend home health PT for f/u with mobility progression at home. Short-Term Goals: n/a Long-Term Goals: Goal: Patient to demonstrate modified independent bed mobility from flat surface without bed features Status: Discontinue Goal: Patient to demonstrate modified independent transfers with least restrictive AD. Status: Discontinue Goal: Patient to demonstrate modified independent ambulation at least 100ft with least restrictive AD. Status: Discontinue Goal: Patient to demonstrate vitals within parameters with all mobility. Status: Discontinue Plan: Necessity: Discontinue physical therapy services(patient discharging today) Recommended Discharge Destination Recommended Discharge Destination: Home with assistance/supervision as needed(24/7 for the first few days.) Recommended Discharge Services Therapy Specific Services: Home therapy, Physical therapy Equipment Recommended Equipment Recommended Comments: front wheeled walker - provided by Pager: [phone] Liz Stein, PHOEBE 03/13/2020 12:00 * Elizabet Pang - 03/13/2020 1050 EST CM Discharge Note CASE MANAGEMENT DISCHARGE NOTE DISCHARGE DATE/TIME: 12-10-20/ 2:00 PM DESTINATION: Home TRANSPORTATION: Friend Rebecca providing transportation home. ACCEPTING MD AND NUMBER: Betzaida Pina MD at [phone] RN REPORT/UNIT: [phone] HELP DESK SPECIALIST/CHARGE/MD NOTIFIED (Y/N): yes IM SIGNED (Y/NA): Completed & copy given to pt. HOME HEALTH: Pt will receive nursing & PT services from [facility] DME: [facility] rolling walker PHARMACY/PRESCRIPTIONS: Pt is Meds to bed. Her prescriptions will be delivered to her bedside priorto discharge. Patient and/or family who participated in discharge plan: Patient & daughter Eugenia. OTHER: Pt informed me that her daughter Eugenia went a bought her a commode chair. She stated that she hss arranged for Eugenia to stay with her for the next few nights. Her friend Rebecca will check in on her daily & assist with any needs that pt may have. Elizabet Pang PARALLEL COMPUTING SOFTWARE ENGINEER #[id number] * Venkata Cheng, RT - 03/12/2020 1317 EST Respiratory Consult/Progress Note Indications for Respiratory therapy: hx of asthma Data Vitals: Heart Rate: 64 BPM, Resp: 18, SpO2: 96 % FIO2/O2 Device: , , O2 Device: None, RT Orders: prn duoneb Protocol Scoring: Bronchodilator/Inhalation Therapy Frequency Bronchodialator - Clinical Indications: LIP order Breath Sounds: Any abnormal BS decreased Response: No change / no treatment Pulse: <100 Resp Rate: 18-25 SOB: None Total Score: 2 Comment:: prn Airway Clearance Therapy Frequency Airway Clearance - Clinical Indications: No clinical indications Breath Sounds: Clear / diminished Sputum: Small (tsp) / None Consistency: None Cough Effort: Strong/ non-productive Color: None Total Score: 0 Hyperinflation Therapy Frequency Hyperinflation - Clinical Indications: Abdominal/thoracic surgery or chest trauma Breath Sounds: Other Surgery: Yes X-Ray / Atelectasis: No O2 Requirements: O2 at baseline Mobility Status: Mobile / at baseline Total: 3 Action/Events Respiratory events; Came to see pt for new duoneb order for occasional wheeze. Pt stated that is normal for her and that's how she has sounded for the last few years after having pneumonia. Pt has a prn albuterol mdi athome that she only occasionally uses. Pt was eating lunch. Offered pt a neb and pt refused. She didnot want them and didn't feel like she needed them. She was firm in that she wanted to go home today. No apparent distress. No other home respiratory meds, no home oxygen and no cpap/bipap use at home. duonebs changed to prn per respiratory protocol and pt preference VENKATA CHENG, RT 03/12/20 * Elizabet Pang - 03/12/2020 1259 EST Case Management Note 03-12-20: Spoke with Liz PT & she stated that pt no longer needs a commode chair. I informedTatyanaitlin that I have obtained a walker & arranged for home health PT at discharge. She is in agreement with this. Spoke with pt & she stated that her daughter Eugenia called her & will plan on staying with her on Tue & Sat night. She stated that her friend Rebecca will come over during the day for a few hours to help her out. She feels that she will be able to manage with this support at home. We discussed the commode chair & pt no longer feels that she will need one at home. Tentative plan is discharge home on Tuesday with [facility] nursing & PT & Meds to bed. Elizabet Pang PARALLEL COMPUTING SOFTWARE ENGINEER #[id number] * Liz Stein, PT - 03/12/2020 1249 EST [facility] Acute Therapy [facility] [place] [facility] Encounter Note Date of Service: 03/12/2020 Subjective/Objective Subjective Reporting Person Comment: I'm aiming to go home on Tuesday. Pain Evaluation Select Specific Pain Scale: Numeric Numeric Pain Scale Numeric Pain Level (Scale 1-10): 0 Objective Time: 8495-7649 Total Treatment Time (minutes): 30 Timed Code Treatment Minutes: 30 Interventions Included: Procedures Procedures Q-Z: Therapeutic activities Therapeutic Activities Minutes: Patient presented sitting in recliner chair having just finished shower; agreeable to therapy. Sit>stand with supervision, steady initial standing balance and patient denied any dizziness/lightheaded symptoms. Ambulation x 120ft with walker and supervision. Instructed in pacing/energy conservation techniques with ambulation including starting with frequent ambulation and shorter distances. Patient verbalizing understanding. Patient demonstrating slow anne and decreased steps length; steady mobility with walker. The patient was left in the: recliner with the: Call power in reach Patient Status at the End of the Therapy Session Comments: Table within reach; all needs met. Cardiopulmonary: General Assessment: Not evaluated, No problems noted(Vitals stable per flowsheet; patient asymptomatic throughout visit.) Breathing Pattern Breathing Pattern: Dyspnea on exertion(patient slightly short of breath toward end of ambulation and requiring occasional standing rest breaks. Patient endorsing this is baseline.) Patient/Family Education: Education Topics Braces and Equipment: Assistive device/technique Medical Information/Signs and Symptoms: Ambulate with staff member only Mobility, Transfers, and Gait: Bed mobility, Transfers, Gait, Mobility recommendations Recommendations: Discharge recommendations/planning, Follow-up services Safety: Fall precautions, Safety Therapy Specific: Plan of care, Role of physical therapy, Treatment plan/goals Learner Learner: Patient Method: Verbal Barriers to Learning: None Outcome: Verbalized understanding, Needs practice, Needs reinforcement Team Communication: Notification to, Notified: Nurse When: Prior to therapy session, After therapy session By: Bnuv-ds-eieq communication About Patient Status and Referrals: Patient status, Plan of care, Discharge needs Assessment/Plan Assessment Need for Services Patient has made progress in the areas of:: Patient demonstrating improved ambulation tolerance, though remains below baseline mobility. Anticipate continued progress with mobility and PT will continue to follow while admitted. Recommend patient to discharge home once medically ready. Plan Necessity: Continue per established treatment plan Recommended Discharge Destination: Home with assistance/supervision as needed Therapy Specific Services: Home therapy, Physical therapy Equipment Recommended Comments: front wheeled walker Primary Therapist: Pager: [phone] Liz Stein PT 03/12/2020 12:49 * Vidya Farrell, RD - 03/12/2020 1220 EST Nutrition Reason for Assessment: LOS, dx Medical Summary: 79 YOF presenting with a month of abdominal pain found to have abscesses, now POD4(03/07/2020) s/p ex lap, small bowel resection and anastomosis, with intraoperative findings of small bowel internal hernia and small bowel diverticulosis. Progressing well, NG out, regular diet per MD note. Subjective: Pt reports her appetite is good, tolerating diet well. Determined to go home tomorrow, bananas work to get me going; confident bowel function will continue to return. Tolerating chicken, green beans, carrots, rice, chocolate milk and yogurt. States she eats well at home, I take very good care ofmy self. I'm pre- diabetic so I have to be careful. Eats mostly chicken/fish/seafood, no red meat, very little pork, does enjoy eggs and gauthier. Loves veggies and fruit. Has lost ~45# over last several years which she is pleased with. No questions or concerns re: food/nutrition. Objective: Current Nutrition Orders: Diet Rx: regular Relevant Medications: protonix Relevant Labs: Lab Results Component Value Date/Time WBC 12.28 03/10/2020 05:54 HGB 11.7 03/10/2020 05:54 HCT 36.2 03/10/2020 05:54 MCV 93 03/10/2020 05:54 NA 135 (L) 03/10/2020 05:54 K 4.2 03/10/2020 05:54 CO2 34 (H) 03/10/2020 05:54 CL 98 03/10/2020 05:54 BUN 12 03/10/2020 05:54 CREATININE 0.44 (L) 03/10/2020 05:54 MG 2.2 03/10/2020 05:54 Lab Results Component Value Date/Time GLUCOSEPOC 106 (H) 03/11/2020 07:50 No results found for: ZINCMZN, COPPER, THIAMINE, FOLATE, PPBLHELI81, METMMETHY, VITEALPH, RETINOL, VITD No results found for: IRON, TIBC, FERRITIN Anthropometrics: Height: 157.5 cm (62) Weight : (!) 127.8 kg (281 lb 11.2 oz) Body mass index is 51.52 kg/m??. Wt Readings from Last 8 Encounters: 03/07/20 (!) 127.8 kg (281 lb 11.2 oz) Weights Filed This Admission 03/07/20 0604 Weight: (!) 127.8 kg (281 lb 11.2 oz) Nutrition Focused Physical Findings: NFPE: mild wasting to temples; no wasting to orbital or buccal area, clavicle, acromion process, triceps, mid axillary line, or interosseous muscle Summary minimal muscle and no fat depletion Digestive Systems: Last BM 03/12 Skin: incision c/d/i with some velma-incisional ecchymosis per MD note Estimated Nutrition Intake: Diet advanced to regular 0900 03/11 50-75% thus far Assessment: 79 yo female s/p small bowel resection. NGT removed, very small BM this am, diet advanced. Pt endorses good appetite/intake currently and at baseline. Watches diet at home 2/2 preDM, diet hx appears adequate to maintain health. Mild wgt loss over last several yrs may be beneficial to reduce complications, NFPE reveals minimal muscle and no fat depletion, pt w/o s/s malnutrition. Encouraged continued good PO for healing/strength, pt verbalized understanding, states no questions at this time. Wgt last checked on admit, please recheck to further assess nutritional stats. BMI obese. Suggest add MVM daily to support adequate micronutrient intake in the setting of increased needs for healing. Pt likely to benefit from additional vitamin D given age, obesity, season, poor dietary sources. Nutrition Risk Level: Moderate (2) Medical Nutrition Therapy Plan and Recommendations: Continue diet Please add to daily meds: MVM Vitamin D 100 units Please recheck wgt, monitor daily as able Encourage good PO Continue to monitor intake, wgt, labs, skin, bowels, comfort. RD following Vidya Farrell MS, RD, CD Shane 3 Dietitian Pager: [phone]3 RD via pager or PAS * Elizabet Pang - 03/11/2020 1342 EST Case Management Note 03-11-20: Per PT's note pt will need home health PT, commode chair & a walker at discharge. I met with pt to discuss the recommendation for home health & she is in agreement. We reviewed the [place] Home [facility] Care Choice List & pt accepted services with [facility]. Pt signed the choice list & was given a copy for her records. I contacted the community outreach worker at [facility] & made a referral for nursing, PT & a GRAIN RECEIVER for pt. Per PT pt will need a rolling walker. We reviewed the [place] Vendor Choice List & pt chose [facility] for her walker. She signed the choice list & was given a copy for her records. We also completed [facility] paperwork & pt got a copy of it. Obtained a walker & delivered it to pt's room. We discussed a commode chair & pt wants to check with her friend Rebecca to see if she knows where she can borrow one. She also asked if I could call her daughter to see if she knows where to getone & to see if she could stay with her a short time when she is first discharge. I contacted Eugenia & updated her on above. Informed her that [facility] She stated that her s.o. works for [employer] so she will ask him if he knows where to obtain one. I also informed her that [facility] She stated that she will work on this & let me know what she comes up with. Will await call back from patient's daughter. Elizabet Pang PARALLEL COMPUTING SOFTWARE ENGINEER #[id number] * Liz Stein, PT - 03/11/2020 1130 EST [facility] Rehabilitation Therapy Acute Therapy [facility] Physical Therapy Contact Note Date of Service: 03/11/2020 PT treatment attempted this morning as planned from yesterday. Patient stating she wants to wait ontherapy because she needs to use the bathroom and attempt to eat. PT will plan to f/u this afternoon vs tomorrow as able. Recommend continued ambulation/mobility with nursing staff assist as tolerated. Pager: [phone] Liz Stein PT 03/11/2020 11:30 * Sukhi Preston MD - 03/11/2020 1036 EST Surgery Progress Note Chief Complaint: Intraabdominal abscess POD #4 (03/07/2020) s/p Exploratory laparotomy, small bowel resection and anastamosis 24 hours: NGT removed Tolerated PO intake Subjective: Feeling great this morning, continues to move. Tolerating sips of clears without nausea or pain. Ambulating with walker. Aggressively working on getting better. Objective: Blood pressure 116/61, pulse 66, temperature 36.6 ??C (97.9 ??F), temperature source Oral, resp. rate 20, height 157.5 cm (62), weight (!) 127.8 kg (281 lb 11.2 oz), SpO2 97 %. PE: Gen: Awake, alert, no distress, resting comfortably in bed CV: Normal rate, regular rhythm. Palpable radial pulses Resp: comfortably conversant Abd: Soft, non-distended, non-tender to palpation, incision c/d/i with some velma-incisional ecchymosis Neuro: Awake and alert. Answers questions appropriately. No gross focal deficits. Extremities: WWP Incisions: Midline incision c/d/i Labs: Recent Labs 03/09/20 0633 03/10/20 0554 NA 134* 135* K 4.4 4.2 CO2 35* 34* CL 96 98 BUN 12 12 CREATININE 0.36* 0.44* Recent Labs 03/09/20 0633 03/10/20 0554 WBC 14.53* 12.28 HCT 37.0 36.2 HGB 12.2 11.7 PLT 290 301 I&O By Type - 3 Shifts Including Current In: 1257.5 [I.V.:1257.5] Out: 900 [Urine:900] Assessment: 79 YOF presenting with a month of abdominal pain found to have abscesses, now POD4(03/07/2020) s/p ex lap, small bowel resection and anastomosis, with intraoperative findings of small bowel internal hernia and small bowel diverticulosis. Progressing well, NG out, regular diet today. Plan: Pain control with tylenol, dilaudid Regular diet SLIV dvt ppx: lovenox 40mg at bedtime, scds, ambulate Sukhi Preston MD ACS [id number] Associated attestation - Codey Cline MD PhD - 03/11/2020 1935 EST Attending attestation statement: I saw and examined the patient on 03/11/2020 and agree with the findings and plans as documented in the resident/ASTRONAUTICAL ENGINEER note. - Tolerating PO. Mild distention with Tympany. Discussed with patient importance of going slowly with diet. Codey Cline MD PhD Acute Care Surgery Pager #[phone] * Liz Stein, PT - 03/10/2020 5716 EST [facility] Therapy Acute Therapy [facility] Physical Therapy Initial Evaluation Note Date of Service: 03/10/2020 Reason for Referral: Evaluate and treat Mobility Precautions Activity: Activity as tolerated SUBJECTIVE: Reporting Person Comment: I want to do this my way. Pain Evaluation Select Specific Pain Scale: Numeric Numeric Pain Scale Numeric Pain Level (Scale 1-10): 2 Primary Pain Site Assessment Pain Location: Back Pain Orientation : Lower Pain Quality: Aching, Discomfort Pain Duration: Continuous Pain Aggravating Factors: Positioning Pain Alleviating Factors: Pain medications, Positioning, Rest OBJECTIVE: PatientProfile: Patient is a 79 y.o. female admitted on 03/06/2020 secondary to Intra-abdominal abscess ([facility]-CMS) [K65.1] Internal hernia [K45.8] The patient lives at [address] [place], [place] [id number] History of Present Illness / Injury Current Illness / Injury: Patient is a 79 y/o female admitted 03/07/2020 with small bowel perforation, now s/p ex-lap, SB resection and anastomosis on 03/07/2020. Safety Assessment / Living Environment Home environment: Apartment Basic Home Layout Home layout: One level Access/Entrance: Elevator Bathroom Set up: Built-in shower seat Mobility Equipment Mobility Equipment: Cane Cane Specifics: Single point cane Support Support Person: Friend(s) Amount of Support: Intermittent(pt can call friends for support at any time. Daughter also local and can assist.) Living Arrangement Lives With: No other person in the home General Prior Level of Function Comment: Independent, cane for ambulation Medical/Surgical History: Current: Patient Active Problem List Diagnosis ??? Intra-abdominal abscess (HCC-CMS) ??? Internal hernia Past: Past Medical History: Diagnosis Date ??? Diabetes mellitus (HCC-CMS) ??? Hypertension History reviewed. No pertinent surgical history. Medications Current Medications: Current medications reviewed Arousal, Attention, and Cognition: Alert Orientation Level: Oriented X 4 Cardiopulmonary: Pulse: 62 SpO2: 97 % O2 Device: Nasal cannula O2 Flow Rate (L/min): 1 L/min Activity Phase: Baseline Vital Signs with Activity Comment: BP has been stable per RN; patient asymptomatic throughout visit. Breathing Pattern Breathing Pattern Additional Comments: No shortness of breath noted throughout visit. Integumentary/Anthropometric Characteristics: Skin General Assessment Skin and Related Structure Functions: Wound not visualized as it was covered/dressed Edema Description Other Edema Description: No edema noted - Devices Devices: NG tubes, etc - General Characteristics Anthropometric Characteristics: Morbidly obese Range of Motion and Joint Integrity: Active Range of Motion: Within normal limits Muscle Performance: Strength: Formal resistive muscle testing was not performed due to focus on functional mobility training. BUE/BLE grossly 3+/5 demonstrated by functional mobility performed during evaluation. Sensation, Reflexes, and Nerve Integrity: Light Touch Sensation: Upper Quarter:Intact C2-T1 Lower Quarter: Intact for lower extremities Neuromotor Function/Development: No problems noted Balance, Mobility, and Gait: Balance: Sitting Balance Static: supervision sitting at EOB Dynamic: supervision sitting at EOB Standing balance Static: Min contact assist of 1 with BUE support of walker Dynamic: Min contact assist of 1 with BUE support of walker Mobility: supine to sit: min contact assist of 1 with head of bed elevated and use of bed rail sit to supine: n/e - patient left on commode sit to stand: min contact assist of 1 and stabilization of walker. stand to sit: min contact assist of 1; verbal cueing for hand placement. Gait: Assistive device/distance/assist/deviations: Ambulation x 40ft with walker and min contact assist of 1 for balance and assist with IV management. Chair initially followed behind, though patient not requiring and able to mobilize back and forth in room with min contact assist of 1 to supervision. Patient tolerated well; left on bedside commode with call power within reach. Informed Consent: Informed Consent: The patient consented to the Physical Therapy evaluation. The patient agrees to and understands the Physical Therapy treatment plan and goals. Interventions Completed Today: Time: 8180-5558 Total Treatment Time (minutes): 35 Timed Code Treatment Minutes: 15 Interventions Included: Procedures Procedures Q-Z: Therapeutic activities Therapeutic Activities Minutes: Patient instructed/educated on safety with mobility and precautionspost surgery. Walker adjusted to proper height. Instructed in safety with sequencing with walker with all mobility noted above. Patient requiring verbal cueing with sequencing and hand positioning. The patient was left in the: other(commode) with the: Call power in reach Patient/Family Education: Education Topics Braces and Equipment: Assistive device/technique Medical Information/Signs and Symptoms: Ambulate with staff member only Mobility, Transfers, and Gait: Bed mobility, Transfers, Gait, Mobility recommendations Recommendations: Discharge recommendations/planning, Follow-up services Safety: Fall precautions, Safety Therapy Specific: Plan of care, Role of physical therapy, Treatment plan/goals Learner Learner: Patient Method: Verbal Barriers to Learning: None Outcome: Verbalized understanding, Needs practice, Needs reinforcement Team Communication: Notification to, Notified: Nurse When: Prior to therapy session, After therapy session By: [id number] communication About Mobility and Gait: Mobility status, Recommendation for nursing to ambulate with patient on unit Patient Status and Referrals: Patient status, Plan of care, Discharge needs Assessment: Need for Services Patient requires skilled therapy services: Patient is a 79 y/o female admitted 03/07/2020 with smallbowel perforation, now s/p ex-lap, SB resection and anastomosis on 03/07/2020. Patient tolerated evaluation well, though presenting below baseline mobility due to recent surgery. Patient requiring mincontact assist of 1 for all mobility and requiring walker for support/balance. Anticipate patient to progress to be able to return home, though she will likely require walker and commode for safe discharge home. PT will continue to follow while admitted; recommend daily ambulation with assist as tolerated. Physical Therapy is medically necessary to: Address body structure/function impairments, activity limitations, and participation restriction, Establish and progress mobility/exercise and provide recommendations for staff and safe discharge planning, Improve safety and independence Physical Therapy Diagnosis: Physical Therapy Diagnosis Physical Therapy Diagnosis: Impaired gait, Impaired mobility, Impaired aerobic capacity and endurance, Impaired self-care Physical Therapy Prognosis: Current Status Compared to Baseline Level of Function Current Status Compared to Baseline Level of Function: Below baseline level(requires AD for mobility) Short-Term Goals: n/a Long-Term Goals: Time Frame: 2-3 weeks Goal: Patient to demonstrate modified independent bed mobility from flat surface without bed features Status: Initiated Goal: Patient to demonstrate modified independent transfers with least restrictive AD. Status: Initiated Goal: Patient to demonstrate modified independent ambulation at least 100ft with least restrictive AD. Status: Initiated Goal: Patient to demonstrate vitals within parameters with all mobility. Status: Initiated PLAN: Necessity: Physical therapy will be provided by the physical therapist and/or physical therapist client services assistant when medically appropriate Frequency: As determined by patient's medical stability, tolerance to activity, and progression of functional activities Frequency Comments: 2-4x/week Intensity: 15-45 minutes Duration: Duration of hospitalization Interventions May Include: Therapeutic activities, Therapeutic exercise, Gait training Patient/Family Education: Discharge planning, Recommendations, Equipment, Risk reduction education,Falls Prevention, Family/caregiver education, Safety, Role of physical therapy/occupational therapy/rehabilitation, Symptom management, Instruction in precautions Further Data Further Data Comments: Ambulation progression Recommended Discharge Destination Recommended Discharge Destination: Home with assistance/supervision as needed(pending progress withmobility) Recommended Discharge Services Therapy Specific Services: Home therapy, Physical therapy Equipment Recommended Equipment Recommended Comments: front wheeled walker and bedside commode Pager: [phone] Liz Stein PT 03/10/2020 15:54 * Elizabet Pang - 03/10/2020 1312 EST Case Management Note 03-10-20: Spoke with oJnes BROWN & pt is not medically ready for discharge. He will be ordering a PT evaluation on pt. I spoke with pt & she stated that her plan is to return home at discharge. She is open to home health if needed. Asked if she had assistance at home & she stated that her daughter Eugenia is very supportive & her friend Rebecca & they would assist her as needed. Informed pt that we will have PT evaluate her to see what she may require at discharge. She is in agreement with this. Contacted pt's daughter Eugenia & gave her an update on pt. Will await PT input to see what pt will require at discharge. Elizabet Pang PARALLEL COMPUTING SOFTWARE ENGINEER #[id number] * Sukhi Preston MD - 03/10/2020 1246 EST Surgery Progress Note Chief Complaint: Intraabdominal abscess POD #3 (03/07/2020) s/p Exploratory laparotomy, small bowel resection and anastamosis 24 hours: Passing flatus Subjective: Doing well this morning, passing flatus. Pain controlled. Going around the unit with her walker. Motivated to get well. NG is annoying. Objective: Blood pressure (!) 149/94, pulse 63, temperature 36.7 ??C (98.1 ??F), temperature sourceOral, resp. rate 20, height 157.5 cm (62), weight (!) 127.8 kg (281 lb 11.2 oz), SpO2 98 %. PE: Gen: Awake, alert, no distress CV: Normal rate, regular rhythm. Mild peripheral edema Resp: CTAB Abd: Soft, non-distended, non-tender to palpation, incision c/d/i Neuro: Awake and alert. Answers questions appropriately. No gross focal deficits. Extremities: WWP Incisions: Midline incision c/d/i Labs: Recent Labs 03/08/20 0610 03/09/20 0633 03/10/20 0554 NA 133* 134* 135* K 4.0 4.4 4.2 CO2 30 35* 34* CL 95* 96 98 BUN 12 12 12 CREATININE 0.38* 0.36* 0.44* Recent Labs 03/08/20 0609 03/09/20 0633 03/10/20 0554 WBC 18.57* 14.53* 12.28 HCT 36.4 37.0 36.2 HGB 12.3 12.2 11.7 PLT 300 290 301 I&O By Type - 3 Shifts Including Current In: 2651.3 [I.V.:2651.3] Out: 1345 [Urine:570; Emesis/NG output:775] Assessment: 79 YOF presenting with a month of abdominal pain found to have abscesses, now POD3(03/07/2020) s/p ex lap, small bowel resection and anastomosis, with intraoperative findings of small bowel internal hernia and small bowel diverticulosis. Doing well this morning. No complaints. Passing flatus, will clamp NG. Plan: Pain control with tylenol, dilaudid NPO Clamp NG, check residual, possible out and diet advancement as tolerated. Plasmalyte @125cc/hr dvt ppx: lovenox 40mg at bedtime, scds, ambulate Sukhi Preston MD Associated attestation - Codey Cline MD PhD - 03/10/2020 1449 EST Attending attestation statement: I saw and examined the patient on 03/10/2020 and agree with the findings and plans as documented in the resident/ASTRONAUTICAL ENGINEER note. Doing well post-operatively. Pain controlled. +F/-BM. NGT in place. Abdomen soft, appropriately TTP, Byron in place with velma-incisional ecchymoses. Clamp trial. Minimize lab draws - Pt is JW and does not accept blood products. Codey Cline MD PhD Acute Care Surgery Pager #[phone] * Scott Cruz, RD - 03/10/2020 1027 EST Nutrition Initial Assessment: Reason for Assessment: NPO day 5 Medical Summary: Remedios Toro is a 79 y.o. female admitted on 03/06/2020 presenting with a month of abdominal pain found to have abscesses, now POD3 (03/07/2020) s/p ex lap, small bowel resection and anastomosis, with intraoperative findings of small bowel internal hernia and small bowel diverticulosis. ?? Doing well this morning. No complaints. Awaiting ROBF. Current Nutrition Orders: Diet Order: NPO ?? Nutrition Focused Physical Findings: NGT in place Digestive Systems: Last BM (unknown) Skin: Surgical Incision, Midline abdomen ?? Anthropometrics: Height: 157.5cm Admission Weight: 127.8kg (03/07/20) Body mass index is 51.52 kg/m??. Wt Readings from Last 6 Encounters: 03/07/20 (!) 127.8 kg (281 lb 11.2 oz) ?? Pertinent Medications: Current Facility-Administered Medications Medication Route Frequency ??? acetaminophen (TYLENOL) tablet 650 mg oral Q6H PRN ??? dextrose 5 % and 0.45 % NaCl with KCl 20 mEq/L infusion intravenous CONTINUOUS ??? enoxaparin (LOVENOX) injection 40 mg subcutaneous QHS ??? HYDROmorphone (DILAUDID) tablet 2-4 mg oral Q3H PRN ??? HYDROmorphone (PF) (DILAUDID) 0.5 mg/0.5 mL syringe 0.2-0.4 mg intravenous Q3H PRN ??? HYDROmorphone (PF) (DILAUDID) 0.5 mg/0.5 mL syringe ??? nystatin (MYCOSTATIN) powder topical BID ??? ondansetron (PF) (ZOFRAN) injection 4 mg intravenous Q6H PRN ??? pantoprazole (PROTONIX) injection 40 mg intravenous BID ??? simethicone (MYLICON) chewable tablet 80 mg oral Q6H PRN Relevant Labs: Lab Results Component Value Date WBC 12.28 03/10/2020 RBC 3.90 03/10/2020 HGB 11.7 03/10/2020 HCT 36.2 03/10/2020 MCV 93 03/10/2020 MCH 30.0 03/10/2020 PLT 301 03/10/2020 NA 135 (L) 03/10/2020 K 4.2 03/10/2020 CL 98 03/10/2020 CO2 34 (H) 03/10/2020 BUN 12 03/10/2020 CREATININE 0.44 (L) 03/10/2020 CALCIUM 8.6 03/06/2020 MG 2.2 03/10/2020 Estimated Nutrition Needs: BEE: 1751kcal @ 127.8kg Kcal: 1751-1930kcal @ 1-1.05x BEE Protein: 89-98g @ 1-1.1g/kg/adjusted bodyweight Estimated Nutrition Intake: NPO ?? Assessment: Pt w/ inadequate nutrition since admission now day 5 clear liquids/NPO in setting of POD3 (03/07/2020) s/p ex lap, small bowel resection and anastomosis, with intraoperative findings of small bowel internal hernia and small bowel diverticulosis. NGT in place; if unable to advance diet past clears innext 24-48 hours then nutrition support indicated, PPN vs TPN depending on central access availability, consult RD for recs. Advance diet as tolerated and monitor PO intake and BMs. Continue to monitor lytes daily and replete as needed. Strict I/Os and continue to trend weight. Nutrition Risk Level: 1 (high) Medical Nutrition Therapy Plan and Recommendations: 1. Advance diet as tolerated once medically indicated 2. If unable to advance diet in next 24-48 hours then nutrition support indicated ?? PPN vs TPN (depending on central access availability - consult RD for recs 3. Monitor lytes; replete as needed 4. Bowel regimen as needed 5. Strict I/Os 6. Trend weight 7. Continue to monitor labs, I/Os, and skin Scott Cruz, MS RD CD Pager: [phone] * Myrna Martinez MD - 03/09/2020 0553 EST Surgery Progress Note Chief Complaint: Intraabdominal abscess POD #2 (03/07/2020) s/p Exploratory laparotomy, small bowel resection and anastamosis 24 hours: Nguyen removed. Met DTV Subjective: Patient doing okay this morning. Having back pain. Not having pain in her abdomen. She Objective: Blood pressure (!) 150/77, pulse 78, temperature 36.7 ??C (98.1 ??F), temperature sourceOral, resp. rate 24, height 157.5 cm (62), weight (!) 127.8 kg (281 lb 11.2 oz), SpO2 96 %. PE: Gen: Awake, alert, no acute distress CV: Normal rate, regular rhythm. Mild peripheral edema Resp: CTAB Abd: Soft, non-distended, non-tender to palpation Neuro: Awake and alert. Answers questions appropriately. No gross focal deficits. Extremities: WWP Incisions: Midline incision c/d/i Labs: WBC18.5 (21) I&O By Type - 3 Shifts Including Current In: 2752.9 [I.V.:2752.9] Out: 1895 [Urine:845; Emesis/NG output:1050] Assessment: 79 YOF presenting with a month of abdominal pain found to have abscesses, now POD2(03/07/2020) s/p ex lap, small bowel resection and anastomosis, with intraoperative findings of small bowel internal hernia and small bowel diverticulosis. Doing well this morning. No complaints. Awaiting ROBF. Plan: D/c tele Pain control with tylenol, dilaudid NPO until ROBF Plasmalyte @125cc/hr dvt ppx: lovenox 40mg at bedtime, scds, ambulate MYRNA MARTINEZ MD * Clementine Barbour MD - 03/08/2020 0640 EST Surgery Progress Note Chief Complaint: Intraabdominal abscess POD #1 (03/07/2020) s/p Exploratory laparotomy, small bowel resection and anastamosis 24 hours: to OR for above procedure Subjective: State she passed gas last night. Per nurse she has a hard time moving and turning and getting out of bed. Denies fevers, chills, n/v, SOB, abdominal pain or chest pain Objective: Blood pressure 139/70, pulse 78, temperature 37.1 ??C (98.8 ??F), temperature source Oral, resp. rate 16, height 157.5 cm (62), weight (!) 127.8 kg (281 lb 11.2 oz), SpO2 97 %. PE: Gen: Awake, alert, no acute distress CV: RRR Resp: CTAB Abd: SNT Labs: WBC18.5 (21) I&O By Type - 3 Shifts Including Current In: 1683.3 [I.V.:1683.3] Out: 900 [Urine:600; Emesis/NG output:300] Assessment: 79 YOF presenting with a month of abdominal pain found to have abscesses, now POD1 (03/07/2020) s/p ex lap, small bowel resection and anastomosis, with intraoperative findings of small bowel internal hernia and small bowel diverticulosis. Doing well this morning. No complaints. Awaiting ROBF. Plan: Class III tele Pain control with tylenol, dilaudid NPO Plasmalyte @125cc/hr Remove nguyen catheter, f/u DTV dvt ppx: lovenox 40mg at bedtime Clementine Barbour MD PGY1 03/08/20 6:41 Pager#[phone] Associated attestation - Nick Tavarez, MD - 03/08/2020 2308 EST I saw and examined this patient with the residents and agree with the above note as it relates to the observations that were made and the treatment plan that was proposed. My specific comments follow: Satisfactory post op course. Await return of bowel function * Elizabet Pang - 03/07/2020 0952 EST Initial Case Management/Social Work Assessment and Discharge Plan/Readmission Risk Assessment REASON FOR ADMISSION: Intra-abdominal abscess (HCC-CMS). Pt had a small bowel resection & anastomosis. She has a hx of Diabetes, HTN, HLD, RA & Asthma. Patient understands reason for admission: Yes PATIENT CONTACT INFO VERIFIED: Yes Eugenia: daughter: [phone] PATIENT ADDRESS VERIFIED: Yes Type of housing (single family, condo, apartment, halfway, single room occupancy, [facility] funded hotel room, group nursing home) - apt Who does the patient live with? alone Does the patient have access to their own bedroom/bathroom/kitchen - or is it shared with others? own LIVING ARRANGEMENTS AND ACCESSIBILITY ISSUES: Living Arrangements: Apartment, Alone Levels: 2 Stairs to enter: 0 Handicap access: Elevator Bathroom located on bedroom level?: Yes What in home social supports are available to the patient? Children, Friends / neighbors Is 24/7 care available? Yes ADVANCED DIRECTIVES, POA &/or COLST IN PLACE: Healthcare Directive: Yes, patient has advance directive for healthcare treatment Type of Healthcare Directive: Durable power of ip attorney for health care Copy in Chart: Yes, previous copy on file @ [facility] DIRECTIVES FOR FINANCES: Directive For Finances: No TRANSPORTATION: Transportation: Family, Self CULTURAL, JEWISH and/or LANGUAGE factors affecting health care/discharge planning: Spiritual/Cultural Requests: None Any factors affecting health care/discharge planning?: No Insurance in Place: Yes Medical Insurance: Yes Type of insurance: Medicare, Medicaid Medicare type: A, B Medicaid Type: Community Referred to patient financial services: No Nutrition: DISCHARGE RISK ASSESSMENT: Diagnosis of Diabetes Total # selected above: Score of 1 - 2: This patient is at LOW RISK for re-hospitalization Tentative plan to address the risk of re-hospitalization for those at HIGH MODERATE RISK: Bring risk factors to attention of team to be addressed RAPT TOOL: Age: >75 Gender: Female Ambulation distance: 1-2 blocks Gait device: Single point device Community Services: Home health, MOW, SASH-none of one time a week Will you live with someone who will care for you?: No RAPT Tool Score: 4 Patient expects to be discharged to: Home SBIRT: SASQ (Single Alcohol Screening Question) How many times in the past year have you had 4 or more drinks in a single day?: Never How many times in the past year have you used an illegal drug or used a prescription medication fornon-medical reasons?: Never Intervention in place/initiated?: No, not indicated FUNCTIONAL STATUS: Activities patient requires assistance: None Assistive Device: Cane COMMUNITY RESOURCES/SUPPORTS: Primary Care Provider: Betzaida Pina PCP Verified: Yes Specialists: None Type of Home Health Services: None DME Provider: Pharmacy: No Pharmacies Listed Home Health: Other: POST HOSPITAL TRANSITION PLAN: Pt lives alone in senior housing in [place]. 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 She uses a cane to ambulate . She still does all her own driving. She stated that her daughter is very supportive & assists her as needed at home. She has a friend Rebecca Brice who is also very supportive & can assist pt if needed. Pt was not using any services aircraft captain. Discussed Meds to bed & pt would like this service at discharge. Enrolled pt in Meds to bed. Will follow & assist pt with any other discharge needs that may arise. ELIZABET PANG PARALLEL COMPUTING SOFTWARE ENGINEER #[phone] 03/07/2020 9:42 documented in this encounter H&P Notes * Sukhi Preston MD - 03/07/2020 0051 EST Surgical H+P Admission Admit Date: 03/06/2020 Date of Service: 03/07/2020 Hospital day: LOS: 0 days Chief Complaint: Abdominal Pain HPI: 79 YOF with a PMH notable for DM, HTN, and HLD who is presenting as a transfer from OSH after being found to have two abdominal abscesses on CT imaging this afternoon. Per the patient, she initially began having symptoms roughly a month ago where she noted some mild RLQ discomfort in her abdomen. The pain was intermittent and mostly notable when she was moving or straining. Over the last week this pain has increased and been more persistent. In the last 24 hours she began to have even moresevere pain and this morning she felt sharp RLQ, nausea and overall malaise prompting her to present to the ED at OSH. At OSH was noted to have leukocytosis and CT showing two 5 cm abscesses adjacentto small bowel, possible concerning for bowel perforation. She was given Zosyn and transferred to [facility]. At [facility], after pain medication, she states that the abdominal pain is controlled while still. She is not having nausea. She states she has had bowel movements daily of normal solid character throughout her symptoms. She last had a BM this AM. She has been eating meals without issue, last ate this morning. Has also been having a bad yeast infection over the last month and has been treated with antibiotics for it, causing urinary symptoms. No fevers, maybe very slight chills. No CP or SOB. Episode of diverticulitis 20+ years ago, non op resolved. PMH PSH Past Medical History: Diagnosis Date ??? Diabetes mellitus ([facility]) ??? Hypertension Tubal ligation Social History Family history Social History Tobacco Use ??? Smoking status: Never Smoker ??? Smokeless tobacco: Never Used Substance Use Topics ??? Alcohol use: Not Currently Denies significant history for bleeding, clots, cancer Medications Albuterol dilt 120 mg daily diovan 320 mg daily Metformin daily Allergies No Known Allergies Review of Systems: A ten point review of systems was performed and was negative except for pertinent positives noted in the HPI Last Meal: this AM Objective/Physical Exam: VS: Patient Vitals for the past 8 hrs: BP Pulse Resp Temp SpO2 O2 Flow Rate (L/min) 03/06/202200 (!) 154/80 78 18 35.8 ??C (96.5 ??F) 96 % 0 l/min Pain: Patient Vitals for the past 8 hrs: Numeric Pain Level (Scale 1-10) 03/06/202200 3 Exam: General Appearance: alert, cooperative, no distress Neuro: moving all extremities Head: normocephalic Lung: non labored breathing, comfortably conversant Heart: reg rate, palpbale radial adn DP pulses Abdomen: soft, mild distension, tenderness in dena RLQ with focal guarding, rebound tender in RLQ Extremities: all extremities warm and well perfused Skin: erythematous rash in the pannicular fold, bilatera groin Psych: appropriate mood and affect Incision(s)/Wound(s): NA Data Review: OSH CT---2 rounded 5 cm collections with a fecal appearance suspicious for abscess, adjacent abnormal small bowel with thickening and inflammation, small amount of free fluid Labs: Recent Labs 03/06/20 2309 NA 130* K 3.8 CO2 31 CL 93* BUN 13 CREATININE 0.43* Recent Labs 03/06/20 2308 WBC 18.54* HCT 34.6* HGB 11.7 PLT 229 No results for input(s): PROTIME, INR, PTT in the last 72 hours. Assessment 79 YOF presenting with a month of abdominal pain found to have abscesses with possible local small bowel perforation adjacent. Leukocytosis and low grade fever but otherwise well appearing and HDS. Concern for small bowel perforation and possible internal hernia, will plan for exploration tonight. Problems/Plan: -NPO -IV Zosyn -plan for OR tonight for exploration Seen and examined with Júnior ACS chief resident and Marlyn ACS attending. Sukhi Prestno MD PGY-2 Pager #[phone] Associated attestation - Codey Cline MD PhD - 03/08/20202026 EST Attending attestation statement: I saw and examined the patient on 03/07/2020 and agree with the findings and plans as documented in the resident/ASTRONAUTICAL ENGINEER note. Remedios Toro is a 79 y.o. female who presents with SB perforation. On exam, TTP RLQ. Inconsistent rebound. WBC 20. CT with SB perforation, twisting of mesentery with mesentery fluid. No evidence of diverticulitis or appendicitis. Reviewed with radiology. High suspicion for internal hernia. Stigmata of bowel compromise. Discussed with patient operative management, likely requiring SB resection, and possible outcomes including need for multiple procedure, ICU stay, prolonged intubation, need for rehabilitation. Discussed at length possible outcomes of non-operative management if perforationwas not contained and continued, likely bowel ischemia. Patient decided for operative exploration. Of note, patient is [employer]ism. Does not accept any blood products. Minimize blood draws. Ifblood draws needed, draw in pediatric tubes. Codey Cline MD PhD Acute Care Surgery Pager #[phone] documented in this encounter Procedure Notes * Coty Man RN - 03/11/2020 0649 EST Ultrasound dynamic guidance was used for peripheral line insertion. Name of stick inserter: Coty Villa RN LDAINFO BLOCK Peripheral IV 03/11/20646 Posterior;Right Forearm (Active) 03/11/20646 Forearm Dressing Change Due: 03/18/20 Size (Gauge): 20 Catheter Length (Inches): 1.75 Catheter Brand: B Marquez Introcan Orientation: Posterior;Right Site: Inserted by: Inserted by RN;Ultrasound Guided Insertion attempts: 1 Local Anesthetic: None Skin Antisepsis: 2% Chlorhexidine with IPA Removal Reason : Post Removal Assessment/Care: Size (Gauge): Catheter Length: IV Change Due: Orientation: Criteria to continue met? (chart all reasons) Antibiotics administered IV 03/11/2048 Date Dressing Changed 03/11/20 03/11/2048 Dressing date clearly marked on PIV site? Yes 03/11/20647 Site Assessment Clean/Dry/Intact 03/11/20647 Line Status Blood returned;Capped;Flushed 03/11/2048 Dressing Status/Care Changed/New;Site Cleaned 03/11/20647 Dressing Type Transparent 03/11/20647 Patient response: tolerated well Patient education: provided at bedside Additional study information Vein compressibility and needle entry into vein visualized via ultrasound. COTY VILLA RN 03/11/2020 documented in this encounter Nursing Notes * Susan Hitchcock RN - 03/07/2020 0507 EST POCT FSBG completed, result 166. documented in this encounter OR Notes * OR Surgeon - Codey Cline MD PhD - 03/07/2020 0430 EST OPERATIVE REPORT SERVICE DATE: 03/07/2020 SURGEON: Codey Cline MD, PhD RECORDS OFFICER: 1. Emily Callejas MD 2. Nelda Jasmine MS3 PREOPERATIVE DIAGNOSIS: Internal hernia, small bowel perforation. POSTOPERATIVE DIAGNOSIS: Small bowel internal hernia and small bowel diverticulosis with no perforation. PROCEDURE: Exploratory laparotomy and small bowel resection with anastomosis. ANESTHESIA: General. INDICATIONS: Remedios Toro is an 79-year-old female with a past medical history notable for diabetes, hypertension, hyperlipidemia, who presented as a transfer from [facility] with a chief complaint of right lower quadrant abdominal pain, acute on chronic, with CT imaging demonstrating intra-abdominal abscesses and a concern for bowel perforation. The patient stated that she initially began having pain about a month prior, but noted increasing abdominal pain in the last 24 hours, prompting presentation to [facility]. At [facility], she began to have leukocytosis to [address] findings. Her surgical history was significant only for a tubal ligation, which did appear to be open in nature. On presentation, she was stable, but had a continued leukocytosis to 18. On further review, the CT imaging was concerning for an internal hernia, that she was deemed an appropriate candidate for the above procedure and was taken to the operating room that evening. The risks, benefits, alternatives, complications (including injury to adjoining structures, need for multiple operations, need for mechanical ventilation, critical illness), the procedure, and expected outcomes were described in detail. Good understanding was demonstrated. All questions answered. Consent was obtained. FINDINGS: 1. Incarcerated, viable, small bowel jejunum diverticula involved and a small bowel internal herniawithin adhesive bands in the lower right quadrant. 2. Poorly perfused bowel and three small bowel diverticula with no evidence of perforation for thebowel involved in the internal hernia. 3. Incidental Meckel's diverticulum noted that was not resected. 4. Stapled side to side, functional end to end anastomosis performed roughly 15 cm from the ligament of Treitz. NARRATIVE: The patient was brought to the operating room and placed on the operating table in the supine position. Sequential compression devices were placed on bilateral lower extremities and turnedon. General anesthesia was induced with no untoward effects. The patient's abdomen was then preppedand draped in the usual sterile fashion. A final timeout was called confirming the patient's identity, the correct procedure, and preoperative administration of Zosyn. ESTIMATED BLOOD LOSS: 50 mL. FLUIDS: 1600 mL crystalloid. URINE OUTPUT: 450 mL. SPECIMENS: Small bowel was sent for routine pathology. DRAINS AND PACKS: None. WOUND CLASS: 2, clean contaminated. COMPLICATIONS: None. The patient was brought into the operating room suite where a WHO1 time out was taken. She was thentransferred to the operating room table and underwent successful induction of general endotracheal anesthesia. She was prepped and draped in the sterile standard fashion. A WHO2 time out was taken. All were in agreement. A midline laparotomy was made sharply with a scalpel. Electrocautery was used to dissect down to the fascia. The decussations of the fascia were observed and the fascia was incised sharply. The peritoneum was grasped and dissected sharply. With electrocautery, the fascial incision was extended caudad and cephalad whilst protecting the underlying viscera with the surgeons hand. Upon entry into theabdomen, slightly murky fluid was found. An Yunior was then placed into the wound to aid in retraction and protect the wound itself. The small bowel was then brought out and the small bowel was run from the ligament of Treitz to ligament of Teres. Upon running the bowel, it was immediately noted about 15 cm from the ligament of Treitz, the small bowel was matted into the right lower quadrant withadhesive bands. The bowel was run from the Ligament of Teres to the matted bowel. An incidental Meckel's was noted. With gentle blunt dissection, the adhesions tethering the bowel in the right lower quadrant were released. Though there was no significant dilatation of the distal bowel, it appeared that the involved bowel was incarcerated in an internal hernia. After releasing the adhesive bands, the small bowel was explored again and it was noted that there was a closed loop of small bowel within the internal hernia, there were ischemic changes to the small bowel. The bowel contained 3 large diverticulum of the small bowel. It did not appear to be perforated. It was deemed appropriate at this time to remove this bowel and send it to pathology, especially considering that there was lymphadenopathy felt in the mesentery of the small bowel. Because of the exuberant lymphadenopathy, a wide mesenteric wedge and about 8 cm of normal bowel, proximally and distally were resected. Using a YOVANA 60 blue load, the small bowel was divided on either side of the specimen. Two loads of the 60 YOVANA were used for this. The mesentery was then divided by clamping with Kellys and tying with2-0 silk sutures. Good hemostasis was achieved. The anastomosis was then created by first placing 2stay sutures, 1 at the proximal end and 1 at the distal end of the anastomosis. Two enterotomies were made along the antimesenteric side of the small bowel and a 60 mm blue load YOVANA was used to create the common channel. The ends of the bowel were then anastomosed together with a green YOVANA stapler.The ends of the staple lines were then imbricated with Lembert sutures. The mesenteric defect was then closed with 3-0 Vicryl suture. The anastomosis was tension free, and the common channel was widely patent by palpation. The small bowel was then run again -- Again noting an incidental Meckel's diverticulum, and no other pathology. The NGT placement was verified by palpation in the fundus of thestomach. The abdomen was irrigated and aspirated until the effluent was clear. The fascia was closed with a running nonlooped [address]-2 needle. The wound was irrigated and the skin stapled. Theabdomen was then cleaned and dried. Sterile dressings were applied. Instrument, needle, and sponge counts were correct times two. She was extubated and transferred to the post-anesthesia care unit instable condition. Unless otherwise noted, there were no complications, no blood loss, no cultures obtained, no specimens removed, and no drains retained. STATEMENT OF PRESENCE: Dr. Codey Cline was present and scrubbed for the entire procedure. Codey Cline MD, PhD / Emily Callejas MD / Confirmation: [id number] Dictation ID: [id number] cc: Codey Cline MD, PhD, [facility] - Surgery, [address] [place], [place] [address] documented in this encounter ED Notes * Anrdae Harkins RN - 03/06/2020 6781 EST Surgical MD at bedside for initial eval. * Oc Davies MD - 03/06/2020 2130 EST This patient received an evaluation and medical screening exam for emergent medical conditions at the [facility] on 03/06/2020 This note was created and authored by Myrna De Los Santos MD, working under the supervision of Oc Davies MD. HPI Remedios Toro is a 79 y.o. female with a history significant for diabetes, HLD, obesity, HTN, asthma and PSH significant for bilateral tubal ligation and breast surgery who presents the ED via transfer from [facility] with right lower quadrant abdominal pain and CT imaging demonstrating intra-abdominal abscess and concern for bowel perforation. According to the patient, she has had right lower quadrant abdominal pain over the last few days. She reports that she has also had vaginal discomfort and was recently treated for presumed fungal vaginitis. She states that her vaginal discomfort improved, but her right sided abdominal pain has worsened. She describes it as an aching pain of moderate intensity. She presented to [facility] today where CT imaging demonstrated two rounded, 5cm collections with fecal appearance concerning for abscesses with adjacent abnormal small bowel mucosal thickening with surrounding inflammation, concern for localized perforation of the small bowel. The patient also notably had a leukocytosis. She was started empirically on Zosyn and received fentanyl for pain. She was given 3.375 g of Zosyn at approximately 1500. The case was discussed with the ED provider and the surgery team here who accepted the patient for transfer. She currently endorses right lower quadrant abdominal pain that is tolerable at rest, but worsens with any movement. She denies any recent fevers, although has experienced some chills. She denies any cough or difficulty breathing. No known sick contacts. She denies any hematuria or dysuria. She does endorse some hard, dark stools but denies any hematochezia. She has no other concerns or complaints this time. History was provided by: Patient, review of medical records. Patient's pertinent PMH, FH, SH were reviewed PRN ROS ROS A 10-point review of systems was performed. The patient answered negative to all questions with theexceptions of those explicitly detailed as positives in the HPI. Pertinent negatives are also explicitly stated. Physical Exam Vital Signs Temp: 35.8 ??C (96.5 ??F) Temp src: Oral Pulse: 78 Cardiac Rhythm: Normal sinus rhythm Resp: 18 SpO2: 96 % BP: (!) 154/80 O2 Device: None (Room air) Nursing notes and vital signs were reviewed. Constitutional: Well-appearing in no acute distress HEENT: PEERL, EOMI, clear conjunctivae. No conjunctival pallor. Mouth: Moist oral mucosa without apparent lesions Neck: Full ROM, trachea midline Heart: Extremities warm and well perfused. 2+ radial pulses bilaterally. Regular pulse. Lungs: No tachypnea. No evidence of respiratory distress. No audible stridor or wheezing. Abdomen: Obese. Tenderness to palpation in the right midabdomen and right lower quadrant with guarding. Negative Callejas sign. Skin: No overt rashes or lesions on exposed skin. No jaundice. Extremities: Moving spontaneously, warm, radial pulses 2+ b/l. Trace lower extremity edema bilaterally. Neuro: CN grossly intact, normal speech, 5/5 strength in UE/LE b/l. Sensation to light touch wnl inUE/LE b/l. No tremors or rigors. Psych: Appropriate affect. Procedures Procedures Medical Decision Making / ED Course Remedios Toro is a 79 y.o. female with history significant for diabetes, HLD, obesity, HTN, asthma and PSH significant for bilateral tubal ligation and breast surgery who presents the ED via transfer from [facility] with right lower quadrant abdominal pain and CT imaging demonstrating intra-abdominal abscess and concern for bowel perforation. Hemodynamically stable on arrival. Physical exam as docu mented above most notable for an obese 79-year-old female with tenderness to palpation in the rightlower quadrant with guarding. Differential diagnosis includes but is not limited to: Intra-abdominal abscess, bowel perforation, SBO, UTI including Pyelonephritis, Atypical DC, Cholecystitis, Biliary Colic, Pancreatitis, Diverticulitis, Appendicitis, Hepatitis, AAA, Mesenteric Ischemia, Neoplastic Process, Ovarian Torsion, Nephr olithiasis, Colitis, PUD, GERD, Constipation, IBS The patient was given the following interventions: IV Zosyn Laboratory results independently reviewed, significant for: Labs from OSH reviewed and notable for leukocytosis Imaging obtained was reviewed and independently interpreted: CT of the abdomen and pelvis from OSH notable for two rounded, 5cm collections with fecal appearance concerning for abscesses with adjacent abnormal small bowel mucosal thickening with surrounding inflammation, concern for localized perforation of the small bowel. The patient's symptoms as well as objective findings are most consistent with intra-abdominal abscesses, concern for bowel perforation. Localized peritonitic findings in the right lower quadrant on exam, leukocytosis, borderline febrile with temp 100.2F. The patient was given IV Zosyn for broad-spectrum antibiotic coverage. Discussed the case with the surgery team who agreed that the patient was appropriate for admission to their service, they may consider operative intervention later this evening. Disposition decisions were made weighing risks and benefits of hospitalization vs. outpatient treatment, the risk for further decompensation, and the patient???s wishes. Admitted. The patient required admission for further workup or management of their condition Disposition Upon departure from the Emergency Department, the patient's pain seemed to be 2 on a zero to ten scale. Condition at departure from the Emergency Department: Stable Clinical Impression Intraabdominal abscess ED Attending's Supervisory Statement I, Oc Davies MD, performed a history and exam of this patient and discussed the case withthe resident. I have reviewed and edited this note, and the documentation is consistent with my findings, assessment and plan. I fully participated in the medical decision making. * Myron Elizondo - 03/06/2020 1949 EST T-Call: Remedios Toro 38, 79 y/o female w/ perf small bowel w/ abscess, + pertoneal, WBC 20k, 97%, full code, accepted by surgery documented in this encounter Miscellaneous Notes * Plan of Care - Lucy Howell RN - 03/13/2020 1535 EST Discharge Note D - Patient ordered for discharge today. A - Patient given prescriptions, medication information sheets and After Visit Summary. Medication list, follow up appointments and care instructions reviewed with patient. IVs and ID band removed. Report called to Home Health. R - Patient questions reviewed and addressed prior to discharge. Patient denied pain. Awaiting transport via wheelchair. No distress noted. 03/13/2020 15:35 LUCY HOWELL RN * Plan of Care - Elizabet Pang - 03/13/2020 1050 EST 03/13/20 1050 Medicare IM Notice: IM notice status Patient received notification verbally and in writing while in hospital. IM notice given at discharge? Yes * Plan of Care - Gisela Aguirre RN - 03/13/2020 0331 EST Data: Pt is HD 7 ex lap. Midline incision approximated, closed with franck. Redness surrounding incision and small amount thick serous drainage from bottom of incision. +Flatus, no BM. Pt reports 5/10 chronic hip and back pain. Action: MD notified of incision and assessed at bedside. Gauze pad applied. Tylenol admin for pain,see MAR. Response: Pt reports pain decreased to 0/10. Will continue to monitor incision. GISELA AGUIRRE RN 03/13/2020 3:31 * Plan of Care - Linda Sheth RN - 03/12/2020 1821 EST Data: pt is POD 6 for s/p ex lap, small bowel resection and anastomosis; pt has history of htn Action: pt worked with PT today and ambulated several times; pt uses walker and is contact guard when she ambulates to commode in the bathroom; pt made a very small bowel movement earlier today, pt is experiencing quite a bit of flatus Response: pt is resting comfortably in bed; will continue to monitor LINDA SHETH RN 03/12/2020 18:21 * Plan of Care - Diamond Martinez RN - 03/12/2020 0507 EST Data: s/ ex lap for abdominal abcess, pod 5. Advanced to regular diet, tolerating well. Flatus and extremely small bm Action: encourage ambulation, turn q2 for skin integrity. Response: Pt slept at long intervals, states comfortable DIAMOND MARTINEZ RN 03/12/2020 5:08 * Plan of Care - Linda Sheth RN - 03/11/2020 1140 EST Incentive Spirometry Note D - Patient is status-post exploratory laparotomy, small bowel resection and anastamosis A - Reviewed incentive spirometry technique and desired schedule of use with patient. R - Patient demonstrated proper technique. Patient was able to pull 1250 cc's on the incentive spirometer. 03/11/2020 11:41 LINDA SHETH RN * Plan of Care - Diamond Martinez RN - 03/11/2020 0304 EST Data: S/p small bowel resection, now on clr liquids, tolerating well. Much flatus, no BM as yet. Upto bsc with 1 assist, needs assistance turning and moving in bed. Action: Medicated x 1 with po dilaudid. Pt noted bradycardia when sleeping. Response: Monitor and assist prn DIAMOND MARTINEZ RN 03/11/2020 3:04 * Plan of Care - Cindy Kirkpatrick RN - 03/10/2020 1835 EST Problem: Daily Care Plan Goals Goal: Care Plan Documentation Flowsheets (Taken 03/10/2020 1038) Area of Focus: Mobility Goal This Shift: Assist with movement to encourage BM Data: POD 3 S/P ex lap, small bowel resection, and anastomosis. NG tube to LCWS, light brown outputslowed down since yesterday (see I/O flow sheet). OOB to chair for most of morning, contact guard with 2 standby assist to ambulate to bedside commode. Working with PT in room. Action: Assisted pt to and from bed/chair/commode. Monitored NG output, movement encouraged throughout day. Assisted with q2 hour/PRN repositioning. NG tube clamped by provider for 4 hours, plan to reassess this evening. Response: Pt motivated to move, tolerated movement well until this evening. Back to bed pt c/o 8/10pain, believes she over did it. Administered .2mg Dilaudid IV- pt reported this as very helpful. NG tube output 50 mL after 4 hour clamp. NG tube Dc'd at bedside by providers, clear liquid diet order in place. 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 Up to bsc to void. Action: medicate as needed, encourage ambulation Response: states rested well this shift DIAMOND MARTINEZ RN 03/10/2020 4:25 * Plan of Care - Cindy Kirkpatrick RN - 03/09/2020 1709 EST Data: POD 2 S/P ex lap, small bowel resection, and anastomosis. 1L NC necessary when sleeping, desats to high 80's, maintains sats in low 90's while awake. Passing flatus, bowel sounds are present. NG tube to LCWS with brown output. Pt OOB to commode multiple times this shift, stand/pivot. Pt determined to be as independent as possible with contact guard- at least 2 staff for safety. C/O itch anddiscomfort under panus near vulva, reported burning with urination. Pt NPO with continuous fluids running, positional & leaking PIV. Action: Notified provider of skin discomfort and dysuria. UA ordered and collected. Removed PIV andcontacted IV team for new IV insertion. Repositioned pt q2 hours and PRN Response: Skin on buttocks remains pink and blanchable, mid abdominal surgical site- dressing CDI. New orders for IV Protonix and topical nystatin powder. CINDY KIRKPATRICK RN 03/09/2020 17:09 * Plan of Care - Yolie Chapa RN - 03/09/2020 0008 EST Area of Focus: Skin Integrity Goal This Shift: q2 turns to maintain skin integrity Outcome: Ongoing Flowsheets (Taken 03/08/2020 1935) D - This is an 79 y.o. female. Patient is POD 2 S/P ex lap, small bowel resection, and anastomosis.Pt is maintained on 1L NC. Patient reported pain in the RLQ related to gas. Denies flatus, bowel sounds are present. NG tube to LCWS with brown output. Pt OOB to commode x2 this shift. Patient is a 3assist stand and pivot to commode. A - Assessed patient. Gave simethicone per MAR for gas pain. Assisted patient OOB to commode. Q2 turns to maintain skin integrity. Clustered care to promote rest. R - Patient is resting comfortably in bed. Will continue to assess and monitor patient. Call light within reach, bed placed in low position. 03/09/2020 0:09 YOLIE CHAPA RN * Plan of Care - Mariana Esparza RN - 03/08/2020 1710 EST Data: Pt is POD #1 from an ex-lap, small bowel resection, and anastomosis. Pt is A+Ox3. Pt in NSR with PVCs on tele. At the start of shift, pt with nguyen in place. Pt with NG tube to LCWS. Action: Provided medications per MAR. Removed nguyen per orders. Pt's DTV at 1730. Response: Pt met due to void. At this time, pt is resting comfortably in bed. No signs of distress noted. MARIANA ESPARZA RN 03/08/2020 17:10 * Plan of Care - Yolie Chapa RN - 03/08/2020 0102 EST D - This is an 79 y.o. female. Patient is POD 0 S/P ex lap, small bowel resection, and anastomosis.Patient is maintained on 2L of oxygen via nasal cannula. Patient has denied pain overnight. Nguyen had minimal output, draining shae, cloudy urine. Midline abdominal incision covering with dry dressing, changed by provider. NG tube to LCWS, output brown. IVF, NSR with PVCs on telemetry. A - Assessed patient. Assisted provider with dressing change. Assisted patient with turns and repositioning as needed. Clustered care to promote rest. R - Patient is resting comfortably in bed. Will continue to assess and monitor patient. Call light within reach, bed placed in low position. 03/08/2020 1:22 YOLIE CHAPA RN * Plan of Care - Aviva Aguilar RN - 03/07/2020 1649 EST Data: Pt PO day 0 from Exploratory laparotomy, small bowel resection and anastomosis. NPO, NGT to LCWS, Nguyen catheter, IVF and ABX. K+ replaced. SR with PVCs. Action: IS use, Turned Q2, OOB to chair this afternoon using walker. Response: Pt had some bleeding from her mid abdominal incision. Reported to [phone] pager. AVIVA AGUILAR RN 03/07/2020 16:49 * Plan of Care - Yolie Chapa RN - 03/07/2020 0648 EST Area of Focus: Communication Goal This Shift: admit pt to unit Outcome: Ongoing Flowsheets (Taken 03/07/2020 0604) Admission Note D - This is an 79 y.o. female who is being transfered from PACU. This is post-op day 0 for the patient. Patient is status-post ex lap with small bowel resection. Patient is drowsy. A - Vital signs taken. Call light within reach, bed placed in low position and table at bedside. Room is free of clutter. R - Continue to assess and monitor patient. 03/07/2020 6:48 YOLIE CHAPA, RN * Brief Op Note - Emily Callejas MD - 03/07/2020 0400 EST Brief Post-Op Note Date of Surgery: 03/07/2020 Surgeon: Dr. Cline Assistants: Emily Callejas MD PGY4 and Nelda Jasmine MS3 Pre-Op Diagnosis: Internal hernia, small bowel perforation Post-Op Diagnosis: Small bowel internal hernia and small bowel diverticulosis Procedure(s): Exploratory laparotomy, small bowel resection and anastamosis Findings: Small bowel (jejunum) diverticulum involved in a small bowel internal hernia within adhesive bands in the lower right quadrant. Slightly ischemic appearing bowel involved in internal hernia. 3 large diverticulum removed with specimen - about 1 foot of small bowel. Incidental Meckel's diverticulum noted that was not resected. All relevant anatomy was identified and preserved. Anesthesia Type: General Estimated Blood Loss: Unless otherwise noted, there was no blood loss, specimens removed, cultures obtained, or drains retained. The estimated blood loss was less than 50 mL Fluids: Crystalloids 1600cc mL of fluid replacement. Urine Output: 450cc Specimens/Cultures: Small bowel was sent for Routine Pathology Drains/Packs: None Wound Class: II - Clean-Contaminated (Entry into respiratory, alimentary, genital, or urinary tractin controlled conditions.) Complications: None Disposition and Condition: Remedios Toro was sent to PACU in Good condition. Plan: NPO with mIVF NGT to LCWS Activity as tolerated Repeat labs after OR Of note patient is a [employer], and does not consent to any blood products Emily Callejas MD 03/07/2020 6:55 General Surgery PGY-4 Pager [phone] documented in this encounter Plan of Treatment Pending Results Name Type Priority Associated Diagnoses Date /Time POC US SICU CARDIAC Imaging Routine 03/07 1:47 EST Scheduled Orders Name Type Priority Associated Diagnoses Orde r Schedule POC US SICU CARDIAC Imaging Routine One T serafin for 1 Occurrences starting 03/07/2020 until 03/07/2020 Scheduled Referrals Name Type Priority Associated Diagnoses Order Schedule PROVIDER FOLLOW-UP INSTRUCTIONS Outpatient Referral Routine Ordered: 03/13/2020 AMB CONS/FOLLOW UP HOME HEALTH SERVICES Outpatient Referral Routine Intra-abdominal abscess (HCC-CMS) Ordered: 03/13/2020 AMB CONS/FOLLOW UP TRAUMA/CRITICAL CARE Outpatient Referral Routine Internal hernia Ordered: 03/13/2020 PROVIDER FOLLOW-UP INSTRUCTIONS Outpatient Referral Routine Ordered: 03/13/2020 documented as of this encounter Procedures Procedure Name Priority Date/Time Associated Diagnosis Comments ECG REPORT - SCANNED 04/28/2020 11:38 EST POCT GLUCOSE, INTERFACED Routine 03/11/2020 7:50 EST POC US VAT LINE PLACEMENT Routine 03/11/2020 6:24 EST COMPLETE BLOOD COUNT AND DIFFERENTIAL Routine 03/10/2020 5:54 EST BUN Routine 03/10/2020 5:54 EST MAGNESIUM Routine 03/10/2020 5:54 EST CREATININE Routine 03/10/2020 5:54 EST ELECTROLYTES Routine 03/10/2020 5:54 EST POC US VAT LINE PLACEMENT Routine 03/09/2020 17:23 EST URINE CHEMICAL (DIP) & SEDIMENT (MICRO) WITH REFLEX TO CULTURE Routine 03/09/2020 16:56 EST COMPLETE BLOOD COUNT AND DIFFERENTIAL Routine 03/09/2020 6:33 EST BUN Routine 03/09/2020 6:33 EST MAGNESIUM Routine 03/09/2020 6:33 EST CREATININE Routine 03/09/2020 6:33 EST ELECTROLYTES Routine 03/09/2020 6:33 EST BUN Routine 03/08/2020 6:10 EST MAGNESIUM Routine 03/08/2020 6:10 EST CREATININE Routine 03/08/2020 6:10 EST ELECTROLYTES Routine 03/08/2020 6:10 EST DIFFERENTIAL, AUTOMATED MANUAL Today 03/08/2020 6:09 EST COMPLETE BLOOD COUNT AND DIFFERENTIAL Routine 03/08/2020 6:09 EST POC US VAT LINE PLACEMENT Routine 03/07/2020 12:07 EST COMPLETE BLOOD COUNT AND DIFFERENTIAL STAT 03/07/2020 7:57 EST BUN STAT 03/07/2020 7:57 EST CREATININE STAT 03/07/2020 7:57 EST ELECTROLYTES STAT 03/07/2020 7:57 EST SURGICAL PATHOLOGY Routine 03/07/2020 3: 29 EST LAPAROTOMY, EXPLORATORY 03/07/2020 1:29 EST Intra-abdominal abscess ([facility]) ZZCOVID-19 TEST UVC LAB PCR Today 03/06/2020 23:22 EST COVID-19 TESTING Routine 03/06/2020 23:2 2 EST TYPE AND SCREEN STAT 03/06/2020 23:10 EST BACTERIAL CULTURE, BLOOD Routine 03/06/2020 23:09 EST BACTERIAL CULTURE, BLOOD Routine 03/06/2020 23:09 EST LACTIC ACID STAT 03/06/2020 23:09 EST LIPASE STAT 03/06/2020 23:09 EST COMPREHENSIVE METABOLIC PANEL (CMP) STAT 03/06/2020 23:09 EST COMPLETE BLOOD COUNT AND DIFFERENTIAL STAT 03/06/2020 23:[address] OUTSIDE IMAGES BODY Routine 0 22:[address] OUTSIDE IMAGES BODY Routine 0 22:31 EST documented in this encounter Results * ECG REPORT - SCANNED (04/28/2020 11:38 EST) 04/28/2020 11:3 8 EST Scan 2 Laboratory Coordinator PROCEDURE/MINOR JAIME GICAL ORDERABLES * (ABNORMAL) POCT GLUCOSE, INTERFACED (03/11/2020 7:50 EST) Glucose, POC 106(H) 70 - 100 mg/dL 03/11/2020 7:50 EST [facility] real estate internship ID [id number] 03/11/2020 7:50 EST [facility] SERVICES HN LAB POC COMMENT (GLUCOSE) Test Performed by Nursing Services 03/11/2020 7:50 EST [facility] Blood CAPILLARY BLOOD / Unknown 03/11/2020 7:50 EST 03/11/2020 7:50 EST Codey Cline MD PhD POINT OF CARE TE ST ORDERABLES [facility] [address] [place] [address] * POC US VAT LINE PLACEMENT (03/11/2020 6:24 EST) Narrative 03/11/2020 6:24 EST This is a non-reportable exam. Codey Cline MD PhD IMG US POC ORDER LISA * MAGNESIUM (03/10/2020 5:54 EST) Magnesium 2.2 1.7 - 2.8 mg/dL 03/10/2020 6:56 EST [facility] Blood VENOUS BLOOD / Unknown Venipuncture / Unknown 03/10/2020 5:54 EST 03/10/2020 6:23 EST Sukhi Preston MD CHEMISTRY & BLOOD GA S ORDERABLES Performing Organization Address [facility] de Phone Number [facility] [address] [place] [address] * (ABNORMAL) CREATININE (03/10/2020 5:54 EST) Creatinine 0.44(L) 0.52 - 1.04 mg/dL 03/10/2020 6:56 EST [facility] eGFR 96 >60 mL/min/1.7 3m2 03/10/2020 6:56 [facility] Comment:eGFR calculated liz bazan CKD-EPI equation for non- Americans. Multiply eGFR by 1.16 for patients. Blood VENOUS BLOOD / Unknown Venipuncture / Unknown 03/10/2020 5:54 EST 03/10/2020 6:23 EST Sukhi Preston MD CHEMISTRY & BLOOD GA S ORDERABLES Performing Organization Address [facility] Co de Phone Number [facility] [address] [place] [address] * BUN (03/10/2020 5:54 EST) BUN 12 10 - 26 mg/dL 03/10/2020 6:56 [facility] Blood VENOUS BLOOD / Unknown Venipuncture / Unknown 03/10/2020 5:54 EST 03/10/2020 6:23 EST Sukhi Preston MD CHEMISTRY & BLOOD GA S ORDERABLES Performing Organization Address [facility] de Phone Number [facility] [address] [place] [address] * (ABNORMAL) ELECTROLYTES (03/10/2020 5:54 EST) Sodium 135(L) 136 - 145 mEq/L 03/10/2020 6:56 [facility] Potassium 4.2 3.5 - 5.0 mEq/L 03/10/2020 6:56 [facility] Chloride 98 96 - 110 mEq/L 03/10/2020 6:56 [facility] CO2 Total 34(H) 22 - 32 mEq/L 03/10/2020 6:56 [facility] Blood VENOUS BLOOD / Unknown Venipuncture / Unknown 03/10/2020 5:54 EST 03/10/2020 6:23 EST Sukhi Preston MD CHEMISTRY & BLOOD GA S ORDERABLES Performing Organization Address City/State/[facility] Co de Phone Number [facility] [address] [place] [address] * (ABNORMAL) COMPLETE BLOOD COUNT AND DIFFERENTIAL (03/10/2020 5:54 EST) WBC 12.28 4.00 - 12.40 K/cmm 03/10/2020 6:30 [facility] RBC 3.90 3.86 - 5.04 M/cmm 03/10/2020 6:30 [facility] Hemoglobin 11.7 11.6 - 15.2 gm/dL 03/10/2020 6:30 [facility] HCT 36.2 34.9 - 44.4 % 03/10/2020 6:30 [facility] MCV 93 81 - 98 fl 03/10/2020 6:30 [facility] MCH 30.0 26.7 - 33.3 pg 03/10/2020 6:30 [facility] MCHC 32.3 32.1 - 35.9 gm/dL 03/10/2020 6:30 [facility] RDW-CV 12.2 <14.7 % 03/10/2020 6:30 [facility] RDW-SD 41.4 <50.4 fl 03/10/2020 6:30 [facility] PLT 301 141 - 377 K/cmm 03/10/2020 6:30 [facility] MPV 9.0(L) 9.5 - 12.7 fl 03/10/2020 6:30 [facility] % Neutrophils 76.1 % 03/10/2020 6:30 [facility] % Lymphocytes 11.5 % 03/10/2020 6:30 [facility] % Monocytes 9.0 % 03/10/2020 6:30 [facility] % Eosinophils 2.4 % 03/10/2020 6:30 [facility] % Basophils 0.2 % 03/10/2020 6:30 [facility] % Immature Grans 0.8 % 03/10/20 20 6:30 [facility] Absolute Neutrophils 9.35(H) 2.20 - 8.85 K/cmm 03/10/2020 6:30 [facility] Absolute Lymphocytes 1.41 1.09 - 3.30 K/cmm 03/10/2020 6:30 [facility] Absolute Monocytes 1.10(H) 0.10 - 0.80 K/cmm 03/10/2020 6:30 [facility] Absolute Eosinophils 0.29 0.03 - 0.61 K/cmm 03/10/2020 6:30 [facility] ABS Basophils 0.03 0.01 - 0.11 K/cmm 03/10/2020 6:30 [facility] Absolute Immature Grans 0.10(H) 0.00 - 0.06 K/cmm 03/10/2020 6:30 [facility] Type of Differential: Auto 03/10/2020 6:30 [facility] Blood VENOUS BLOOD / Unknown Venipuncture / Unknown 03/10/2020 5:54 EST 03/10/2020 6:21 EST Sukhi Preston MD PACKAGES & DNA PROBE ORDERABLES [facility] [address] [place] [id number] * POC US VAT LINE PLACEMENT (03/09/2020 17:23 EST) Narrative 03/09/2020 17:23 EST This is a non-reportable exam. Myrna Martinez MD IMG US POC ORDERABLE S * (ABNORMAL) URINE CHEMICAL (DIP) & SEDIMENT (MICRO) WITH REFLEX TO CULTURE (03/09/2020 16:56 EST) Color UA Yellow Colorless, Yellow 03/10/2020 8:19 [facility] Clarity UA Cloudy(A) Clear 03/10/2020 8:19 [facility] Glucose UA Negative Negative 03/10/2020 8:19 [facility] Bilirubin UA Negative Negative 03/10/2020 8:19 [facility] Ketones UA Negative Negative 03/10/2020 8:19 [facility] Specific [place], Urine 1.017 1.001 - 1.035 03/10/2020 8:19 [facility] Blood UA Negative Negative 03/10/2020 8:19 [facility] Urobilinogen UA 4(A) Normal mg/dL 03/10/2020 8:19 [facility] Nitrite UA Negative Negative 03/10/2020 8:19 [facility] Leukocyte Esterase UA Negative Negative 03/10/2020 8:19 [facility] Protein UA Trace(A) Negative 03/10/2020 8:19 [facility] pH, UA 8.5(H) 4.6 - 8.0 03/10/2020 8:19 [facility] Urine RBC Count, Auto 3 - 10(A) 0 - 2 Cells/HPF 03/10/2020 8:19 [facility] Urine WBC Count, Auto 0 - 3 0 - 3 Cells/HPF 03/10/2020 8:19 [facility] Urine Squamous Count, Auto Few(A) None Seen Cells/HPF 03/10/2020 8:19 [facility] Urine Hyaline Cast Count, Auto <=10 <=10 Casts/LPF 03/10/2020 8:19 [facility] Urine Bacteria Count, Auto None Seen None Seen Bacteria/HP F 03/10/2020 8:19 [facility] Urine Crystals Many Starch Crystals(A) None Seen 03/10/2020 8:19 [facility] Urine URINE SPECIMEN COLLECTION, CLEAN CATCH / Unknown Urine Collect / Unknown 03/09/2020 16:56 EST 03/09/2020 17:01 [facility] - 03/10/2020 8:19 EST NOTE: Reflex to Urine Culture test is not indicated based on Urine Sediment Analysis results. Urine Sediment Analysis results are unreliable on urines that are unrefrigerated for >2 hrs or refrigerated >8 hrs. Myrna Martinez MD URINALYSIS ORDERABLE S Performing Organization Address City/[facility] Co de Phone Number [facility] [address] [place] [address] * MAGNESIUM (03/09/2020 6:33 EST) Magnesium 2.2 1.7 - 2.8 mg/dL 03/09/2020 7:23 EST [facility] Blood VENOUS BLOOD / Unknown Venipuncture / Unknown 03/09/2020 6:33 EST 03/09/2020 6:47 EST Sukhi Preston MD CHEMISTRY & BLOOD GA S ORDERABLES Performing Organization Address [facility] de Phone Number [facility] [address] [place] [address] * (ABNORMAL) CREATININE (03/09/2020 6:33 EST) Creatinine 0.36(L) 0.52 - 1.04 mg/dL 03/09/2020 7:23 EST [facility] eGFR 102 >60 mL/min/1.7 3m2 03/09/2020 7:23 EST [facility] Comment:eGFR calculated liz bazan CKD-EPI equation for non- Americans. Multiply eGFR by 1.16 for patients. Blood VENOUS BLOOD / Unknown Venipuncture / Unknown 03/09/2020 6:33 EST 03/09/2020 6:47 EST Sukhi Preston MD CHEMISTRY & BLOOD GA S ORDERABLES Performing Organization Address [facility] Co de Phone Number [facility] [address] [place] [address] * BUN (03/09/2020 6:33 EST) BUN 12 10 - 26 mg/dL 03/09/2020 7:23 EST [facility] Blood VENOUS BLOOD / Unknown Venipuncture / Unknown 03/09/2020 6:33 EST 03/09/2020 6:47 EST Sukhi Preston MD CHEMISTRY & BLOOD GA S ORDERABLES Performing Organization Address [facility] Co de Phone Number [facility] [address] [place] [address] * (ABNORMAL) ELECTROLYTES (03/09/2020 6:33 EST) Sodium 134(L) 136 - 145 mEq/L 03/09/2020 7:23 [facility] Potassium 4.4 3.5 - 5.0 mEq/L 03/09/2020 7:23 [facility] Chloride 96 96 - 110 mEq/L 03/09/2020 7:23 [facility] CO2 Total 35(H) 22 - 32 mEq/L 03/09/2020 7:23 [facility] Blood VENOUS BLOOD / Unknown Venipuncture / Unknown 03/09/2020 6:33 EST 03/09/2020 6:47 EST Sukhi Preston MD CHEMISTRY & BLOOD GA S ORDERABLES Performing Organization Address [facility] Co de Phone Number [facility] [facility] [address] [place] [address] * (ABNORMAL) COMPLETE BLOOD COUNT AND DIFFERENTIAL (03/09/2020 6:33 EST) WBC 14.53(H) 4.00 - 12.40 K/cmm 03/09/2020 6:51 [facility] RBC 4.04 3.86 - 5.04 M/cmm 03/09/2020 6:51 [facility] Hemoglobin 12.2 11.6 - 15.2 gm/dL 03/09/2020 6:51 [facility] HCT 37.0 34.9 - 44.4 % 03/09/2020 6:51 [facility] MCV 92 81 - 98 fl 03/09/2020 6:51 [facility] MCH 30.2 26.7 - 33.3 pg 03/09/2020 6:51 [facility] MCHC 33.0 32.1 - 35.9 gm/dL 03/09/2020 6:51 [facility] RDW-CV 12.1 <14.7 % 03/09/2020 6:51 [facility] RDW-SD 41.1 <50.4 fl 03/09/2020 6:51 [facility] PLT 290 141 - 377 K/cmm 03/09/2020 6:51 [facility] MPV 8.8(L) 9.5 - 12.7 fl 03/09/2020 6:51 [facility] % Neutrophils 81.1 % 03/09/2020 6:51 [facility] % Lymphocytes 8.0 % 03/09/2020 6:51 [facility] % Monocytes 9.8 % 03/09/2020 6:51 [facility] % Eosinophils 0.3 % 03/09/2020 6:51 [facility] % Basophils 0.3 % 03/09/2020 6:51 [facility] % Immature Grans 0.5 % 03/09/20 20 6:51 [facility] Absolute Neutrophils 11.79(H) 2.20 - 8.85 K/cmm 03/09/2020 6:51 [facility] Absolute Lymphocytes 1.16 1.09 - 3.30 K/cmm 03/09/2020 6:51 [facility] Absolute Monocytes 1.42(H) 0.10 - 0.80 K/cmm 03/09/2020 6:51 [facility] Absolute Eosinophils 0.05 0.03 - 0.61 K/cmm 03/09/2020 6:51 [facility] ABS Basophils 0.04 0.01 - 0.11 K/cmm 03/09/2020 6:51 [facility] Absolute Immature Grans 0.07(H) 0.00 - 0.06 K/cmm 03/09/2020 6:51 [facility] Type of Differential: Auto 03/09/2020 6:51 [facility] Blood VENOUS BLOOD / Unknown Venipuncture / Unknown 03/09/2020 6:33 EST 03/09/2020 6:40 EST Sukhi Preston MD PACKAGES & DNA PROBE ORDERABLES Performing Organization Address City/[facility] Co de Phone Number [facility] [address] [place] [address] * MAGNESIUM (03/08/2020 6:10 EST) Magnesium 2.1 1.7 - 2.8 mg/dL 03/08/2020 7:15 EST [facility] Blood VENOUS BLOOD / Unknown Venipuncture / Unknown 03/08/2020 6:10 EST 03/08/2020 6:45 EST Sukhi Preston MD CHEMISTRY & BLOOD GA S ORDERABLES Performing Organization Address [facility] Phone Number [facility] [address] [place] [address] * (ABNORMAL) CREATININE (03/08/2020 6:10 EST) Creatinine 0.38(L) 0.52 - 1.04 mg/dL 03/08/2020 7:15 EST [facility] eGFR 100 >60 mL/min/1.7 3m2 03/08/2020 7:15 [facility] Comment:eGFR calculated liz g CKD-EPI equation for non- Americans. Multiply eGFR by 1.16 for patients. Blood VENOUS BLOOD / Unknown Venipuncture / Unknown 03/08/2020 6:10 EST 03/08/2020 6:45 EST Sukhi Preston MD CHEMISTRY & BLOOD GA S ORDERABLES Performing Organization Address [facility] Co de Phone Number [facility] [address] [place] [address] * BUN (03/08/2020 6:10 EST) BUN 12 10 - 26 mg/dL 03/08/2020 7:14 EST [facility] Blood VENOUS BLOOD / Unknown Venipuncture / Unknown 03/08/2020 6:10 EST 03/08/2020 6:45 EST Sukhi Preston MD CHEMISTRY & BLOOD GA S ORDERABLES Performing Organization Address [facility] Co de Phone Number [facility] [address] [place] [address] * (ABNORMAL) ELECTROLYTES (03/08/2020 6:10 EST) Sodium 133(L) 136 - 145 mEq/L 03/08/2020 7:15 [facility] Potassium 4.0 3.5 - 5.0 mEq/L 03/08/2020 7:15 [facility] Chloride 95(L) 96 - 110 mEq/L 03/08/2020 7:15 [facility] CO2 Total 30 22 - 32 mEq/L 03/08/2020 7:15 [facility] Blood VENOUS BLOOD / Unknown Venipuncture / Unknown 03/08/2020 6:10 EST 03/08/2020 6:45 EST Sukhi Preston MD CHEMISTRY & BLOOD GA S ORDERABLES Performing Organization Address [facility] Co de Phone Number [facility] [address] [place] [address] * (ABNORMAL) DIFFERENTIAL, AUTOMATED MANUAL (03/08/2020 6:09 EST) % Neutrophils 86.2 % 03/08/2020 7:45 [facility] % Banded Neutrophils 0.9 % 03/08/2020 7:45 [facility] % Lymphocytes 4.3 % 03/08/2020 7:45 [facility] % Monocytes 8.6 % 03/08/2020 7:45 [facility] Toxic Granulation Present 03/08/2020 7:45 [facility] Vacuolated Neutrophils Present 03/08/2020 7:45 [facility] Absolute Neutrophils 16.01(H) 2.20 - 8.85 K/cmm 03/08/2020 7:45 [facility] Absolute Bands 0.17 K/cmm 03/08/2020 7:45 [facility] Absolute Lymphocytes 0.80(L) 1.09 - 3.30 K/cmm 03/08/2020 7:45 [facility] Absolute Monocytes 1.60(H) 0.10 - 0.80 K/cmm 03/08/2020 7:45 [facility] Blood VENOUS BLOOD / Unknown Venipuncture / Unknown 03/08/2020 6:09 EST 03/08/2020 6:36 EST Sukhi Preston MD HEMATOLOGY & PF4 ORD ERABLES [facility] [address] [place] [address] * (ABNORMAL) COMPLETE BLOOD COUNT AND DIFFERENTIAL (03/08/2020 6:09 EST) WBC 18.57(H) 4.00 - 12.40 K/cmm 03/08/2020 6:51 [facility] RBC 4.04 3.86 - 5.04 M/cmm 03/08/2020 6:51 [facility] Hemoglobin 12.3 11.6 - 15.2 gm/dL 03/08/2020 6:51 [facility] HCT 36.4 34.9 - 44.4 % 03/08/2020 6:51 [facility] MCV 90 81 - 98 fl 03/08/2020 6:51 [facility] MCH 30.4 26.7 - 33.3 pg 03/08/2020 6:51 [facility] MCHC 33.8 32.1 - 35.9 gm/dL 03/08/2020 6:51 [facility] RDW-CV 12.1 <14.7 % 03/08/2020 6:51 [facility] RDW-SD 40.1 <50.4 fl 03/08/2020 6:51 [facility] PLT 300 141 - 377 K/cmm 03/08/2020 6:51 [facility] MPV 9.4(L) 9.5 - 12.7 fl 03/08/2020 6:51 [facility] Type of Differential: Manual 03/08/2020 6:51 EST [facility] Blood VENOUS BLOOD / Unknown Venipuncture / Unknown 03/08/2020 6:09 EST 03/08/2020 6:36 EST Sukhi Preston MD PACKAGES & DNA PROBE ORDERABLES Performing Organization Address [facility] de Phone Number [facility] [address] [place] [address] * POC US VAT LINE PLACEMENT (03/07/2020 12:07 EST) Narrative 03/07/2020 12:07 EST This is a non-reportable exam. Codey Cline MD PhD IM US POC ORDER LISA * (ABNORMAL) CREATININE (03/07/2020 7:57 EST) Creatinine 0.48(L) 0.52 - 1.04 mg/dL 03/07/2020 8:30 EST [facility] eGFR 93 >60 mL/min/1.7 3m2 03/07/2020 8:30 EST [facility] Comment:eGFR calculated liz g CKD-EPI equation for non- Americans. Multiply eGFR by 1.16 for patients. Blood VENOUS BLOOD / Unknown Venipuncture / Unknown 03/07/2020 7:57 EST 03/07/2020 8:01 EST Emily Callejas MD CHEMISTRY & BLOOD GA S ORDERABLES Performing Organization Address City/[facility] Co de Phone Number [facility] [address] [place] [address] * BUN (03/07/2020 7:57 EST) BUN 13 10 - 26 mg/dL 03/07/2020 8:30 EST [facility] Blood VENOUS BLOOD / Unknown Venipuncture / Unknown 03/07/2020 7:57 EST 03/07/2020 8:01 EST Emily Callejas MD CHEMISTRY & BLOOD GA S ORDERABLES Performing Organization Address City/[facility] Co de Phone Number [facility] [address] [place] [address] * (ABNORMAL) ELECTROLYTES (03/07/2020 7:57 EST) Sodium 129(L) 136 - 145 mEq/L 03/07/2020 8:30 [facility] Potassium 3.5 3.5 - 5.0 mEq/L 03/07/2020 8:30 [facility] Chloride 96 96 - 110 mEq/L 03/07/2020 8:30 [facility] CO2 Total 27 22 - 32 mEq/L 03/07/2020 8:30 [facility] Blood VENOUS BLOOD / Unknown Venipuncture / Unknown 03/07/2020 7:57 EST 03/07/2020 8:01 EST Emily Callejas MD CHEMISTRY & BLOOD GA S ORDERABLES Performing Organization Address [facility] Co de Phone Number [facility] [address] [place] [address] * (ABNORMAL) COMPLETE BLOOD COUNT AND DIFFERENTIAL (03/07/2020 7:57 EST) Pathologist [facility] WBC 21.01(H) 4.00 - 12.40 K/cmm 03/07/2020 8:11 [facility] RBC 4.28 3.86 - 5.04 M/cmm 03/07/2020 8:11 [facility] Hemoglobin 13.2 11.6 - 15.2 gm/dL 03/07/2020 8:11 [facility] HCT 38.2 34.9 - 44.4 % 03/07/2020 8:11 [facility] MCV 89 81 - 98 fl 03/07/2020 8:11 [facility] MCH 30.8 26.7 - 33.3 pg 03/07/2020 8:11 [facility] MCHC 34.6 32.1 - 35.9 gm/dL 03/07/2020 8:11 [facility] RDW-CV 12.1 <14.7 % 03/07/2020 8:11 [facility] RDW-SD 39.3 <50.4 fl 03/07/2020 8:11 [facility] PLT 272 141 - 377 K/cmm 03/07/2020 8:11 [facility] MPV 9.1(L) 9.5 - 12.7 fl 03/07/2020 8:11 [facility] % Neutrophils 87.7 % 03/07/2020 8:11 [facility] % Lymphocytes 3.6 % 03/07/2020 8:11 [facility] % Monocytes 7.7 % 03/07/2020 8:11 [facility] % Eosinophils 0.0 % 03/07/2020 8:11 [facility] % Basophils 0.2 % 03/07/2020 8:11 [facility] % Immature Grans 0.8 % 03/07/20 20 8:11 [facility] Absolute Neutrophils 18.43(H) 2.20 - 8.85 K/cmm 03/07/2020 8:11 [facility] Absolute Lymphocytes 0.76(L) 1.09 - 3.30 K/cmm 03/07/2020 8:11 [facility] Absolute Monocytes 1.62(H) 0.10 - 0.80 K/cmm 03/07/2020 8:11 [facility] Absolute Eosinophils 0.00(L) 0.03 - 0.61 K/cmm 03/07/2020 8:11 [facility] ABS Basophils 0.04 0.01 - 0.11 K/cmm 03/07/2020 8:11 [facility] Absolute Immature Grans 0.16(H) 0.00 - 0.06 K/cmm 03/07/2020 8:11 [facility] Type of Differential: Auto 03/07/2020 8:11 [facility] Blood VENOUS BLOOD / Unknown Venipuncture / Unknown 03/07/2020 7:57 EST 03/07/2020 8:01 EST Emily Callejas MD PACKAGES & DNA PROBE ORDERABLES [facility] [address] [place] [address] * SURGICAL PATHOLOGY (03/07/2020 3:29 EST) Final Diagnosis A. SMALL BOWEL, SEGMENTAL RESECTION: - Transmural ischemia/gangrenou s necrosis, consistent with incarcerated hernia - Serosal adhesions - Pericolic fat necrosis - Reactive lymphadenopathy 03/17/2020 13:07 [facility] Attestation There was significant resident/fellow involvement in the diagnostic evaluation of this case. By the signature below, the attending physician certifies that they have personally conducted a gross and/or microscopic examination of the described specimens and rendered or confirmed the above diagnosis. 03/17/2020 13:07 [facility] at 1307 Clinical History Intra-abdominal abscess 03/17/2020 13:07 [facility] Gross Description A. Received in normal saline labelled with proper patient identification (initials F, C) and small bowel are two unoriented segments of small bowel attached by and mesentery which measures segment (26.2 cm in length x 5.8 cm in luminal circumference) and the shortest segment (5.8 cm in length x 5.6 cm in luminal circumference), received closed and stapled at both ends, with a moderate amount of attached firm hyperemic mesentery with a large central region of hemorrhage and attached suppurative material. That mucosa towards the ends of the larger segment appears uninvolved and is arce.brown with folds; however, the mucosa in the central region of the specimen is edematous. Within the central part of the specimen exist 2 submucosal abscesses that communicate with the lumen, the 1st measuring 3.9 x 3.5 x 1.2 cm with a possible perforation and serosal puckering and the 2nd measuring 3.8 x 3.2 x 2.1 cm. The serosa overlying these abscesses is nodular, hemorrhagic and has supportive material adherent to the surface. There are multiple diverticula throughout the central region of the specimen towards the end of the specimen the serosa is pink-arce and smooth. The uninvolved mucosa is arce-brown and has typical folds. The average wall thickness is 0.8 cm. The smaller segment appears uninvolved. One mesenteric lymph node was identified measuring 0.6 x 0.6 x 0.5 cm. Sewing Pattern Layout Technician sections are submitted as follows: INK SIMMS Blue - possible perforation site/serosal puckering BLOCK SIMMS A1- margin of long segment, adjacent staple line A2- margin of short segment, adjacent to staple line A3-A4- 1st abscess wall including normal mucosa A5- 2nd abscess wall including normal mucosa A6- diverticulum A7- senior account representative of small segment A8- 1 lymph node Apryl Schwartz MD 03/10/2020 14:13 03/17/2020 13:07 EST [facility] Resident/Yoshi w: Apryl Schwartz MD 03/17/2020 13:07 EST [facility] Performing Lab [facility] 13:07 EST [facility] Scanned Images 03/17/2020 13:07 EST [facility] Tissue ENTIRE COLON / Unknown 03/07/2020 3:29 EST 03/07/2020 13:45 EST Codey Cline MD PhD PATHOLOGY ORDERA BLES Performing Organization Address [facility] Co de Phone Number [facility] [address] [place] [address] * COVID-19 TEST [facility] PCR (03/06/2020 23:22 EST) Swab ENTIRE NASOPHARYNX / Unknown Swab / Unknown 03/06/2020 23:22 EST 03/06/2020 23:26 EST Myrna De Los Santos MD MICROBIOLOGY - GENER AL ORDERABLES Performing Organization Address [facility]/ZIP Co de Phone Number [facility] [address] [place] [address] * COVID-19 TESTING (03/06/2020 23:22 EST) COVID-19 rt-PCR Result Negative Negative 03/07/2020 12:12 EST [facility] Comment: This test has not been FDA cleared or approved. This test has been authorized by FDA under an EUA for use by authorized laboratories. This test has been authorized only for detection of nucleic acid from 2019-nCoV, not for any other viruses or pathogens. This test is only authorized for the duration of the declaration that circumstances exist justifying the authorization of emergency use of in vitro diagnostic tests for detection and/or diagnosis of 2019-nCoV under section 564(b)(1) of Act, 21 U.S.C ?? 360bbb-3(b) (1), unless the authorization is terminated or revoked sooner. Negative results do not preclude 2019-nCoV infection and should not be used as the sole basis for treatment or other patient management decisions. Negative results must be combined with clinical observations, patient history, and epidemiological information. Performed on the [employer] [place] Fusion instrument Performing Lab [place] [facility] 03/07/2020 12:12 EST [facility] Swab ENTIRE NASOPHARYNX / Unknown Swab / Unknown 03/06/2020 23:22 EST 03/06/2020 23:26 EST Myrna De Los Santos MD MICROBIOLOGY - GENER AL ORDERABLES Performing Organization Address City/[facility]/ZIP Co de Phone Number [facility] [address] [place] [address] * TYPE AND SCREEN (03/06/2020 23:10 EST) ABO O 03/07/2020 0:07 [facility] Rh Factor Positive 03/07/2020 0:07 [facility] Antibody Screen Negative 03/07/2020 0:07 [facility] Specimen Expires: 03/09/2020 @ 23:59 03/07/2020 0:07 [facility] Blood VENOUS BLOOD / Unknown Venipuncture / Unknown 03/06/2020 23:10 EST 03/06/2020 23:26 EST Myrna De Los Santos MD BLOOD BANK TESTS Performing Organization Address City/[facility]/ZIP Co de Phone Number [facility] [address] [place] [address] * BACTERIAL CULTURE, BLOOD (03/06/2020 23:09 EST) Organism ID No Growth at 5 days 03/12/2020 0:45 EST [facility] Blood VENOUS BLOOD / Unknown Blood Culture / Unknown 03/06/2020 23:09 EST 03/07/2020 0:37 EST Myrna De Los Santos MD MICROBIOLOGY - GENER AL ORDERABLES Performing Organization Address City/[facility]/ZIP Co de Phone Number [facility] [address] [place] [address] * BACTERIAL CULTURE, BLOOD (03/06/2020 23:09 EST) Organism ID No Growth at 5 days 03/12/2020 0:45 EST [facility] Blood VENOUS BLOOD / Unknown Blood Culture / Unknown 03/06/2020 23:09 EST 03/07/2020 0:37 EST Myrna De Los Santos MD MICROBIOLOGY - GENER AL ORDERABLES Performing Organization Address [facility] de Phone Number [facility] [address] [place] [address] * LIPASE (03/06/2020 23:09 EST) Lipase 15 <251 U/L 03/06/2020 23:37 EST [facility] Blood VENOUS BLOOD / Unknown Venipuncture / Unknown 03/06/2020 23:09 EST 03/06/2020 23:28 EST Myrna De Los Santos MD CHEMISTRY & BLOOD GA S ORDERABLES Performing Organization Address City/[facility]/ZIP Co de Phone Number [facility] [address] [place] [address] * LACTIC ACID (03/06/2020 23:09 EST) Lactic Acid 0.9 <=2.0 mmol/L 03/06/2020 23:37 EST [facility] Blood VENOUS BLOOD / Unknown Venipuncture / Unknown 03/06/2020 23:09 EST 03/06/2020 23:28 EST Myrna De Los Santos MD CHEMISTRY & BLOOD GA S ORDERABLES Performing Organization Address City/[facility]/ZIP Co de Phone Number [facility] [address] [place] [id number] * (ABNORMAL) COMPREHENSIVE METABOLIC PANEL (CMP) (03/06/2020 23:[address] [facility]) Sodium 130(L) 136 - 145 mEq/L 03/06/2020 23:37 [facility] Potassium 3.8 3.5 - 5.0 mEq/L 03/06/2020 23:37 [facility] Chloride 93(L) 96 - 110 mEq/L 03/06/2020 23:37 [facility] CO2 Total 31 22 - 32 mEq/L 03/06/2020 23:37 [facility] Glucose 126(H) 70 - 100 mg/dL 03/06/2020 23:37 [facility] BUN 13 10 - 26 mg/dL 03/06/2020 23:37 [facility] Creatinine 0.43(L) 0.52 - 1.04 mg/dL 03/06/2020 23:37 [facility] eGFR 96 >60 mL/min/1.7 3m2 03/06/2020 23:37 [facility] Comment:eGFR calculated liz bazan CKD-EPI equation for non- Americans. Multiply eGFR by 1.16 for patients. Total Protein 6.2(L) 6.3 - 8.2 g/dL 03/06/2020 23:37 [facility] Albumin 3.4 3.4 - 4.9 g/dL 03/06/2020 23:37 [facility] Alkaline Phosphatase 55 38 - 126 U/L 03/06/2020 23:37 [facility] AST 18 15 - 46 U/L 03/06/2020 23:37 [facility] ALT 9 <35 U/L 03/06/2020 23:37 [facility] Bilirubin, Total 0.9 <1.4 mg/dL 03/06/20 20 23:37 [facility] Calcium 8.6 8.5 - 10.5 mg/dL 03/06/2020 23:37 [facility] Calculated Calcium 9.1 8.5 - 10.5 mg/dL 03/06/2020 23:37 [facility] Blood VENOUS BLOOD / Unknown Venipuncture / Unknown 03/06/2020 23:09 EST 03/06/2020 23:28 EST Myrna De Los Santos MD CHEMISTRY & BLOOD GA S ORDERABLES [facility] [address] [place] [address] * (ABNORMAL) COMPLETE BLOOD COUNT AND DIFFERENTIAL (03/06/2020 23:08 EST) WBC 18.54(H) 4.00 - 12.40 K/cmm 03/06/2020 23:38 [facility] RBC 3.91 3.86 - 5.04 M/cmm 03/06/2020 23:38 [facility] Hemoglobin 11.7 11.6 - 15.2 gm/dL 03/06/2020 23:38 [facility] HCT 34.6(L) 34.9 - 44.4 % 03/06/2020 23:38 [facility] MCV 89 81 - 98 fl 03/06/2020 23:38 [facility] MCH 29.9 26.7 - 33.3 pg 03/06/2020 23:38 [facility] MCHC 33.8 32.1 - 35.9 gm/dL 03/06/2020 23:38 [facility] RDW-CV 12.2 <14.7 % 03/06/2020 23:38 [facility] RDW-SD 39.1 <50.4 fl 03/06/2020 23:38 [facility] PLT 229 141 - 377 K/cmm 03/06/2020 23:38 [facility] MPV 9.6 9.5 - 12.7 fl 03/06/2020 23:38 [facility] % Neutrophils 84.5 % 03/06/2020 23:38 [facility] % Lymphocytes 6.2 % 03/06/2020 23:38 [facility] % Monocytes 8.3 % 03/06/2020 23:38 [facility] % Eosinophils 0.2 % 03/06/2020 23:38 [facility] % Basophils 0.2 % 03/06/2020 23:38 [facility] % Immature Grans 0.6 % 03/06/20 23:38 [facility] Absolute Neutrophils 15.65(H) 2.20 - 8.85 K/cmm 03/06/2020 23:38 [facility] Absolute Lymphocytes 1.15 1.09 - 3.30 K/cmm 03/06/2020 23:38 [facility] Absolute Monocytes 1.54(H) 0.10 - 0.80 K/cmm 03/06/2020 23:38 [facility] Absolute Eosinophils 0.04 0.03 - 0.61 K/cmm 03/06/2020 23:38 [facility] ABS Basophils 0.04 0.01 - 0.11 K/cmm 03/06/2020 23:38 [facility] Absolute Immature Grans 0.12(H) 0.00 - 0.06 K/cmm 03/06/2020 23:38 [facility] Type of Differential: Auto 03/06/2020 23:38 [facility] Blood VENOUS BLOOD / Unknown Venipuncture / Unknown 03/06/2020 23:08 EST 03/06/2020 23:26 EST Myrna De Los Santos MD PACKAGES & DNA PROBE ORDERABLES Performing Organization Address City/State/[facility] Co de Phone Number [facility] [address] [place] [address] * CT OUTSIDE IMAGES BODY (03/06/2020 22:32 EST) Narrative 03/06/2020 22:32 EST This is a non-reportable exam. Provider Unknown MD [facility] OTHER IMAGING OR DERABLES * CT OUTSIDE IMAGES BODY (03/06/2020 22:31 EST) Narrative 03/06/2020 22:31 EST This is a non-reportable exam. Provider Unknown MD [facility]ERS OTHER IMAGING OR DERABLES documented in this encounter Visit Diagnoses Diagnosis Intra-abdominal abscess (HCC-CMS)- Primary Peritoneal abscess Intra-abdominal abscess (HCC-CMS) Peritoneal abscess Internal hernia Hernia of other specified sites of abdominal cavity without mention of obstruction or gangrene Internal hernia Hernia of other specified sites of abdominal cavity without mention of obstruction or gangrene documented in this encounter Admitting Diagnoses Diagnosis Intra-abdominal abscess (HCC-CMS) Peritoneal abscess documented in this encounter Administered Medications Inactive Administered Medications - up to 3 most recent administrations Medication Order MAR Action Action Date Dose Rate Site acetaminophen (TYLENOL) tablet 650 mg 650 mg, oral, EVERY 6 HOURS PRN, Starting on Tue03/07/20 at 1259, Until Telma 03/13/20 at 1816, Pain, Fever, Routine Given 03/12/2020 22:24 EST 650 mg Given 03/09/2020 11:09 EST 650 mg dextrose 5 % and 0.45 % NaCl with KCl 20 mEq/L infusion at 75 mL/hr, intravenous, CONTINUOUS, Starting on Tue03/08/20 at 1100, Until Tue03/11/20 at 1033, Routine Rate Documented 03/11/2020 9:36 EST 75 mL/hr Rate Documented 03/11/2020 7:55 EST 75 mL/hr New Bag 03/11/2020 3:42 EST 75 mL/hr docusate sodium (COLACE) capsule 100 mg 100 mg, oral, DAILY, First dose on Tue03/12/20 at 1300, Until Discontinued, Routine Given 03/13/2020 8:17 EST 100 mg Given 03/12/2020 14:55 EST 100 mg electrolyte-A (PLASMALYTE-A) solution 125 mL/hr, intravenous, CONTINUOUS, Starting on Tue03/07/20 at 0630, Until 03/08/20 at 1039, Routine Rate Documented 03/08/2020 7:58 EST 125 mL/hr 125 mL/hr New Bag 03/08/2020 5:16 EST 125 mL/hr 125 mL/hr Rate Change 03/08/2020 1:19 EST 125 mL/hr 125 mL/hr enoxaparin (LOVENOX) injection 40 mg 40 mg, subcutaneous, AT BEDTIME, First dose (after last modification) on Tue03/07/20 at 2100, Until Discontinued, Routine Given 03/12/2020 20:38 EST 40 mg Given 03/11/2020 20:54 EST 40 mg Given 03/10/2020 21:10 EST 40 mg Abdo chapincito Tissue fluconazole (DIFLUCAN) tablet 150 mg 150 mg, oral, NOW X1, 1 dose, On Tue03/11/20 at 1045, Routine Given 03/11/2020 10:43 EST 150 mg HYDROmorphone (DILAUDID) tablet 2-4 mg 2-4 mg, oral, EVERY 3 HOURS PRN, Starting on Tue03/07/20 at 0604, Until Tue03/13/20 at 1816, Pain, 2 mg pain 3-6 4 mg pain 7+, Routine Given 03/11/2020 22:50 EST 4 mg Given 03/11/2020 2:21 EST 4 mg Given 03/08/2020 14:48 EST 4 mg HYDROmorphone (PF) (DILAUDID) 0.5 mg/0.5 mL syringe 0.2-0.4 mg 0.2-0.4 mg, intravenous, EVERY 3 HOURS PRN, Starting on Tue03/07/20 at 0604, Until Tue03/11/20 at 1033, Pain, Routine Given 03/10/2020 17:39 EST 0.2 mg Given 03/10/2020 4:03 EST 0.2 mg Given 03/10/2020 0:13 EST 0.2 mg ipratropium-albuteroL (DUONEB) 0.5 mg-3 mg(2.5 mg base)/3 mL nebulizer solution 3 mL 3 mL, nebulization, EVERY 6 HOURS PRN, Starting on Tue03/12/20 at 1330, Until Tue03/13/20 at 1816, Wheezing, Routine lactated ringers (LR) infusion at 75 mL/hr, intravenous, PACU CONTINUOUS, Starting on Tue03/07/20 at 0430, Until Tue03/07/20 at 0602, Routine, Recovery (only) New Bag 03/07/2020 5:30 EST 75 mL/hr metoCLOPramide (REGLAN) injection 10 mg 10 mg, intravenous, PRN, 1 dose, Starting on Tue03/07/20 at 0414, Until Tue03/07/20 at 0543, Nausea, Routine, Recovery (only) Given 03/07/2020 5:43 EST 10 mg nystatin (MYCOSTATIN) powder topical, 2 TIMES DAILY, 14 doses, First dose on 03/09/20 at 2100, Last dose on 03/16/20 at 0900 Given 03/13/2020 8:21 EST Given 03/12/2020 20:39 EST Given 03/12/2020 10:28 EST pantoprazole (PROTONIX) injection 40 mg 40 mg, intravenous, 2 TIMES DAILY, First dose on 03/09/20 at 1345, Until Discontinued, Routine Given 03/11/2020 9:28 EST 40 mg Given 03/10/2020 21:06 EST 40 mg Given 03/10/2020 10:54 EST 40 mg pantoprazole (PROTONIX) tablet 40 mg 40 mg, oral, DAILY, First dose on Tue03/12/20 at 0900, Until Discontinued, Routine Given 03/13/2020 8:17 EST 40 mg Given 03/12/2020 10:28 EST 40 mg piperacillin-tazobactam 4.5 g in sodium chloride (NS [...] g Given 03/06/2020 23:45 EST 4.5 g piperacillin-tazobactam 4.5 g in sodium chloride (NS MBP) 100 mL IVPB 4.5 g, intravenous, Administer over 4 Hours, EVERY 8 HOURS, 1 dose, First dose (after last modification) on Tue03/07/20 at 1000, Controlled antibiotic: has ID approved? No: ED Patient. If admitted, further doses required ID approval, Type of Therapy: Empiric, Suspected Indication (Select all that apply): Community acquired intra-abdominal infection (ICU admission), ID Consult: No, Routine Given 03/07/2020 12:00 EST 4.5 g polyethylene glycol 3350 (MIRALAX) packet 17 g 17 g, oral, DAILY, First dose on Tue03/12/20 at 1300, Until Discontinued, Routine Given 03/13/2020 8:16 EST 17 g Given 03/12/2020 14:55 EST 17 g potassium chloride in water infusion 20 mEq 20 mEq, intravenous, EVERY 2 HOURS, 2 doses, First dose on Tue03/07/20 at 1000, Last dose on Tue03/07/20 at 1200, Routine Given 03/07/2020 12:46 EST 20 mEq Given 03/07/2020 10:08 EST 20 mEq simethicone (MYLICON) chewable tablet 80 mg 80 mg, oral, EVERY 6 HOURS PRN, Starting on 03/08/20 at 2049, Until Telma 03/13/20 at 1816, Flatulence, Routine Given 03/08/2020 21:13 EST 80 mg sodium chloride 0.9 % (NS) infusion at 100 mL/hr, intravenous, PRN, Starting on Tue03/07/20 at 1155, Until 03/08/20 at 0646, Routine New Bag 03/07/2020 12:00 EST 100 mL/hr documented in this encounter Discontinued Medications Medication Sig Discontinue Reason Start Date End Da te acetaminophen (TYLENOL) 325 mg tablet Take 3 Tabs by mouth every 6 hours as needed for Pain or Fever. 03/13/2020 03/13/2020 nystatin (MYCOSTATIN) powder Apply to skin rash area BID 03/13/2020 03/13/2020 polyethylene glycol 3350 (MIRALAX) 17 gram packet Take 17 g by mouth daily. 03/13/2020 03/13/2020 docusate sodium (COLACE) 100 mg capsule Take 1 Cap by mouth daily. 03/13/2020 03/13/2020 documented as of this encounter Active and Recently Administered Medications Times are shown in EST. Scheduled Medication Order 03/11/2020 03/12/2020 03/13/2020 docusate sodium (COLACE) capsule 100 mg 100 mg, oral, DAILY, First dose on Tue03/12/20 at 1300, Until Discontinued, Routine 1455 (Given - Provider: Linda Sheth RN) 0817 (Given - Provider: Lucy Howell RN) enoxaparin (LOVENOX) injection 40 mg 40 mg, subcutaneous, AT BEDTIME, First dose (after last modification) on Tue03/07/20 at 2100, Until Discontinued, Routine 2053 (Given - Provider: Diamond Martinez RN) 2037 (Given - Provider: Gisela Aguirre, RN) fluconazole (DIFLUCAN) tablet 150 mg (COMPLETED) 150 mg, oral, NOW X1, 1 dose, On Tue03/11/20 at 1045, Routine 1043 (Given - Provider: Linda Sheth RN) nystatin (MYCOSTATIN) powder topical, 2 TIMES DAILY, 14 doses, First dose on 03/09/20 at 2100, Last dose on 03/16/20 at 0900 0928 (Given - Provider: Linda Sheth RN)2053 (Given - Provider: Diamond Martinez RN) 1028 (Given - Provider: Linda Sheth RN)203 (Given - Provider: Gisela Aguirre RN) 0821 (Given - Provider: Lucy Howell, GEOVANNA) pantoprazole (PROTONIX) injection 40 mg (CANCELED) 40 mg, intravenous, 2 TIMES DAILY, First dose on 03/09/20 at 1345, Until Discontinued, Routine 0928 (Given - Provider: Linda Sheth RN) pantoprazole (PROTONIX) tablet 40 mg 40 mg, oral, DAILY, First dose on Tue03/12/20 at 0900, Until Discontinued, Routine 1028 (Given - Provider: Linda Sheth RN) 0817 (Given - Provider: Lucy Howell RN) polyethylene glycol 3350 (MIRALAX) packet 17 g 17 g, oral, DAILY, First dose on Tue03/12/20 at 1300, Until Discontinued, Routine 1455 (Given - Provider: Linda Sheth RN) 0816 (Given - Provider: Lucy Howell, GEOVANNA) Continuous Medication Order 03/11/2020 03/12/2020 03/13/2020 dextrose 5 % and 0.45 % NaCl with KCl 20 mEq/L infusion (CANCELED) at 75 mL/hr, intravenous, CONTINUOUS, Starting on 03/08/20 at 1100, Until Tue03/11/20 at 1033, Routine 0342 (New Bag - Provider: Diamond Martinez RN)0531 (Completed - Provider: Diamond Martinez, GEOVANNA)0755 (Rate Documented - Provider: Linda Sheth RN)0936 (Rate Documented - Provider: Linda Sheth RN)1040 (Completed - Provider: Linda Sheth RN) PRN Medication Order 03/11/2020 03/12/2020 03/13/2020 acetaminophen (TYLENOL) tablet 650 mg 650 mg, oral, EVERY 6 HOURS PRN, Starting on Tue03/07/20 at 1259, Until Telma 03/13/20 at 1816, Pain, Fever, Routine 2224 (Given - Provider: Gisela Aguirre RN) HYDROmorphone (DILAUDID) tablet 2-4 mg 2-4 mg, oral, EVERY 3 HOURS PRN, Starting on Tue03/07/20 at 0604, Until Telma 03/13/20 at 1816, Pain, 2 mg pain 3-6 4 mg pain 7+, Routine 0221 (Given - Provider: Diamond Martinez RN)2250 (Given - Provider: Diamond Martinez RN) ipratropium-albuteroL (DUONEB) 0.5 mg-3 mg(2.5 mg base)/3 mL nebulizer solution 3 mL 3 mL, nebulization, EVERY 6 HOURS PRN, Starting on Tue03/12/20 at 1330, Until Telma 03/13/20 at 1816, Wheezing, Routine ondansetron (PF) (ZOFRAN) injection 4 mg 4 mg, intravenous, EVERY 6 HOURS PRN, Starting on Tue03/07/20 at 0604, Until Telma 03/13/20 at 1816, Nausea, Vomiting, Routine simethicone (MYLICON) chewable tablet 80 mg 80 mg, oral, EVERY 6 HOURS PRN, Starting on Tue03/08/20 at 2049, Until Telma 03/13/20 at 1816, Flatulence, Routine documented in this encounter Orders Medications Ordered That Johnnie ht Not Have Been Administered Count Last Ordered Date First Ordered Date ipratropium-albuteroL (DUONE B) 0.5 mg-3 mg(2.5 mg base)/3 mL nebulizer solution 3 mL 2 03/12/2020 HYDROmorphone (PF) (DILAUDID ) 0.5 mg/0.5 mL syringe 1 03/09/2020 acetaminophen (TYLENOL) solu tion unit dose cup 995 mg 1 03/07/2020 acetaminophen (TYLENOL) tablet 1,000 mg 2 1 05/08/2019 atropine 0.1 mg/mL syringe 0.5 mg 1 020 diphenhydrAMINE (BENADRYL) i njection 12.5 mg 1 03/07/2020 enoxaparin (LOVENOX) injection 40 mg 1 07/2019 fentaNYL citrate (PF) injection 25-50 mcg 1 03/07/2020 naloxone (NARCAN) injection 0.2 mg 1 2019 ondansetron (PF) (ZOFRAN) injection 4 mg 1 03/07/2020 oxyCODONE (ROXICODONE) immed iate release tablet 5-10 mg 1 03/07/2020 piperacillin-tazobactam 4.5 g in sodium chloride (NS MBP) 100 mL IVPB 1 03/07/2020 sodium chloride 0.9 % irrigation 1 03/07/20 20 Diet Count Last Ordered Date First Orde red Date DISCHARGE DIET 1 03/13/2020 Nursing Count Last Ordered Date First Orde red Date ACTIVITY INSTRUCTIONS 1 03/13/2020 BATHING INSTRUCTIONS 1 03/13/2020 DRIVING INSTRUCTIONS 1 03/13/2020 WOUND CARE INSTRUCTIONS 1 03/13/2020 CLAMP NASOGASTRIC TUBE 1 03/10/2020 NGUYEN CATHETER - DISCONTINUE 1 03/08/2020 NURSING COMMUNICATION 2 03/08/20202019 Consult Count Last Ordered Date First Orde red Date CONSULT RESPIRATORY CARE 1 03/12/2020 PT Count Last Ordered Date First Orde red Date PT EVALUATION AND TREAT 1 03/09/2020 IV Count Last Ordered Date First Orde red Date IV REQUEST 6 03/11/2020 03/07/2020 Admission Count Last Ordered Date First Orde red Date ADMIT TO INPATIENT 1 03/07/2020 Transfer Count Last Ordered Date First Orde red Date TEACHING SERVICE 1 03/07/2020 ED BED REQUEST 1 03/06/2020 Discharge Count Last Ordered Date First Orde red Date DISCHARGE PATIENT 1 03/13/2020 Legal Count Last Ordered Date First Orde red Date MISCELLANEOUS DISCHARGE INSTRUCTIONS 3 03/04 Equipment Count Last Ordered Date First Orde red Date WALKER ROLLING 1 03/11/2020 Case Request Count Last Ordered Date First Orde red Date CASE REQUEST OPERATING ROOM 1 03/07/2020 documented in this encounter Care Teams Limehouse Worker Relationship Specialty Start Date End Date Betzaida Pina MD [address] [place] [id number] PCP - General 03/06/20 Oc Pang MD [address] [phone] 03/06/20 documented as of this encounter
--- OUTSIDE RECORDS SUMMARY | 2023-10-31 21:21 | XMS_ITS | Encounter Summary ---
Author Organization [facility] Address [address] [place] [address] Care Team Providers Care Personal Support Worker Name Role Phone Betzaida Pina MD Primary Care Provider [phone] Oc Pang MD Unavailable Reason for Visit * Reason Onset Date Comments Other 03/20/2020 Returning Call 03/20/2020 Encounter Details Date Type Department Care Team (Late st Contact Info) Description 03/20/2020 Telephone [facility] Acute Care Surgery - [facility] [address] [place] [address] Trauma, Surgery, Other; Returning Call Social History Tobacco Use Types Packs/Day Years [...] Telephone Encounter - Linda Mast, RN - 03/20/2020 1638 EST Phone call with Hilda at [facility]. She went to remove franck today. The distal end of incision is draining. She removed most of the franck, but not at the distal end due to drainage. She stated patient didn't notice it. It's serous drainage. No Temp, 97.2. She is seeing her PCP tomorrow 03/21/2020. She is aware we see her on 04/01/2020. A lot of reassurance in regards to the incision. The urine/output is concerning more than the incision. She will keep us updated and call prn Patient is s/p Principal Procedure: Ex lap, small bowel resection, primary anastomosis and closure Date: 03/06/2020 * Telephone Encounter - Elsa Linder - 03/20/2020 1623 EST Call nurse back. * Telephone Encounter - Agustina Peter - 03/20/2020 1223 EST Concerns regarding wound. At distal end of wound looks like it has dehised. Has some redness aroundwound. Started having blood in urine. No signs or symptoms of UTI. Bryce tinged, and nurse sees a little pus. PCP was called and They asked if we could see her. If nurse doesn't answer please leave her a message. Hilda feels she should be seen. documented in this encounter Plan of Treatment Not on file documented as of this encounter Visit Diagnoses Not on filedocumented in this encounter Care Teams Personal Support Worker Relationship Specialty Start Date End Date Betzaida Pina MD [address] [place] [phone] PCP - General 03/06/20 Oc Pang MD [address] [phone] 03/06/20 documented as of this encounter
--- OUTSIDE RECORDS SUMMARY | 2023-10-31 21:22 | XMS_ITS | Encounter Summary ---
Author Organization [facility] Address [address] [place] [address] Care Team Providers Care Auto Body Estimator Name Role Phone Betzaida Pina MD Primary Care Provider [phone] Oc Pang MD Unavailable Reason for Visit * Reason Comments [facility]t perfed abdomen with infectious process. Arrives AOx3, talking in full sentences, skin PWD, VSS, NAD. * Auth/Cert Specialty Diagnoses / Procedures Referred By Contac t Referred To Contact Diagnoses Intra-abdominal abscess (HCC-CMS) Internal hernia Bowel peroration Referral ID Status Reason Start Date Expiration Date Visits Re quested Visits Authorized [id number] 1 1 Encounter Details Date Type Department Care Team (Late st Contact Info) Description 03/07/2020 1:10 EST - 03/07/2020 5:30 EST Surgery [facility] Main [place] [address] [place] [address] Codey Cline MD PhD [address] [place] [address] LAPAROTOMY, EXPLORATORY, small bowel resection [06190 (CPT??)] Surgery Details Date/Time Status Location OR Service Patient Class Case Class Case Type Trauma Case? 03/07/20 0110 Posted [facility] OR MOR 01 General Emergency B - Less than 1 hour Panel 1 Procedure LRB Anes Op Region Wound Class Comments LAPAROTOMY, EXPLORATORY, sma ll bowel resection N/A General Abdomen Class I/ Clean Surgeon Surgeon Role Service Panel Codey Cline MD PhD Primary General 1 Emily Callejas MD Resident - Assisting General 1 documented in this encounter Social History Tobacco [...] Sign Reading Time Taken Comments Blood Pressure 151/68 03/07/2020 0530 EST Pulse 78 03/06/2020 2201 EST Temperature 36.5 ??C (97.7 ??F) 03/07/2020 0503 EST Respiratory Rate 18 03/07/2020 0530 EST Oxygen Saturation 98% 03/07/2020 0530 EST Inhaled Oxygen Concentration - - Weight - [...] Problems Diagnosis Date Noted ??? *Intra-abdominal abscess ([facility]) 03/06/2020 Added automatically from request for surgery [id number] ??? Internal hernia 03/07/2020 Resolved Hospital Problems [...] CT [facility]. [facility] and anastomosis [...] Procedure Component Value Units Date/Time SURGICAL PATHOLOGY [[id number]] Collected: 03/07/20 032 Lab Status: In process Specimen: Tissue from Colon Updated: 12/04/20 1346 Well appearing, resting in chair Reg [...] Follow-up Appointment Please call our clinic at [phone] with any questions or concerns. You will be seen in about one week for staple removal and about 2-3 weeks for follow up. Authorizing Provider: Sukhi Preston MD Home Health Agency-Other I certify that this patient is under my care and that I, or another Medicare authorized non-physician practitioner (PA or BELT CUTTER) or resident working with me, had a ivnv-wn-xcyg encounter with this patient on this date: 03/13/2020 I further certify that the xypj-ck-hbog encounter was in whole or in part related to the reason thepatient needs home health care.: Yes The patient has had a puwd-fn-wcvu visit by me or one of my [...] Skilled Care Requested: Nursing asessment Physical Therapy long term assessment needed related to this encounter: Post [...] Disposition Code Departure Means Destination Home-Health Care Svc Home documented in this encounter Progress Notes * Liz Stein, PT - 03/13/[address] [facility] Rehabilitation Therapy Acute Therapy [facility] Physical Therapy Discontinue/Discharge Note Date of Service: 03/13/2020 Mobility Precautions Activity: Activity as tolerated SUBJECTIVE: Reporting Person Comment: n/a - patient declining mobility as she is planning to discharge home today. OBJECTIVE: PatientProfile: Patient is a 79 y.o. female admitted on 03/06/2020 secondary to Intra-abdominal abscess ([facility]) [K65.1] Internal hernia [K45.8] The patient lives at [address] [place] [address] Interventions Completed Today: Interventions Included: No interventions [...] Comments: front wheeled walker - provided by CM Pager: [phone] Liz Stein PT 03/13/2020 12:00 * Elizabet Pang - 03/13/2020 1050 EST CM Discharge Note CASE MANAGEMENT DISCHARGE NOTE DISCHARGE DATE/TIME: 03-13-20/ 2:00 PM DESTINATION: Home TRANSPORTATION: Friend Rebecca providing transportation home. ACCEPTING MD AND NUMBER: Betzaida Pina MD at [phone] RN REPORT/UNIT: [phone] GENERAL MANAGER/CHARGE/MD NOTIFIED (Y/N): yes IM SIGNED (Y/NA): Completed & copy given to pt. HOME HEALTH: Pt will receive nursing & PT services from [facility]. DME: [facility] rolling walker PHARMACY/PRESCRIPTIONS: Pt [...] needs that pt may have. Elizabet Pang SEWAGE PLANT OPERATOR #[id number] * Venkata Cheng, RT - 03/12/2020 [...] no longer needs a commode chair. I informedMaria Glin that I have obtained a walker & [...] plan is discharge home on Tuesday with [facility] nursing & PT & Meds to bed. Elizabet Pang SEWAGE PLANT OPERATOR #[id number] * Liz Stein, PT - 03/12/[address] [facility] Therapy Acute Therapy [facility] Physical Therapy Encounter Note Date of Service: 03/12/2020 Subjective/Objective Subjective Reporting Person Comment: I'm aiming to go home on Tuesday. Pain Evaluation Select Specific Pain Scale: Numeric Numeric Pain Scale Numeric Pain Level (Scale 1-10): 0 Objective Time: 4120-7658 Total Treatment Time (minutes): 30 Timed Code [...] to therapy session, After therapy session By: [id number] communication About Patient Status and Referrals: Patient [...] results found for: ZINCMZN, COPPER, THIAMINE, FOLATE, [id number], METMMETHY, VITEALPH, RETINOL, VITD No results found [...] comfort. RD following Vidya Farrell MS, RD, ESME Lynn 3 Dietitian Pager: [phone] via pager or PAS * Elizabet Pang - 03/11/2020 1342 EST Case Management Note 03-11-20: Per PT's note pt will need home health PT, commode chair & a walker at discharge. I met with pt to discuss the recommendation for home health & she is in agreement. We reviewed the [place] [facility] Choice List & pt accepted services with [facility]. Pt signed the choice list & was given a copy for her records. I contacted the bench worker at [facility] & made a referral for nursing, PT & a MAID CLEANING COOKING for pt. Per PT pt will need a rolling walker. We reviewed the [place] Vendor Choice List & pt chose Orth[facility] [...] her [facility]. She stated that her s.o. works for [employer] so she will ask him if he knows where to obtain one. I also informed her that pt may need someone to [facility]. She stated that she will work on this & let me know what she comes up with. Will await call back from patient's daughter. Elizabet Pang SEWAGE PLANT OPERATOR #[id number] * Liz Stein, PT - 03/11/[address] [facility] Therapy Acute Therapy [facility] Physical Therapy Contact Note Date of Service: 03/11/2020 PT treatment attempted this morning as planned from yesterday. Patient stating she wants to wait ontherapy because she needs to use the bathroom and attempt to eat. PT will plan to f/u this afternoon vs tomorrow as able. Recommend continued ambulation/mobility with nursing staff assist as tolerated. Pager: [phone] Liz Stein PT 03/11/2020 11:30 * Sukhi [...] bedtime, scds, ambulate Sukhi Preston MD ACS [id number] Associated attestation - Codey Cline MD PhD - 03/11/2020 193 EST Attending attestation statement: I saw and examined the patient on 03/11/2020 and agree with the findings and plans as documented in the resident/CORPORATE PILOT note. - Tolerating PO. Mild distention with Tympany. Discussed with patient importance of going slowly with diet. Codey Cline MD PhD Acute Care Surgery Pager #[phone] * Liz Stein, PT - 03/10/[address] [facility] Therapy Acute Therapy [facility] [place] Physical Therapy Initial Evaluation Note Date of [...] admitted on 03/06/2020 secondary to Intra-abdominal abscess (HCC-CMS) [K65.1] Internal hernia [K45.8] The patient lives at [address] [place] [address] History of Present Illness / Injury Current [...] plan and goals. Interventions Completed Today: Time: 5958-9368 Total Treatment Time (minutes): 35 Timed Code [...] to therapy session, After therapy session By: Htsq-ib-sfdu communication About Mobility and Gait: Mobility status, [...] by the physical therapist and/or physical therapist surgical first assistant when medically appropriate Frequency: As determined [...] front wheeled walker and bedside commode Pager: [phone] Liz Stein PT 03/10/2020 15:54 * Elizabet Pang - 03/10/2020 1312 EST Case Management Note 03-10-20: Spoke with Jones BROWN & pt is not medically ready [...] pt will require at discharge. Elizabet Pang SEWAGE PLANT OPERATOR #[id number] * Sukhi Preston MD - 03/10/2020 [...] findings and plans as documented in the resident/CORPORATE PILOT note. Doing well post-operatively. Pain controlled. +F/-BM. NGT in place. Abdomen soft, appropriately TTP, [place] in place with velma-incisional ecchymoses. Clamp trial. Minimize lab draws - Pt is JW and does not accept blood products. Codey Cline MD PhD Acute Care Surgery Pager #[phone] * Scott Cruz, SRINIVAS - 03/10/2020 1027 EST Nutrition Initial Assessment: [...] skin Scott Cruz, MS RD CD Pager: [phone] * Myrna Martinez MD - 03/09/2020 3103 EST Surgery Progress Note Chief Complaint: Intraabdominal [...] bedtime Clementine Barbour MD PGY1 03/08/20 6:41 Pager#[phone] Associated attestation - Nick Tavarez MD - 03/08/2020 7803 EST I saw and examined this patient with the residents and agree with the above note as it relates to the observations that were made and the treatment plan that was proposed. My specific comments follow: Satisfactory post op course. Await return of bowel function * Elizabet Pang - 03/07/2020 0935 EST Initial Case Management/Social Work Assessment and Discharge Plan/Readmission Risk Assessment REASON FOR ADMISSION: Intra-abdominal abscess (HCC-CMS). Pt had a small bowel resection & anastomosis. She has a hx of Diabetes, HTN, HLD, RA & Asthma. Patient understands reason for admission: Yes PATIENT CONTACT INFO VERIFIED: Yes Eugenia: daughter: [phone] PATIENT ADDRESS VERIFIED: Yes Type of housing (single family, condo, apartment, half-way, single room occupancy, [facility] funded hotel room, group residential) - apt Who does the patient live [...] Type of Healthcare Directive: Durable power of privacy attorney for health care Copy in Chart: Yes, previous copy on file @ [facility] DIRECTIVES FOR FINANCES: Directive For Finances: No TRANSPORTATION: Transportation: Family, Self CULTURAL, LATTER-DAY and/or LANGUAGE factors affecting health care/discharge planning: [...] Pt lives alone in senior housing in [place]. She stated that cardiology teacher she was independent in her ADL's & home management. She uses a cane to ambulate . She still does all her own driving. She stated that her daughter is very supportive & assists her as needed at home. She has a friend Rebecca Brice who is also very supportive & can assist pt if needed. Pt was not using any services cardiology teacher. Discussed Meds to bed & pt would like this service at discharge. Enrolled pt in Meds to bed. Will follow & assist pt with any other discharge needs that may arise. ELIZABET PANG SEWAGE PLANT OPERATOR #[id number] 03/07/2020 9:42 documented in this encounter [...] given Zosyn and transferred to [facility]. At [facility], after pain medication, she states that the [...] Date ??? Diabetes mellitus (HCC-CMS) ??? Hypertension Tubal ligation Social History Family [...] chief resident and Marlyn ACS attending. Sukhi Preston MD PGY-2 Pager #[phone] Associated attestation - Codey Cline MD PhD - 03/08/20202026 EST Attending attestation statement: I saw and examined the patient on 03/07/2020 and agree with the findings and plans as documented in the resident/CORPORATE PILOT note. Remedios Toro is a 79 y.o. [...] for operative exploration. Of note, patient is [place]. Does not accept any blood products. Minimize blood draws. Ifblood draws needed, draw in pediatric tubes. Codey Cline MD PhD Acute Care Surgery Pager #[phone] documented in this encounter Procedure Notes * Coty Man RN - 03/11/2020 0647 EST Ultrasound dynamic guidance was used for peripheral line insertion. Name of dining room attendant cafeteria: Coty Villa RN LDAINFO BLOCK Peripheral IV [...] met? (chart all reasons) Antibiotics administered IV 03/11/20647 Date Dressing Changed 03/11/20 03/11/20647 Dressing date clearly marked on PIV site? Yes 03/11/20647 Site Assessment Clean/Dry/Intact 03/11/20647 Line Status Blood returned;Capped;Flushed 03/11/20647 Dressing Status/Care Changed/New;Site Cleaned 03/11/20647 Dressing Type [...] DATE: 03/07/2020 SURGEON: Codey Cline MD, PhD HARPOONER: 1. Emily Callejas MD 2. Nelda Jasmine MS3 PREOPERATIVE DIAGNOSIS: Internal hernia, small bowel perforation. POSTOPERATIVE DIAGNOSIS: Small bowel internal hernia and small bowel diverticulosis with no perforation. PROCEDURE: Exploratory laparotomy and small bowel resection with anastomosis. ANESTHESIA: General. INDICATIONS: Remedios Toro is an 79-year-old female with a past medical history notable for diabetes, hypertension, hyperlipidemia, who presented as a transfer from [facility] with a chief complaint of right lower quadrant abdominal pain, acute on chronic, with CT imaging demonstrating intra-abdominal abscesses and a concern for bowel perforation. The patient stated that she initially began having pain about a month prior, but noted increasing abdominal pain in the last 24 hours, prompting presentation to [facility]. At [facility], she began to have leukocytosis to 20 [...] PhD / Emily Callejas MD / Confirmation: [id number] Dictation ID: [id number] cc: Codey Cline MD, PhD, [facility] - Surgery, [address] [place] [address] documented in this encounter ED Notes * Andrae Harkins RN - 03/06/20202158 EST Surgical MD at bedside for initial eval. * Oc Davies MD - 03/06/20202129 EST This patient received an evaluation and medical screening exam for emergent medical conditions at the [facility] on 03/06/2020 This note was created and authored by Myrna De Los Santos MD, working under the supervision of Oc Davies MD. HPI Remedios Toro is a 79 y.o. female with a history significant for diabetes, HLD, obesity, HTN, asthma and PSH significant for bilateral tubal ligation and breast surgery who presents the ED via transfer from [facility] with right lower quadrant abdominal pain and [...] pain of moderate intensity. She [facility] where CT imaging demonstrated two [...] who presents the ED via transfer from [facility] with right lower quadrant abdominal pain and CT imaging demonstrating intra-abdominal abscess and concern for bowel perforation. Hemodynamically stable on arrival. Physical exam as docu mented above most notable for an obese 79-year-old female with tenderness to palpation in the rightlower quadrant with guarding. Differential diagnosis includes but is not limited to: Intra-abdominal abscess, bowel perforation, SBO, UTI including Pyelonephritis, Atypical [place], Cholecystitis, Biliary Colic, Pancreatitis, Diverticulitis, Appendicitis, Hepatitis, [...] Yes * Plan of Care - Gisela Lynn RN - 03/13/2020 0331 EST Data: Pt [...] 0/10. Will continue to monitor incision. GISELA LYNN RN 03/13/2020 3:31 * Plan of Care [...] 03/12/2020 5:08 * Plan of Care - Lnida Sheth RN - 03/11/2020 1140 EST Incentive [...] pain with relief.ngt continues to lcws, drainage cad designer brown than previous. Up to bsc to [...] from her mid abdominal incision. Reported to [phone] pager. AVIVA AGUILAR RN 03/07/2020 16:49 * [...] assess and monitor patient. 03/07/2020 6:48 YOLIE CHAPA RN * Brief Op Note - Emily [...] after OR Of note patient is a [place], and does not consent to any blood products Emily Callejas MD 03/07/2020 6:55 General Surgery PGY-4 Pager [phone] documented in this encounter Plan of Treatment [...] LAPAROTOMY, EXPLORATORY 03/07/2020 1:29 EST Intra-abdominal abscess ([facility]) ZZCOVID-19 TEST [facility] LAB PCR Today 03/06/2020 23:22 EST COVID-19 [...] EST) 04/28/2020 11:3 8 EST Scan 2 [place] PROCEDURE/MINOR JAIME GICAL ORDERABLES * (ABNORMAL) POCT GLUCOSE, INTERFACED (03/11/2020 7:50 EST) Glucose, POC 106(H) 70 - 100 mg/dL 03/11/2020 7:50 EST [facility] medical affairs leader ID [id number] 03/11/2020 7:50 EST [facility] HN LAB POC COMMENT (GLUCOSE) Test Performed by Nursing Services 03/11/2020 7:50 EST [facility] Blood CAPILLARY BLOOD / Unknown 03/11/2020 7:50 EST 03/11/2020 7:50 EST Codey Cline MD PhD POINT OF CARE TE ST ORDERABLES Performing Organization Address City/[facility] Co de Phone Number [facility] [address] [place] [address] * POC US VAT LINE PLACEMENT (03/11/2020 6:24 EST) Narrative 03/11/2020 6:24 EST This is a non-reportable exam. Codey Cline MD PhD IM US POC ORDER LISA * MAGNESIUM (03/10/2020 5:54 EST) Pathologist [facility] Magnesium 2.2 1.7 - 2.8 mg/dL 03/10/2020 6:56 EST [facility] Blood VENOUS BLOOD / Unknown Venipuncture / Unknown 03/10/2020 5:54 EST 03/10/2020 6:23 EST Sukhi Preston MD CHEMISTRY & BLOOD GA S ORDERABLES Performing Organization Address City/[facility]/ZIP Co de Phone Number [facility] [address] [place] [address] * (ABNORMAL) CREATININE (03/10/2020 5:54 EST) Creatinine 0.44(L) 0.52 - 1.04 mg/dL 03/10/2020 6:56 EST [facility] eGFR 96 >60 mL/min/1.7 3m2 03/10/2020 6:56 [facility] Comment:eGFR calculated liz bazan CKD-EPI equation for non- Americans. Multiply eGFR by 1.16 for patients. Blood VENOUS BLOOD / Unknown Venipuncture / Unknown 03/10/2020 5:54 EST 03/10/2020 6:23 EST Sukhi Preston MD CHEMISTRY & BLOOD GA S ORDERABLES Performing Organization Address City/[facility]/ZIP Co de Phone Number [facility] [address] [place] [address] * BUN (03/10/2020 5:54 EST) BUN 12 10 - 26 mg/dL 03/10/2020 6:56 [facility] Blood VENOUS BLOOD / Unknown Venipuncture / Unknown 03/10/2020 5:54 EST 03/10/2020 6:23 EST Sukhi Preston MD CHEMISTRY & BLOOD GA S ORDERABLES Performing Organization Address [facility] de Phone Number [facility] [address] [place] [address] * (ABNORMAL) ELECTROLYTES (03/10/2020 5:54 EST) Sodium 135(L) 136 - 145 mEq/L 03/10/2020 6:56 [facility] Potassium 4.2 3.5 - 5.0 mEq/L 03/10/2020 6:56 [facility] Chloride 98 96 - 110 mEq/L 03/10/2020 6:56 [facility] CO2 Total 34(H) 22 - 32 mEq/L 03/10/2020 6:56 [facility] Blood VENOUS BLOOD / Unknown Venipuncture / Unknown 03/10/2020 5:54 EST 03/10/2020 6:23 EST Sukhi Preston MD CHEMISTRY & BLOOD GA S ORDERABLES Performing Organization Address City/[facility]/ZIP Co de Phone Number [facility] [address] [place] [address] * (ABNORMAL) COMPLETE BLOOD COUNT AND DIFFERENTIAL (03/10/2020 5:54 EST) WBC 12.28 4.00 - 12.40 K/cmm 03/10/2020 6:30 [facility] RBC 3.90 3.86 - 5.04 M/cmm 03/10/2020 6:30 [facility] Hemoglobin 11.7 11.6 - 15.2 gm/dL 03/10/2020 6:30 [facility] HCT 36.2 34.9 - 44.4 % 03/10/2020 6:30 [facility] MCV 93 81 - 98 fl 03/10/2020 6:30 [facility] MCH 30.0 26.7 - 33.3 pg 03/10/2020 6:30 [facility] MCHC 32.3 32.1 - 35.9 gm/dL 03/10/2020 6:30 [facility] RDW-CV 12.2 <14.7 % 03/10/2020 6:30 [facility] RDW-SD 41.4 <50.4 fl 03/10/2020 6:30 [facility] PLT 301 141 - 377 K/cmm 03/10/2020 6:30 [facility] MPV 9.0(L) 9.5 - 12.7 fl 03/10/2020 6:30 [facility] % Neutrophils 76.1 % 03/10/2020 6:30 [facility] % Lymphocytes 11.5 % 03/10/2020 6:30 [facility] % Monocytes 9.0 % 03/10/2020 6:30 [facility] % Eosinophils 2.4 % 03/10/2020 6:30 [facility] % Basophils 0.2 % 03/10/2020 6:30 [facility] % Immature Grans 0.8 % 03/10/20 20 6:30 [facility] Absolute Neutrophils 9.35(H) 2.20 - 8.85 K/cmm 03/10/2020 6:30 [facility] Absolute Lymphocytes 1.41 1.09 - 3.30 K/cmm 03/10/2020 6:30 [facility] Absolute Monocytes 1.10(H) 0.10 - 0.80 K/cmm 03/10/2020 6:30 [facility] Absolute Eosinophils 0.29 0.03 - 0.61 K/cmm 03/10/2020 6:30 [facility] ABS Basophils 0.03 0.01 - 0.11 K/cmm 03/10/2020 6:30 [facility] Absolute Immature Grans 0.10(H) 0.00 - 0.06 K/cmm 03/10/2020 6:30 [facility] Type of Differential: Auto 03/10/2020 6:30 [facility] Blood VENOUS BLOOD / Unknown Venipuncture / Unknown 03/10/2020 5:54 EST 03/10/2020 6:21 EST Sukhi Preston MD PACKAGES & DNA PROBE ORDERABLES [facility] [address] [place] [address] * POC US VAT LINE PLACEMENT (03/09/2020 17:23 EST) Narrative 03/09/2020 17:23 EST This is a non-reportable exam. Myrna Martinez MD [facility] US POC ORDERABLE S * (ABNORMAL) URINE CHEMICAL (DIP) & SEDIMENT (MICRO) WITH REFLEX TO CULTURE (03/09/2020 16:56 EST) Color UA Yellow Colorless, Yellow 03/10/2020 8:19 [facility] Clarity UA Cloudy(A) Clear 03/10/2020 8:19 [facility] Glucose UA Negative Negative 03/10/2020 8:19 [facility] Bilirubin UA Negative Negative 03/10/2020 8:19 [facility] Ketones UA Negative Negative 03/10/2020 8:19 [facility] Specific [place], Urine 1.017 1.001 - 1.035 03/10/2020 8:19 [facility] Blood UA Negative Negative 03/10/2020 8:19 [facility] Urobilinogen UA 4(A) Normal mg/dL 03/10/2020 8:19 [facility] Nitrite UA Negative Negative 03/10/2020 8:19 [facility] Leukocyte Esterase UA Negative Negative 03/10/2020 8:19 [facility] Protein UA Trace(A) Negative 03/10/2020 8:19 [facility] pH, UA 8.5(H) 4.6 - 8.0 03/10/2020 8:19 [facility] Urine RBC Count, Auto 3 - 10(A) 0 - 2 Cells/HPF 03/10/2020 8:19 [facility] Urine WBC Count, Auto 0 - 3 0 - 3 Cells/HPF 03/10/2020 8:19 [facility] Urine Squamous Count, Auto Few(A) None Seen Cells/HPF 03/10/2020 8:19 [facility] Urine Hyaline Cast Count, Auto <=10 <=10 Casts/LPF 03/10/2020 8:19 [facility] Urine Bacteria Count, Auto None Seen None Seen Bacteria/HP F 03/10/2020 8:19 [facility] Urine Crystals Many Starch Crystals(A) None Seen 03/10/2020 8:19 [facility] Urine URINE SPECIMEN COLLECTION, CLEAN CATCH / Unknown Urine Collect / Unknown 03/09/2020 16:56 EST 03/09/2020 17:01 [facility] - 03/10/2020 8:19 EST NOTE: Reflex to Urine Culture test is not indicated based on Urine Sediment Analysis results. Urine Sediment Analysis results are unreliable on urines that are unrefrigerated for >2 hrs or refrigerated >8 hrs. Myrna Martinez MD URINALYSIS ORDERABLE S [facility] [address] [place] [address] * MAGNESIUM (03/09/2020 6:33 EST) Magnesium 2.2 1.7 - 2.8 mg/dL 03/09/2020 7:23 EST [facility] Blood VENOUS BLOOD / Unknown Venipuncture / Unknown 03/09/2020 6:33 EST 03/09/2020 6:47 EST Sukhi Preston MD CHEMISTRY & BLOOD GA S ORDERABLES Performing Organization Address City/[facility] Co de Phone Number [facility] [address] [place] [address] * (ABNORMAL) CREATININE (03/09/2020 6:33 EST) Creatinine 0.36(L) 0.52 - 1.04 mg/dL 03/09/2020 7:23 [facility] eGFR 102 >60 mL/min/1.7 3m2 03/09/2020 7:23 [facility] Comment:eGFR calculated liz bazan CKD-EPI equation for non- Americans. Multiply eGFR by 1.16 for patients. Blood VENOUS BLOOD / Unknown Venipuncture / Unknown 03/09/2020 6:33 EST 03/09/2020 6:47 EST Sukhi Preston MD CHEMISTRY & BLOOD GA S ORDERABLES Performing Organization Address City/[facility] Co de Phone Number [facility] [address] [place] [address] * BUN (03/09/2020 6:33 EST) BUN 12 10 - 26 mg/dL 03/09/2020 7:23 [facility] Blood VENOUS BLOOD / Unknown Venipuncture / Unknown 03/09/2020 6:33 EST 03/09/2020 6:47 EST Sukhi Preston MD CHEMISTRY & BLOOD GA S ORDERABLES Performing Organization Address City/[facility]/ZIP Co de Phone Number [facility] [address] [place] [address] * (ABNORMAL) ELECTROLYTES (03/09/2020 6:33 EST) Sodium 134(L) 136 - 145 mEq/L 03/09/2020 7:23 [facility] Potassium 4.4 3.5 - 5.0 mEq/L 03/09/2020 7:23 [facility] Chloride 96 96 - 110 mEq/L 03/09/2020 7:23 [facility] CO2 Total 35(H) 22 - 32 mEq/L 03/09/2020 7:23 [facility] Blood VENOUS BLOOD / Unknown Venipuncture / Unknown 03/09/2020 6:33 EST 03/09/2020 6:47 EST Sukhi Preston MD CHEMISTRY & BLOOD GA S ORDERABLES Performing Organization Address City/State/[facility] Co de Phone Number [facility] [address] [place] [address] * (ABNORMAL) COMPLETE BLOOD COUNT AND DIFFERENTIAL (03/09/2020 6:33 EST) WBC 14.53(H) 4.00 - 12.40 K/cmm 03/09/2020 6:51 [facility] RBC 4.04 3.86 - 5.04 M/cmm 03/09/2020 6:51 [facility] Hemoglobin 12.2 11.6 - 15.2 gm/dL 03/09/2020 6:51 [facility] HCT 37.0 34.9 - 44.4 % 03/09/2020 6:51 [facility] MCV 92 81 - 98 fl 03/09/2020 6:51 [facility] MCH 30.2 26.7 - 33.3 pg 03/09/2020 6:51 [facility] MCHC 33.0 32.1 - 35.9 gm/dL 03/09/2020 6:51 [facility] RDW-CV 12.1 <14.7 % 03/09/2020 6:51 [facility] RDW-SD 41.1 <50.4 fl 03/09/2020 6:51 [facility] PLT 290 141 - 377 K/cmm 03/09/2020 6:51 [facility] MPV 8.8(L) 9.5 - 12.7 fl 03/09/2020 6:51 [facility] % Neutrophils 81.1 % 03/09/2020 6:51 [facility] % Lymphocytes 8.0 % 03/09/2020 6:51 [facility] % Monocytes 9.8 % 03/09/2020 6:51 [facility] % Eosinophils 0.3 % 03/09/2020 6:51 [facility] % Basophils 0.3 % 03/09/2020 6:51 [facility] % Immature Grans 0.5 % 03/09/20 20 6:51 [facility] Absolute Neutrophils 11.79(H) 2.20 - 8.85 K/cmm 03/09/2020 6:51 [facility] Absolute Lymphocytes 1.16 1.09 - 3.30 K/cmm 03/09/2020 6:51 [facility] Absolute Monocytes 1.42(H) 0.10 - 0.80 K/cmm 03/09/2020 6:51 [facility] Absolute Eosinophils 0.05 0.03 - 0.61 K/cmm 03/09/2020 6:51 [facility] ABS Basophils 0.04 0.01 - 0.11 K/cmm 03/09/2020 6:51 [facility] Absolute Immature Grans 0.07(H) 0.00 - 0.06 K/cmm 03/09/2020 6:51 [facility] Type of Differential: Auto 03/09/2020 6:51 [facility] Blood VENOUS BLOOD / Unknown Venipuncture / Unknown 03/09/2020 6:33 EST 03/09/2020 6:40 EST Sukhi Preston MD PACKAGES & DNA PROBE ORDERABLES [facility] [address] [place] [address] * MAGNESIUM (03/08/2020 6:10 EST) Magnesium 2.1 1.7 - 2.8 mg/dL 03/08/2020 7:15 EST [facility] Blood VENOUS BLOOD / Unknown Venipuncture / Unknown 03/08/2020 6:10 EST 03/08/2020 6:45 EST Sukhi Preston MD CHEMISTRY & BLOOD GA S ORDERABLES Performing Organization Address City/[facility]/ZIP Co de Phone Number [facility] [address] [place] [address] * (ABNORMAL) CREATININE (03/08/2020 6:10 EST) Creatinine 0.38(L) 0.52 - 1.04 mg/dL 03/08/2020 7:15 EST [facility] eGFR 100 >60 mL/min/1.7 3m2 03/08/2020 7:15 [facility] Comment:eGFR calculated liz g CKD-EPI equation for non- Americans. Multiply eGFR by 1.16 for patients. Blood VENOUS BLOOD / Unknown Venipuncture / Unknown 03/08/2020 6:10 EST 03/08/2020 6:45 EST Sukhi Preston MD CHEMISTRY & BLOOD GA S ORDERABLES Performing Organization Address City/[facility]/ZIP Co de Phone Number [facility] [address] [place] [id number] * BUN (03/08/2020 6:10 EST) BUN 12 10 - 26 mg/dL 03/08/2020 7:14 EST [facility] Blood VENOUS BLOOD / Unknown Venipuncture / Unknown 03/08/2020 6:10 EST 03/08/2020 6:45 EST Sukhi Preston MD CHEMISTRY & BLOOD GA S ORDERABLES [facility] [address] [place] [address] * (ABNORMAL) ELECTROLYTES (03/08/2020 6:10 EST) Sodium 133(L) 136 - 145 mEq/L 03/08/2020 7:15 [facility] Potassium 4.0 3.5 - 5.0 mEq/L 03/08/2020 7:15 [facility] Chloride 95(L) 96 - 110 mEq/L 03/08/2020 7:15 [facility] CO2 Total 30 22 - 32 mEq/L 03/08/2020 7:15 [facility] Blood VENOUS BLOOD / Unknown Venipuncture / Unknown 03/08/2020 6:10 EST 03/08/2020 6:45 EST Sukhi Preston MD CHEMISTRY & BLOOD GA S ORDERABLES Performing Organization Address City/State/[facility] Co de Phone Number [facility] [address] [place] [address] * (ABNORMAL) DIFFERENTIAL, AUTOMATED MANUAL (03/08/2020 6:09 EST) % Neutrophils 86.2 % 03/08/2020 7:45 [facility] % Banded Neutrophils 0.9 % 03/08/2020 7:45 [facility] % Lymphocytes 4.3 % 03/08/2020 7:45 [facility] % Monocytes 8.6 % 03/08/2020 7:45 [facility] Toxic Granulation Present 03/08/2020 7:45 [facility] Vacuolated Neutrophils Present 03/08/2020 7:45 [facility] Absolute Neutrophils 16.01(H) 2.20 - 8.85 K/cmm 03/08/2020 7:45 [facility] Absolute Bands 0.17 K/cmm 03/08/2020 7:45 [facility] Absolute Lymphocytes 0.80(L) 1.09 - 3.30 K/cmm 03/08/2020 7:45 [facility] Absolute Monocytes 1.60(H) 0.10 - 0.80 K/cmm 03/08/2020 7:45 [facility] Blood VENOUS BLOOD / Unknown Venipuncture / Unknown 03/08/2020 6:09 EST 03/08/2020 6:36 EST Sukhi Preston MD HEMATOLOGY & PF4 ORD ERABLES Performing Organization Address [facility]/ZIP Co de Phone Number [facility] [address] [place] [address] * (ABNORMAL) COMPLETE BLOOD COUNT AND DIFFERENTIAL (03/08/2020 6:09 EST) WBC 18.57(H) 4.00 - 12.40 K/cmm 03/08/2020 6:51 [facility] RBC 4.04 3.86 - 5.04 M/cmm 03/08/2020 6:51 [facility] Hemoglobin 12.3 11.6 - 15.2 gm/dL 03/08/2020 6:51 [facility] HCT 36.4 34.9 - 44.4 % 03/08/2020 6:51 [facility] MCV 90 81 - 98 fl 03/08/2020 6:51 [facility] MCH 30.4 26.7 - 33.3 pg 03/08/2020 6:51 [facility] MCHC 33.8 32.1 - 35.9 gm/dL 03/08/2020 6:51 [facility] RDW-CV 12.1 <14.7 % 03/08/2020 6:51 [facility] RDW-SD 40.1 <50.4 fl 03/08/2020 6:51 [facility] PLT 300 141 - 377 K/cmm 03/08/2020 6:51 [facility] MPV 9.4(L) 9.5 - 12.7 fl 03/08/2020 6:51 [facility] Type of Differential: Manual 03/08/2020 6:51 [facility] Blood VENOUS BLOOD / Unknown Venipuncture / Unknown 03/08/2020 6:09 EST 03/08/2020 6:36 EST Sukhi Preston MD PACKAGES & DNA PROBE ORDERABLES Performing Organization Address City/[facility]/ZIP Co de Phone Number [facility] [address] [place] [address] * POC US VAT LINE PLACEMENT (03/07/2020 12:07 EST) Narrative 03/07/2020 12:07 EST This is a non-reportable exam. Codey Cline MD PhD IMG US POC ORDER LISA * (ABNORMAL) CREATININE (03/07/2020 7:57 EST) Creatinine 0.48(L) 0.52 - 1.04 mg/dL 03/07/2020 8:30 EST [facility] eGFR 93 >60 mL/min/1.7 3m2 03/07/2020 8:30 EST [facility] Comment:eGFR calculated liz bazan CKD-EPI equation for non- Americans. Multiply eGFR by 1.16 for patients. Blood VENOUS BLOOD / Unknown Venipuncture / Unknown 03/07/2020 7:57 EST 03/07/2020 8:01 EST Emily Callejas MD CHEMISTRY & BLOOD GA S ORDERABLES [facility] [address] [place] [address] * BUN (03/07/2020 7:57 EST) BUN 13 10 - 26 mg/dL 03/07/2020 8:30 EST [facility] Blood VENOUS BLOOD / Unknown Venipuncture / Unknown 03/07/2020 7:57 EST 03/07/2020 8:01 EST Emily Callejas MD CHEMISTRY & BLOOD GA S ORDERABLES [facility] [address] [place] [address] * (ABNORMAL) ELECTROLYTES (03/07/2020 7:57 EST) Sodium 129(L) 136 - 145 mEq/L 03/07/2020 8:30 EST [facility] Potassium 3.5 3.5 - 5.0 mEq/L 03/07/2020 8:30 [facility] Chloride 96 96 - 110 mEq/L 03/07/2020 8:30 [facility] CO2 Total 27 22 - 32 mEq/L 03/07/2020 8:30 [facility] Blood VENOUS BLOOD / Unknown Venipuncture / Unknown 03/07/2020 7:57 EST 03/07/2020 8:01 EST Emily Callejas MD CHEMISTRY & BLOOD GA S ORDERABLES [facility] [address] [place] [address] * (ABNORMAL) COMPLETE BLOOD COUNT AND DIFFERENTIAL (03/07/2020 7:57 EST) WBC 21.01(H) 4.00 - 12.40 K/cmm 03/07/2020 8:11 [facility] RBC 4.28 3.86 - 5.04 M/cmm 03/07/2020 8:11 [facility] Hemoglobin 13.2 11.6 - 15.2 gm/dL 03/07/2020 8:11 [facility] HCT 38.2 34.9 - 44.4 % 03/07/2020 8:11 [facility] MCV 89 81 - 98 fl 03/07/2020 8:11 [facility] MCH 30.8 26.7 - 33.3 pg 03/07/2020 8:11 [facility] MCHC 34.6 32.1 - 35.9 gm/dL 03/07/2020 8:11 [facility] RDW-CV 12.1 <14.7 % 03/07/2020 8:11 [facility] RDW-SD 39.3 <50.4 fl 03/07/2020 8:11 [facility] PLT 272 141 - 377 K/cmm 03/07/2020 8:11 [facility] MPV 9.1(L) 9.5 - 12.7 fl 03/07/2020 8:11 [facility] % Neutrophils 87.7 % 03/07/2020 8:11 [facility] % Lymphocytes 3.6 % 03/07/2020 8:11 [facility] % Monocytes 7.7 % 03/07/2020 8:11 [facility] % Eosinophils 0.0 % 03/07/2020 8:11 [facility] % Basophils 0.2 % 03/07/2020 8:11 [facility] % Immature Grans 0.8 % 03/07/20 20 8:11 [facility] Absolute Neutrophils 18.43(H) 2.20 - 8.85 K/cmm 03/07/2020 8:11 [facility] Absolute Lymphocytes 0.76(L) 1.09 - 3.30 K/cmm 03/07/2020 8:11 [facility] Absolute Monocytes 1.62(H) 0.10 - 0.80 K/cmm 03/07/2020 8:11 [facility] Absolute Eosinophils 0.00(L) 0.03 - 0.61 K/cmm 03/07/2020 8:11 [facility] ABS Basophils 0.04 0.01 - 0.11 K/cmm 03/07/2020 8:11 [facility] Absolute Immature Grans 0.16(H) 0.00 - 0.06 K/cmm 03/07/2020 8:11 [facility] Type of Differential: Auto 03/07/2020 8:11 [facility] Blood VENOUS BLOOD / Unknown Venipuncture / Unknown 03/07/2020 7:57 EST 03/07/2020 8:01 EST Emily Callejas MD PACKAGES & DNA PROBE ORDERABLES [facility] [address] [place] [address] * SURGICAL PATHOLOGY (03/07/2020 3:29 EST) Final Diagnosis A. SMALL BOWEL, SEGMENTAL RESECTION: - Transmural ischemia/gangrenou s necrosis, consistent with incarcerated hernia - Serosal adhesions - Pericolic fat necrosis - Reactive lymphadenopathy 03/17/2020 13:07 [facility] Attestation There was significant resident/fellow involvement in the diagnostic evaluation of this case. By the signature below, the attending physician certifies that they have personally conducted a gross and/or microscopic examination of the described specimens and rendered or confirmed the above diagnosis. 03/17/2020 13:07 [facility] at 1307 Clinical History Intra-abdominal abscess 03/17/2020 13:07 [facility] Gross Description A. [...] measuring 0.6 x 0.6 x 0.5 cm. Fishing Worker sections are submitted as follows: INK SIMMS Blue - possible perforation site/serosal puckering BLOCK SIMMS A1- margin of long segment, adjacent staple line A2- margin of short segment, adjacent to staple line A3-A4- 1st abscess wall including normal mucosa A5- 2nd abscess wall including normal mucosa A6- diverticulum A7- sales representative gas service of small segment A8- 1 lymph node Apryl Efren, MD 03/10/2020 14:13 03/17/2020 13:07 EST [facility] Resident/Yoshi w: Apryl Schwartz MD 03/17/2020 13:07 EST [facility] Performing Lab [facility] 13:07 EST [facility] Scanned Images 03/17/2020 13:07 EST [facility] Tissue ENTIRE COLON / Unknown 03/07/2020 3:29 EST 03/07/2020 13:45 EST Codey Cline MD PhD PATHOLOGY ORDERA BLECecelia Performing Organization Address [facility] Co de Phone Number [facility] [address] [place] [address] * COVID-19 TEST [facility] PCR (03/06/2020 23:22 EST) Swab ENTIRE NASOPHARYNX / Unknown Swab / Unknown 03/06/2020 23:22 EST 03/06/2020 23:26 EST Myrna De Los Santos MD MICROBIOLOGY - GENER AL ORDERABLES Performing Organization Address [facility]/ZIP Co de Phone Number [facility] [address] [place] [address] * COVID-19 TESTING (03/06/2020 23:22 EST) COVID-19 rt-PCR Result Negative Negative 03/07/2020 12:12 EST [facility] Comment: This test has [...] history, and epidemiological information. Performed on the [employer] [place] Fusion instrument Performing Lab [place] [facility] 03/07/2020 12:12 EST [facility] Swab ENTIRE NASOPHARYNX / Unknown Swab / Unknown 03/06/2020 23:22 EST 03/06/2020 23:26 EST Myrna De Los Santos MD MICROBIOLOGY - GENER AL ORDERABLES Performing Organization Address [facility] Co de Phone Number [facility] [address] [place] [address] * TYPE AND SCREEN (03/06/2020 23:10 EST) ABO O 03/07/2020 0:07 [facility] Rh Factor Positive 03/07/2020 0:07 [facility] Antibody Screen Negative 03/07/2020 0:07 [facility] Specimen Expires: 03/09/2020 @ 23:59 03/07/2020 0:07 EST [facility] Blood VENOUS BLOOD / Unknown Venipuncture / Unknown 03/06/2020 23:10 EST 03/06/2020 23:26 EST Myrna De Los Santos MD BLOOD BANK TESTS Performing Organization Address [facility] Co de Phone Number [facility] [address] [place] [address] * BACTERIAL CULTURE, BLOOD (03/06/2020 23:09 EST) Organism ID No Growth at 5 days 03/12/2020 0:45 EST [facility] Blood VENOUS BLOOD / Unknown Blood Culture / Unknown 03/06/2020 23:09 EST 03/07/2020 0:37 EST Myrna De Los Santos MD MICROBIOLOGY - GENER AL ORDERABLES Performing Organization Address [facility] Co de Phone Number [facility] [address] [place] [address] * BACTERIAL CULTURE, BLOOD (03/06/2020 23:09 EST) Organism ID No Growth at 5 days 03/12/2020 0:45 EST [facility] Blood VENOUS BLOOD / Unknown Blood Culture / Unknown 03/06/2020 23:09 EST 03/07/2020 0:37 EST Myrna De Los Santos MD MICROBIOLOGY - GENER AL ORDERABLES Performing Organization Address [facility] Co de Phone Number [facility] [address] [place] [address] * LIPASE (03/06/2020 23:09 EST) Pathologist [facility] Lipase 15 <251 U/L 03/06/2020 23:37 EST [facility] Blood VENOUS BLOOD / Unknown Venipuncture / Unknown 03/06/2020 23:09 EST 03/06/2020 23:28 EST Myrna De Los Santos MD CHEMISTRY & BLOOD GA S ORDERABLES Performing Organization Address [facility] de Phone Number [facility] [address] [place] [address] * LACTIC ACID (03/06/2020 23:09 EST) Pathologist [facility] Lactic Acid 0.9 <=2.0 mmol/L 03/06/2020 23:37 EST [facility] Blood VENOUS BLOOD / Unknown Venipuncture / Unknown 03/06/2020 23:09 EST 03/06/2020 23:28 EST Myrna De Los Santos MD CHEMISTRY & BLOOD GA S ORDERABLES Performing Organization Address [facility] de Phone Number [facility] [address] [place] [address] * (ABNORMAL) COMPREHENSIVE METABOLIC PANEL (CMP) (03/06/2020 23:09 EST) Sodium 130(L) 136 - 145 mEq/L 03/06/2020 23:37 EST [facility] Potassium 3.8 3.5 - 5.0 mEq/L 03/06/2020 23:37 EST [facility] Chloride 93(L) 96 - 110 mEq/L 03/06/2020 23:37 [facility] CO2 Total 31 22 - 32 mEq/L 03/06/2020 23:37 [facility] Glucose 126(H) 70 - 100 mg/dL 03/06/2020 23:37 [facility] BUN 13 10 - 26 mg/dL 03/06/2020 23:37 [facility] Creatinine 0.43(L) 0.52 - 1.04 mg/dL 03/06/2020 23:37 [facility] eGFR 96 >60 mL/min/1.7 3m2 03/06/2020 23:37 [facility] Comment:eGFR calculated liz bazan CKD-EPI equation for non- Americans. Multiply eGFR by 1.16 for patients. Total Protein 6.2(L) 6.3 - 8.2 g/dL 03/06/2020 23:37 [facility] Albumin 3.4 3.4 - 4.9 g/dL 03/06/2020 23:37 [facility] Alkaline Phosphatase 55 38 - 126 U/L 03/06/2020 23:37 [facility] AST 18 15 - 46 U/L 03/06/2020 23:37 [facility] ALT 9 <35 U/L 03/06/2020 23:37 [facility] Bilirubin, Total 0.9 <1.4 mg/dL 03/06/20 20 23:37 [facility] Calcium 8.6 8.5 - 10.5 mg/dL 03/06/2020 23:37 [facility] Calculated Calcium 9.1 8.5 - 10.5 mg/dL 03/06/2020 23:37 [facility] Blood VENOUS BLOOD / Unknown Venipuncture / Unknown 03/06/2020 23:09 EST 03/06/2020 23:28 EST Myrna De Los Santos MD CHEMISTRY & BLOOD GA S ORDERABLES [facility] [address] [place] [address] * (ABNORMAL) COMPLETE BLOOD COUNT AND DIFFERENTIAL (03/06/2020 23:08 [facility]) WBC 18.54(H) 4.00 - 12.40 K/cmm 03/06/2020 23:38 [facility] RBC 3.91 3.86 - 5.04 M/cmm 03/06/2020 23:38 [facility] Hemoglobin 11.7 11.6 - 15.2 gm/dL 03/06/2020 23:38 [facility] HCT 34.6(L) 34.9 - 44.4 % 03/06/2020 23:38 [facility] MCV 89 81 - 98 fl 03/06/2020 23:38 [facility] MCH 29.9 26.7 - 33.3 pg 03/06/2020 23:38 [facility] MCHC 33.8 32.1 - 35.9 gm/dL 03/06/2020 23:38 [facility] RDW-CV 12.2 <14.7 % 03/06/2020 23:38 [facility] RDW-SD 39.1 <50.4 fl 03/06/2020 23:38 [facility] PLT 229 141 - 377 K/cmm 03/06/2020 23:38 [facility] MPV 9.6 9.5 - 12.7 fl 03/06/2020 23:38 [facility] % Neutrophils 84.5 % 03/06/2020 23:38 [facility] % Lymphocytes 6.2 % 03/06/2020 23:38 [facility] % Monocytes 8.3 % 03/06/2020 23:38 [facility] % Eosinophils 0.2 % 03/06/2020 23:38 [facility] % Basophils 0.2 % 03/06/2020 23:38 [facility] % Immature Grans 0.6 % 03/06/20 20 23:38 [facility] Absolute Neutrophils 15.65(H) 2.20 - 8.85 K/cmm 03/06/2020 23:38 [facility] Absolute Lymphocytes 1.15 1.09 - 3.30 K/cmm 03/06/2020 23:38 [facility] Absolute Monocytes 1.54(H) 0.10 - 0.80 K/cmm 03/06/2020 23:38 [facility] Absolute Eosinophils 0.04 0.03 - 0.61 K/cmm 03/06/2020 23:38 [facility] ABS Basophils 0.04 0.01 - 0.11 K/cmm 03/06/2020 23:38 [facility] Absolute Immature Grans 0.12(H) 0.00 - 0.06 K/cmm 03/06/2020 23:38 [facility] Type of Differential: Auto 03/06/2020 23:38 [facility] Blood VENOUS BLOOD / Unknown Venipuncture / Unknown 03/06/2020 23:08 EST 03/06/2020 23:26 EST Myrna De Los Santos MD PACKAGES & DNA PROBE ORDERABLES Performing Organization Address [facility]/State/[facility] Co de Phone Number [facility] [address] [place] [address] * CT OUTSIDE IMAGES BODY (03/06/2020 22:32 [...] cavity without mention of obstruction or gangrene Intra-abdominal abscess (HCC-CMS) Peritoneal abscess documented in this encounter Admitting Diagnoses Diagnosis [...] mg Given 03/09/2020 11:09 EST 650 mg docusate sodium (COLACE) capsule 100 mg 100 mg, oral, DAILY, First dose on Tue03/12/20 at 1300, Until Discontinued, Routine Given 03/13/2020 8:17 EST 100 mg Given 03/12/2020 14:55 EST 100 mg enoxaparin (LOVENOX) injection 40 mg 40 mg, subcutaneous, AT BEDTIME, First dose (after last modification) on Tue03/07/20 at 2100, Until Discontinued, Routine Given 03/12/2020 20:38 EST 40 mg Given 03/11/2020 20:54 EST 40 mg Given 03/10/2020 21:10 EST 40 mg Abdo chapincito Tissue HYDROmorphone (DILAUDID) tablet 2-4 mg 2-4 mg, oral, EVERY 3 HOURS PRN, Starting on Tue03/07/20 at 0604, Until Telma 03/13/20 at 1816, Pain, 2 mg pain 3-6 4 mg pain 7+, Routine Given 03/11/2020 22:50 EST 4 mg Given 03/11/2020 2:21 EST 4 mg Given 03/08/2020 14:48 EST 4 mg ipratropium-albuteroL (DUONEB) 0.5 mg-3 mg(2.5 mg base)/3 mL nebulizer solution 3 mL 3 mL, nebulization, EVERY 6 HOURS PRN, Starting on Tue03/12/20 at 1330, Until Telma 03/13/20 at 1816, Wheezing, Routine nystatin (MYCOSTATIN) powder topical, 2 TIMES DAILY, 14 doses, First dose on 03/09/20 at 2100, Last dose on 03/16/20 at 0900 Given 03/13/2020 8:21 EST Given 03/12/2020 20:39 EST Given 03/12/2020 10:28 EST pantoprazole (PROTONIX) tablet 40 mg 40 mg, oral, DAILY, First dose on Tue03/12/20 at 0900, Until Discontinued, Routine Given 03/13/2020 8:17 EST 40 mg Given 03/12/2020 10:28 EST 40 mg polyethylene glycol 3350 (MIRALAX) packet 17 g 17 g, oral, DAILY, First dose on Tue03/12/20 at 1300, Until Discontinued, Routine Given 03/13/2020 8:16 EST 17 g Given 03/12/2020 14:55 EST 17 g simethicone (MYLICON) chewable tablet 80 mg 80 mg, oral, EVERY 6 HOURS PRN, Starting on 03/08/20 at 2049, Until Telma 03/13/20 at 1816, Flatulence, Routine Given 03/08/2020 21:13 EST 80 mg sodium chloride 0.9 % irrigation As needed, Starting on Tue03/07/20 at 0233, Until Tue03/07/20 at 0238, Routine, Intraprocedure Given 03/07/2020 2:33 EST 1,000 mL documented in this encounter Discontinued Medications Medication [...] Martinez RN) 2037 (Given - Provider: Gisela Lynn, RN) fluconazole (DIFLUCAN) tablet 150 mg (COMPLETED) [...] Linda Sheth RN)203 (Given - Provider: Gisela Lynn RN) 0821 (Given - Provider: Lucy Howell, [...] Fever, Routine 2224 (Given - Provider: Gisela Lynn RN) HYDROmorphone (DILAUDID) tablet 2-4 mg 2-4 [...] Count Last Ordered Date First Ordered Date docusate sodium (COLACE) capsule 100 mg 1 1 05/13/2019 ipratropium-albuteroL (DUONE B) 0.5 mg-3 mg(2.5 mg base)/3 mL nebulizer solution 3 mL 2 03/12/2020 polyethylene glycol 3350 ([place] RALAX) packet 17 g 1 03/12/2020 fluconazole (DIFLUCAN) tablet 150 mg 1 11/2019 pantoprazole (PROTONIX) tablet 40 mg 1 11/2019 HYDROmorphone (PF) (DILAUDID ) 0.5 mg/0.5 mL syringe 1 03/09/2020 nystatin (MYCOSTATIN) powder 1 03/09/2020 pantoprazole (PROTONIX) injection 40 mg 1 1 05/10/2019 dextrose 5 % and 0.45 % NaCl with KCl 20 mEq/L infusion 1 03/08/2020 simethicone (MYLICON) chewab le tablet 80 mg 1 03/08/2020 acetaminophen (TYLENOL) solu tion unit dose cup 995 mg 1 03/07/2020 acetaminophen (TYLENOL) tablet 1,000 mg 2 1 05/08/2019 acetaminophen (TYLENOL) tablet 650 mg 1 07/2019 atropine 0.1 mg/mL syringe 0.5 mg 1 020 diphenhydrAMINE (BENADRYL) i njection 12.5 mg 1 03/07/2020 electrolyte-A (PLASMALYTE-A) solution 1 07/2019 enoxaparin (LOVENOX) injection 40 mg 2 07/2019 fentaNYL citrate (PF) injection 25-50 mcg 1 03/07/2020 HYDROmorphone (DILAUDID) tablet 2-4 mg 1 HYDROmorphone (PF) (DILAUDID ) 0.5 mg/0.5 mL syringe 0.2-0.4 mg 1 03/07/2020 lactated ringers (LR) infusion 1 03/07/2020 metoCLOPramide (REGLAN) injection 10 mg 1 1 05/08/2019 naloxone (NARCAN) injection 0.2 mg 1 2019 ondansetron (PF) (ZOFRAN) injection 4 mg 1 03/07/2020 oxyCODONE (ROXICODONE) immed iate release tablet 5-10 mg 1 03/07/2020 piperacillin-tazobactam 4.5 g in sodium chloride (NS MBP) 100 mL IVPB 3 03/07/2020 03/06/2020 potassium chloride in water infusion 20 mEq 1 03/07/2020 sodium chloride 0.9 % (NS) infusion 1 03/07 Diet Count Last Ordered Date First Orde [...] 03/07/2020 documented in this encounter Care Teams Auto Body Estimator Relationship Specialty Start Date End Date Betzaida Pina MD [address] [place] [phone] PCP - General 03/06/20 Oc Pang MD [address] [phone] 03/06/20 documented as of this encounter
--- OUTSIDE RECORDS SUMMARY | 2023-10-31 21:22 | XMS_ITS | Encounter Summary ---
Author Organization [facility] Address [address] [place] [address] Care Team Providers Care Upper Leather Cutter Name Role Phone Unavailable Primary Care Provider Unavailabl e Encounter Details Date Type Department Care Team (Latest Contact Info) Description 10/02/2013 8:52 EDT - 10/02/2013 23:59 EDT Hospital Encounter [address] [address] Unknown, Provider, Discharge Disposition: Home or Self Care Social History Tobacco Use Types Packs/Day Years Used Date Smoking Tobacco: Never Assessed Sex and Gender Information Value Date Recorded Sex Assigned at Not on file Gender Identity Not on file Sexual Orientation Not on file documented as of this encounter Discharge Disposition Disposition Code Departure Means Destination Home or Self Usp documented in this encounter Plan of Treatment Not on file documented as of this encounter Visit Diagnoses Not on filedocumented in this encounter
--- OUTSIDE RECORDS SUMMARY | 2023-10-31 21:22 | XMS_ITS | Encounter Summary ---
Author Organization [facility] Address [address] [place] [address] Care Team Providers Care Economic Analysis Director Name Role Phone Betzaida Pina MD Primary Care Provider Oc Pang MD Unavailable Encounter Details Date Type Department Care Team (Latest Contact Info) Description 03/06/2020 Travel Social History Tobacco Use Types Packs/Day Years [...] 19:13 EST documented as of this encounter Plan of Treatment Not on file documented as of this encounter Visit Diagnoses Not on filedocumented in this encounter Care Teams Economic Analysis Director Relationship Specialty Start Date End Date Betzaida Pina MD [address] [place] [phone] PCP - General 03/06/20 Oc Pang MD [address] [phone] 03/06/20 documented as of this encounter
--- OUTSIDE RECORDS SUMMARY | 2023-10-31 21:22 | XMS_ITS | Encounter Summary ---
Author Organization [facility] Address [address] [place] [address] Care Team Providers Care Mechanic Welder Name Role Phone Betzaida Pina MD Primary Care Provider [phone] Oc Pang MD Unavailable Encounter Details Date Type Department Care Team (Latest Contact Info) Description 03/06/2020 22:32 EST - 03/06/2020 23:59 EST Hospital Encounter [facility] Secondary Reads [place] Discharge Disposition: Home [...] 19:13 EST documented as of this encounter Medications at [...] g by mouth daily. 30 Each 03/13/2020 acetaminophen (TYLENOL) 325 mg tablet Take 3 Tabs by mouth every 6 hours as needed for Pain or Fever. 03/13/2020 03/13/2020 docusate sodium (COLACE) 100 mg capsule Take 1 Cap by mouth daily. 03/13/2020 03/13/2020 nystatin (MYCOSTATIN) powder Apply to skin rash area BID 03/13/2020 03/13/2020 polyethylene glycol 3350 (MIRALAX) 17 gram packet Take 17 g by mouth daily. 03/13/2020 03/13/2020 documented as of this encounter Discharge Disposition Disposition Code Departure Means Destination Home or Self Care documented in this encounter Plan of Treatment Not on file documented as of this encounter Procedures Procedure Name Priority Date/Time Associated Diagnosis Comments CT OUTSIDE IMAGES BODY Routine 03/06/2020 22:32 EST documented in this encounter Results * CT OUTSIDE IMAGES BODY (03/06/2020 22:32 EST) Narrative 03/06/2020 22:32 EST This is a non-reportable exam. Provider Unknown MD [facility] OTHER IMAGING OR DERABLES documented in this encounter Visit Diagnoses Not on filedocumented in this encounter Care Teams Mechanic Welder Relationship Specialty Start Date End Date Betzaida Pina MD [address] [place] [phone] PCP - General 03/06/20 Oc Pang MD [place] [place] [phone] 03/06/20 documented as of this encounter
--- OUTSIDE RECORDS SUMMARY | 2023-10-31 21:22 | XMS_ITS | Encounter Summary ---
Author Organization [facility] Address [address] [place] [address] Care Team Providers Care Environmental Planning Engineer Name Role Phone Betzaida Pina MD Primary Care Provider [phone] Oc Pang MD Unavailable Encounter Details Date Type Department Care Team (Latest Contact Info) Description 03/06/2020 22:31 EST Hospital Encounter [facility] Secondary Reads [place] Discharge Disposition: Home or [...] Comments CT OUTSIDE IMAGES BODY Routine 03/06/2020 22:31 EST documented in this encounter Results * CT OUTSIDE IMAGES BODY (03/06/2020 22:31 EST) Narrative 03/06/2020 22:31 EST This is a non-reportable exam. 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
--- OUTSIDE RECORDS SUMMARY | 2023-10-31 21:22 | XMS_ITS | Encounter Summary ---
Author Organization [facility] Address [address] [place] [address] Care Team Providers Care Gis Software Developer Name Role Phone Unavailable Primary Care Provider Unavailabl e Encounter Details Date Type Department Care Team (Late st Contact Info) Description 10/02/2013 Results Only [facility] - [place] [facility] [place] [address] [place], [place] [address] Betzaida Reyna MD [address] [place] [phone] Social History Tobacco Use Types Packs/Day Years Used Date Smoking Tobacco: Never Assessed Sex and Gender Information Value Date Recorded Sex Assigned at Not on file Gender Identity Not on file Sexual Orientation Not on file documented as of this encounter Plan of Treatment Not on file documented as of this encounter Procedures Procedure Name Priority Date/Time Associated Diagnosis Comments SURGICAL PATHOLOGY Routine 10/02/2013 19 :41 EDT documented in this encounter Results * SURGICAL PATHOLOGY (10/02/2013 19:41 EDT) Pathology Report: SURGICAL PATHOLOGY REPORT Reports generated via electronic interface contain original data; however they are lacking the format of the original report. Caution should be taken when reading/interpreting unformatted reports. Name: ? KENNA TORO ? Accession #: ? [id number] ? : ? 1940 (Age: 73) ??F ? Collect Date: ? 10/02/2013 ? Location: ? [facility] ? Receive Date: ? 10/03/2013 ? Provider: BETZAIDA REYNA MD Copy to: ? Final Pathologic Diagnosis: SKIN OF CALF, RIGHT, SHAVE BIOPSY: - Squamous cell carcinoma, well differentiated, invasive. ?? - Squamous cell carcinoma present at base of shave biopsy specimen. ?? Microscopic Description: The stratum corneum is thickened by orthohyperkeratosis and parakeratosis. Emanating from the epidermis and extending into the dermis is a proliferation of atypical squamous epithelium. ??The proliferation consists of variably sized, irregular islands associated with dermal desmoplasia. ??The cells have an increased nuclear-cytoplasmic ratio and nuclear pleomorphism. ??Intercellular bridge and keratin td formation are evident. ??(Dr. Oconnor)/n Document reviewed and electronically signed by: GIL OCONNOR MD Report ??Date: 10/08/2013 14:07 By the signature above, the attending physician certifies that he/she has personally conducted a gross and/or microscopic examination of the described specimens and rendered or confirmed the above diagnosis. Specimen(s) Received: Shave biopsy right calf Clinical History: Suspicious nodule R calf Gross Description: ? Received in formalin labelled with proper patient identification (initials F, C) and R calf is a shave biopsy of an ovoid travis-white scaled centrally acre and crusted papule (0.8 x 0.7 x 0.3 cm). Bisected and submitted in [facility] 10/04/2013 08:15 AM End of Report [facility] 10/02/2013 19:4 1 EDT 10/03/2013 19:41 EDT Betzaida Reyna MD PATHOLOGY ORDERABLES [facility] [address] [place] [address] documented in this encounter Visit Diagnoses Not on filedocumented in this encounter
[2023-10-31 21:42] LABS: Anion Gap 3.2 mmol/L (3-11); BUN 20 mg/dL (7-18); CO2 34.8 mmol/L (21.0-32.0); Calcium 8.6 mg/dL (8.5-10.1); Chloride 102 mmol/L (98-107); Estimated GFR 55.55 (mL/min/1.73m2); Glucose 121 mg/dL (74-106); Potassium 3.9 mmol/L (3.5-5.1); Sodium 140 mmol/L (136-145)
[2023-10-31 22:02] LABS: Hemoglobin A1C 6.4 % (<5.7)
== END 2023-10-31 21:16 | disposition home or self-care (01) ==
LOC: NCHCN 21:15
PROVIDERS: PCP Family Medicine; Visit Provider Family Medicine
DX: E11.9 Type 2 diabetes mellitus without complications (principal); I50.9 Heart failure, unspecified
CPT/HCPCS: 80048; 83036